=== PATIENT | female | born 1955 | race Caucasian/White ===

== ENCOUNTER 2019-09-01 18:35 | Emergency (ER) | payer OTHER, SELFPAY ==
[2019-09-01 18:37] VITALS: BP 123/85; PULSE 81; PULSE 83; RESP 17; TEMP 36.4; O2SAT 95; BMI 42.1
--- NOTE | 2019-09-01 18:50 | RAD_ITS ---
STUDY: X-RAY CHEST REASON FOR EXAM: Female, 63 years old. nausea vomiting weakness. been in contact with covid TECHNIQUE: Portable chest COMPARISON: 10/14/2015 FINDINGS: There are mild bibasilar pulmonary opacities. There is no demonstrated pleural abnormality. There is stable cardiomegaly. Normal mediastinum and ronaldo. Normal visualized pulmonary arteries. Normal visualized aortic arch and descending thoracic aorta. There is mild osteopenia. There is a right humeral angela. There is no demonstrated abnormality of the visualized soft tissue structures of the upper abdomen. RAD/Chest 1 View (Portable) IMPRESSION: Stable cardiomegaly Mild bibasilar pulmonary opacities, pulmonary infiltrates and/or subsegmental atelectasis. Atypical viral pneumonia cannot be excluded Electronically Signed: Jayesh Landry, at 20:00 EDT Tel , Service support ,
--- NOTE | 2019-09-01 18:51 | EKG12_ITS ---
Test Reason : CP Blood Pressure : / mmHG Vent. Rate : 079 BPM Atrial Rate : 065 BPM P-R Int : 000 ms QRS Dur : 098 ms QT Int : 446 ms P-R-T Axes : 000 100 070 degrees QTc Int : 511 ms Atrial fibrillation Rightward axis Incomplete right bundle branch block Prolonged QT Abnormal ECG Confirmed by CEASAR DOWNS ([id number]), purchasing expeditor ZULY CATALAN ([id number]) on 09/09/2019 10:32:52 AM Referred By: LAMBERTO Confirmed By:CEASAR DOWNS
--- NOTE | 2019-09-01 19:00 | ED.DCSUM_ITS ---
History of Present Illness Chief Complaint: Nausea/Vomiting Detail of Chief Complaint: Shortness of breath, congestion, dyspnea on exertion, slight cough Informant: Patient Onset: Days - 2 to 3 days ago Context: Sudden Onset Timing: Continuous Quality: Respiratory and GI Location: Upper respiratory Current Severity: Mild Maximum Severity: Moderate Worsened by: Activity Relieved by: Nothing Associated Symptoms: Lightheadedness Narrative: Patient is a morbidly obese 63-year-old woman with history of hypertension, dyslipidemia, congestive heart failure who presents with respiratory symptoms started 2 to 3 days ago. 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 She presents because of concern COVID infection. She complains of intermittent slight headache. She denies photophobia, eye pain, auditory symptoms, neck pain or neck stiffness. She denies loss of smell or taste. She denies sore throat. She denies new chest pain. She is int ermittent chest pain for 6 months. Patient reports nausea with vomiting. She has not noted blood or coffee grounds in her emesis. She denies black or maroon-colored stool. She does complain of aches. She denies joint pain or joint swelling. She denies urinary symptoms. Prior similar symptoms: No Recent Illness/Hospitalization: No - Past Medical History (1) Gastroesophageal reflux disease Status: Chronic (2) Acute congestive heart failure Status: Acute (3) Dyslipidemia Status: Chronic (4) Morbid obesity Status: Chronic (5) Heavy cigarette smoker (20-39 per day) Status: Chronic (6) Atrial flutter with rapid ventricular response Status: Acute (7) Hypertension Status: Chronic (8) Diverticulosis Status: Chronic Past Medical History - Allergies and Home Meds Allergies/Adverse Reactions: Allergies No Known Allergies Allergy (Verified 09/01/19 18:36) Primary Care Physician: Isabela Marquez DO [Primary Care Provider] - Prior records reviewed: Yes Surgical History: noncontributory, - - Tubal ligation, excision of colon polyps, carpal tunnel surgery on the right upper extremity, surgery to repair a fracture of the right arm. Lives: Spouse/ Significant Other Smoking Status: Current every day smoker Alcohol: Rare Drugs: None - Family History Maternal Family History: Reports: Heart Disease Paternal Family History: Reports: Heart Disease Sibling Family History: Reports: Heart Disease - She has 2 younger sisters who both had coronary artery bypass grafting in their 40s. Review of Systems General: Reports: Fever, Malaise, Subjective, Sweats. Denies: Chills, Weight loss Eyes: Denies: Visual changes - bilaterally, Blurred Vision - bilaterally ENT: Reports: Rhinorrhea. Denies: Bilateral ear pain, Sore throat Cardiovascular: Reports: Chest pain. Denies: Palpitations Respiratory: Reports: Dyspnea, Cough, Dyspnea on exertion. Denies: Sputum, Orthopnea, Paroxysmal nocturnal dyspnea Gastrointestinal: Reports: Nausea, Vomiting. Denies: Abdominal pain, Diarrhea, Constipation, Melena, Hematochezia, -, - Genitourinary: Denies: Dysuria, Hematuria, Frequency Musculoskeletal: Reports: Myalgias. Denies: Arthralgias, Neck pain, Back pain, Swelling, Extremity Pain, -, - Skin: Denies: Rash, Wounds Neurological: Reports: Headache, Weakness. Denies: Parasthesia, Numbness Psych: Denies: Depression, Anxiety Hematologic: Denies: Easy bruising, Easy bleeding Physical Exam Vital Signs/Narrative: Vital Signs Temp Pulse Resp BP Pulse Ox 09/01/19 18:37 97.6 F L 83 17 123/85 H 95 Inital Vital Signs reviewed: Yes General: Well nourished, Well developed, Obese, No Acute Distress, - - Does appear ill and pale. Head: Normocephalic, Atraumatic Eyes: Perrl, EOMI. Negative for: Pale conjunctiva, Scleral icterus ENT: Moist mucous membranes, TM's clear, Nasal congestion. Negative for: No rhinorrhea Neck: Supple, Nontender, No lymphadenopathy, No JVD Cardiovascular: Regular rate, Regular rhythm, No murmurs Respiratory: No distress, Rales. Negative for: Chest nontender Abdomen: Soft, Nontender, Nondistended, Normal bowel sounds Rectal: Deferred Back: Nontender, Normal Inspection. Negative for: CVA tenderness, Spinal tenderness Extremities: Nontender, No edema Skin: No rash, Diaphoresis, No Trauma, Pallor. Negative for: Cyanosis, Jaundice Neurological: Alert, Oriented x3, Cranial nerves II-XII grossly intact, Normal Strength, Normal Sensation Psychological: Normal affect, Normal Mood Diagnostic/Tx/Re-eval Chest X-Ray - ED: 1 View, Read by ED Physician, Normal, Heart, Bony Structures, - - Question of chronic changes versus limited inspiratory volume. Radiologist report was noted and raises concern for bilateral opacifications which would increase likelihood for COVID-19 infection. Impressions Chest X-Ray 09/01/19 18:50 IMPRESSION: Stable cardiomegaly Mild bibasilar pulmonary opacities, pulmonary infiltrates and/or subsegmental atelectasis. Atypical viral pneumonia cannot be excluded Electronically Signed: Jayesh Landry, at 20:00 EDT Tel , Service support , 09/01/19 18:50 Chest 1 View (Portable) [RAD] Stat Laboratory Results 09/01/19 09/01/19 19:25 19:25 WBC 13.3 H RBC 6.01 H Hgb 17.2 H Hct 53.8 H MCV 89.5 MCH 28.6 MCHC 32.0 RDW Std Deviation 60.0 H RDW Coeff of Nhung 19.6 H Plt Count 234 MPV 11.8 Immature Gran % (Auto) 0.500 Neut % (Auto) 74.3 H Lymph % (Auto) 17.4 L Col[place]itt % (Auto) 5.2 Eos % (Auto) 1.5 Baso % (Auto) 1.1 H Absolute Neuts (auto) 9.9 H Absolute Lymphs (auto) 2.31 Nucleated RBC % 0 Sodium 138 Potassium 4.1 Chloride 105 Carbon Dioxide 26.0 Anion Gap 7 BUN 27 H Creatinine 1.22 H Estim Creat Clear Calc 38.30 Est GFR (MDRD) Af Amer 58 L Est GFR (MDRD) Non-Af 48 L BUN/Creatinine Ratio 22.1 H Glucose 180 H Calcium 9.2 - Rhythm Strip Rhythm Strip: A-fib Rate: 82 Ectopy: None - EKG Initial EKG Interpretation: Atrial Fibrillation - Ventricular rate 79. QRS duration 98 ms. QT duration 446 ms. [place] to the right. There is a nonspecific intraventricular conduction delay noted. There is prolongation of the QT interval. - Medical Decision Making In light of exposure to cope with patient's and respiratory symptoms the [facility] infectious line was contacted. She was approved for COVID testing. EKG was obtained per nurse protocol and reveals atrial fibrillation with a ventricular rate of 79. Will obtain chest x-ray because of abnormal respiratory findings as well as baseline blood work. Differential includes viral upper restaurant infection, pneumonia, congestive heart failure, COVID infection Patient does have elevated white count. She is not hypoxic. She is not tachycardic. Will treat with doxycycline for community-acquired pneumonia. She was discharged appropriate home-going instructions for COVID infection. ED Disposition - Plan for ED Patient: Disposition: Home or Assisted Living Diagnosis: Suspected 2019 novel coronavirus infection, Bilateral pulmonary infiltrates on chest x-ray, Atypical chest pain Instructions: ED PNEUMONITIS Adult, ED Chest Pain Atypical Unkn Cause Prescriptions: Doxycycline 100 mg PO BID #14 cap Transmission Status: Pending to [id number] Referrals: Isabela Marquez DO [Primary Care Provider] - 1 Week if not improving
--- NOTE | 2019-09-01 19:00 | ED.RN ---
dr [facility] to [employer] test pt
[2019-09-01 19:45] LABS: Absolute Lymphocyte Count 2.31 X10^3/uL (0.83-4.51); Absolute Neutrophil Count 9.9 X10^3/uL (2.0-7.7); Basophil# 0.15 X10^3/uL; Basophil% 1.1 % (0-1); Eosinophils% 1.5 % (0-5); Hematocrit 53.8 % (37-47); Hemoglobin 17.2 g/dL (12.0-15.0); Lymphocyte # 2.31 X10^3/ul (4.0); Lymphocyte % 17.4 % (19-41); Mean Corpuscular Hgb 28.6 pg (27.0-32.0); Mean Corpuscular Volume 89.5 fL (81-99); Mean Platelet Vol. 11.8 fl (6.2-12.0); Monocyte# 0.69 X10^3/uL; Monocyte% 5.2 % (0-10); NRBC Flagged by Analyzer 0 % (0-5); Neutrophil # 9.85 X10^3/uL (2.7-7.7); Neutrophil % 74.3 % (47-70); Platelet Count 234 K/mm3 (150-450); RBC Distribution Width CV 19.6 % (11.6-14.6); Red Blood Count 6.01 M/mm3 (4.2-5.4); White Blood Count 13.3 K/mm3 (4.4-11.0)
[2019-09-01 19:49] LABS: Anion Gap 7 (5-15); BUN 27 mg/dL (7-18); BUN/Creat Ratio 22.1 RATIO (10-20); Calcium,Total 9.2 mg/dL (8.5-10.1); Chloride 105 mmol/L (98-107); Creatinine, Serum 1.22 mg/dL (0.55-1.02); EST Glomerular Filtration Rate 48 mL/min (>60); Est Glom Filt Rate - Afr Amer 58 mL/min (>60); Glucose 180 mg/dL (74-106); Potassium 4.1 mmol/L (3.5-5.1); Sodium Level 138 mmol/L (136-145)
[2019-09-01 21:43] VITALS: BP 104/54; PULSE 89; RESP 19; O2SAT 97
[2019-09-01] MEDS: Doxycycline 100 MG CAPSULE PO (21:43)
--- NOTE | 2019-09-03 19:02 | ED.RN ---
pt made aware of negative covid test.
== END 2019-09-01 21:53 | disposition home or self-care (01) ==
LOC: ED 20:58
PROVIDERS: Emergency Provider Emergency Medicine; PCP Family Medicine
DX: R07.89 Other chest pain (principal); R91.8 Other nonspecific abnormal finding of lung field; I48.91 Unspecified atrial fibrillation; K21.9 Gastro-esophageal reflux disease without esophagitis; E78.5 Hyperlipidemia, unspecified; E66.01 Morbid (severe) obesity due to excess calories; I11.0 Hypertensive heart disease with heart failure; I50.9 Heart failure, unspecified; I48.92 Unspecified atrial flutter; K57.90 Diverticulosis of intestine, part unspecified, without perforation or abscess without bleeding; Z82.49 Family history of ischemic heart disease and other diseases of the circulatory system; F17.210 Nicotine dependence, cigarettes, uncomplicated
CPT/HCPCS: 71045; 80048; 85025; 87635; 93005; 99285; U0004

== ENCOUNTER → 2021-04-01 06:08 | Outpatient (CLI) | payer OTHER, SELFPAY ==
--- NOTE | 2021-04-01 06:15 | ECHOCS_ITS ---
Reason For Study: AFIB/FLUTTER Procedure This was a 2D Doppler, Color Flow transthoracic echocardiogram. The study was technically difficult. Due to body habitus, poor parasternal accoustic window. Contrast injection was performed. Left Ventricle Normal LV size. Left ventricular systolic function is normal. The estimated ejection fraction is 60 %. Stage 2 diastolic dysfunction. No regional wall motion abnormalities noted. Right Ventricle Normal RV size. Normal systolic function. Atria Normal left atrium. Normal right atrium. Mitral Valve Normal mitral valve. Tricuspid Valve Normal tricuspid valve. Mild (1+) tricuspid valve insufficiency. Pulmonary artery systolic pressure is 40 mmHg. Aortic Valve Trisinus/trileaflet aortic valve. Pulmonic Valve The pulmonic valve is not well visualized. Great Vessels Normal aortic root. The pulmonary is not well visualized. Normal inferior vena cava. Pericardium/Pleural No pericardial effusion. Medication Diluted definity 3.0ml given slow IV push to enhance endocardial definition. MMode/2D Measurements & Calculations LVIDd: 5.3 cm IVSd: 1.00 cm Ao root diam: 2.3 cm LVIDs: 3.6 cm LVPWd: 1.0 cm RVDd: 3.1 cm FS: 32.1 % LAV(MOD-bp): 84.4 ml LVAd ap4: 25.4 cm2 LVAd ap2: 15.3 cm2 LAV(MOD-bp) Indexed: 40.5 ml/m2 LVLd ap4: 7.2 cm LVLd ap2: 6.0 cm LAV(MOD-sp2): 79.5 ml EDV(MOD-sp4): 75.4 ml EDV(MOD-sp2): 31.8 ml LAV(MOD-sp4): 90.5 ml EDV(sp4-el): 76.0 ml EDV(sp2-el): 33.4 ml LVAs ap4: 15.3 cm2 LVAs ap2: 9.4 cm2 LVLs ap4: 6.4 cm LVLs ap2: 5.3 cm ESV(MOD-sp4): 31.4 ml ESV(MOD-sp2): 13.6 ml ESV(sp4-el): 31.1 ml ESV(sp2-el): 14.2 ml EF(MOD-sp4): 58.3 % EF(MOD-sp2): 57.3 % EF(sp4-el): 59.1 % SV(MOD-sp4): 44.0 ml SV(MOD-sp2): 18.2 ml SV(sp4-el): 44.9 ml LA A4 area: 26.7 cm2 LA dimension(2D): 4.6 cm RA A4 area: 22.6 cm2 Time Measurements MV dec time: 0.21 sec Doppler Measurements & Calculations MV E max kathi: 192.3 cm/sec Ao V2 max: 172.6 cm/sec LV V1 max: 93.9 cm/sec MV A max kathi: 121.6 cm/sec Ao max P.9 mmHg LV V1 max P.5 mmHg MV E/A: 1.6 PA V2 max: 58.7 cm/sec TR max kathi: 298.8 cm/sec TR max P.7 mmHg ECHO/Echo Complete W/ Contrast Interpretation Summary Normal LV size. Left ventricular systolic function is normal. The estimated ejection fraction is 60 %. Stage 2 diastolic dysfunction. Contrast injection was performed. Ordering Physician: Desirae^Marcelo^^^ Referring Physician: Selina Bowser Performed By: Maricruz Edmond, DAINA, RVT
--- NOTE | 2021-04-01 17:26 | STRESSREP_ITS ---
Stress Test Report Myocardial perfusion stress test. 65-year-old lady with a history of atrial flutter. Stress protocol: Resting EKG demonstrates atrial flutter with a rate of 115 bpm resting blood pressure is 130/76 mmHg. Incomplete right bundle branch block is noted. 0.4 mg of regadenoson was infused per usual protocol followed by rapid venous saline flush injection continuous EKG monitoring was performed. The maximum heart rate attained was 131 bpm which was 83% of maximum predicted heart rate the maximum workload was 1 metabolic equivalent. At rest there were no ST or T wave changes noted to suggest abnormal flow reserve. Patient remained in atrial flutter throughout the recording. At peak infusion nonspecific ST changes were noted. No clinical angina was noted. The resting blood pressure was 130/76 mmHg. Myocardial perfusion protocol. 14.8 mCi of technetium 99m sestamibi was injected at rest. 0.4 mg of regadenoson was infused per usual protocol. At peak infusion 44.6 mCi of technetium 99m sestamibi was injected stress images were obtained stress and rest images were reconstructed and compared in the short axis vertical long hor izontal long axis. Gated images were also obtained per Perfusion SPECT analysis: Review of the stress images demonstrate normal uptake of tracer noted in all areas of the myocardium. The resting images demonstrate normal uptake of tracer noted in all areas of the myocardium. No areas of reversibility are noted to suggest ischemia. Gated SPECT analysis: The gated ejection fraction is 64%. Conclusion: Normal pharmacologic myocardial perfusion stress test. Atrial flutter noted. Preserved ejection fraction.
== END ==
LOC: CVS 06:11
PROVIDERS: PCP Internal Medicine; Referring Provider Internal Medicine Cardiovascular Disease; Visit Provider Internal Medicine Cardiovascular Disease
DX: I48.92 Unspecified atrial flutter (principal)
CPT/HCPCS: 78452; 93017; 93306; A9500; Q9957; A4216; C8929; J2785; J3490

== ENCOUNTER 2021-04-15 10:34 | Day surgery (SDC) | payer OTHER, SELFPAY ==
[2021-04-12 07:56] VITALS: BMI 44.6
--- NOTE | 2021-04-12 08:45 | RAD_ITS ---
STUDY: X-RAY CHEST REASON FOR EXAM: Female, 65 years old. dyspnea TECHNIQUE: PA and lateral views of the chest. COMPARISON: 09/01/2019 FINDINGS: Coarsened interstitial lung markings more pronounced since the prior study with mild thickening of the right minor fissure. Slight amount of subpleural reticulation along the lateral lung base may represent Tyree''s B lines. No dense airspace consolidation. There is no demonstrated pleural abnormality. There is mild cardiac enlargement. Normal mediastinum and ronaldo. Normal visualized pulmonary arteries. There is atherosclerotic calcification of the aortic arch with tortuosity. No acute bony process. There is no demonstrated abnormality of the visualized soft tissue structures of the upper abdomen. RAD/Chest PA and Lateral IMPRESSION: 1. Unfavorable change. Mild interstitial edema and trace pleural thickening. Electronically Signed: Derek Enriquez MD (Brooks) at 22:30 EST , Service support ,
[2021-04-12 08:52] LABS: Absolute Lymphocyte Count 3.19 X10^3/uL (0.83-4.51); Absolute Neutrophil Count 7.9 X10^3/uL (2.0-7.7); Basophil# 0.11 X10^3/uL; Basophil% 0.9 % (0-1); Eosinophil# 0.26 X10^3/uL; Eosinophils% 2.1 % (0-5); Hematocrit 49.9 % (37-47); Hemoglobin 15.9 g/dL (12.0-15.0); Lymphocyte # 3.19 X10^3/ul (0.83-4.51); Lymphocyte % 25.4 % (19-41); Mean Corp Hgb Conc 31.9 g/dL (32-36); Mean Corpuscular Hgb 28.4 pg (27.0-32.0); Mean Corpuscular Volume 89.1 fL (81-99); Mean Platelet Vol. 12.2 fl (6.2-12.0); Monocyte# 1.06 X10^3/uL; Monocyte% 8.4 % (0-10); NRBC Flagged by Analyzer 0 % (0-5); Neutrophil # 7.89 X10^3/uL (2.7-7.7); Neutrophil % 62.6 % (47-70); Platelet Count 210 K/mm3 (150-450); RBC Distribution Width CV 16.8 % (11.6-14.6); RBC Distribution Width SD 53.5 fl (35.1-43.9); White Blood Count 12.6 K/mm3 (4.4-11.0)
[2021-04-12 09:14] LABS: Hemoglobin A1c 7.4 % (3.8-5.6)
[2021-04-12 09:38] LABS: Anion Gap 8 (5-15); BUN 24 mg/dL (7-18); BUN/Creat Ratio 25.6 RATIO (10-20); Calcium,Total 9.4 mg/dL (8.5-10.1); Chloride 103 mmol/L (98-107); Creatinine, Serum 0.94 mg/dL (0.55-1.02); EST Glomerular Filtration Rate 64 mL/min (>60); Est Glom Filt Rate - Afr Amer 77 mL/min (>60); Estimated Creatinine Clearance 48.45 ml/min; Glucose 147 mg/dL (74-106); Sodium Level 138 mmol/L (136-145)
[2021-04-12 09:49] LABS: Vitamin D,25 Hydroxy 32.1 ng/mL
[2021-04-12 10:32] LABS: Cholesterol 161 mg/dL (200); High Density Lipoprotein 37 mg/dL; Thyroid Stim Hormone (TSH) 1.97 uIU/mL (0.358-3.74); Triglycerides 243 mg/dL; Very Low Density Lipoprotein 49 mg/dL (5-40)
--- NOTE | 2021-04-15 12:20 | PCM.OP.BLANK ---
Problems Associated Problem List Diagnoses (1) Atrial flutter, chronic: Operative Report Date of Procedure: 04/15/21 DC cardioversion. 65-year-old lady with a history of recurrent atrial flutter. Patient presents for DC cardioversion. Patient has been on anticoagulation for at least 3 weeks. She was seen by Dr. Aaron of the critical care division and informed consent was obtained. Anterior-posterior pads were applied. The patient was administered 50 mg of intravenous propofol and 200 J of synchronized DC cardioversion energy were applied with prompt reversal to sinus rhythm. Patient tolerated the procedure well. Conclusion: Successful DC cardioversion from atrial flutter to sinus rhythm. Would follow office protocol. If patient reverts to atrial flutter would consider atrial flutter ablation.
--- NOTE | 2021-04-15 13:17 | PRO.PCM_ITS ---
Assessment & Plan Assessment/Plan (1) Persistent atrial fibrillation: (2) Chronic diastolic CHF (congestive heart failure): (3) Morbid obesity: (4) Tobacco dependence: Procedure Report Date of Procedure: 04/15/21 CONSCIOUS SEDATION REPORT BRIEF HISTORY OF PRESENT ILLNESS: The patient is a 65-year-old female who presented to [facility] for an elective outpatient cardioversion due to underlying atrial fibrillation. The patient reports no PO intake since midnight, but is currently therapeutic on anticoagulation. The patient does have a history of suspected obstructive sleep apnea, but is not on therapy. The patient reports a history of smoking and is suspected of having COPD. The patient denies any recent constitutional symptoms such as fevers, chills, nausea or vomiting. The patient denies previous applicable anesthetic complications. Patient's last ejection fraction was 60%. Patient did take anticoagulation on the day of the procedure. PHYSICAL EXAMINATION: VITAL SIGNS: Reviewed and were acceptable. GENERAL: The patient is a female, in no apparent distress, speaking in full sentences. HEENT: Normocephalic, atraumatic. Mucous membranes are moist and pink. Good mouth opening noted. Trachea is midline. Good neck mobility. MP IV CHEST: S1, S2 irregularly irregular. No murmurs, rubs or gallops were noted. LUNGS: Clear to auscultation bilaterally without appreciable wheezes, rales or rhonchi. ABDOMEN: Soft, nontender, nondistended. Positive bowel sounds. EXTREMITIES: There is no clubbing, cyanosis or edema. ASA Class: II DESCRIPTION OF PROCEDURE: After confirmation of informed consent, the patient's anesthesia plan was reviewed in detail. Propofol was chosen. Risks and benefits were reviewed and the patient agreed to proceed. At 12:16 PM, the patient was given 40 mg of propofol. The patient achieved an appropriate level of sedation and received 1 attempt synchronized cardioversion, at [address] Merrill at the bedside. This was successful in achieving normal sinus rhythm. The patient was monitored until 12:30 PM, at which time the patient reached their baseline mental status and function. The patient tolerated the procedure well. COMPLICATIONS: None ESTIMATED BLOOD LOSS: None RECOMMENDATIONS: Okay to recover in usual fashion. Procedures Pulmonary 9xxxx: [id number] Con Sedation
== END 2021-04-15 13:28 | disposition home or self-care (01) ==
LOC: CLSP 10:35
PROVIDERS: PCP Internal Medicine; Referring Provider Internal Medicine Cardiovascular Disease; Visit Provider Internal Medicine Cardiovascular Disease
DX: I48.19 Other persistent atrial fibrillation (principal); I11.0 Hypertensive heart disease with heart failure; I50.32 Chronic diastolic (congestive) heart failure; E66.01 Morbid (severe) obesity due to excess calories; I48.92 Unspecified atrial flutter; R53.83 Other fatigue; I48.0 Paroxysmal atrial fibrillation; E55.9 Vitamin D deficiency, unspecified; Z79.899 Other long term (current) drug therapy; Z87.891 Personal history of nicotine dependence
CPT/HCPCS: 36415; 71046; 80048; 80061; 82306; 83036; 84443; 85025; 92960; 93005; 99152; J7040

== ENCOUNTER → 2021-04-30 15:42 | Outpatient (CLI) | payer OTHER, SELFPAY ==
[2021-04-30 15:52] LABS: Bacteria 0 SEEN /hpf (None Seen); Mucous, Urine 0 SEEN /hpf (<or=2+); White Blood Cells 0 SEEN /hpf (0-5)
[2021-04-30 16:21] LABS: Color, Urine Yellow (Yellow); Glucose, Dipstick Normal (Normal); Ketone-Dipstick Negative (Negative); Leukocyte Esterase-Dipstick 25 /ul (Negative); Nitrite-Dipstick Negative (Negative); Occult Blood-Urine 250 /ul (Negative); Protein-Dipstick 15 mg/dl (Negative); Specific Gravity, Urine 1.015 (1.002-1.030); Urine Bilirubin Dipstick Negative (Negative); Urine Clarity Clear (Clear); Urine Urobilinogen Normal (Normal)
[2021-04-30 16:34] LABS: Calcium Oxalate Crystals Ur RARE /hpf (<or=2+); Red Blood Cells-Urine 0-5 SEEN /hpf (0-5); Squamous Epithelial Cells - UA 0-5 SEEN /hpf (5-10)
== END ==
PROVIDERS: PCP Internal Medicine; Referring Provider Physician Assistant Medical; Visit Provider Physician Assistant Medical
DX: R31.9 Hematuria, unspecified (principal)
CPT/HCPCS: 81001; 87086; 87088

== ENCOUNTER → 2021-05-02 13:32 | Outpatient (CLI) | payer OTHER, SELFPAY | PROVIDERS: PCP Internal Medicine; Referring Provider Internal Medicine; Visit Provider Internal Medicine | DX: R31.9 Hematuria, unspecified (principal); N39.0 Urinary tract infection, site not specified | CPT/HCPCS: 87086; 87088 ==

== ENCOUNTER 2021-05-13 13:00 | Outpatient (CLI) | payer MEDICAID, SELFPAY ==
--- NOTE | 2021-05-13 13:02 | ART_ITS ---
Reason For Study: PAD Procedure A bilateral lower extremity continuous wave Doppler with analog waveform analysis and ankle brachial indexes. Left Segmental Pressures Left brachial= 130mmHg. Left posterior tibial artery = 128mmHg. Left dorsalis pedis artery = 112mmHg. The left dorsalis pedis waveforms are triphasic. The left posterior tibial artery waveforms are triphasic. Right Segmental Pressures Right brachial= 138mmHg. Right posterior tibial artery = 126mmHg. Right dorsalis pedis artery = 113mmHg. The right dorsalis pedis waveforms are triphasic. The right posterior tibial artery waveforms are triphasic. Indices The right ankle brachial index by the dorsalis pedis is 0.82. The right ankle brachial index by the posterior tibial artery is 0.91. The left ankle brachial index by the dorsalis pedis is 0.81. The left ankle brachial index by the posterior tibial artery is 0.93. VL/Ankle Brachial Index Interpretation Summary Mildly abnormal bilateral extremity ankle-brachial indices as noted consistent with moderate to moderately severe arterial occlusive disease bilateral lower extremities. Triphasic bilateral posterior tibial and dorsalis pedis Doppler waveforms sugge stive more mild degree of occlusive disease bilaterally. Digital volume pulse recordings are maintained bilaterally Ordering Physician: Selina Bowser Referring Physician: Selina Bowser Performed By: Coco Urbina RVT
--- NOTE | 2021-05-13 13:02 | VDLE_ITS ---
Reason For Study: Swelling RIGHT LEFT CFV is compressible, spontaneous, phasic, GSV is normal. competent and demonstrates normal CFV is compressible, spontaneous, phasic, augmentation. competent, and demonstrates normal Procedure augmentation. This is a venous duplex using B-mode, color FV is compressible, spontaneous, phasic, flow and spectral Doppler. competent and demonstrates normal Exam performed in department. augmentation. A preliminary report was called and/or faxed POP V is compressible, spontaneous, phasic, to [place]. competent and demonstrates normal augmentation. T/P Trunk is compressible. PTV is compressible. LT PerV is compressible. VL/Venous Duplex US, Unilateral Interpretation Summary There is no evidence of left lower extremity deep vein thrombosis. Left great s aphenous vein appears patent and compressible segmentally. Normal flow patterns right common femoral vein. Ordering Physician: Selina Bowser Referring Physician: Selina Bowser Performed By: Coco Urbina RVT
== END 2021-05-13 23:59 | disposition home or self-care (01) ==
PROVIDERS: PCP Internal Medicine; Referring Provider Internal Medicine; Visit Provider Internal Medicine
DX: M79.89 Other specified soft tissue disorders (principal); R09.89 Other specified symptoms and signs involving the circulatory and respiratory systems
CPT/HCPCS: 93922; 93971

== ENCOUNTER 2021-05-14 11:53 | Outpatient (CLI) | payer MEDICAID, SELFPAY ==
--- NOTE | 2021-05-14 11:59 | US_ITS ---
STUDY: RENAL ULTRASOUND - COMPLETE REASON FOR EXAM: Female, 65 years old. Hematuria -- BILAT FLANK PAIN -- HX OF NEPHROLITHIASIS TECHNIQUE: Ultrasound evaluation of the kidneys was performed with real-time and static suh-scale imaging. COMPARISON: None. FINDINGS: RIGHT KIDNEY: Normal location of the right kidney, which is normal in size. The right kidney measures 10.9 cm x 4.4 cm x 3.7 cm. There is diffuse thinning of the renal cortex. The renal cortex measures 0.9 cm. There is a 1.8 cm x 1.3 cm x 1.2 cm renal cyst. There are 2, 4 mm nonobstructive intrarenal calculi. There is no right hydronephrosis. DISTAL RIGHT URETER: There is non-visualization of the distal right ureter. There is no demonstrated right ureterovesical junction calculus. There is a visualized right ureteral jet. LEFT KIDNEY: Normal location of the left kidney, which is normal in size. The left kidney measures 12 cm x 6.5 cm x 6.1 cm. There is a normal cortex of the left kidney. The renal cortex measures 1.0 cm. There is a 1.7 cm x 1.3 cm x 1.2 cm left renal cyst. There is a 1 cm renal calculus. There is no left hydronephrosis. DISTAL LEFT URETER: There is non-visualization of the distal left ureter. There is no demonstrated left ureterovesical junction calculus. There is a visualized left ureteral jet. BLADDER: The distended urinary bladder has a volume of 387 ml. There is a normal wall thickness of the distended urinary bladder. There is no demonstrated mass within the urinary bladder. There are no demonstrated bladder calculi. US/Kidney and Bladder IMPRESSION: Small bilateral renal cysts. Small nonobstructing bilateral intrarenal calculi. Electronically Signed: Eliseo Taveras MD at 13:33 EST , Service support ,
== END 2021-05-14 23:59 | disposition short-term general hospital (02) ==
LOC: US 11:56
PROVIDERS: PCP Internal Medicine; Referring Provider Internal Medicine; Visit Provider Internal Medicine
DX: R31.9 Hematuria, unspecified (principal); N39.0 Urinary tract infection, site not specified; Z87.442 Personal history of urinary calculi
CPT/HCPCS: 76770

== ENCOUNTER → 2022-01-08 | Outpatient (CLI) | payer MEDICAID, SELFPAY ==
[2022-01-08 17:27] LABS: Insulin 13.4 mU/L (2.6-37.6)
== END | disposition home or self-care (01) ==
LOC: LAB 16:12
PROVIDERS: PCP Internal Medicine; Referring Provider Internal Medicine; Visit Provider Internal Medicine
DX: R73.9 Hyperglycemia, unspecified (principal)
CPT/HCPCS: 36415; 83525

== ENCOUNTER → 2022-04-16 | Outpatient (CLI) | payer MEDICAID, SELFPAY ==
[2022-04-16 15:25] LABS: Absolute Lymphocyte Count 3.83 X10^3/uL (0.83-4.51); Absolute Neutrophil Count 8.6 X10^3/uL (2.0-7.7); Basophil% 0.7 % (0-1); Eosinophil# 0.25 X10^3/uL; Eosinophils% 1.8 % (0-5); Hematocrit 50.8 % (37-47); Hemoglobin 16.4 g/dL (12.0-15.0); Lymphocyte # 3.83 X10^3/ul (0.83-4.51); Lymphocyte % 27.4 % (19-41); Mean Corp Hgb Conc 32.3 g/dL (32-36); Mean Corpuscular Hgb 28.7 pg (27.0-32.0); Mean Platelet Vol. 13.1 fl (6.2-12.0); Monocyte# 1.12 X10^3/uL; NRBC Flagged by Analyzer 0 % (0-5); Neutrophil # 8.61 X10^3/uL (2.7-7.7); Neutrophil % 61.6 % (47-70); Platelet Count 205 K/mm3 (150-450); RBC Distribution Width CV 15.5 % (11.6-14.6); RBC Distribution Width SD 50.5 fl (35.1-43.9); Red Blood Count 5.71 M/mm3 (4.2-5.4)
[2022-04-16 15:46] LABS: Hemoglobin A1c 6.6 % (3.8-5.6)
[2022-04-16 16:12] LABS: Insulin 16.5 mU/L (2.6-37.6); Vitamin D,25 Hydroxy 22.5 ng/mL
[2022-04-16 16:22] LABS: ALB/GLOB Ratio 0.9 RATIO (0.9-2.4); AST(SGOT) 18 U/L (15-37); Alanine Aminotransfer ALT/SGPT 44 U/L (13-56); Alkaline Phosphatase 74 U/L (45-117); Anion Gap 7 (5-15); BUN 21 mg/dL (7-18); BUN/Creat Ratio 22.3 RATIO (10-20); Calcium,Total 9.5 mg/dL (8.5-10.1); Chloride 105 mmol/L (98-107); Cholesterol 316 mg/dL (200); Creatinine, Serum 0.94 mg/dL (0.55-1.02); EST Glomerular Filtration Rate 64 mL/min (>60); Est Glom Filt Rate - Afr Amer 77 mL/min (>60); Globulin 4.3 g/dL (2.2-4.2); Glucose 125 mg/dL (74-106); High Density Lipoprotein 43 mg/dL; Potassium 3.6 mmol/L (3.5-5.1); Protein, Total 8.3 g/dL (6.4-8.2); Sodium Level 139 mmol/L (136-145); Thyroid Stim Hormone (TSH) 1.03 uIU/mL (0.358-3.74); Triglycerides 499 mg/dL
[2022-04-19 08:08] LABS: Erythropoietin 11.4 mIU/mL (2.6-18.5)
== END | disposition home or self-care (01) ==
LOC: LAB 14:59
PROVIDERS: PCP Internal Medicine; Visit Provider Internal Medicine
DX: I10 Essential (primary) hypertension (principal); E66.01 Morbid (severe) obesity due to excess calories; D58.2 Other hemoglobinopathies; E55.9 Vitamin D deficiency, unspecified; E78.5 Hyperlipidemia, unspecified; R73.9 Hyperglycemia, unspecified; F17.200 Nicotine dependence, unspecified, uncomplicated
CPT/HCPCS: 36415; 80053; 80061; 82306; 82668; 83036; 83525; 84443; 85025

== ENCOUNTER → 2022-05-15 | Outpatient (CLI) | payer MEDICAID, SELFPAY ==
[2022-05-15 10:26] LABS: Carboxyhemoglobin Frac (CO) 12.6 % (0.0-1.5)
== END | disposition home or self-care (01) ==
LOC: LAB 09:11
PROVIDERS: PCP Internal Medicine; Referring Provider Internal Medicine; Visit Provider Internal Medicine
DX: D58.2 Other hemoglobinopathies (principal)
CPT/HCPCS: 36415; 81270; 82375

== ENCOUNTER → 2022-06-02 | Outpatient (CLI) | payer MEDICAID, SELFPAY ==
--- NOTE | 2022-06-02 13:50 | CT_ITS ---
STUDY: LOW DOSE CT LUNG CANCER SCREENING REASON FOR EXAM: Female, 66 years old. and gt;60 pack/year smoker, over 50, active smoker RADIATION DOSAGE (If Supplied By Facility): CTDIvol = ( 4.02 ) mGy, DLP = ( 123.86 ) mGycm TECHNIQUE: No contrast was administered. Low dose technique was utilized (average mAS-38 and kVp 120). 1.25 mm axial source images with a slice interval of 1.25-mm were reconstructed in lung windows. 2.5 mm axial source images with a slice interval of 2.5-mm were reconstructed in lung windows. 5.0 mm axial source images with a slice interval of 5.0-mm were reconstructed in soft tissue windows. COMPARISON: None. NODULES: 2 mm calcified granuloma in the peripheral aspect of the right upper lobe. There is a 5.3 mm noncalcified nodule in the posterior medial aspect of the right upper lobe as seen on axial image #36. Tiny calcified granuloma in the peripheral lateral aspect of the left upper lobe as seen on axial image #56. Scattered calcified granulomas in the right middle lobe and right lower lobe. 4.7 mm well-defined nodule in the peripheral lateral aspect of the right lower lobe as seen on axial image #127. Emphysema: Mild emphysematous changes. Endobronchial lesion: None Aorta: Atherosclerotic calcific plaques. CORONARY ARTERIES: Coronary artery calcification is seen. Heart: Unremarkable Pulmonary artery: Unremarkable Mediastinal nodes: Other chest and abdominal findings: CT/Low Dose CT Lung Screening IMPRESSION: Lung-RADS category 2 - Continue annual screening with LDCT in 12 months. IMPORTANT NOTES FOR USE: ACR Lung-RADS Version 1.1 Assessment Categories Release Date: 2018 Category: Coded 0-4 bases on nodule(s) with highest degree of suspicion. Negative screen is defined as categories 1 and 2; a positive screen is defined as categories 3 and 4. Category 3 and 4A nodules that are unchanged on interval CT should be coded as category 2, and individuals returned to screening in 12 months. Category 4X: Category 3 or 4 nodules with additional imaging findings that increase the suspicion of lung cancer, such as spiculation, GGN that doubles in size in 1 year, enlarged lymph notes, etc. Category Modifiers: S (significant finding unrelated to lung cancer) Electronically Signed: Eliseo Taveras MD at 14:51 EST ,
== END | disposition home or self-care (01) ==
LOC: CT 13:49
PROVIDERS: PCP Internal Medicine; Referring Provider Internal Medicine; Visit Provider Internal Medicine
DX: Z12.2 Encounter for screening for malignant neoplasm of respiratory organs (principal); I70.0 Atherosclerosis of aorta; I25.10 Atherosclerotic heart disease of native coronary artery without angina pectoris; R91.8 Other nonspecific abnormal finding of lung field; F17.200 Nicotine dependence, unspecified, uncomplicated
CPT/HCPCS: 71271

== ENCOUNTER → 2022-10-22 | Outpatient (CLI) | payer MEDICAID, SELFPAY ==
--- NOTE | 2022-10-22 12:40 | RAD_ITS ---
STUDY: X-RAY - LUMBAR SPINE REASON FOR EXAM: Female, 66 years old. Lower back pain. Spinal stenosis. TECHNIQUE: 3 view(s) of the lumbar spine were obtained. COMPARISON: None FINDINGS: Normal lumbar lordosis. There is a mild dextroscoliosis. There is mild anterolisthesis of L4 on L5 and L5 on S1. There is diffuse demineralization with multi-level endplate spondylosis. There is multi-level degenerative disc disease with multi-level disc space narrowing. There is no evidence of acute fracture or loss of vertebral axial height. There is atherosclerotic calcification of the abdominal aorta without a demonstrated aneurysm. There are calcifications in bilateral flanks which may represent renal calculi. RAD/Lumbar Spine 2 or 3 Views IMPRESSION: Degenerative change lumbar spine with mild anterolisthesis at L4-5 and L5-S1. Electronically Signed: Maksim Kearns DO at 23:04 EDT ,
[2022-10-22 13:41] LABS: Absolute Lymphocyte Count 3.67 X10^3/uL (0.83-4.51); Absolute Neutrophil Count 7.2 X10^3/uL (2.0-7.7); Basophil# 0.16 X10^3/uL; Basophil% 1.3 % (0-1); Eosinophil# 0.23 X10^3/uL; Eosinophils% 1.9 % (0-5); Hematocrit 52.2 % (37-47); Hemoglobin 16.8 g/dL (12.0-15.0); Lymphocyte # 3.67 X10^3/ul (0.83-4.51); Lymphocyte % 30.1 % (19-41); Mean Corp Hgb Conc 32.2 g/dL (32-36); Mean Corpuscular Hgb 28.3 pg (27.0-32.0); Mean Platelet Vol. 12.7 fl (6.2-12.0); Monocyte# 0.94 X10^3/uL; Monocyte% 7.7 % (0-10); NRBC Flagged by Analyzer 0 % (0-5); Neutrophil # 7.15 X10^3/uL (2.7-7.7); Neutrophil % 58.6 % (47-70); Platelet Count 246 K/mm3 (150-450); RBC Distribution Width CV 16.6 % (11.6-14.6); RBC Distribution Width SD 51.6 fl (35.1-43.9); Red Blood Count 5.93 M/mm3 (4.2-5.4); White Blood Count 12.2 K/mm3 (4.4-11.0)
[2022-10-22 14:05] LABS: Insulin 21.3 mU/L (2.6-37.6); Vitamin D,25 Hydroxy 31.2 ng/mL
[2022-10-22 14:09] LABS: Hemoglobin A1c 6.1 % (3.8-5.6)
[2022-10-22 14:15] LABS: ALB/GLOB Ratio 0.9 RATIO (0.9-2.4); AST(SGOT) 11 U/L (15-37); Alanine Aminotransfer ALT/SGPT 25 U/L (13-56); Albumin, Serum 3.8 g/dL (3.2-5.0); Alkaline Phosphatase 71 U/L (45-117); Anion Gap 7 (5-15); BUN 26 mg/dL (7-18); BUN/Creat Ratio 26.5 RATIO (10-20); Calcium,Total 9.3 mg/dL (8.5-10.1); Chloride 105 mmol/L (98-107); Cholesterol 296 mg/dL (200); Creatinine, Serum 0.98 mg/dL (0.55-1.02); EST Glomerular Filtration Rate 61 mL/min (>60); Est Glom Filt Rate - Afr Amer 73 mL/min (>60); Globulin 4.3 g/dL (2.2-4.2); Glucose 124 mg/dL (74-106); High Density Lipoprotein 44 mg/dL; Magnesium 2.4 mg/dL (1.6-2.6); Potassium 3.8 mmol/L (3.5-5.1); Protein, Total 8.1 g/dL (6.4-8.2); Sodium Level 138 mmol/L (136-145); Thyroid Stim Hormone (TSH) 1.08 uIU/mL (0.358-3.74); Triglycerides 320 mg/dL; Very Low Density Lipoprotein 64 mg/dL (5-40)
== END | disposition home or self-care (01) ==
LOC: LAB 12:31
PROVIDERS: PCP Internal Medicine; Referring Provider Internal Medicine; Visit Provider Internal Medicine
DX: M48.00 Spinal stenosis, site unspecified (principal); I48.19 Other persistent atrial fibrillation; E66.01 Morbid (severe) obesity due to excess calories; E55.9 Vitamin D deficiency, unspecified; E78.5 Hyperlipidemia, unspecified; I10 Essential (primary) hypertension; E88.81 Metabolic syndrome and other insulin resistance; M54.50 Low back pain, unspecified
CPT/HCPCS: 36415; 72100; 80053; 80061; 82306; 83036; 83525; 83735; 84443; 85025

== ENCOUNTER → 2022-10-24 | Outpatient (CLI) | payer MEDICAID, SELFPAY ==
[2022-10-24 13:38] LABS: Mucous, Urine 0 SEEN /hpf (<or=2+)
--- NOTE | 2022-10-24 13:47 | ART_ITS ---
Reason For Study: Bilateral leg pain Procedure A bilateral lower extremity continuous wave Doppler with analog waveform analysis and ankle brachial indexes. Left Segmental Pressures Left brachial= 121mmHg. Left posterior tibial artery = 121mmHg. Left dorsalis pedis artery = 104mmHg. Left digit = 83 mmHg. The left posterior tibial artery waveforms are biphasic. The left dorsalis pedis waveforms are biphasic. Right Segmental Pressures Right brachial= 122mmHg. Right posterior tibial artery = 128mmHg. Right dorsalis pedis artery = 116mmHg. Right digit = 81 mmHg. The right posterior tibial artery waveforms are triphasic. The right dorsalis pedis waveforms are triphasic. Indices The right ankle brachial index by the posterior tibial artery is 1.05. The right ankle brachial index by the dorsalis pedis is 0.95. The right digital-brachial index is 0.66. The left ankle brachial index by the posterior tibial artery is 0.99. The left ankle brachial index by the dorsalis pedis is 0.85. The left digital-brachial index is 0.68. VL/Ankle Brachial Index Interpretation Summary Normal right posterior tibial and dorsalis pedis ankle-brachial indices of 1.05 and 0.95 respectively with normal triphasic Doppler waveforms Abnormal left lower extremity posterior tibial and dorsalis pedis ankle-brachia l indices of 0.99 and 0.85 with biphasic Doppler waveforms suggesting mild to moderate occlusive dise ase. At normal right digital brachial index of 0.66 and abnormal left digital brachi al index of 0.68 suggestive of distal small vessel disease Ordering Physician: Selina Villela Referring Physician: SELINA VILLELA MD Performed By: Wallace Bundy RVT
[2022-10-24 14:24] LABS: Color, Urine Yellow (Yellow); Glucose, Dipstick Normal (Normal); Ketone-Dipstick Negative (Negative); Leukocyte Esterase-Dipstick 500 /ul (Negative); Nitrite-Dipstick Negative (Negative); Occult Blood-Urine 25 /ul (Negative); Protein-Dipstick Negative (Negative); Urine Bilirubin Dipstick Negative (Negative); Urine Clarity Sl. Cloudy (Clear); Urine Urobilinogen Normal (Normal)
[2022-10-24 14:43] LABS: Bacteria 1+ /hpf (None Seen); Red Blood Cells-Urine 0-5 SEEN /hpf (0-5); Squamous Epithelial Cells - UA 0-5 SEEN /hpf (5-10); White Blood Cells 25-50 SEEN /hpf (0-5)
== END | disposition home or self-care (01) ==
LOC: CVS 13:33
PROVIDERS: PCP Internal Medicine; Referring Provider Internal Medicine; Visit Provider Internal Medicine
DX: M48.00 Spinal stenosis, site unspecified (principal); I77.1 Stricture of artery; M79.604 Pain in right leg; M79.605 Pain in left leg; F17.200 Nicotine dependence, unspecified, uncomplicated; R10.9 Unspecified abdominal pain
CPT/HCPCS: 81001; 93922

== ENCOUNTER → 2022-11-06 | Outpatient (CLI) | payer MEDICAID, SELFPAY ==
--- NOTE | 2022-11-06 15:46 | CT_ITS ---
INDICATION: flank pain, kidney stone EXAMINATION: CT Abdomen And Pelvis W/O Contrast Injection TECHNIQUE: Helically acquired images were obtained of the abdomen and pelvis without the use of IV contrast. A radiation dose optimization technique was used for this scan. Oral contrast: None. COMPARISON: None FINDINGS: Evaluation of the solid organs and vascular structures is limited without intravenous contrast. Visualized lung bases: Unremarkable Liver: Unremarkable Gallbladder: Unremarkable Spleen: Unremarkable Pancreas: Unremarkable Adrenal Glands: Unremarkable Kidneys: Right kidney is atrophic. Bilateral nonobstructing renal calculi, largest measuring 1.3 cm and the left and 0.8 cm on the right. Vasculature: Moderate aortoiliac atherosclerotic disease. GI Tract: Scattered colonic diverticula. There is short segment wall thickening of the proximal sigmoid colon with surrounding mesenteric fat stranding. No focal fluid collection or free air. Lymphadenopathy: None Peritoneum: No ascites. Bladder: Unremarkable Reproductive organs: Unremarkable Bones/Soft tissues: There are diffuse degenerative changes of the spine. Small fat-containing infraumbilical hernia. CT/Abdomen/Pelvis without Cont IMPRESSION: Acute sigmoid diverticulitis. No focal fluid collection or free air. Bilateral nonobstructing renal calculi, largest measuring 1.3 cm and the left and 0.8 cm on the right. Electronically Signed: Virgilio Jensen MD at 17:36 EDT ,
== END | disposition home or self-care (01) ==
LOC: CT 15:43
PROVIDERS: PCP Internal Medicine; Referring Provider Internal Medicine; Visit Provider Internal Medicine
DX: R10.9 Unspecified abdominal pain (principal)
CPT/HCPCS: 74176

== ENCOUNTER → 2023-02-18 | Outpatient (CLI) | payer MEDICARE, SELFPAY ==
--- NOTE | 2023-02-18 13:04 | ECHOD_ITS ---
Reason For Study: Murmur Procedure This was a 2D Doppler, Color Flow transthoracic echocardiogram. Exam performed in department. Left Ventricle Normal LV size. Left ventricular systolic function is normal. The estimated ejection fraction is 60 %. No regional wall motion abnormalities noted. Right Ventricle Normal RV size. Normal systolic function. Atria Normal left atrium. Normal right atrium. Mitral Valve Bileaflet diffuse mitral valve thickening. Mild (1+) eccentric mitral valve insufficiency. Tricuspid Valve Normal tricuspid valve. Mild (1+) tricuspid valve insufficiency. Pulmonary artery systolic pressure is 33 mmHg. Aortic Valve Trisinus/trileaflet aortic valve. Mild focal aortic valve thickening. Mild (1+) aortic valve insufficiency. Pulmonic Valve Normal pulmonic valve. Great Vessels Normal aortic root. The pulmonary artery is normal size. Normal inferior vena cava. Pericardium/Pleural No pericardial effusion. MMode/2D Measurements & Calculations LVIDd: 3.9 cm IVSd: 1.2 cm LVOT diam: 2.0 cm LVIDs: 2.2 cm LVPWd: 1.1 cm LVOT area: 3.0 cm2 RVDd: 2.7 cm FS: 43.9 % Ao root diam: 2.1 cm LAV(MOD-bp): 70.2 ml LVAd ap4: 23.6 cm2 LAV(MOD-bp) Indexed: 37.0 ml/m2 LVLd ap4: 6.6 cm LAV(MOD-sp2): 50.5 ml EDV(MOD-sp4): 68.6 ml LAV(MOD-sp4): 91.4 ml EDV(sp4-el): 71.9 ml LVAs ap4: 12.7 cm2 LVLs ap4: 5.7 cm ESV(MOD-sp4): 23.2 ml ESV(sp4-el): 23.8 ml EF(MOD-sp4): 66.1 % EF(sp4-el): 66.9 % SV(MOD-sp4): 45.4 ml SV(sp4-el): 48.0 ml LA A4 area: 26.3 cm2 LA dimension(2D): 4.8 cm RA A4 area: 11.4 cm2 TAPSE: 2.7 cm Time Measurements MV dec time: 0.47 sec Doppler Measurements & Calculations MV E max lyndon: 154.0 cm/sec Lat Peak E' Lyndon: 3.0 cm/sec Med Peak E' Lyndon: 3.7 cm/sec MV A max lyndon: 148.2 cm/sec E/E' lat: 51.3 E/E' med: 41.7 MV E/A: 1.0 MV V2 max: 169.0 cm/sec Ao V2 max: 270.6 cm/sec MV max P.4 mmHg MV dec slope: 328.7 cm/sec2 Ao max P.3 mmHg MV V2 mean: 116.6 cm/sec Ao V2 mean: 187.8 cm/sec MV mean P.9 mmHg Ao mean P.1 mmHg MV V2 VTI: 65.8 cm Ao V2 VTI: 60.9 cm AV (velocity ratio): 0.49 MVA(VTI): 1.4 cm2 ANU(I,D): 1.5 cm2 ANU(V,D): 1.5 cm2 AI max lyndon: 384.4 cm/sec LV V1 max: 131.2 cm/sec SV(LVOT): 90.2 ml AI max P.2 mmHg LV V1 max P.9 mmHg LV V1 mean P.5 mmHg AI dec slope: 201.9 cm/sec2 LV V1 mean: 103.8 cm/sec AI P1/2t: 557.7 msec LV V1 VTI: 30.0 cm PA V2 max: 82.8 cm/sec TR max lyndon: 266.4 cm/sec TR max P.4 mmHg ECHO/Echo Complete Interpretation Summary Normal LV size. Left ventricular systolic function is normal. The estimated ejection fraction is 60 %. No regional wall motion abnormalities noted. Mild (1+) aortic valve insufficiency. Ordering Physician: Brooke Christianson Referring Physician: Selina Bowser Performed By: Corinna Mak RDCS, RVT
== END | disposition home or self-care (01) ==
PROVIDERS: PCP Internal Medicine; Visit Provider Nurse Practitioner Gerontology
DX: R01.1 Cardiac murmur, unspecified (principal)
CPT/HCPCS: 93306

== ENCOUNTER 2023-05-21 18:18 | Emergency (ER) | payer MEDICARE, SELFPAY ==
[2023-05-21 18:19] VITALS: BP 151/64; PULSE 69; RESP 15; TEMP 36.3; O2SAT 100; BMI 34.9
[2023-05-21 21:29] LABS: Absolute Lymphocyte Count 1.81 X10^3/uL (0.83-4.51); Absolute Neutrophil Count 14.1 X10^3/uL (2.0-7.7); Basophil# 0.13 X10^3/uL; Basophil% 0.8 % (0-1); Eosinophil# 0.05 X10^3/uL; Eosinophils% 0.3 % (0-5); Hemoglobin 15.2 g/dL (12.0-15.0); Lymphocyte # 1.81 X10^3/ul (0.83-4.51); Lymphocyte % 10.6 % (19-41); Mean Corp Hgb Conc 31.7 g/dL (32-36); Mean Corpuscular Hgb 27.8 pg (27.0-32.0); Mean Corpuscular Volume 87.9 fL (81-99); Mean Platelet Vol. 11.5 fl (6.2-12.0); Monocyte% 4.7 % (0-10); NRBC Flagged by Analyzer 0 % (0-5); Neutrophil # 14.14 X10^3/uL (2.7-7.7); Neutrophil % 83.1 % (47-70); Platelet Count 303 K/mm3 (150-450); RBC Distribution Width CV 15.1 % (11.6-14.6); RBC Distribution Width SD 48.5 fl (35.1-43.9); Red Blood Count 5.46 M/mm3 (4.2-5.4)
[2023-05-21 21:33] LABS: Mucous, Urine 0 SEEN /hpf (<or=2+); Red Blood Cells-Urine 0 SEEN /hpf (0-5)
[2023-05-21 21:39] LABS: Color, Urine Yellow (Yellow); Glucose, Dipstick Normal (Normal); Ketone-Dipstick 5 mg/dl (Negative); Leukocyte Esterase-Dipstick 100 /ul (Negative); Nitrite-Dipstick Negative (Negative); Occult Blood-Urine 25 /ul (Negative); Protein-Dipstick 30 mg/dl (Negative); Specific Gravity, Urine 1.025 (1.002-1.030); Urine Clarity Clear (Clear); Urine Urobilinogen 4 mg/dl (Normal)
[2023-05-21 21:42] LABS: Urine Bilirubin Dipstick 1 mg/dL (Negative)
--- OUTSIDE RECORDS SUMMARY | 2023-05-21 21:43 | XMS RPT_ITS | CCD ---
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 Name Role Phone SHAWNA, KANG E Unavailable Unavailable RITIKA, ADÁN J Unavailable Unavailable SHAWNA, KANG E Unavailable Unavailable SHAWNA, AKNG E Unavailable Unavailable SHAWNA, KANG E Unavailable Unavailable SHAWNA, KANG E Unavailable Unavailable SHAWNA, KANG E Unavailable Unavailable SHAWNA, KANG Unavailable Unavailable Leando, Adán Unavailable Unavailable SHAWNA, KANG Unavailable Unavailable Leando, Adán Unavailable Unavailable Leando, Adán Unavailable Unavailable Ritika, Adán Unavailable Unavailable SHAWNA, KANG Unavailable Unavailable SHAWNA, KANG Unavailable Unavailable Leando, Adán Unavailable Unavailable SHAWNA, KANG Unavailable Unavailable Ritika, Adán Unavailable Unavailable SHAWNA, KANG Unavailable Unavailable Leando, Adán Unavailable Unavailable SHAWNA, KANG Unavailable Unavailable SHAWNA, KANG Unavailable Unavailable Leando, Adán Unavailable Unavailable SHAWNA, KANG Unavailable Unavailable SHAWNA, KANG Unavailable Unavailable Problems Active Problems Problem Classification Problem Date Documented Da te Episodic/Chronic Cardiac dysrhythmias (1 source) Atypical atrial flutter; Translations: [Atypical atrial flutter] Onset: 06-24-2017 Chronic Essential hypertension (1 source) Essential (primary) hypertension; Translations: [Essential (primary) hypertension] Onset: 03-19-2013 Chronic Other and ill-defined heart disease (1 source) Cardiomegaly; Translations: [Cardiomegaly] Onset: 07-03-2017 Chronic Unclassified (1 source) Obstructive sleep apnea (adult) (pediatric); Translations: [Obstructive sleep apnea (adult) (pediatric)] Onset: 06-02-2017 Chronic Unclassified (1 source) Unknown / UNK(Unknown) Onset: 06-24-2017 Past or Other Problems Problem Classification Problem Date Documented Da te Episodic/Chronic Unclassified (1 source) Atypical atrial flutter Onset: 07-03-2017 Results Test Name Value Interpretation Reference Range Facil ity Encounters Encounter Date Encounter Type Care Provider Facility Start: 09-30-2017 Ambulatory [facility] Facility:[facility] Start: 07-03-2017 End: 07-03-2017 Ambulatory [facility] Start: 06-24-2017 [facility] Facility:[facility] Start: 06-23-2017 End: 06-23-2017 Ambulatory [facility] Start: 06-02-2017 End: 06-02-2017 Ambulatory KANG MAT[facility] Start: 06-02-2017 End: 06-02-2017 Ambulatory K[facility] MAT[facility] Start: 03-18-2017 Ambulatory KANG MATOS Facility :[facility] Payers Date Payer Category Payer Policy ID Unknown [id number] Summary Purpose Family History No Family History Records FoundNo Family History Records FoundNo Family History Records FoundNo Family History Records Found Advance Directives No Advanced Directives Records FoundNo Advanced Directives Records FoundNo Advanced Directives Records FoundNo Advanced Directives Records Found Additional Source Comments INFORMATION SOURCE (unrecogn ized section and content) DATE CREATED AUTHOR AUTHOR'S ORGANIZ ATION 10/30/2017 [facility] DATE CREATED AUTHOR AUTHOR'S ORGANIZ ATION 12/03/2019 [facility] DATE CREATED AUTHOR AUTHOR'S ORGANIZ ATION 09/21/2020 [facility] ([place]) FOR RECORDS PERTAINING TO PATIENTS WHO ARE OR HAVE BEEN ENROLLED IN A CHEMICAL DEPENDENCY/SUBSTANCEABUSE PROGRAM, SOME INFORMATION MAY BE OMITTED. This clinical summary was aggregated from multiple sources. Caution should be exercised in using it in the provision of clinical care. This summary normalizes information from multiple sources, and as a consequence, information in this document may materially change the coding, format and clinical context of patient data. In addition, data may be omitted in some cases. CLINICAL DECISIONS SHOULD BE BASED ON THE PRIMARY CLINICAL RECORDS. [facility]. provides no warranty or guarantee of the accuracy or completeness of information in this document.
[2023-05-21 21:45] LABS: ALB/GLOB Ratio 0.7 RATIO (0.9-2.4); AST(SGOT) 469 U/L (15-37); Alanine Aminotransfer ALT/SGPT 325 U/L (13-56); Albumin, Serum 3.2 g/dL (3.2-5.0); Alkaline Phosphatase 203 U/L (45-117); Anion Gap 8 (5-15); BUN 29 mg/dL (7-18); BUN/Creat Ratio 27.9 RATIO (10-20); Calcium,Total 9.7 mg/dL (8.5-10.1); Chloride 105 mmol/L (98-107); Creatinine, Serum 1.04 mg/dL (0.55-1.02); EST Glomerular Filtration Rate 57 mL/min (>60); Est Glom Filt Rate - Afr Amer 68 mL/min (>60); Globulin 4.5 g/dL (2.2-4.2); Glucose 201 mg/dL (74-106); Potassium 4.1 mmol/L (3.5-5.1); Protein, Total 7.7 g/dL (6.4-8.2); Sodium Level 138 mmol/L (136-145)
[2023-05-21 21:52] LABS: Bacteria RARE /hpf (None Seen); Squamous Epithelial Cells - UA 0-5 SEEN /hpf (5-10); White Blood Cells 0-5 SEEN /hpf (0-5)
--- NOTE | 2023-05-21 22:03 | EDS_ITS ---
HPI History of Present Illness Chief Complaint: Abd Pain [facility] Medical History (Reviewed 02/03/23 @ 13:04 by Brooke Christianson LEARNING CONSULTANT, LEARNING CONSULTANT-C) Atrial flutter with rapid ventricular response (10/2015) Atrial flutter, chronic Blood in urine Chronic diastolic CHF (congestive heart failure) Colon polyps Decreased dorsalis pedis pulse Diverticulosis Dyspnea Elevated blood sugar Elevated hemoglobin Essential hypertension Family history of cardiovascular disease Fatigue Gastroesophageal reflux disease History of renal stone History of shoulder fracture Hyperlipidemia Insulin resistance Left leg swelling Morbid obesity Paroxysmal atrial fibrillation Paroxysmal atrial flutter Persistent atrial fibrillation Recurrent hematuria Tobacco dependence UTI (urinary tract infection) Vitamin D deficiency Home Medications multivit with minerals-iron 18 mg-folic ac 400 mcg-vit K 25 mcg tablet (Multi- Day Plus Minerals) 1 ea PO DAILY 10/13/15 [History Last Taken Unknown] apixaban 5 mg tablet (Eliquis) 5 mg PO BID #60 tabs 01/13/23 [Rx Last Taken Unknown] cholecalciferol (vitamin D3) 50 mcg (2,000 unit) tablet (Vitamin D3) 50 mcg PO DAILY 02/03/23 [History Last Taken Unknown] magnesium citrate 100 mg capsule 200 mg PO DAILY 02/03/23 [History Last Taken Unknown] furosemide 40 mg tablet 40 mg PO DAILY #90 tabs 03/17/23 [Rx Last Taken Unknown] losartan 100 mg tablet 100 mg PO DAILY #90 tabs 03/17/23 [Rx Last Taken Unknown] losartan 100 mg tablet 100 mg PO DAILY #90 tabs 03/17/23 [Rx Last Taken Unknown] metoprolol succinate 200 mg tablet,extended release 24 hr 200 mg PO DAILY #90 tabs 03/17/23 [Rx Last Taken Unknown] ondansetron 4 mg disintegrating tablet 4 mg PO Q8H PRN PRN Nausea #10 tabs 05/22/23 [Rx Last Taken Unknown] Allergy/AdvReac Type Severity Reaction Status Date / Time No Known Allergies Allergy Verified 05/21/23 21:26 Family History Mother Diabetes Hypertension Myocardial infarction Father Hypertension Heart disease Sister Diabetes Heart disease Grandmother CVA (cerebral vascular accident) Surgical History (Reviewed 02/03/23 @ 13:04 by Brooke Christianson LEARNING CONSULTANT, LEARNING CONSULTANT-C) History of cardioversion (06/21/19) History of open reduction and internal fixation (ORIF) procedure History of tubal ligation Social History Smoking Status: Current every day smoker tobacco type: cigarettes Tobacco: How many years used: 40 second hand exposure: Yes alcohol intake: never substance use type: does not use caffeine: Yes Type: coffee Number of servings: 3 what type of physical activity do you participate in: aerobics frequency: 3-4 times per week EXAM Physical Exam Const Vital Signs: 05/21/23 18:19 05/21/23 23:21 Temperature 97.4 F L 97.8 F Temperature Source Temporal Oral Pulse Rate 69 66 Respiratory Rate 15 14 Blood Pressure 151/64 H 142/53 H Blood Pressure Mean 93 82 Pulse Ox 100 95 Oxygen Delivery Method Room Air Room Air MDM MDM MDM Narrative Medical decision making narrative: HISTORY OF PRESENT ILLNESS: 67-year-old female presents with concern for abdominal pain. Notes this started afternoon. She further states pain is in her right upper quadrant. It radiates to the back. It is not worse after food. Notes history of diverticulitis but denies any other abdominal surgical history. Denies any vomiting but notes nausea. Denies any chest pain or shortness of breath. Denies any urinary co mplaints or changes to bowel habits. Denies any vaginal bleeding. REVIEW OF SYSTEMS: Pertinent positives: Abdominal pain, right upper quadrant pain Pertinent negatives: Chest pain, shortness of breath, syncope PHYSICAL EXAM: Nursing triage notes reviewed, Vital signs reviewed Constitutional: please see mdm HENT: MMM Eyes: Pupils equal round and reactive to light, Extraocular muscles intact Neck: No stridor, no JVD, full neck ROM Lungs: Clear to auscultation, No wheezing or rales. No increased work of breathing, no conversational dyspnea, no accessory muscle use, no nasal flaring. No respiratory distress noted Heart: Regular rate and rhythm, No murmurs, No rubs and No gallops, 2+ distal pulses (radial, femoral, posterior tibial) in all extremities Abdomen: Soft, right upper quadrant TTP, negative Grissom's, no rigidity, rebound or guarding, no obvious peritoneal signs, no palpable pulsatile abdominal masses, no auscultated abdominal bruit : No CVAT Extremities: No edema Neuro: No focal neurological deficits, cranial nerves II through XII intact, 5/5 strength in all extremities. Intact sensation to light touch in all extremities, 2+ reflexes bilateral patella tendons. Normal gait. No ataxia. Skin: No rash or lesions noted MEDICAL DECISION MAKING: Chief Complaint: Abdominal pain External records reviewed: CT scan of the abdomen pelvis from October of 2022 showed acute sigmoid diverticulitis. Factors affecting care: Atrial fibrillation, CHF, hypertension hyperlipidemia Social determinants of health: Tobacco abuse History obtained from others: none Consults: none MDM Narrative: Patient was hemodynamically stable, afebrile, nontoxic-appearing. Exam with right upper quadrant TTP. Concern for acute cholecystitis given elevated liver enzymes right require TTP so initially obtained a rapid heart ultrasound. Required ultrasound did not show evidence of acute gallbladder pathology including acute cholecystitis so then I obtained a CT scan to determine the patient any surgical pathology in the belly. I considered the following differential diagnosis: AAA, small bowel obstruction, abdominal perforation, appendicitis, pancreatitis, hepatobiliary pathology (acute cholecystitis), mesenteric ischemia, pathology (ie nephrolithiasis, pyelonephritis). ALL IMAGES (IF OBTAINED) HAVE BEEN PERSONALLY REVIEWED AND INTERPRETED BY MYSELF. CBC with leukocytosis suggestive of system inflammation, no anemia or thrombocytopenia BMP without evidence of significant electrolyte abnormalities, no anion gap, no acute kidney injury. LFTs with elevated liver enzymes concerning for hepatobiliary disease, bilirubin within normal limits Urinalysis shows no evidence of urinary inflammation suggestive of UTI Right upper quadrant ultrasound shows gallstones with no evidence of acute cholecystitis CT scan abdomen pelvis shows no evidence of acute intra-abdominal pathology The synthesis of the patient history, physical exam, labs images suggest no acute life-limiting etiology. Patient is appropriate discharge home with instructions to take Tylenol, ibuprofen and given Zofran for dramatically. She is given GI and PCP follow-up. The patient and/or family, caregivers express understanding. The patient and/or family, caregivers agrees with the plan. Shared decision making: I will have a discussion with the patient and or visitors regarding risk/be nefits of further testing or admission. They will be made aware of of the risk/benefits inherent in this decision they will be given the opportunity to voice understanding. Total critical care time today provided was at least 0 minutes. This excludes separately billable procedures. Critical care time (if documented) is secondary to the patient having high probability of clinically significant/life threatening deterioration in the patient's condition which required my urgent intervention. Impression: 1. Abdominal pain 2. Leukocytosis 3. Gallstones 4. Elevated liver enzymes Dispo: Discharge Lab Data Labs: Laboratory Results - last 24 hr 05/21/23 05/21/23 21:20 21:25 WBC 17.0 H RBC 5.46 H Hgb 15.2 H Hct 48.0 H MCV 87.9 MCH 27.8 MCHC 31.7 L RDW Std Deviation 48.5 H RDW Coeff of Nhung 15.1 H Plt Count 303 MPV 11.5 Immature Gran % (Auto) 0.500 Neut % (Auto) 83.1 H Lymph % (Auto) 10.6 L Andrews % (Auto) 4.7 Eos % (Auto) 0.3 Baso % (Auto) 0.8 Absolute Neuts (auto) 14.1 H Absolute Lymphs (auto) 1.81 Nucleated RBC % 0 Sodium 138 Potassium 4.1 Chloride 105 Carbon Dioxide 25.0 Anion Gap 8 BUN 29 H Creatinine 1.04 H Estim Creat Clear Calc 55.10 Est GFR (MDRD) Af Amer 68 Est GFR (MDRD) Non-Af 57 L BUN/Creatinine Ratio 27.9 H Glucose 201 H Calcium 9.7 Total Bilirubin 0.90 AST 469 H ALT 325 H Alkaline Phosphatase 203 H Total Protein 7.7 Albumin 3.2 Globulin 4.5 H Albumin/Globulin Ratio 0.7 L Lipase 36 Urine Color Yellow Urine Clarity Clear Urine pH 5.0 Ur Specific [place] 1.025 Urine Protein 30 H Urine Glucose (UA) Normal Urine Ketones 5 H Urine Occult Blood 25 H Urine Nitrite Negative Urine Bilirubin 1 H Urine Urobilinogen 4 H Ur Leukocyte Esterase 100 H Urine RBC 0 SEEN Urine WBC 0-5 SEEN Ur Squamous Epith Cells 0-5 SEEN Urine Bacteria RARE Urine Mucus 0 SEEN Radiography Diagnostic Testing: Clinical Impression(s) from Imaging Studies Gallbladder Ultrasound 05/21/23 22:18 IMPRESSION: Mild right-sided hydronephrosis. Artifact versus nonobstructive stones within the right kidney. Simple right-sided renal cysts, largest measuring 1.6 cm with no further follow-up imaging recommended. Diffuse fatty liver with multiple gallstones. Remainder of the right upper quadrant ultrasound unremarkable. Electronically Signed: Oneyda De La Rosa MD at 23:25 EST , Abdomen/Pelvis CT 05/21/23 23:33 IMPRESSION: 1. Coronary artery disease. 2. Numerous diverticula without diverticulitis. 3. Moderate size fat-containing periumbilical hernia. No bowel involvement. 4. Mild right renal atrophy. 5. Numerous small nonobstructing renal calculi bilaterally. 6. No acute abdominal pelvic abnormality. Electronically Signed: Julien Shah MD at 0:13 EST , Discharge Plan Triage Chief Complaint: Abd Pain ED Provider: Sloan Melendez Dx/Rx/DC Orders Instructions: ED Abdominal Pain Unkn Cause Fem Prescriptions: New ondansetron 4 mg tablet,disintegrating 4 mg PO Q8H PRN PRN (Reason: Nausea) Qty: 10 0RF No Action cholecalciferol (vitamin D3) [Vitamin D3] 50 mcg (2,000 unit) tablet 50 mcg PO DAILY magnesium citrate 100 mg capsule 200 mg PO DAILY Multi-Day Plus Minerals 1 EACH tablet 1 ea PO DAILY Patient Comments: supplement Eliquis 5 mg tablet 5 mg PO BID Qty: 60 12RF metoprolol succinate 200 mg tablet extended release 24 hr 200 mg PO DAILY Qty: 90 3RF losartan 100 mg tablet 100 mg PO DAILY Qty: 90 3RF furosemide 40 mg tablet 40 mg PO DAILY Qty: 90 3RF losartan 100 mg tablet 100 mg PO DAILY Qty: 90 3RF Primary Care Provider: Selina Bowser Referrals: Selina Bowser MD [Primary Care Provider] - Lester Grimaldo DO [Med Staff - Active Staff] - Activity Restrictions/Additional Instructions: Thank you for trusting us with your care today! The source of your pain is unclear. Your labs do not suggest your pain is associated with something that is life- threatening. Please take Tylenol (2 pills, 650 mg), ibuprofen (2 pills, 400 mg) every 6 hours as needed for pain and fever control. Please return to the emergency department if your symptoms change or worsen. Please follow with your primary care physician and/or gastroenterology n for further outpatient evaluation and management. Disposition Disposition: Home, Self Care
--- NOTE | 2023-05-21 22:18 | US_ITS ---
STUDY: ABDOMINAL ULTRASOUND - RIGHT UPPER QUADRANT REASON FOR VISIT: Female, 67 years old RUQ TTP TECHNIQUE: Ultrasound evaluation of the right upper quadrant was performed with real-time and static moreno-scale imaging. TECHNICAL QUALITY: Limited. Examination limited by bowel gas. COMPARISON: None. FINDINGS: Liver: The liver measures 21.4 cm. There is increased echogenicity consistent with fatty infiltration. The bile ducts are within normal limits. There is hepatic color flow. The direction of portal flow is hepatopetal. There is no demonstrated mass lesion. Gallbladder: Normal distended gallbladder. The gallbladder wall measures 2.2 mm. There is a negative sonographic Grissom''s sign. There is no pericholecystic fluid. There are multiple echogenic structures within the gallbladder, consistent with multiple gallstones. Common Bile Duct (C.B.D.): The common bile duct measures 4.9 mm. Pancreas: There is nonvisualization of the pancreas. Right Kidney: Normal size of the right kidney. The right kidney measures 10.6 x 4.6 x 4.5 cm. There is thinning of the renal cortex. The right cortex measures 0.7 cm. Within the right kidney there are 2 round anechoic structures consistent with simple renal cysts measuring 1.2 by 1.6 x 1.2 cm and 1.0 x 0.8 x 0.9 cm. There is mild fullness of the right and the collecting system suggestive of mild hydronephrosis. There are several areas of scattered echogenicity predominantly through the renal sinus which could represent volume averaging from renal sinus fat, cannot exclude no shadowing stones, largest measuring 4 x 5 x 2 mm. US/Gallbladder IMPRESSION: Mild right-sided hydronephrosis. Artifact versus nonobstructive stones within the right kidney. Simple right-sided renal cysts, largest measuring 1.6 cm with no further follow-up imaging recommended. Diffuse fatty liver with multiple gallstones. Remainder of the right upper quadrant ultrasound unremarkable. Electronically Signed: Oneyda De La Rosa MD at 23:25 EST ,
[2023-05-21] MEDS: 0.9% Normal Saline (1000mL) 1,000 ML 999 ML IV (22:27)
[2023-05-21] MEDS: Ondansetron 4 MG/2 ML Vial IV (22:27)
[2023-05-21] MEDS: Morphine 4 MG/ML Syringe IV (22:27)
[2023-05-21 22:28] LABS: Lipase 36 U/L (13-75)
[2023-05-21 23:21] VITALS: BP 142/53; PULSE 66; RESP 14; TEMP 36.6; O2SAT 95
--- NOTE | 2023-05-21 23:33 | CT_ITS ---
EXAM: CT ABDOMEN AND PELVIS WITH INTRAVENOUS CONTRAST CLINICAL INDICATION: right upper quadrant abdominal pain TECHNIQUE: Helically acquired images were obtained of the abdomen and pelvis with intravenous contrast. This CT exam was performed using one or more of the following dose reduction techniques: automated exposure control, adjustment of the mA and/or kV according to patient size, and/or use of iterative reconstruction technique. CONTRAST: 100 cc of Isovue-370 IV. RADIATION DOSE: CTDIvol = 18.25 mGy, DLP = 1142.80 mGy-cm COMPARISON: 11/06/2022. FINDINGS: LOWER THORAX: Coronary artery calcifications. Lung bases are clear. No cardiomegaly. No significant pericardial effusion. ABDOMEN: LIVER: Unremarkable. Homogeneous. No focal mass. GALLBLADDER AND BILE DUCTS: Unremarkable. No calcified gallstones. No gallbladder distention or wall edema. No intra- or extrahepatic biliary ductal dilation. PANCREAS: Unremarkable. No focal cystic or solid mass. SPLEEN: Unremarkable. Normal size without focal cystic or solid mass. ADRENALS: Unremarkable. No nodules. KIDNEYS AND URETERS: Mild right renal atrophy. Numerous small nonobstructing renal calculi bilaterally. Simple left renal cysts. No follow-up of these simple cysts is necessary. STOMACH AND BOWEL: Numerous diverticula without diverticulitis. No stomach or bowel distention. PELVIS: APPENDIX: Normal appendix. BLADDER: Unremarkable. REPRODUCTIVE: Unremarkable as visualized. No mass. ABDOMEN and PELVIS: INTRAPERITONEAL SPACE: Unremarkable. No ascites or other fluid collection. No free air. BONES/JOINTS: Unremarkable. No suspicious lytic or blastic abnormality. SOFT TISSUES: Moderate size fat-containing periumbilical hernia. VASCULATURE: See above. LYMPH NODES: Unremarkable. No enlarged lymph nodes. CT/Abdomen/Pelvis W IV Cont ONLY IMPRESSION: 1. Coronary artery disease. 2. Numerous diverticula without diverticulitis. 3. Moderate size fat-containing periumbilical hernia. No bowel involvement. 4. Mild right renal atrophy. 5. Numerous small nonobstructing renal calculi bilaterally. 6. No acute abdominal pelvic abnormality. Electronically Signed: Julien Shah MD at 0:13 EST ,
== END 2023-05-22 00:40 | disposition home or self-care (01) ==
PROVIDERS: Emergency Provider Emergency Medicine; PCP Internal Medicine; Visit Provider Emergency Medicine
DX: R10.11 Right upper quadrant pain (principal); I11.0 Hypertensive heart disease with heart failure; I50.32 Chronic diastolic (congestive) heart failure; I48.0 Paroxysmal atrial fibrillation; F17.210 Nicotine dependence, cigarettes, uncomplicated; R74.8 Abnormal levels of other serum enzymes; D72.829 Elevated white blood cell count, unspecified; E78.5 Hyperlipidemia, unspecified; Z79.01 Long term (current) use of anticoagulants; Z79.899 Other long term (current) drug therapy; K80.20 Calculus of gallbladder without cholecystitis without obstruction
CPT/HCPCS: 74177; 76705; 80053; 81001; 83690; 85025; 96361; 96374; 96375; 99283; J7030; Q9967; A4216; J2405

== ENCOUNTER → 2023-05-27 | Outpatient (CLI) | payer MEDICARE, SELFPAY ==
--- OUTSIDE RECORDS SUMMARY | 2023-05-27 12:30 | XMS RPT_ITS | CCD ---
Author Name Unknown Address [address] [facility] [address] [place] [address] Organization [facility] Care Team Providers [employer] Team Leader Name Role Phone SHAWNA, KANG E Unavailable Unavailable RITIKA, ADÁN J Unavailable Unavailable SHAWNA, KANG E Unavailable Unavailable SHAWNA, KANG E Unavailable Unavailable SHAWNA, KANG E Unavailable Unavailable SHAWNA, KANG E Unavailable Unavailable SHAWNA, KANG E Unavailable Unavailable SHAWNA, KANG Unavailable Unavailable [place], Adán Unavailable Unavailable SHAWNA, KANG Unavailable Unavailable [place], Adán Unavailable Unavailable [place], Adán Unavailable Unavailable Ritika, Adán Unavailable Unavailable SHAWNA, KANG Unavailable Unavailable SHAWNA, KANG Unavailable Unavailable [place], Adán Unavailable Unavailable SHAWNA, KANG Unavailable Unavailable Ritika, Adán Unavailable Unavailable SHAWNA, KANG Unavailable Unavailable [place], Adán Unavailable Unavailable SHAWNA, KANG Unavailable Unavailable SHAWNA, KANG Unavailable Unavailable [place], Adán Unavailable Unavailable SHAWNA, KANG Unavailable Unavailable [...] Type Care Provider Facility Start: 09-30-2017 Ambulatory [facility] Facility:[facility] Start: 07-03-2017 End: 07-03-2017 Ambulatory [facility] Start: 06-24-2017 [facility] Facility:[facility] Start: 06-23-2017 End: 06-23-2017 Ambulatory [facility]OS [facility] Start: 06-02-2017 End: 06-02-2017 Ambulatory [facility]ANG MATOS [facility] Start: 06-02-2017 End: 06-02-2017 Ambulatory KANG MATOS [facility] Start: 03-18-2017 Ambulatory KANG MATOS Facility :[facility] Payers Date Payer Category Payer Policy ID Unknown [id number] Summary Purpose Family History No Family History Records FoundNo Family History Records FoundNo Family History Records FoundNo Family History Records Found Advance Directives No Advanced Directives Records FoundNo Advanced Directives Records FoundNo Advanced Directives Records FoundNo Advanced Directives Records Found Additional Source Comments INFORMATION SOURCE (unrecogn ized section and content) DATE CREATED AUTHOR AUTHOR'S ORGANIZ ATION 10/30/2017 [facility] DATE CREATED AUTHOR AUTHOR'S ORGANIZ ATION 12/03/2019 [facility] DATE CREATED AUTHOR AUTHOR'S ORGANIZ ATION 09/21/2020 [facility] ([place]) FOR RECORDS PERTAINING TO PATIENTS [...] BE BASED ON THE PRIMARY CLINICAL RECORDS. [facility] [facility]. provides no warranty or guarantee of the accuracy or completeness of information in this document.
[2023-05-27 13:02] LABS: Absolute Lymphocyte Count 3.37 X10^3/uL (0.83-4.51); Absolute Neutrophil Count 11.2 X10^3/uL (2.0-7.7); Basophil# 0.13 X10^3/uL; Basophil% 0.8 % (0-1); Eosinophil# 0.36 X10^3/uL; Eosinophils% 2.2 % (0-5); Hematocrit 49.5 % (37-47); Hemoglobin 15.8 g/dL (12.0-15.0); Lymphocyte # 3.37 X10^3/ul (0.83-4.51); Lymphocyte % 20.8 % (19-41); Mean Corp Hgb Conc 31.9 g/dL (32-36); Mean Corpuscular Hgb 27.8 pg (27.0-32.0); Mean Corpuscular Volume 87.1 fL (81-99); Mean Platelet Vol. 11.4 fl (6.2-12.0); Monocyte% 6.8 % (0-10); NRBC Flagged by Analyzer 0 % (0-5); Neutrophil # 11.15 X10^3/uL (2.7-7.7); Platelet Count 316 K/mm3 (150-450); RBC Distribution Width CV 15.4 % (11.6-14.6); RBC Distribution Width SD 48.8 fl (35.1-43.9); Red Blood Count 5.68 M/mm3 (4.2-5.4); White Blood Count 16.2 K/mm3 (4.4-11.0)
[2023-05-27 13:26] LABS: ALB/GLOB Ratio 0.8 RATIO (0.9-2.4); AST(SGOT) 14 U/L (15-37); Alanine Aminotransfer ALT/SGPT 56 U/L (13-56); Albumin, Serum 3.5 g/dL (3.2-5.0); Alkaline Phosphatase 90 U/L (45-117); Anion Gap 6 (5-15); BUN 31 mg/dL (7-18); BUN/Creat Ratio 29.2 RATIO (10-20); Calcium,Total 9.3 mg/dL (8.5-10.1); Chloride 109 mmol/L (98-107); Creatinine, Serum 1.06 mg/dL (0.55-1.02); EST Glomerular Filtration Rate 55 mL/min (>60); Est Glom Filt Rate - Afr Amer 67 mL/min (>60); Globulin 4.3 g/dL (2.2-4.2); Glucose 102 mg/dL (74-106); Magnesium 2.4 mg/dL (1.6-2.6); Potassium 4.1 mmol/L (3.5-5.1); Protein, Total 7.8 g/dL (6.4-8.2); Sodium Level 139 mmol/L (136-145)
== END | disposition home or self-care (01) ==
PROVIDERS: PCP Internal Medicine; Referring Provider Internal Medicine; Visit Provider Internal Medicine
DX: R10.11 Right upper quadrant pain (principal); I50.32 Chronic diastolic (congestive) heart failure; K58.9 Irritable bowel syndrome, unspecified
CPT/HCPCS: 36415; 80053; 83735; 85025; 87506

== ENCOUNTER → 2023-06-24 | Outpatient (CLI) | payer MEDICARE, SELFPAY ==
--- NOTE | 2023-06-24 09:30 | NM_ITS ---
CLINICAL: 67-year-old female with history of cholelithiasis and abdominal pain. RADIONUCLIDE HEPATOBILIARY SCINTIGRAPHY COMPARISON: Abdominal ultrasound report 05/21/2023, CT of the abdomen-pelvis report 05/21/2023 FINDINGS: Following the intravenous administration of 5.4 mCi of 99m Tc Mebrofenin, hepatobiliary images reveal: 1. Relatively prompt and homogeneous radiopharmaceutical concentration is noted by a normal sized liver. No parenchymal defects are identified. 2. Gallbladder activity is identified at approximately 47 minutes post radiopharmaceutical administration. 3. Small intestinal tract is observed at 31-32 minutes post radiopharmaceutical administration. 4. Washout of the radiopharmaceutical by the hepatic parenchyma appears qualitatively normal. NM/Hepatobilliary Imaging IMPRESSION: 1. NORMAL 99m Tc Mebrofenin hepatobiliary imaging examination. A. Visualization of the gallbladder within 60 minutes post radiopharmaceutical administration excludes acute cholecystitis with 97% certitude. (Agata et al, Nucl Med [place] [employer] pg. 35, 1981). B. There appears to be spontaneous contraction and refilling of the gallbladder contents during the second hour of acquisition. Spontaneous ejection of the radiopharmaceutical from the gallbladder fossa may be secondary to normal contractile activity of the gallbladder in the interdigestive state. (Naif et al, Gastroenterology 97: 1479, 1989). Electronically Signed: Kurtis Faith DO at 9:29 EST ,
--- OUTSIDE RECORDS SUMMARY | 2023-06-24 09:50 | XMS RPT_ITS | CCD ---
Author Name Unknown Address [address] [place] [address] Organization [facility] Care Team Providers Care Enroller Name Role Phone SHAWNA, KANG E Unavailable Unavailable RITIKA, ADÁN J Unavailable Unavailable SHAWNA, KANG E Unavailable Unavailable SHAWNA, KANG E Unavailable Unavailable SHAWNA, KANG E Unavailable Unavailable SHAWNA, KANG E Unavailable Unavailable SHAWNA, KANG E Unavailable Unavailable SHAWNA, KANG Unavailable Unavailable Wink, Adán Unavailable Unavailable SHAWNA, KANG Unavailable Unavailable Wink, Adán Unavailable Unavailable Wink, Adán Unavailable Unavailable Wink, Adán Unavailable Unavailable SHAWNA, KANG Unavailable Unavailable SHAWNA, KANG Unavailable Unavailable Ritika, Adán Unavailable Unavailable SHAWNA, KANG Unavailable Unavailable Wink, Adán Unavailable Unavailable SHAWNA, KANG Unavailable Unavailable Ritika, Adán Unavailable Unavailable SHAWNA, KANG Unavailable Unavailable SHAWNA, KANG Unavailable Unavailable Ritika, [...] Type Care Provider Facility Start: 09-30-2017 Ambulatory [facility] Facility:[facility] Start: 07-03-2017 End: 07-03-2017 Ambulatory [facility] Start: 06-24-2017 [facility] Facility:[facility] Start: 06-23-2017 End: 06-23-2017 Ambulatory [facility] Start: 06-02-2017 End: 06-02-2017 Ambulatory KANG MAT[facility] Start: 06-02-2017 End: 06-02-2017 Ambulatory KANG MATOS [facility] Start: 03-18-2017 Ambulatory KANG MATOS Facility :[facility] Payers Date Payer Category Payer Policy ID Unknown [id number] Summary Purpose Family History No Family History Records FoundNo Family History Records FoundNo Family History Records FoundNo Family History Records Found Advance Directives No Advanced Directives Records FoundNo Advanced Directives Records FoundNo Advanced Directives Records FoundNo Advanced Directives Records Found Additional Source Comments INFORMATION SOURCE (unrecogn ized section and content) DATE CREATED AUTHOR AUTHOR'S ORGANIZ ATION 10/30/2017 [facility] DATE CREATED AUTHOR AUTHOR'S ORGANIZ ATION 12/03/2019 [facility] DATE CREATED AUTHOR AUTHOR'S ORGANIZ ATION 09/21/2020 [facility] FOR RECORDS PERTAINING TO PATIENTS WHO ARE [...] BE BASED ON THE PRIMARY CLINICAL RECORDS. [facility]. provides no warranty or guarantee of the accuracy or completeness of information in this document.
== END | disposition home or self-care (01) ==
LOC: NM 09:30
PROVIDERS: PCP Internal Medicine; Referring Provider Surgery; Visit Provider Surgery
DX: K80.50 Calculus of bile duct without cholangitis or cholecystitis without obstruction (principal); R79.89 Other specified abnormal findings of blood chemistry
CPT/HCPCS: 78226; A9537

== ENCOUNTER 2023-09-14 00:57 | Observation (INO) | payer MEDICARE, SELFPAY ==
[2023-09-14] VITALS (8 sets, daily range): BP systolic 124–169; BP diastolic 50–78; PULSE 58–71; RESP 16–20; TEMP 36.6–36.8; O2SAT 94–98; BMI 36.4; BMI 35.1
--- NOTE | 2023-09-14 01:05 | CT_ITS ---
EXAM: CT ABDOMEN AND PELVIS WITH INTRAVENOUS CONTRAST CLINICAL INDICATION: Pain Pain TECHNIQUE: Helically acquired images were obtained of the abdomen and pelvis with intravenous contrast. This CT exam was performed using one or more of the following dose reduction techniques: automated exposure control, adjustment of the mA and/or kV according to patient size, and/or use of iterative reconstruction technique. CONTRAST: IV 100mL Isovue-370 RADIATION DOSE: CTDIvol = 18.81 mGy, DLP = 1005.60 mGy-cm COMPARISON: CT scan 05/21/2023 and 11/06/2022 FINDINGS: LOWER THORAX: There are multiple small calcified granulomas in the visualized lung bases. There are also multiple noncalcified solid nodules, ranging up to 4.5 mm. These can also be seen retrospectively on the previous exams and there is stable in appearance. Fleischner Society Guidelines suggest no follow-up is necessary. There are coronary artery calcifications. No cardiomegaly. No significant pericardial effusion. ABDOMEN: LIVER: There is a 3 mm low-attenuation nodule in the left liver, which probably represents a cyst, but is too small to reliably characterize. No further evaluation is necessary. GALLBLADDER AND BILE DUCTS: There are multiple noncalcified gallstones. No gallbladder distention or wall edema. No intra- or extrahepatic biliary ductal dilation. PANCREAS: There are pancreatic calcifications, which likely represent chronic pancreatitis. No focal cystic or solid mass. SPLEEN: Unremarkable. Normal size without focal cystic or solid mass. ADRENALS: Unremarkable. No nodules. KIDNEYS AND URETERS: The right kidney is mildly atrophic, with multiple foci of cortical scarring. There are 2 nonobstructive right renal calculi which range up to 8 mm. There are 4 nonobstructive left renal calculi, which range up to 1.1 cm. There are no demonstrated ureteral calculi or hydronephrosis of either kidney. There are simple appearing renal cysts as well as cysts are too small to reliably characterize. No follow-up imaging is necessary for simple renal cysts or cysts that are too small to characterize. STOMACH AND BOWEL: Somewhat prominent gas in some small bowel loops, with no decompression distal small bowel to suggest obstruction. Findings may represent an ileus. There is mild mural thickening of the duodenal sweep and some loops of jejunum which may represent an infectious or inflammatory enteritis. There is apparent mural thickening in the gastric antrum which may be an artifact of poor distention or may represent gastric pathology. There are colonic diverticula. There is no evidence for acute diverticulitis. PELVIS: APPENDIX: A normal-appearing appendix is seen on axial images 63-70. BLADDER: Unremarkable. REPRODUCTIVE: Unremarkable as visualized. No mass. ABDOMEN and PELVIS: INTRAPERITONEAL SPACE: Unremarkable. No ascites or other fluid collection. No free air. BONES/JOINTS: There are multilevel degenerative changes in the visualized spine. No suspicious lytic or blastic abnormality. SOFT TISSUES: There is an umbilical hernia, which contains fat. VASCULATURE: There is atherosclerotic calcification of the abdominal aorta. LYMPH NODES: Unremarkable. No enlarged lymph nodes. CT/Abdomen/Pelvis W IV Cont ONLY IMPRESSION: 1. Mild mural thickening of duodenal sweep and some loops of jejunum suggests an enteritis. Question of abnormal mural thickening of the distal stomach versus artifact of nondistention. 2. Small prominent small bowel gas may represent ileus. No evidence for mechanical bowel obstruction. 3. Chronic pancreatitis. No evidence for acute pancreatitis. 4. Gallstones. 5. Nonobstructive renal calculi bilaterally. Mildly atrophic right kidney with cortical scarring. No demonstrated ureteral calculi or hydronephrosis. 6. Colonic diverticulosis without evidence for acute diverticulitis. 7. Atherosclerosis. 8. Umbilical hernia contains fat, but no bowel. Electronically Signed: Julio César Weber MD at 2:54 EDT Reading Location ID and State: [facility] / [place] , Service support ,
--- NOTE | 2023-09-14 01:05 | EKG12_ITS ---
Test Reason : DYSRHYTHMIA Blood Pressure : / mmHG Vent. Rate : 064 BPM Atrial Rate : 064 BPM P-R Int : 198 ms QRS Dur : 082 ms QT Int : 420 ms P-R-T Axes : 049 034 040 degrees QTc Int : 433 ms Normal sinus rhythm Normal ECG Confirmed by Julien Davalos ([id number]), editorial writer TEQUILA NAVARRO ([id number]) on 09/14/2023 10:03:29 AM Referred By: LUIZA Confirmed By:Julien Davalos
--- NOTE | 2023-09-14 01:06 | ED.VIS.GI ---
HPI HPI - GI History of Present Illness Chief Complaint: Abd Pain Narrative Narrative: 67-year-old female presents with left upper quadrant abdominal pain that she has had for the last week. Initially, she states that it was intermittent perhaps lasting hours but has been relatively constant as of late. Over the last 24 hours she is nauseated and she vomited about 4 times without any blood in her emesis. She has had intermittent diarrhea as well. She describes it more as a boring sensation from the front to the back. No exacerbating or alleviating factors. Past abdominal surgery includes bilateral tubal ligation. She denies any fevers or chills, but states she has been taking pain medication. Given that has become more constant, she presents, and occasionally it radiates towards her left chest. [facility] Medical History (Updated 09/14/23 @ 03:[address] Meli Altman MD) Atrial flutter, chronic Cholelithiasis Chronic diastolic CHF (congestive heart failure) Colon polyps Diverticulosis Essential hypertension Family history of cardiovascular disease Gastroesophageal reflux disease History of renal stone History of shoulder fracture Hyperlipidemia Insulin resistance Obesity Paroxysmal atrial fibrillation Recurrent hematuria Tobacco dependence UTI (urinary tract infection) Vitamin D deficiency Home Medications multivit with minerals-iron 18 mg-folic ac 400 mcg-vit K 25 mcg tablet (Multi-Day Plus Minerals) 1 ea PO DAILY 10/13/15 [History Last Taken Unknown] apixaban 5 mg tablet (Eliquis) 5 mg PO BID #60 tabs 01/13/23 [Rx Last Taken Unknown] cholecalciferol (vitamin D3) 50 mcg (2,000 unit) tablet (Vitamin D3) 50 mcg PO DAILY 02/03/23 [History Last Taken Unknown] magnesium citrate 100 mg capsule 200 mg PO DAILY 02/03/23 [History Last Taken Unknown] furosemide 40 mg tablet 40 mg PO DAILY #90 tabs 03/17/23 [Rx Last Taken Unknown] losartan 100 mg tablet 100 mg PO DAILY #90 tabs 03/17/23 [Rx Last Taken Unknown] metoprolol succinate 200 mg tablet,extended release 24 hr 200 mg PO DAILY #90 tabs 03/17/23 [Rx Last Taken Unknown] Allergy/AdvReac Type Severity Reaction Status Date / Time No Known Allergies Allergy Verified 08/04/23 15:10 Family History Mother Diabetes Hypertension Myocardial infarction Father Hypertension Heart disease Sister Diabetes Heart disease Grandmother CVA (cerebral vascular accident) Surgical History History of cardioversion (06/21/19) History of open reduction and internal fixation (ORIF) procedure History of tubal ligation Social History Smoking Status: Current every day smoker tobacco type: cigarettes Tobacco: How many years used: 40 second hand exposure: Yes alcohol intake: never substance use type: does not use caffeine: Yes Type: coffee Number of servings: 3 what type of physical activity do you participate in: aerobics frequency: 3-4 times per week ROS ROS ED ROS Narrative Constitutional: No fever, no chills. HEENT: No sore throat. No neck pain. No loss of vision. No rhinorrhea. Cardiovascular: Left upper quadrant abdominal pain radiating to left chest/chest pain. No palpitations. No pedal edema. Respiratory: No cough, no shortness of breath. Abdominal: Left upper quadrant abdominal pain. Positive nausea and vomiting, 4 times last 24 hours. Diarrhea. Genitourinary: No dysuria. No hematuria. Musculoskeletal: No myalgias. No arthralgias. Neurologic: No headaches. No dizziness. No lightheadedness. Skin: No rash. No change in color. Psychiatric: No depression. No anxiety. EXAM Physical Exam Narrative Exam Narrative: Afebrile. Vital signs noted. Regular rate and rhythm. Lungs clear to auscultation bilaterally. Abdomen is soft with mild tenderness to palpation left upper quadrant and epigastrium. No guarding or rebound. Neurological examination awake, alert, nonfocal and nonlateralizing. Const Vital Signs: 09/14/23 00:57 09/14/23 02:57 Temperature 97.9 F Temperature Source Temporal Pulse Rate 71 64 Respiratory Rate 20 H 19 H Blood Pressure 169/73 H 143/50 H Blood Pressure Mean 105 81 Pulse Ox 98 96 Oxygen Delivery Method Room Air MDM MDM MDM Narrative Medical decision making narrative: The differential diagnosis would be splenic rupture in the left upper quadrant versus pancreatitis versus diverticulitis of the transverse and descending colon versus bowel obstruction. Her pain has been ongoing for 1 week. Comprehensive workup was pursued. Given that she had radiating chest pain, EKG was obtained and interpreted by myself independently as normal sinus rhythm at 64 bpm without ectopy or acute ST changes. No STEMI. Troponin will be drawn along with baseline laboratories and CT of the abdomen and pelvis with IV contrast. I reviewed her laboratory work and she has slightly elevated white count of 13.9 which I think is nonspecific because she has had chronic leukocytosis in the past. Hemoglobin slightly hemoconcentrated at 15.8 with hematocrit 48.7, platelet count normal at 214. Electrolyte panel is grossly unremarkable for a sodium of 138 and potassium normal at 3.9, chloride 106. BUN is slightly elevated at 20, creatinine normal at 0.8. LFTs show AST low at 11 and ALT normal at 24. Lipase is also normal so I doubt pancreatitis. Urinalysis shows white cells 5-10 with RBCs 10-25. I do not feel antibiotics are indicated. High-sensitivity troponin is 5. Patient continued to have pain and feels like her abdominal pain is getting worse even after 2 doses of morphine and a dose of ondansetron. I reviewed the radiology report of the CT of the abdomen and pelvis which is concerning for enteritis and ileus. They do comment on her chronic pancreatitis, but no acute pancreatitis. Given that she is still having pain and has concern for ileus, I will discuss patient with Dr. Altman for at least observation with possible consult to gastroenterology. She may also have gastroparesis as in review of her problem list she has history of insulin resistance. Patient is in stable condition. History & Record Review Discussion w/independent historian: Patient Additional record(s) reviewed:: Prior labs Lab Data Attestation: I reviewed the patient's lab results. Labs: Laboratory Results - last 24 hr 09/14/23 09/14/23 01:03 01:40 WBC 13.9 H RBC 5.65 H Hgb 15.8 H Hct 48.7 H MCV 86.2 MCH 28.0 MCHC 32.4 RDW Std Deviation 47.8 H RDW Coeff of Nhung 15.2 H Plt Count 214 MPV 12.3 H Immature Gran % (Auto) 0.300 Neut % (Auto) 58.7 Lymph % (Auto) 30.1 [place] % (Auto) 7.8 Eos % (Auto) 2.2 Baso % (Auto) 0.9 Absolute Neuts (auto) 8.2 H Absolute Lymphs (auto) 4.19 Nucleated RBC % 0 Sodium 138 Potassium 3.9 Chloride 106 Carbon Dioxide 25.0 Anion Gap 7 BUN 20 H Creatinine 0.82 Estim Creat Clear Calc 68.76 Est GFR (MDRD) Af Amer 90 Est GFR (MDRD) Non-Af 74 BUN/Creatinine Ratio 24.4 H Glucose 122 H Calcium 9.3 Total Bilirubin 0.30 AST 11 L ALT 24 Alkaline Phosphatase 65 Troponin I High Sens 5 Total Protein 6.9 Albumin 3.5 Globulin 3.4 Albumin/Globulin Ratio 1.0 Lipase 28 Urine Color Yellow Urine Clarity Clear Urine pH 5.0 Ur Specific [place] 1.020 Urine Protein 15 H Urine Glucose (UA) Normal Urine Ketones Negative Urine Occult Blood 250 H Urine Nitrite Negative Urine Bilirubin Negative Urine Urobilinogen Normal Ur Leukocyte Esterase 500 H Urine RBC 10-25 SEEN Urine WBC 5-10 SEEN Ur Squamous Epith Cells 5-10 SEEN Calcium Oxalate Crystal 1+ Urine Bacteria 1+ Hyaline Casts 0-5 SEEN Urine Mucus 1+ Radiography Diagnostic Testing: Clinical Impression(s) from Imaging Studies Abdomen/Pelvis CT 09/14/23 01:05 IMPRESSION: 1. Mild mural thickening of duodenal sweep and some loops of jejunum suggests an enteritis. Question of abnormal mural thickening of the distal stomach versus artifact of nondistention. 2. Small prominent small bowel gas may represent ileus. No evidence for mechanical bowel obstruction. 3. Chronic pancreatitis. No evidence for acute pancreatitis. 4. Gallstones. 5. Nonobstructive renal calculi bilaterally. Mildly atrophic right kidney with cortical scarring. No demonstrated ureteral calculi or hydronephrosis. 6. Colonic diverticulosis without evidence for acute diverticulitis. 7. Atherosclerosis. 8. Umbilical hernia contains fat, but no bowel. Electronically Signed: Julio César Weber MD at 2:54 EDT , Discharge Plan Triage Chief Complaint: Abd Pain ED Provider: Rashaad Rooney Dx/Rx/DC Orders Clinical Impression: Ileus, Abdominal pain Prescriptions: No Action cholecalciferol (vitamin D3) [Vitamin D3] 50 mcg (2,000 unit) tablet 50 mcg PO DAILY magnesium citrate 100 mg capsule 200 mg PO DAILY Multi-Day Plus Minerals 1 EACH tablet 1 ea PO DAILY Patient Comments: supplement Eliquis 5 mg tablet 5 mg PO BID Qty: 60 12RF metoprolol succinate 200 mg tablet extended release 24 hr 200 mg PO DAILY Qty: 90 3RF losartan 100 mg tablet 100 mg PO DAILY Qty: 90 3RF furosemide 40 mg tablet 40 mg PO DAILY Qty: 90 3RF Primary Care Provider: Selina Bowser Referrals: Selina Bowser MD [Primary Care Provider] -
[2023-09-14] MEDS: Morphine 4 MG/ML Syringe IV ×2 (01:11→02:18)
[2023-09-14] MEDS: Ondansetron 4 MG/2 ML Vial IV (01:11)
[2023-09-14] MEDS: 0.9% Normal Saline (1000mL) 1,000 ML 1000 ML IV (01:12)
[2023-09-14 01:16] LABS: Absolute Lymphocyte Count 4.19 X10^3/uL (0.83-4.51); Absolute Neutrophil Count 8.2 X10^3/uL (2.0-7.7); Basophil# 0.13 X10^3/uL; Basophil% 0.9 % (0-1); Eosinophil# 0.31 X10^3/uL; Eosinophils% 2.2 % (0-5); Hematocrit 48.7 % (37-47); Hemoglobin 15.8 g/dL (12.0-15.0); Lymphocyte # 4.19 X10^3/ul (0.83-4.51); Lymphocyte % 30.1 % (19-41); Mean Corp Hgb Conc 32.4 g/dL (32-36); Mean Corpuscular Volume 86.2 fL (81-99); Mean Platelet Vol. 12.3 fl (6.2-12.0); Monocyte# 1.08 X10^3/uL; Monocyte% 7.8 % (0-10); NRBC Flagged by Analyzer 0 % (0-5); Neutrophil # 8.18 X10^3/uL (2.7-7.7); Neutrophil % 58.7 % (47-70); Platelet Count 214 K/mm3 (150-450); RBC Distribution Width CV 15.2 % (11.6-14.6); RBC Distribution Width SD 47.8 fl (35.1-43.9); Red Blood Count 5.65 M/mm3 (4.2-5.4); White Blood Count 13.9 K/mm3 (4.4-11.0)
[2023-09-14 01:36] LABS: AST(SGOT) 11 U/L (15-37); Alanine Aminotransfer ALT/SGPT 24 U/L (13-56); Albumin, Serum 3.5 g/dL (3.2-5.0); Alkaline Phosphatase 65 U/L (45-117); Anion Gap 7 (5-15); BUN 20 mg/dL (7-18); BUN/Creat Ratio 24.4 RATIO (10-20); Calcium,Total 9.3 mg/dL (8.5-10.1); Chloride 106 mmol/L (98-107); Creatinine, Serum 0.82 mg/dL (0.55-1.02); EST Glomerular Filtration Rate 74 mL/min (>60); Est Glom Filt Rate - Afr Amer 90 mL/min (>60); Estimated Creatinine Clearance 68.76 ml/min; Globulin 3.4 g/dL (2.2-4.2); Glucose 122 mg/dL (74-106); Lipase 28 U/L (13-75); Potassium 3.9 mmol/L (3.5-5.1); Protein, Total 6.9 g/dL (6.4-8.2); Sodium Level 138 mmol/L (136-145); Troponin-I HS 5 pg/mL (3.0-54.0)
[2023-09-14 01:56] LABS: Color, Urine Yellow (Yellow); Glucose, Dipstick Normal (Normal); Ketone-Dipstick Negative (Negative); Leukocyte Esterase-Dipstick 500 /ul (Negative); Nitrite-Dipstick Negative (Negative); Occult Blood-Urine 250 /ul (Negative); Protein-Dipstick 15 mg/dl (Negative); Urine Bilirubin Dipstick Negative (Negative); Urine Clarity Clear (Clear); Urine Urobilinogen Normal (Normal)
[2023-09-14 02:02] LABS: Bacteria 1+ /hpf (None Seen); Calcium Oxalate Crystals Ur 1+ /hpf (<or=2+); Hyaline Cast 0-5 SEEN /lpf (0-5); Mucous, Urine 1+ /hpf (<or=2+); Red Blood Cells-Urine 10-25 SEEN /hpf (0-5); Squamous Epithelial Cells - UA 5-10 SEEN /hpf (5-10); White Blood Cells 5-10 SEEN /hpf (0-5)
--- NOTE | 2023-09-14 03:22 | HP.PCM.HOS_ITS ---
HPI - General General Date of Admission: 09/14/23 Date of Service: 09/14/23 Chief Complaint: Abdominal pain, N/V/D HPI Narrative The patient is a 67 y/o F w/ PMHx: Chart reported Hx Insulin resistance, Obesity, PAF/Flutter, HFpEF, HTN, HLD, GERD, Tobacco use, Valvular Heart disease who presents to the [facility] ED on 09/14/23 with history of abdominal pain ongoing for the last week primarily epigastric and left upper quadrant noted to be intermi ttent occasionally lasting hours but constant of late with over the last 24 hours persistent worsening abdominal discomfort with a boring sensation going toward her back with nausea and emesis as well as intermittent loose stools with no fevers or chills prompting ED evaluation. She does report some mild dysuria and intermittent hematuria. She is currently reporting her pain is 10 out of 10 in severity although upon evaluation she appears more comfortable following ED pain regimen and examination with general tenderness but no rebound or guarding. Workup in the ED included T97.6, heart rate 71, BP 169/73, respiratory rate 20, 98% on room air, CBC with WBC 13.9, hemoglobin 15.8, MCV 86.2, platelet 214 with left shift, CMP with BUN/creatinine 20/0.82, glucose 122, hepatic profile unremarkable, lipase 28, troponin 5, urinalysis with specific gravity mildly elevated 1.020, protein 15, occult blood 250, negative nitrite, leukocyte Estr[place] 500 with urine RBCs 10-25 with urine WBCs 5-10 with 1+ urine bacteria, urine culture pending per ED, CT abdomen and pelvis with IV contrast with mild mural thickening of the duodenal sweep and some loops of jejunum suggestive of enteritis with questional abnormal mural thickening in the distal stomach versus artifact of nondistention, small prominent small bowel gas possibly representing ileus with no evidence of any obstruction, evidence of chronic pancreatitis with no evidence of any acute pancreatitis, cholelithiasis evident with gallstones noted, nonobstructive renal calculi bilaterally, mildly atrophic right kidney with cortical scarring, colonic diverticulosis without any evidence for acute diverticulitis, atherosclerosis. In the ED patient ministered 1 L normal saline, Zofran 4 mg IV x 1, morphine 4 mg IV x 2. [facility] Medical History Atrial flutter, chronic Cholelithiasis Chronic diastolic CHF (congestive heart failure) Colon polyps Diverticulosis Essential hypertension Family history of cardiovascular disease Gastroesophageal reflux disease History of renal stone History of shoulder fracture Hyperlipidemia Insulin resistance Obesity Paroxysmal atrial fibrillation Recurrent hematuria Tobacco dependence UTI (urinary tract infection) Vitamin D deficiency Home Medications multivit with minerals-iron 18 mg-folic ac 400 mcg-vit K 25 mcg tablet (Multi- Day Plus Minerals) 1 ea PO DAILY 10/13/15 [History Last Taken Unknown] apixaban 5 mg tablet (Eliquis) 5 mg PO BID #60 tabs 01/13/23 [Rx Last Taken Unknown] cholecalciferol (vitamin D3) 50 mcg (2,000 unit) tablet (Vitamin D3) 50 mcg PO DAILY 02/03/23 [History Last Taken Unknown] furosemide 40 mg tablet 40 mg PO DAILY #90 tabs 03/17/23 [Rx Last Taken Unknown] losartan 100 mg tablet 100 mg PO DAILY #90 tabs 03/17/23 [Rx Last Taken Unknown] metoprolol succinate 200 mg tablet,extended release 24 hr 200 mg PO DAILY #90 tabs 03/17/23 [Rx Last Taken Unknown] magnesium 200 mg tablet 120 mg PO DAILY 09/14/23 [History Last Taken Unknown] Allergy/AdvReac Type Severity Reaction Status Date / Time No Known Allergies Allergy Verified 08/04/23 15:10 Family History Mother Diabetes Hypertension Myocardial infarction Father Hypertension Heart disease Sister Diabetes Heart disease Grandmother CVA (cerebral vascular accident) Surgical History History of cardioversion (06/21/19) History of open reduction and internal fixation (ORIF) procedure History of tubal ligation Social History (Updated 09/14/23 @ 04:[address] Meli Altman MD) household members: spouse Smoking Status: Current every day smoker tobacco type: cigarettes Smoking packs per day: 1 Smoking cigarettes per day: 20.0 Tobacco: How many years used: 40 second hand exposure: Yes alcohol intake: never substance use type: does not use caffeine: Yes Type: coffee Number of servings: 3 what type of physical activity do you participate in: aerobics frequency: 3-4 times per week ROS ROS Narrative Admission Review of Systems: CONSTITUTIONAL: No weight loss, fever, chills, + weakness or fatigue. HEENT: Eyes: No visual loss, blurred vision, double vision or yellow sclerae. Ears, Nose, Throat: No hearing loss, sneezing, congestion, runny nose or sore throat. SKIN: No rash or itching, lesions, wounds. CARDIOVASCULAR: No chest pain, chest pressure or chest discomfort, palpitations, edema, orthopnea, syncopal events. RESPIRATORY: No shortness of breath, cough or sputum, wheezing, hemoptysis. GASTROINTESTINAL: + anorexia, nausea, vomiting, vomiting, abdominal discomfort. No melena, BRBPR. GENITOURINARY: + Dysuria, intermittent hematuria. No frequency, urgency or retention. NEUROLOGICAL: No headache, dizziness, syncope, paralysis, ataxia, numbness or tingling in the extremities, focal weakness, change in bowel or bladder control, seizure. MUSCULOSKELETAL: + muscle, back pain, joint pain or stiffness. HEMATOLOGIC: No anemia, bleeding or bruising. LYMPHATICS: No enlarged nodes. No history of splenectomy. PSYCHIATRIC: No history of depression or anxiety. ENDOCRINOLOGIC: No reports of sweating, cold or heat intolerance. No polyuria or polydipsia. ALLERGIES: No history of asthma, hives, eczema or rhinitis. Vital Signs Vital Signs Vital Signs: 09/14/23 00:57 09/14/23 02:57 Temperature 97.9 F Temperature Source Temporal Pulse Rate 71 64 Respiratory Rate 20 H 19 H Blood Pressure 169/73 H 143/50 H Blood Pressure Mean 105 81 Pulse Ox 98 96 Oxygen Delivery Method Room Air Weight Weight: 192 lb 14.472 oz Body Mass Index (BMI) 36.4 Physical Exam Narrative Physical Examination: General: Awake, alert, oriented x 3 and cooperative, seated upright in the ED bed, appears comfortable but reporting pain 10 out of 10 in severity to the abdomen. Skin: Normal color, normal turgor, no icterus, no cyanosis. HEENT: AT/NC, EOMI, PERRLA, mildly dry MM, no carotid bruits or JVD noted. Lungs: Mildly diminished, distant, appropriate effort, no evidence any distress, no rales, ronchi or wheezing. Heart: Regular rate and rhythm; no gallop, rub audible. Abdomen: Soft, obese, despite reporting tentative 10 pain patient abdomen soft, very minimal discomfort to left upper quadrant and epigastric region palpation, mildly distended without marked tympany, mildly hyperactive BS, no appreciated HSM. Extremities: No cyanosis, no clubbing, no marked peripheral edema. Neurological: Patient awake, alert, oriented as noted, cognitive function intact; pupils equally reactive to light and accommodation, cranial nerves grossly normal, moving all 4 extremities, no focal deficits, strength mildly to moderately globally decreased. Psychiatric: Affect appears mildly fatigued otherwise normal, no acute evidence of depressive or anxiety feelings. Results Lab / Micro Data 09/14/23 01:03 09/14/23 01:03 Labs: Laboratory Results - last 24 hr 09/14/23 01:03: WBC 13.9 H, RBC 5.65 H, Hgb 15.8 H, Hct 48.7 H, MCV 86.2, MCH 28.0, MCHC 32.4, RDW Std Deviation 47.8 H, RDW Coeff of [place] 15.2 H, Plt Count 214, MPV 12.3 H, Immature Gran % (Auto) 0.300, Neut % (Auto) 58.7, Lymph % ( Auto) 30.1, [place] % (Auto) 7.8, Eos % (Auto) 2.2, Baso % (Auto) 0.9, Absolute Neuts (auto) 8.2 H, Absolute Lymphs (auto) 4.19, Nucleated RBC % 0, Sodium 138, Potassium 3.9, Chloride 106, Carbon Dioxide 25.0, Anion Gap 7, BUN 20 H, Creatinine 0.82, Estim Creat Clear Calc 68.76, Est GFR (MDRD) Af Amer 90, Est GFR (MDRD) Non-Af 74, BUN/Creatinine Ratio 24.4 H, Glucose 122 H, Calcium 9.3, Total Bilirubin 0.30, AST 11 L, ALT 24, Alkaline Phosphatase 65, Troponin I High Sens 5, Total Protein 6.9, Albumin 3.5, Globulin 3.4, Albumin/Globulin Ratio 1.0, Lipase 28 09/14/23 01:40: Urine Color Yellow, Urine Clarity Clear, Urine pH 5.0, Ur Specific [place] 1.020, Urine Protein 15 H, Urine Glucose (UA) Normal, Urine Ketones Negative, Urine Occult Blood 250 H, Urine Nitrite Negative, Urine Bilirubin Negative, Urine Urobilinogen Normal, Ur Leukocyte Esterase 500 H, Urine RBC 10-25 SEEN, Urine WBC 5-10 SEEN, Ur Squamous Epith Cells 5-10 SEEN, Calcium Oxalate Crystal 1+, Urine Bacteria 1+, Hyaline Casts 0-5 SEEN, Urine Mucus 1+ Imaging Radiology Impression Abdomen/Pelvis CT 09/14/23 01:05 IMPRESSION: 1. Mild mural thickening of duodenal sweep and some loops of jejunum suggests an enteritis. Question of abnormal mural thickening of the distal stomach versus artifact of nondistention. 2. Small prominent small bowel gas may represent ileus. No evidence for mechanical bowel obstruction. 3. Chronic pancreatitis. No evidence for acute pancreatitis. 4. Gallstones. 5. Nonobstructive renal calculi bilaterally. Mildly atrophic right kidney with cortical scarring. No demonstrated ureteral calculi or hydronephrosis. 6. Colonic diverticulosis without evidence for acute diverticulitis. 7. Atherosclerosis. 8. Umbilical hernia contains fat, but no bowel. Electronically Signed: Julio César Weber MD at 2:54 EDT Reading Location ID and State: [facility] / [place] , Service support , Assessment & Plan Assessment/Plan (1) Abdominal pain: PLAN: Plan The patient is a 67 y/o F w/ PMHx: Chart reported Hx Insulin resistance, Obesity, PAF/Flutter, HFpEF, HTN, HLD, GERD, Tobacco use, Valvular Heart disease who presents to the [facility] ED on 09/14/23 with history of abdominal pain ongoing for the last week primarily epigastric and left upper quadrant noted to be intermittent occasionally lasting hours but constant of late with over the last 24 hours persistent worsening abdominal discomfort with a boring sensation going toward her back with nausea and emesis as well as intermittent loose stools with no fevers or chills prompting ED evaluation. #1. Intractable nausea, emesis, diarrhea with abdominal discomfort, possible component of ileus, possible enteritis complicated by underlying chronic pancr eatitis with no evidence of acute pancreatitis of note with underlying cholelithiasis: Given ongoing discomfort will admit to medical surgical floor, will maintain on judicious hydration given underlying heart failure history, will obtain c diff, stool cx. Procalcitonin requested. Given symptoms c urrently will maintain n.p.o. status on IV PPI until clinically improving with transition at that time to clears if appropriate. Anti-emetics, pain regimen PRN. Patient has had ongoing issues with occasional nausea and emesis and abdominal pain which they thought was from cholelithiasis but she reportedly was seen by general surgeon Dr. Roberto who felt that another etiology was possible. Her current presentation is different and more acute in nature. If patient does not improve may need to consider gastric emptying versus endoscopies for further evaluation. #2. Questionable Acute Complicated Urinary Tract Infection: UA upon ED evaluation mildly remarkable with 500 leukocyte esterase, urine RBCs 10-25 with occult blood 250, urine WBCs to 5-10 with 1+ urine bacteria, pending UCx, contin ue judicious VFs, monitor I/Os, initiate on IV Rocephin to be cautious with de- escalation off therapy if unremarkable otherwise w/ transition as able pending sensitivities and speciation. #3. HFpEF: Most recent noted echocardiogram 02/18/2023 with normal LV size, LV systolic function normal, EF 60%, no regional wall motion abnormalities, mild AV insufficiency. Will continue home eliquis, metoprolol, losartan, cautiously continue lasix but low threshold to hold given #1 but will monitor I&Os and if profound hold but no marked output noted in the ED, not on statin therapy of note, cautiously hydrating given history. #4. PAF/flutter: Will continue patient home metoprolol and Eliquis regimen. #5. Hypertension: Continue home regimen including metoprolol, losartan, Lasix judiciously given recent reported GI losses however no marked electrolyte disturbances noted, PRN hydralazine. #6. Hyperlipidemia: Per current list not on statin therapy, no allergy listed, defer to outpatient. #7. Valvular heart disease: ECHO 02/18/2023 with normal LV size, LV systolic function normal, EF 60%, no regional wall motion abnormalities, mild AV insufficiency. #8. Tobacco Abuse: Encouraged cessation, inpatient consultation per RT, NR if desired. #9. Obesity: Weight loss and lifestyle changes encouraged. #10. GERD: Will maintain on IV PPI given presentation concurrently as noted above. #11. DVT prophylaxis: Continue patient home Eliquis regimen. #12. CODE status: Patient HCPOA and living will are not in place but she notes her and her daughter would be her decision makers if necessary. Discussed CODE status at length including difference between FULL code, DNR-CCA and DNR-CC status. Following discussions about the differences in these status, requested Full Code status. Advanced Care Planning Face to Face Time: 16 minutes. Charges/Coding Visit Charges Inpatient E&M: 39632 Init Hosp L2 Procedures Hospitalists Procedures: 53848 Advncd Care Plan 30 Min
[2023-09-14] MEDS: Ceftriaxone 1 GM/50 ML BAG IV ×2 (05:24→21:48)
[2023-09-14] MEDS: 0.9% Normal Saline (1000mL) 1,000 ML 100 ML IV (05:24)
[2023-09-14] MEDS: Acetaminophen 325 MG Tablet 650 MG PO ×2 (05:42→13:01)
[2023-09-14] MEDS: oxyCODONE 5 MG Tablet PO ×2 (05:42→13:01)
[2023-09-14] MEDS: Pantoprazole Sodium 40 MG in 0.9% Normal Saline (100mL MB+) 100 ML 330 MG IV ×3 (05:42→21:16)
[2023-09-14 06:06] LABS: Absolute Lymphocyte Count 3.73 X10^3/uL (0.83-4.51); Absolute Neutrophil Count 6.7 X10^3/uL (2.0-7.7); Basophil# 0.09 X10^3/uL; Basophil% 0.8 % (0-1); Eosinophil# 0.24 X10^3/uL; Hematocrit 47.8 % (37-47); Hemoglobin 15.2 g/dL (12.0-15.0); Lymphocyte # 3.73 X10^3/ul (0.83-4.51); Lymphocyte % 31.3 % (19-41); Mean Corp Hgb Conc 31.8 g/dL (32-36); Mean Corpuscular Hgb 27.8 pg (27.0-32.0); Mean Corpuscular Volume 87.5 fL (81-99); Mean Platelet Vol. 11.6 fl (6.2-12.0); Monocyte# 1.08 X10^3/uL; Monocyte% 9.1 % (0-10); NRBC Flagged by Analyzer 0 % (0-5); Neutrophil # 6.74 X10^3/uL (2.7-7.7); Neutrophil % 56.5 % (47-70); Platelet Count 206 K/mm3 (150-450); RBC Distribution Width CV 15.2 % (11.6-14.6); RBC Distribution Width SD 48.4 fl (35.1-43.9); Red Blood Count 5.46 M/mm3 (4.2-5.4); White Blood Count 11.9 K/mm3 (4.4-11.0)
[2023-09-14 06:25] LABS: ALB/GLOB Ratio 0.9 RATIO (0.9-2.4); AST(SGOT) 27 U/L (15-37); Alanine Aminotransfer ALT/SGPT 36 U/L (13-56); Albumin, Serum 3.1 g/dL (3.2-5.0); Alkaline Phosphatase 62 U/L (45-117); Anion Gap 7 (5-15); BUN 17 mg/dL (7-18); BUN/Creat Ratio 25.6 RATIO (10-20); Calcium,Total 8.8 mg/dL (8.5-10.1); Chloride 108 mmol/L (98-107); Creatinine, Serum 0.66 mg/dL (0.55-1.02); EST Glomerular Filtration Rate 95 mL/min (>60); Est Glom Filt Rate - Afr Amer 115 mL/min (>60); Estimated Creatinine Clearance 69.11 ml/min; Globulin 3.3 g/dL (2.2-4.2); Glucose 127 mg/dL (74-106); Potassium 3.9 mmol/L (3.5-5.1); Protein, Total 6.4 g/dL (6.4-8.2); Sodium Level 139 mmol/L (136-145)
--- NOTE | 2023-09-14 08:07 | PCM.HOSP.N ---
Hospitalist Note Ms. Khalil is a 67-year-old white female who presented to emergency department [facility] on 09/14/2023 with abdominal pain, nausea, vomiting, and diarrhea. She reported it had been ongoing for about a week prior to presentation and was noted predominantly in the epigastric and left upper quadrant area. It had been intermittent but as of late had been more constant with a boring sensation to her back. She denied fever and chills. Vital signs on presentation were unremarkable other than elevated blood pressure 169/73. CBC showed a mild leukocytosis with a white count of 13.9 but she did appear to be hemoconcentrated as her hemoglobin was 15.8. She left shift was present. BUN was 20 with a serum creatinine of 0.82. Hepatic profile was unremarkable. Lipase was 28. Troponin was 5. UA was consistent with dehydration showing a specific gravity of 1.02 and some occult blood but was negative for nitrite. Leuk esterase was 500 white blood cells were elevated with 1+ bacteria. Urine culture was sent in the emergency department and she was not started antibiotics at that time. CT of the abdomen pelvis was done and showed mild mural thickening of the duodenum and some loops of jejunum suggestive of enteritis with possible mural thickening at the distal stomach. She was given 1 L of IV fluids, Zofran, and morphine x 2 in the emergency department. Procalcitonin was obtained and completely normal. Enteric panel was unremarkable. And urine culture is pending at this time. She was admitted to the medical floor and maintain on IV fluids, given antiemetics, pain medication and started on ceftriaxone for suspected UTI. Will start clear liquid diet and advance as able to cardiac. Once patient is able to take in a p.o. diet without any difficulty we will plan to discharge home.
[2023-09-14 08:09] LABS: Procalcitonin < 0.04 ng/mL (0.00-0.09)
[2023-09-14] MEDS: Magnesium Chloride 64 MG Delay Rel.Tablet PO (08:52)
[2023-09-14] MEDS: Losartan Potassium 100 MG Tablet PO (08:53)
[2023-09-14] MEDS: Furosemide 40 MG Tablet PO (08:53)
[2023-09-14] MEDS: APIXABAN 5 MG TABLET PO ×2 (08:53→21:17)
--- NOTE | 2023-09-14 09:56 | NURSING ---
Patient refused metoprolol this AM due to low BP/bradycardia. Patient requested only lasix and losartan to be given this AM at media clerk.
[2023-09-15 02:20] VITALS: BP 129/65; PULSE 65; RESP 16; TEMP 36.6; O2SAT 94
[2023-09-15 05:34] VITALS: BMI 34.7
[2023-09-15 07:27] LABS: Absolute Lymphocyte Count 3.07 X10^3/uL (0.83-4.51); Absolute Neutrophil Count 4.6 X10^3/uL (2.0-7.7); Basophil# 0.08 X10^3/uL; Basophil% 0.9 % (0-1); Eosinophil# 0.21 X10^3/uL; Eosinophils% 2.4 % (0-5); Hematocrit 44.5 % (37-47); Hemoglobin 14.3 g/dL (12.0-15.0); Lymphocyte # 3.07 X10^3/ul (0.83-4.51); Lymphocyte % 35.5 % (19-41); Mean Corp Hgb Conc 32.1 g/dL (32-36); Mean Corpuscular Hgb 28.1 pg (27.0-32.0); Mean Corpuscular Volume 87.4 fL (81-99); Mean Platelet Vol. 12.5 fl (6.2-12.0); Monocyte# 0.71 X10^3/uL; Monocyte% 8.2 % (0-10); NRBC Flagged by Analyzer 0 % (0-5); Neutrophil # 4.57 X10^3/uL (2.7-7.7); Neutrophil % 52.8 % (47-70); Platelet Count 210 K/mm3 (150-450); RBC Distribution Width CV 15.1 % (11.6-14.6); RBC Distribution Width SD 48.4 fl (35.1-43.9); Red Blood Count 5.09 M/mm3 (4.2-5.4); White Blood Count 8.7 K/mm3 (4.4-11.0)
[2023-09-15 07:48] VITALS: O2SAT 94
[2023-09-15 07:48] LABS: AST(SGOT) 14 U/L (15-37); Alanine Aminotransfer ALT/SGPT 27 U/L (13-56); Albumin, Serum 3.1 g/dL (3.2-5.0); Alkaline Phosphatase 60 U/L (45-117); Anion Gap 5 (5-15); BUN 12 mg/dL (7-18); BUN/Creat Ratio 17.9 RATIO (10-20); Calcium,Total 8.9 mg/dL (8.5-10.1); Chloride 105 mmol/L (98-107); Creatinine, Serum 0.67 mg/dL (0.55-1.02); EST Glomerular Filtration Rate 93 mL/min (>60); Est Glom Filt Rate - Afr Amer 113 mL/min (>60); Estimated Creatinine Clearance 68.75 ml/min; Globulin 3.2 g/dL (2.2-4.2); Glucose 84 mg/dL (74-106); Magnesium 2.1 mg/dL (1.6-2.6); Phosphorus 3.8 mg/dL (2.5-4.9); Potassium 4.2 mmol/L (3.5-5.1); Protein, Total 6.3 g/dL (6.4-8.2); Sodium Level 136 mmol/L (136-145)
[2023-09-15] MEDS: Losartan Potassium 100 MG Tablet PO (08:54)
[2023-09-15] MEDS: Furosemide 40 MG Tablet PO (08:54)
[2023-09-15] MEDS: APIXABAN 5 MG TABLET PO (08:54)
[2023-09-15] MEDS: Magnesium Chloride 64 MG Delay Rel.Tablet PO (08:54)
[2023-09-15] MEDS: Pantoprazole Sodium 40 MG in 0.9% Normal Saline (100mL MB+) 100 ML 330 MG IV (08:54)
[2023-09-15] MEDS: 0.9% Saline Lock 10 ML Syringe IV (08:55)
[2023-09-15 09:06] VITALS: BP 134/59; PULSE 58; RESP 16; TEMP 36.8; O2SAT 95
--- NOTE | 2023-09-15 09:45 | CASEMGMT ---
Met with?patient to complete DÍAZ form. DÍAZ form explained to patient who voiced understanding and signed form. Original form placed in pt?s chart and copy provided to patient. Susana Leblanc, Discharge Planning Asst
[2023-09-15 11:22] VITALS: BP 128/64; PULSE 63; RESP 16; TEMP 36.9; O2SAT 96
--- NOTE | 2023-09-15 12:28 | PCM.DC.SUM ---
Providers Date of Admission: 09/14/23 Date of Discharge: 09/15/23 Primary Care Physician: Dr. Selina Bowser MD Reason For Visit: N/V/D Diagnosis Discharge Diagnosis (1) Abdominal pain: Status: Acute Code(s): R10.9 - Unspecified abdominal pain Medications at Discharge Home Medications multivit with minerals-iron 18 mg-folic ac 400 mcg-vit K 25 mcg tablet (Multi-Day Plus Minerals) 1 ea PO DAILY 10/13/15 apixaban 5 mg tablet (Eliquis) 5 mg PO BID #60 tabs 01/13/23 cholecalciferol (vitamin D3) 50 mcg (2,000 unit) tablet (Vitamin D3) 50 mcg PO DAILY 02/03/23 furosemide 40 mg tablet 40 mg PO DAILY #90 tabs 03/17/23 losartan 100 mg tablet 100 mg PO DAILY #90 tabs 03/17/23 metoprolol succinate 200 mg tablet,extended release 24 hr 200 mg PO DAILY #90 tabs 03/17/23 magnesium 200 mg tablet 120 mg PO DAILY 09/14/23 amoxicillin 875 mg-potassium clavulanate 125 mg tablet 1 tab PO BID #10 tabs 09/15/23 pantoprazole 40 mg tablet,delayed release (Protonix) 40 mg PO DAILY #30 tabs 09/15/23 Hospital Course Operations None Procedures - (CT abdomen and pelvis) Summary of Care Provided Minutes Spent on Discharge: 30 Hospital Course: Ms. Khalil is a 67-year-old white female who presented to emergency department [facility] [place] on 09/14/2023 with abdominal pain, nausea, vomiting, and diarrhea. She reported it had been ongoing for about a week prior to presentation and was noted predominantly in the epigastric and left upper quadrant area. It had been intermittent but as of late had been more constant with a boring sensation to her back. She denied fever and chills. Vital signs on presentation were unremarkable other than elevated blood pressure 169/73. CBC showed a mild leukocytosis with a white count of 13.9 but she did appear to be hemoconcentrated as her hemoglobin was 15.8. She left shift was present. BUN was 20 with a serum creatinine of 0.82. Hepatic profile was unremarkable. Lipase was 28. Troponin was 5. UA was consistent with dehydration showing a specific gravity of 1.02 and some occult blood but was negative for nitrite. Leuk esterase was 500 white blood cells were elevated with 1+ bacteria. Urine culture was sent in the emergency department and she was not started antibiotics at that time. CT of the abdomen pelvis was done and showed mild mural thickening of the duodenum and some loops of jejunum suggestive of enteritis with possible mural thickening at the distal stomach. She was given 1 L of IV fluids, Zofran, and morphine x 2 in the emergency department. Procalcitonin was obtained and completely normal. Enteric panel was unremarkable. Urine culture was unremarkable. She was placed on ceftriaxone as her UA was suggestive of infection and for her enteritis on CAT scan. Within 24 hours admission her abdominal pain had resolved and she was able to eat and drink without any difficulty. Given the enteritis findings on initial CT we will discharge her home with another 5 days of Augmentin and we started oral Protonix. Have encouraged her to follow-up with her primary care physician within the next 1 to 2 weeks and with GI on an outpatient basis if any symptoms recur. She is able to be discharged home tolerating a regular diet on 09/15/2023. Discharge diagnoses: Abdominal pain-resolved Nausea and vomiting-resolved Small bowel enteritis-resolving Abnormal urinalysis-culture unremarkable for infection GERD HFpEF-chronic PAF/flutter Hypertension Hyperlipidemia Valvular heart disease Obesity Tobacco abuse Physical Exam Narrative Patient states she is feeling much better and back to her norm. Denies any symptoms at this time. Has been able to eat without any issue. Anxious to go home if possible. Const alert, oriented x3, no apparent distress, no limitations and well nourished Constitutional Narrative: Obese, upper middle-aged, white female, sitting up on the edge of the bed, appears well and nontoxic General Appearance: cooperative, comfortable, well kempt and well developed Orientation / Consciousness: awake, oriented to person, oriented to place and oriented to time Exam Limitations: no limitations Nutritional Appearance: obese HEENT normocephalic, head/scalp atraumatic, hearing grossly normal bilaterally and moist oral mucous membranes HEENT Narrative: Mallampati 3, no thrush Resp normal respiratory effort, no retractions, no use of accessory muscles and clear to auscultation bilaterally Auscultation: Negative for rales, rhonchi or wheezes Cardio regular rate, regular rhythm, S1 normal heart sound, S2 normal heart sound, no murmurs, no rub, no gallops and no clicks GI normal to inspection, nondistended, normoactive bowel sounds, soft to palpation and non-tender Extremity no clubbing, cyanosis or edema Extremity Narrative: Pedal pulses are 2+ Neuro oriented x3, CN's II-XII intact bilaterally, moves all extremities and no focal motor deficits Speech: speech normal Psych affect normal Psych Narrative: Very pleasant, interacts appropriately Weight / BMI Weight Weight: 83.6 kg Body Mass Index (BMI) 34.7 ABG / Lab / Microbiology Data 09/15/23 06:12 09/15/23 06:12 Laboratory: Laboratory Results - last 24 hr 09/15/23 06:12: WBC 8.7, RBC 5.09, Hgb 14.3, Hct 44.5, MCV 87.4, MCH 28.1, MCHC 32.1, RDW Std Deviation 48.4 H, RDW Coeff of Nhung 15.1 H, Plt Count 210, MPV 12.5 H, Immature Gran % (Auto) 0.200, Neut % (Auto) 52.8, Lymph % (Auto) 35.5, Mcclain % (Auto) 8.2, Eos % (Auto) 2.4, Baso % (Auto) 0.9, Absolute Neuts (auto) 4.6, Absolute Lymphs (auto) 3.07, Nucleated RBC % 0, Sodium 136, Potassium 4.2, Chloride 105, Carbon Dioxide 26.0, Anion Gap 5, BUN 12, Creatinine 0.67, Estim Creat Clear Calc 68.75, Est GFR (MDRD) Af Amer 113, Est GFR (MDRD) Non-Af 93, BUN/Creatinine Ratio 17.9, Glucose 84, Calcium 8.9, Phosphorus 3.8, Magnesium 2.1, Total Bilirubin 0.30, AST 14 L, ALT 27, Alkaline Phosphatase 60, Total Protein 6.3 L, Albumin 3.1 L, Globulin 3.2, Albumin/Globulin Ratio 1.0 Microbiology: Microbiology 09/14/23 01:40 Urine, Random Urine Culture - Final Mixed Gram Positive Organisms D/C Instructions Discharge Diet: Light diet - advance as tolerated and Low fat / Low cholesterol Discharge Activity: Return to Normal Activity Return to work on: 09/16/23 Meaningful Use Info Meaningful Use Meaningful Use Diagnoses (Choose all that apply): None applicable Ischemic Stroke Statin Dosing Therapy Reference: STATIN DOSE THERAPY REFERENCE: * Patients > 75 years receive moderate or high dose statin therapy. * Patients 75 years or YOUNGER should receive HIGH intensity statin dose unless contraindicated. You will be required to document reason for non-treatment if statin daily dose does not meet guidelines. HIGH DOSE STATIN THERAPY DAILY Atorvastatin > than or = to 40 mg Rosuvastatin > than or = to 20 mg Amlodipine + Atorvastatin > than or = to 2.5/40 mg Ezetimibe + Simvastatin 10/80 mg Simvastatin 80mg Discharge Plan Admission Admit Date/Time: 09/14/23 03:28 Primary Reason for Your Visit: Abdominal pain/nausea/vomiting/diarrhea Attending Provider: Marguerite Cheng Primary Care Provider: Selina Bowser Consulting Providers: Meli Altman Discharge Orders/Prescriptions Prescriptions: New pantoprazole [Protonix] 40 mg tablet,delayed release (DR/EC) 40 mg PO DAILY Qty: 30 2RF amoxicillin-pot clavulanate 875-125 mg tablet 1 tab PO BID Qty: 10 0RF Continued cholecalciferol (vitamin D3) [Vitamin D3] 50 mcg (2,000 unit) tablet 50 mcg PO DAILY Multi-Day Plus Minerals 1 EACH tablet 1 ea PO DAILY Patient Comments: supplement magnesium 200 mg tablet 120 mg PO DAILY Eliquis 5 mg tablet 5 mg PO BID Qty: 60 12RF metoprolol succinate 200 mg tablet extended release 24 hr 200 mg PO DAILY Qty: 90 3RF losartan 100 mg tablet 100 mg PO DAILY Qty: 90 3RF furosemide 40 mg tablet 40 mg PO DAILY Qty: 90 3RF Referrals / Follow Up: Selina Bowser MD [Primary Care Provider] - Within 2 Weeks Lester Grimaldo DO [Med Staff - Active Staff] - See Referral Note (as needed if you have recurrent GI distress) Disposition Disposition (needs filled in before D/C Order can be placed): Home, Self Care Charges/Coding Visit Charges Inpatient E&M: 01528 Disch Hosp
--- NOTE | 2023-09-15 12:36 | CASEMGMT ---
RN CM into patient room, pt up walking around in no distress. Denied any needs going home. 6 clicks is 24.
== END 2023-09-15 13:06 | disposition home or self-care (01) ==
LOC: ED 02:42 → MS3 03:55
PROVIDERS: Admitting Provider Family Medicine; Emergency Provider Emergency Medicine; PCP Internal Medicine; Visit Provider Internal Medicine
DX: K52.9 Noninfective gastroenteritis and colitis, unspecified (principal); I11.0 Hypertensive heart disease with heart failure; I50.32 Chronic diastolic (congestive) heart failure; K86.1 Other chronic pancreatitis; I48.0 Paroxysmal atrial fibrillation; R10.12 Left upper quadrant pain; F17.210 Nicotine dependence, cigarettes, uncomplicated; R31.9 Hematuria, unspecified; E66.9 Obesity, unspecified; K21.9 Gastro-esophageal reflux disease without esophagitis; E78.5 Hyperlipidemia, unspecified; R10.13 Epigastric pain; Z79.01 Long term (current) use of anticoagulants; Z79.899 Other long term (current) drug therapy; Z68.36 Body mass index [BMI] 36.0-36.9, adult
CPT/HCPCS: 36415; 74177; 80053; 81001; 83690; 83735; 84100; 84145; 84484; 85025; 87086; 87088; 93005; 94668; 96361; 96365; 96366; 96368; 96375; 96376; 99221; 99285; 99406; J7030; Q9967; A4216; G0378; J2405

== ENCOUNTER → 2023-09-23 | Outpatient (CLI) | payer MEDICARE, SELFPAY ==
[2023-09-23 13:01] LABS: Absolute Lymphocyte Count 3.87 X10^3/uL (0.83-4.51); Absolute Neutrophil Count 6.7 X10^3/uL (2.0-7.7); Basophil# 0.14 X10^3/uL; Basophil% 1.2 % (0-1); Eosinophil# 0.32 X10^3/uL; Eosinophils% 2.6 % (0-5); Hemoglobin 15.4 g/dL (12.0-15.0); Lymphocyte # 3.87 X10^3/ul (0.83-4.51); Mean Corp Hgb Conc 32.1 g/dL (32-36); Mean Corpuscular Hgb 28.1 pg (27.0-32.0); Mean Corpuscular Volume 87.6 fL (81-99); Mean Platelet Vol. 11.9 fl (6.2-12.0); Monocyte# 1.02 X10^3/uL; Monocyte% 8.4 % (0-10); NRBC Flagged by Analyzer 0 % (0-5); Neutrophil # 6.71 X10^3/uL (2.7-7.7); Neutrophil % 55.4 % (47-70); Platelet Count 271 K/mm3 (150-450); RBC Distribution Width CV 15.2 % (11.6-14.6); RBC Distribution Width SD 48.9 fl (35.1-43.9); Red Blood Count 5.48 M/mm3 (4.2-5.4); White Blood Count 12.1 K/mm3 (4.4-11.0)
[2023-09-23 13:29] LABS: Lactic Acid 1.3 mmol/L (0.4-1.9)
== END | disposition home or self-care (01) ==
LOC: LAB 12:46
PROVIDERS: PCP Internal Medicine; Referring Provider Internal Medicine; Visit Provider Internal Medicine
DX: K55.9 Vascular disorder of intestine, unspecified (principal)
CPT/HCPCS: 36415; 83605; 85025; 86140

== ENCOUNTER → 2023-10-06 | Outpatient (CLI) | payer MEDICARE, SELFPAY ==
--- NOTE | 2023-10-06 08:46 | RDU_ITS ---
Reason For Study: Chronic Vascular Disorder of Intestine / Pain Aorta Proximal abdominal aorta 2.31 x 2.39 cm . Proximal abdominal aorta peak systolic velocity is 66.1 cm/sec . Distal abdominal aorta 1.38 x 1.43 cm . Distal abdominal aorta peak systolic velocity is 60.6 cm/sec . . Celiac A Bryn = 200.2/39.2 cm/s Celiac A BRYN w/ Insp = 240.7/47.9 cm/s Celiac A BRYN w/ Exp = 189.1/58.0 cm/s Celiac A Prox = 383.3/85.4 cm/s Hep A Prox = 197.1/43.9 cm/s Turbulent flow noted in Hep A Splenic A Prox = 71.5/22.3 cm/s SMA BRYN = 308.4/28.1 cm/s SMA Prox = 214.3/25.1 cm/s SMA Prox w/ Insp = 229.9/28.1 cm/s SMA Prox w/ Exp = 281.0/25.1 cm/s SMA Mid = 104.4/16.3 cm/s SMA Dist = 139.7/13.3 cm/s DEBBIE Prox = 280.0/19.5 cm/s. Procedures Mesenteric Artery Duplex with B-Mode, Color and Pulsed Wave Doppler. Patient Safety Technically difficult study due to bowel gas. VL/Renal Artery Duplex Ultrasound Interpretation Summary Celiac artery with >70% stenosis Superior mesenteric artery with >70% stenosis Inferior mesenteric artery patent with normal velocities. Ordering Physician: Selina Bowser Referring Physician: Selina Bowser Performed By: Wallace Bundy RVT
== END | disposition home or self-care (01) ==
LOC: CVS 08:45
PROVIDERS: PCP Internal Medicine; Referring Provider Internal Medicine; Visit Provider Internal Medicine
DX: K55.1 Chronic vascular disorders of intestine (principal)
CPT/HCPCS: 93975

== ENCOUNTER → 2023-12-08 | Outpatient (CLI) | payer MEDICARE, SELFPAY ==
--- NOTE | 2023-12-08 13:48 | VDLE_ITS ---
Reason For Study: pain RIGHT LEFT CFV is compressible, spontaneous, phasic, CFV is compressible, spontaneous, phasic, competent and demonstrates normal competent, and demonstrates normal augmentation. augmentation. FV is compressible, spontaneous, phasic, FV is compressible, spontaneous, phasic, competent and demonstrates normal competent and demonstrates normal augmentation. augmentation. POP V is compressible, spontaneous, phasic, POP V is compressible, spontaneous, phasic, competent and demonstrates normal competent and demonstrates normal augmentation. augmentation. T/P Trunk is compressible. T/P Trunk is compressible. PTV is compressible. PTV is compressible. RT PerV is compressible. LT PerV is compressible. SFJ is competent and measures .52 cm. SFJ is competent and measures .61 cm. GSV proximal thigh measures .51 x .55 cm. GSV proximal thigh measures .63 x .65 cm. GSV at knee measures .37 x .35 cm. GSV at knee measures .4 x .36 cm. GSV above knee is competent. GSV above knee is competent. GSV below knee is INCOMPETENT for greater GSV below knee is INCOMPETENT for greater than 0.5 seconds. than 0.5 seconds. SSV proximal calf is competent and SSV proximal calf is competent and measures .23 x .27 cm. measures .2 x .23 cm. ASV at knee is INCOMPETENT for greater than 0.5 seconds and measures .17 x .19 cm. Procedure This is a venous duplex using B-mode, color flow and spectral Doppler. Exam performed in department. The exam was diagnostic. VL/Venous Duplex US - Baljeet Extrem Interpretation Summary Deep veins of the bilateral lower extremities are patent and compressible segme ntally. There is no evidence of bilateral lower extremity deep vein thrombosis. The bilateral great saphenous veins appear patent and compressible segmentally. Positive for reflux in the right great saphenous vein below the knee, accessory saphenous vein below the knee. Positive for reflux in the left great saphenous vein below the knee. Ordering Physician: Leslie Marquez Performed By: Clyde Howell RVClaus
--- NOTE | 2023-12-08 13:48 | CDU_ITS ---
Reason For Study: carotid artery disease Rt. Velocities/BP Lt. Velocities/BP Prox CCA 96.0/17.9 cm/sec. Prox CCA 93.7/15.1 cm/sec. Mid CCA 81.7/19.0 cm/sec. Mid CCA 92.5/17.6 cm/sec. Dist CCA 75.1/19.0 cm/sec. Dist CCA 85.1/17.6 cm/sec. Prox ICA 91.2/23.7 cm/sec. Prox ICA 75.3/26.2 cm/sec. Mid ICA 85.1/26.2 cm/sec. Mid ICA 82.6/26.2 cm/sec. Dist ICA 86.3/29.8 cm/sec. Dist ICA 72.8/22.5 cm/sec. Rt. ICA/CCA = 1.1. Lt. ICA/CCA = .9. Prox ECA 112.0/6.0 cm/sec. Prox ECA 141.2/16.0 cm/sec. Rt. Vert. 48.3/10.2 cm/sec. Lt. Vert. 42.1/12.6 cm/sec. Right Extracranial There is heterogeneous, smooth atherosclerotic plaque noted in the right common carotid artery. There is heterogeneous, irregular atherosclerotic plaque noted in the right internal carotid artery. There is homogeneous, smooth atherosclerotic plaque noted in the right external carotid artery. Antegrade flow is noted in the right vertebral artery. Left Extracranial There is heterogeneous, irregular atherosclerotic plaque noted in the left common carotid artery. There is heterogeneous, irregular atherosclerotic plaque noted in the left internal carotid artery. There is heterogeneous, irregular atherosclerotic plaque noted in the left external carotid artery. Antegrade flow is noted in the left vertebral artery. Procedure Carotid Duplex [id number]. This is a Carotid Duplex examination using B-mode, color flow and specral Doppler. The exam was diagnostic. Exam performed in department. VL/Carotid Duplex Ultrasound Interpretation Summary Mild (<50%) stenosis right extracranial internal carotid. Mild (<50%) stenosis left extracranial internal carotid. Patent and antegrade vertebrals bilaterally. Ordering Physician: Leslie Marquez Performed By: Clyde Howell RVT
--- NOTE | 2023-12-08 13:51 | CT_ITS ---
INDICATION: mesenteric artery stenosis EXAMINATION: CTA abdomen and pelvis - TECHNIQUE: Routine abdomen and pelvis CT angiogram protocol was performed with IV contrast. MIP images provided. The protocol utilizes one or more of the following dose reduction techniques: automated exposure control, adjustment of mA and/or kV according to patient size,and/or use of iterative reconstruction technique. IV Contrast dosage and agent: 100 mL Isovue-370 RADIATION DOSAGE (If Supplied By Facility): CTDIvol = ( 28.81 ) mGy, DLP = ( 1061.96 ) mGycm COMPARISON: Prior study dated: 11/06/2022 FINDINGS: Lung bases: Normal. Liver: Normal. No bile ductal dilatation. Gallbladder: Normal. Spleen: Normal. Adrenal gland: Normal. Kidneys: Mild right renal atrophy. No hydronephrosis. There is a left mid to upper pole calculus measuring 0.7 cm, 8 cm from the posterior axillary line. This measures 740 Hounsfield units. There are at least 4 additional left upper pole calculi. The largest measures 1.1 cm. There are 2 right lower pole calculi measuring up to 0.8 cm. Simple renal cysts are seen. No specific follow-up recommended. Pancreas:Normal. Bowel gas pattern: The stomach is unremarkable. Normal caliber small bowel. Colonic diverticulosis without diverticulitis. No bowel wall thickening. Appendix: Normal. Free air: None. Free fluid: None. Pelvis: Pelvic organs: No mass lesion noted. Bone survey: Mild degenerative changes of the spine. No acute abnormality. Adenopathy: No significant pathologic adenopathy detected. Other: Complex fat-containing umbilical ventral abdominal wall hernia. Vascular: Normal caliber aorta with moderate atherosclerotic calcific and noncalcific disease. Mild stenosis at the origin of the celiac axis with the vessel otherwise patent. There is minimal calcific disease at the origin of the superior mesenteric artery without significant stenosis. The vessel is patent. Replaced right hepatic artery noted. Single bilateral renal arteries are seen with mild narrowing of the right. The inferior mesenteric artery is patent. There is no aneurysm or dissection. CT/CTA Abd/Pelvis W/WO Contrast IMPRESSION: Moderate atherosclerotic disease. Mild stenosis at the origin of the celiac axis. Minimal calcific disease at the origin of the superior mesenteric artery without significant stenosis. Patent vessels. Nonobstructing renal calculi noted. Electronically Signed: Karri Khan MD at 22:15 EDT ,
[2023-12-08 15:22] LABS: CREATININE FINGERSTICK 1.1 mg/dL (0.55-1.02)
== END | disposition home or self-care (01) ==
PROVIDERS: PCP Internal Medicine; Referring Provider Physician Assistant; Visit Provider Physician Assistant
DX: I65.23 Occlusion and stenosis of bilateral carotid arteries (principal); M79.604 Pain in right leg; M79.605 Pain in left leg
CPT/HCPCS: 74174; 93880; 93970; Q9967

== ENCOUNTER → 2024-01-28 | Outpatient (CLI) | payer MEDICARE, SELFPAY ==
[2024-01-28 18:06] LABS: AST(SGOT) 12 U/L (15-37); Alanine Aminotransfer ALT/SGPT 23 U/L (13-56); Albumin, Serum 3.8 g/dL (3.2-5.0); Alkaline Phosphatase 71 U/L (45-117); Anion Gap 7 (5-15); BUN 28 mg/dL (7-18); BUN/Creat Ratio 27.7 RATIO (10-20); CRP 5.41 mg/L (0.0-3.0); Calcium,Total 9.6 mg/dL (8.5-10.1); Chloride 106 mmol/L (98-107); Creatinine, Serum 1.01 mg/dL (0.55-1.02); EST Glomerular Filtration Rate 58 mL/min (>60); Est Glom Filt Rate - Afr Amer 71 mL/min (>60); Globulin 3.8 g/dL (2.2-4.2); Glucose 111 mg/dL (74-106); Lipase 30 U/L (13-75); Potassium 3.8 mmol/L (3.5-5.1); Protein, Total 7.6 g/dL (6.4-8.2); Sodium Level 139 mmol/L (136-145)
[2024-02-02 08:15] LABS: Anti-Parietal Cell AB, QN 1.4 Units (0.0-20.0); Endomysial Antibody IgA Negative (Negative); Gastrin, Serum 22 pg/mL (0-115); Immunoglobulin A 134 mg/dL (87-352); t-Transglutaminase IgA <2 U/mL (0-3)
== END | disposition home or self-care (01) ==
LOC: LAB 16:13
PROVIDERS: PCP Internal Medicine; Referring Provider Student in an Organized Health Care Education/Training Program; Visit Provider Student in an Organized Health Care Education/Training Program
DX: R10.9 Unspecified abdominal pain (principal)
CPT/HCPCS: 36415; 80053; 82784; 82941; 83516; 83690; 86140; 86255; 86340

== ENCOUNTER 2024-02-17 12:02 | Day surgery (SDC) | payer MEDICARE, SELFPAY ==
[2024-02-17] VITALS (7 sets, daily range): BP systolic 86–119; BP diastolic 37–60; PULSE 64–73; RESP 14–18; TEMP 36.2–36.7; O2SAT 92–98; BMI 34.9
--- NOTE | 2024-02-17 12:18 | HP.PCM_ITS ---
History and Physical Date of Admission: 02/17/24 YASMINE MTZ, is a 68 F who presents to the office today for establishment. Patient has a PMHx of venous insufficiency, chronic back pain, aortic valve insufficiency, gallstones, afib, HTN and HLD. She was hospitalized in May and September of 2023 with abdominal pain. She followed up with general surgery who thought the etiology to be related to the passing of gallstones. She had a HIDA scan which was normal. At this time her only complaints are come gas and LUQ tingling. CT abdomen pelvis showed some mural wall thickening in the stomach and small bowel. She has had both colonoscopy and EGD before but were many years ago. She tells me she had to have surgery to remove polyps. She denies abdominal pain, heartburn, diarrhea, constipation or n/v. CT Abdomnen/pelvis 09.14.23; 1. Mild mural thickening of duodenal sweep and some loops of jejunum suggests an enteritis. Question of abnormal mural thickening of the distal stomach versus artifact of nondistention. 2. Small prominent small bowel gas may represent ileus. No evidence for mechanical bowel obstruction. 3. Chronic pancreatitis. No evidence for acute pancreatitis. 4. Gallstones. 5. Nonobstructive renal calculi bilaterally. Mildly atrophic right kidney with cortical scarring. No demonstrated ureteral calculi or hydronephrosis. 6. Colonic diverticulosis without evidence for acute diverticulitis. 7. Atherosclerosis. 8. Umbilical hernia contains fat, but no bowel. HIDA scan 06.24.23; NORMAL 99m Tc Mebrofenin hepatobiliary imaging examination. A. Visualization of the gallbladder within 60 minutes post radiopharmaceutical administration excludes acute cholecystitis with 97% certitude. (Agata et al, Nucl Med [place] [employer] Press pg. 35, 1980). B. There appears to be spontaneous contraction and refilling of the gallbladder contents during the second hour of acquisition ROS Const Constitutional: No fatigue, fever(s) or weight change ENT ENT: No difficulty swallowing Gastro GI: Positive for abdominal pain, bloating, constipation, heartburn and excessive flatus; No belching, change in bowel habits, change in stool character, coffee ground emesis, cramping, diarrhea, difficulty swallowing, feeling full early, incontinent of stools, Vomiting blood/hematemesis, Blood in stool, loose stools, Black,tarry stools, nausea/dyspepsia, pain with swallowing, vomiting or other Musc Musculoskeletal: Positive for back pain, numbness, stiffness, tingling and leg pain at night; No joint pain Skin Skin: No yellowing of the eye or itchy eyes Neuro Neurology: Positive for numbness and tingling Psych Psychiatric: No anxiety and No depression Endo Endocrine: No fatigue or weight change Aller/Imm Allergy/Immunologic: No itchy eyes Clayton/Lymp Hematologic/Lymphatic: No easy bleeding or easy bruising Exam Const General: cooperative and comfortable Nutritional Appearance: average body habitus and well nourished [facility] Head: normal to inspection Ears: hearing grossly normal bilaterally Nose: external nose normal Face and sinus: normal facial exam Eyes General: appearance normal, both eyes and all related structures Neck Neck: normal visual inspection Chest Chest palpation & inspection: normal inspection of the chest Resp Effort & Inspection: normal respiratory effort GI Inspection: normal to inspection Skin General: no rashes or lesions noted Neuro General: patient alert Extrem General: normal to inspection Psych Affect: normal affect Assessment and Plan Assessment and Plan (1) Abdominal pain: Status: Resolved Plan: Pt is a 68 yo female here today for establishment with [facility]. She was hospitalized in May and September 2023 for abdominal pain with elevated liver enzymes. She had follow up with surgery who recommended HIDA scan and possible cholecystectomy. HIDA was normal and she did not wish to pursue surgery. Her last CT abdomen pelvis showed some mural wall thickening in the stomach and small bowel and also showed signs of chronic pancreatitis. She has had both EGD and colonoscopy many years ago. I think at this time she would benefit from both lower and upper scopes to assess the thickening and for colon cancer screening. She is agreeable to this. I will also order blood work to check on her liver enzymes and auto immune condition that could affect the liver. She denies any GI symptoms at this point in time. She will f/u in 3 months. -EGD and colonoscopy -blood work -f/u in 3 months Orders: Orders Comprehensive Metabolic Profil Today R10.9 - Unspecified abdominal pain Gastrin, Serum Today R10.9 - Unspecified abdominal pain Anti-Parietal Cell AB, QN Today R10.9 - Unspecified abdominal pain Intrinsic Factor Ab Today R10.9 - Unspecified abdominal pain Celiac Disease Profile Today R10.9 - Unspecified abdominal pain CRP Today R10.9 - Unspecified abdominal pain Erythrocyte Sed Rate Today R10.9 - Unspecified abdominal pain Lipase Today R10.9 - Unspecified abdominal pain I have examined the patient and the H&P has been reviewed. There are no clinical changes since date of exam.
--- NOTE | 2024-02-17 13:09 | PRE.ANES_ITS ---
ASA Classification* ASA Classification ASA Classification: 3 Assessment & Plan Anesthesia* Anesthesia Assessment Anesthesia Assessment: Discussed sedation and/or anesthesia options, risks, benefits, and alternatives with patient/parents/legal guardian/POA. Questions invited. The patient/parents/legal guardian/POA seems to understand and agrees to proceed with anesthesia plan. Reviewed the physical assessment, medical history, allergy history and patient home medications list prior to surgery/procedure/anesthetic and documented any changes. Performed airway and anesthesia risk assessments. Anesthesia Type Anesthesia Type: MAC History Source History Obtained from:: Patient and Chart Anesthesia Focused Assessment* Temperature: 98.1 F Pulse Rate: 73 Blood Pressure: 119/60 Respiratory Rate: 16 Pulse Ox: 98 Oxygen Delivery Method: Room Air Airway Assessment Mouth opens: >3 cm Mallampati Score: III Teeth Condition: Missing (Patient is missing back molars.) Neck Range of motion (ROM): Full ROM Focused Labs Anesthesia Preop lab: CBC WBC 12.1 K/mm3 (4.4-11.0) H 09/23/23 12:48 RBC 5.48 M/mm3 (4.2-5.4) H 09/23/23 12:48 Hgb 15.4 g/dL (12.0-15.0) H 09/23/23 12:48 Hct 48.0 % (37-47) H 09/23/23 12:48 Plt Count 271 K/mm3 (150-450) 09/23/23 12:48 CHEMISTRY Potassium 3.8 mmol/L (3.5-5.1) 01/28/24 16:15 Sodium 139 mmol/L (136-145) 01/28/24 16:15 Magnesium 2.1 mg/dL (1.6-2.6) 09/15/23 06:12 Phosphorus 3.8 mg/dL (2.5-4.9) 09/15/23 06:12 BUN 28 mg/dL (7-18) H 01/28/24 16:15 Creatinine 1.01 mg/dL (0.55-1.02) 01/28/24 16:15 Glucose 111 mg/dL (74-106) H 01/28/24 16:15 TSH 1.08 uIU/mL (0.358-3.74) 10/22/22 12:34 COAG PT 13.4 SECONDS (11.7-14.9) 10/13/15 15:30 Pre-Assessment Diagnosis/Proposed Procedure Planned Operative Procedure(s): EGD, CSCOPE Anesthesia History 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 When Was Last Pacemaker Check QUESTION #4 FULL TEXT: You/Your Family Experience fever (hyperthermia) with Anesthesia Last Oral Intake Last Oral intake: Last Oral Intake NPO since 09:00 02/17/24 12:33 Meds taken in AM with sips of Yes 02/17/24 12:33 water? Meds patient instructed to see medlist 02/17/24 12:33 take am of surgery Any additional information?: Yes NPO since: 09:00 (Patient finished prep at 9 AM.) PONV PONV - bacteriology teacher: PONV - bacteriology teacher Female Yes 02/12/24 10:36 HX of Motion Sickness No 02/12/24 10:36 HX of N/V After Surgery No 02/12/24 10:36 Non-Smoker No 02/12/24 10:36 Duration of Surgery greater No 02/12/24 10:36 than 60 minutes Number of Risk Factors 1 02/12/24 10:36 PONV Score Low Risk 02/12/24 10:36 Height & Weight Height & Weight: Anesthesia: Height & Weight Height 5 ft 1 in 02/17/24 12:33 Weight: 84 kg 02/17/24 12:33 Body Mass Index (BMI) 34.9 02/17/24 12:33 Respiratory Assessment Respiratory Assessment - bacteriology teacher: Respiratory Tract Infection Hx - bacteriology teacher Hx Respiratory Tract Infection No 02/12/24 10:36 STOP Sleep Apnea STOP Sleep Apnea - bacteriology teacher: STOP Sleep Apnea - bacteriology teacher Hx Hypertension Yes: CONTROLLED 02/12/24 10:36 Hx Sleep Apnea Yes: PT STATES DR THINK SHE 02/12/24 10:36 HAS SLEEP APNEA BUT PT DOESNT THINK SHE DOES CPAP No 02/12/24 10:36 BIPAP No 02/12/24 10:36 Do you snore loudly (louder than talking or can be heard Do you often feel tired/ fatigued/ sleepy during daytime? Has anyone observed you stop breathing during sleep? STOP Results Positive 02/12/24 10:36 QUESTION #5 FULL TEXT : Do you snore loudly (louder than talking or can be heard through closed doors)? Tobacco Use History Tobacco Use History - bacteriology teacher: Tobacco Use History - bacteriology teacher Tobacco Use Smoking Status Current every day smoker 02/12/24 10:36 Hx Tobacco Use Yes 02/12/24 10:36 Years Smoking Packs Smoked per Day 1.5 02/12/24 10:36 Smoking Cessation Date was within the last 15 years Hx Smoking Cessation Date Hx Smoking Cessation Counseling Any additional information?: Yes Smoking Status: Current every day smoker (Patient smoked today.) Hematologic Medial History Hematologic Hx - bacteriology teacher: Hematologic Medical Hx - portable machine sander Hx of Blood Transfusion No 02/12/24 10:36 Hx of Transfusion in last 3 No 02/12/24 10:36 Months Date of Last Transfusion (if within last 3 months) Ever experience any problems No 02/12/24 10:36 with transfusion(s)? Specify any problems Hx of Preganancy in last 3 N/A 02/12/24 10:36 Months Nurse Filling Out Transfusion NBUCHER 02/12/24 10:36 & Questions: Date: 02/12/24 02/12/24 10:36 Time: 10:38 02/12/24 10:36 Patient unable to answer at this time (ie. confused, unrespo /Reproduction History /Reproductive History - bacteriology teacher: /Reproductive Hx- bacteriology teacher Hx Now Gestational Age (in weeks): EDC: Hx Hx Para Hx Section SAB PFSH Medical History Wears glasses High cholesterol History of GI bleed Sleep apnea Smoker Diverticulosis Cardiology follow-up encounter Back pain Leg cramps History of echocardiogram History of stress test History of atrial fibrillation History of kidney stones Obesity Cholelithiasis Insulin resistance Recurrent hematuria UTI (urinary tract infection) Vitamin D deficiency History of shoulder fracture History of renal stone Atrial flutter, chronic Tobacco dependence Paroxysmal atrial fibrillation Hyperlipidemia Essential hypertension Chronic diastolic CHF (congestive heart failure) Gastroesophageal reflux disease Colon polyps Family history of cardiovascular disease Diverticulosis Home Medications ?Medication ?Instructions ?Recorded ?Last Taken ?Type multivit with minerals-iron 18 1 ea PO DAILY 10/13/15 02/17/24 History mg-folic ac 400 mcg-vit K 25 mcg tablet (Multi-Day Plus Minerals) apixaban 5 mg tablet (Eliquis) 5 mg PO BID #60 tabs 01/13/23 02/14/24 Rx cholecalciferol (vitamin D3) 50 50 mcg PO DAILY 02/03/23 02/17/24 History mcg (2,000 unit) tablet (Vitamin D3) furosemide 40 mg tablet 40 mg PO DAILY #90 tabs 03/17/23 02/17/24 Rx losartan 100 mg tablet 100 mg PO DAILY #90 tabs 03/17/23 02/17/24 Rx metoprolol succinate 200 mg 200 mg PO DAILY #90 tabs 03/17/23 02/17/24 Rx tablet,extended release 24 hr magnesium 200 mg tablet 400 mg PO DAILY 09/14/23 02/17/24 History Allergy/AdvReac Type Severity Reaction Status Date / Time No Known Allergies Allergy Verified 02/17/24 12:31 Family History Mother Diabetes Hypertension Myocardial infarction Father Hypertension Heart disease Sister Diabetes Heart disease Grandmother CVA (cerebral vascular accident) Surgical History History of colonoscopy History of colonoscopy with polypectomy History of lithotripsy (~2015) History of open reduction and internal fixation (ORIF) procedure (~2003) History of tubal ligation History of cardioversion (06/21/19) Social History household members: spouse Smoking Status: Current every day smoker tobacco type: cigarettes Tobacco: How many years used: 40 second hand exposure: Yes alcohol intake: never substance use type: does not use caffeine: Yes Type: coffee Number of servings: 3 what type of physical activity do you participate in: aerobics frequency: 3-4 times per week Review of Systems (Anesthesia) ROS Narrative System reviewed and no additional complaints, except as documented.
--- NOTE | 2024-02-17 13:15 | IMM_PTH ---
PATIENT: YASMINE MTZ LOC: EN U#:[id number] AGE/SX: 68/F ROOM: RE02/17/[address]: Dr. Lester Grimaldo DO : 1955 BED: DIS: 02/17/2024 SPEC #: [id number] RECD: 02/18/24 09:49 STATUS: MIROSLAVA REQ #: [id number] LIAT: 02/17/24 13:[address]: Lester Grimaldo DEPT: IMMUNOHISTOCHEMISTRY RECD BY: Francois Alberto ENTERED: 02/18/24 09:50 SP TYPE: IMMUNO OTHR DR: Dr. Selina Bowser MD Tissues: A - Gastric mucous membrane Procedures: H Pylori (initial) PHYSICIAN & INSTITUTION [place] [address] SPECIMEN INFORMATION: Tissue Source: A- Gastric ulcer biopsy Clinical Info: Abdominal pain Specimen Number: [id number] CPT code: 36551 METHODOLOGY: Deparaffinized sections of prefer/formalin-fixed tissue or PAP/DQ stained slides are incubated with monoclonal/polyclonal antibodies/oligonucleotide probes. Localization is made via biotin free immunoperoxidase method. Appropriate controls are performed and reacted as expected. Results on target cell population are indicated in the following table: RESULTS: ANTIBODY / CLONE RESULT Block A H Pylori (polyclonal) negative These tests were developed and their performance characteristics determined by [facility]. They may not have been cleared or approved by the U.S. Food and Drug Administration. The FDA has determined that such clearance or approval is not necessary. The above immunohistochemical/dualISH markers are ordered and reviewed by the Pathologist. INTERPRETATION: A. Gastric ulcer, biopsy: Negative for Helicobacter pylori organisms. 02/19/2024
--- NOTE | 2024-02-17 13:15 | COLBX_PTH ---
PATIENT: YASMINE MTZ LOC: EN U#:[id number] AGE/SX: 68/F ROOM: RE02/17/[address]: Dr. Lester Grimaldo DO : 1955 BED: DIS: 02/17/2024 SPEC #: [id number] RECD: 02/18/24 07:46 STATUS: MIROSLAVA VALDEZ #: [id number] LIAT: 02/17/24 13:[address]: Lester Grimaldo DEPT: SURGICAL PATHOLOGY RECD BY: Kvng Rolle ENTERED: 02/18/24 09:28 SP TYPE: COLON BX OTHR DR: Dr. Selina Bowser MD Tissues: A - Gastric mucous membrane B - Duodenum, NOS C - Cecum, NOS D - Gastric mucous membrane E - Rectum, NOS Procedures: Surgery Specimen Level IV HEADER OPERATION: Colonoscopy with biopsies, EGD with biopsies PRE-OP DIAGNOSIS: Abdominal pain TISSUE SUBMITTED: A- Gastric ulcer biopsy, B- Duodenum biopsy, C- Cecum biopsy, D- Hepatic flexure polyp biopsy, E- Rectum polyp MICROSCOPIC DIAGNOSIS A. Gastric ulcer, biopsy: Ulceration with associated acute inflammation and fibrinoid reaction. See comment. B. Duodenum, biopsy: No pathologic change. C. Cecum, biopsy: No significant pathologic change. D. Colonic polyp at hepatic flexure, biopsy: Tubular adenoma. E. Rectal polyp, biopsy: Fragments of hyperplastic polyp. AM. 02/19/2024 COMMENT A. The results of immunohistochemistry for Helicobacter pylori will be reported separately ([id number]). MICROSCOPIC DESCRIPTION Slides are reviewed. GROSS DESCRIPTION A. Received in fixative is one container labeled with the patient's name and designated Gastric ulcer biopsy. The specimen consists of one irregular fragment of light rios soft tissue that measures 0.3 x 0.3 x 0.1 cm. The specimen is totally submitted in one cassette. B. Received in fixative is one container labeled with the patient's name and designated Duodenum biopsy. The specimen consists of two irregular fragments of light rios soft tissue that measures 0.4 x 0.2 x 0.1 cm. The specimen is totally submitted in one cassette. C. Received in fixative is one container labeled with the patient's name and designated Cecum biopsy. The specimen consists of multiple irregular fragments of light rios soft tissue that in aggregate measure 1.0 x 0.3 x 0.1 cm. The specimen is totally submitted in one cassette. D. Received in fixative is one container labeled with the patient's name and designated Hepatic flexure polyp biopsy. The specimen consists of multiple irregular fragments of light rios soft tissue mixed with fecal material that in aggregate measure 0.4 x 0.3 x 0.1 cm. The specimen is totally submitted in one cassette. E. Received in fixative is one container labeled with the patient's name and designated Rectum polyp. The specimen consists of multiple irregular fragments of light rios soft tissue that in aggregate measure 2.0 x 1.0 x 0.3 cm. The specimen is totally submitted in one cassette. SJ.mr 02/18/2024 TC:3 CPT:40488r3,49495
--- NOTE | 2024-02-17 14:30 | PCM.POST.ANE ---
Anesthesia: Postop Eval I Current Vital Signs Temperature: 97.1 F Pulse Rate: 65 Blood Pressure: 86/38 Respiratory Rate: 18 Pulse Ox: 93 Assessment Airway patent: Yes Spontaneous unlabored respirations: Yes nausea: No Vomiting: No Anesthesia Complication: No Fluid Hydration Crystalloid volume administer (ml): 10 Total IV fluid infused: 10 Progress Note Anesthesia document: Postop Eval 1 completed: Yes
--- NOTE | 2024-02-17 14:44 | OP.EGD_ITS ---
Patient Name: Mariajose Khalil Procedure Date: 02/17/2024 1:56 PM Date of : 1955 Age: 68 Procedure: Upper GI endoscopy Indications: Epigastric abdominal pain Providers: DO Annie Roca MD: Selina Bowser Medicines: Monitored Anesthesia Care Patient Profile: This is a 68 year old female. Complications: No immediate complications. Procedure: Pre-Anesthesia Assessment: - Prior to the procedure, a History and Physical was performed, and patient medications and allergies were reviewed. The patient is competent. The risks and benefits of the procedure and the sedation options and risks were discussed with the patient. All questions were answered and informed consent was obtained. Patient identification and proposed procedure were verified by the physician in the pre-procedure area. Mental Status Examination: alert and oriented. Airway Examination: normal oropharyngeal airway and neck mobility. Respiratory Examination: clear to auscultation. CV Examination: normal. Prophylactic Antibiotics: The patient does not require prophylactic antibiotics. Prior Anticoagulants: The patient has taken no anticoagulant or antiplatelet agents except for NSAID medication. ASA Grade Assessment: II - A patient with mild systemic disease. After reviewing the risks and benefits, the patient was deemed in satisfactory condition to undergo the procedure. The anesthesia plan was to use monitored anesthesia care (MAC). Immediately prior to administration of medications, the patient was re-assessed for adequacy to receive sedatives. The heart rate, respiratory rate, oxygen saturations, blood pressure, adequacy of pulmonary ventilation, and response to care were monitored throughout the procedure. The physical status of the patient was re-assessed after the procedure. After obtaining informed consent, the endoscope was passed under direct vision. Throughout the procedure, the patient's blood pressure, pulse, and oxygen saturations were monitored continuously. The gastroscope was introduced through the mouth, and advanced to the second part of duodenum. The upper GI endoscopy was accomplished without difficulty. The patient tolerated the procedure well. Scope In: 1:56:53 PM Scope Out: 2:00:39 PM Total Procedure Duration Time 0 hours 3 minutes 46 seconds Findings: Grade I varices were found in the lower third of the esophagus. They were 10 mm in largest diameter. Moderate portal hypertensive gastropathy was found in the entire examined stomach. Patchy mildly erythematous mucosa without active bleeding and with no stigmata of bleeding was found in the duodenal bulb. The nasopharynx and oropharynx are abnormal. There was a 3 mm lesion seen on the epiglottis. Two non-bleeding cratered gastric ulcers with no stigmata of bleeding were found in the gastric antrum. The largest lesion was 3 mm in largest dimension. Biopsies were taken with a cold forceps for histology. Verification of patient identification for the specimen was done. Estimated blood loss was minimal. Impression: - Grade I esophageal varices. - Portal hypertensive gastropathy. - Erythematous duodenopathy. - Biopsy of ulcer Recommendation: - Discharge patient to home. - Resume previous diet. - Continue present medications. - Await pathology results. - Liver Biopsy -Workup for chronic liver disease -Referral to ENT for lesion seen on the epiglottis -Protonix 40 mg p.o. twice daily Procedure Code(s): --- Professional --- 74172, Esophagogastroduodenoscopy, flexible, transoral; diagnostic, including collection of specimen(s) by brushing or washing, when performed (separate procedure) CPT copyright 2021 [employer]. All rights reserved. The codes documented in this report are preliminary and upon log tumbler review may be revised to meet current compliance requirements. Lester Grimaldo DO 02/17/2024 2:43:59 PM This report has been signed electronically. Number of Addenda: 0 Note Initiated On: 02/17/2024 1:56 PM
--- NOTE | 2024-02-17 14:45 | OP.CCLET_ITS ---
02/17/2024 Selina Bowser [facility] [address] [place] [address] Re : Upper GI endoscopy procedure for Mariajose Khalil Dear Dr. Bowser This procedure was performed on Saturday, February 17, 2024. My impressions and recommendations are as follows: Impressions : - Grade I esophageal varices. - Portal hypertensive gastropathy. - Erythematous duodenopathy. - Biopsy of ulcer Recommendations : - Discharge patient to home. - Resume previous diet. - Continue present medications. - Await pathology results. - Liver Biopsy -Workup for chronic liver disease -Referral to ENT for lesion seen on the epiglottis -Protonix 40 mg p.o. twice daily My findings are described in the full procedure note, which is enclosed. If I can be of further assistance, please feel free to contact me at . Sincerely, Lester Friend, 02/17/2024 2:43:59 PM This report has been signed electronically.
--- NOTE | 2024-02-17 14:48 | OP.COLON_ITS ---
Patient Name: Mariajose Khalil Procedure Date: 02/17/2024 2:00 PM Date of : 1955 Age: 68 Procedure: Colonoscopy Indications: Screening for colorectal malignant neoplasm Providers: Lester Grimaldo DO Referring MD: Selina Bowser Medicines: Monitored Anesthesia Care Patient Profile: This is a 68 year old female. Refer to note in patient chart for documentation of history and physical. Last Colonoscopy: date unknown. Unable to locate last colonoscopy report. Complications: No immediate complications. Procedure: Pre-Anesthesia Assessment: - Prior to the procedure, a History and Physical was performed, and patient medications and allergies were reviewed. The patient is competent. The risks and benefits of the procedure and the sedation options and risks were discussed with the patient. All questions were answered and informed consent was obtained. Patient identification and proposed procedure were verified by the physician in the pre-procedure area. Mental Status Examination: alert and oriented. Airway Examination: normal oropharyngeal airway and neck mobility. Respiratory Examination: clear to auscultation. CV Examination: normal. Prophylactic Antibiotics: The patient does not require prophylactic antibiotics. Prior Anticoagulants: The patient has taken no anticoagulant or antiplatelet agents except for NSAID medication. ASA Grade Assessment: II - A patient with mild systemic disease. After reviewing the risks and benefits, the patient was deemed in satisfactory condition to undergo the procedure. The anesthesia plan was to use monitored anesthesia care (MAC). Immediately prior to administration of medications, the patient was re-assessed for adequacy to receive sedatives. The heart rate, respiratory rate, oxygen saturations, blood pressure, adequacy of pulmonary ventilation, and response to care were monitored throughout the procedure. The physical status of the patient was re-assessed after the procedure. After I obtained informed consent, the scope was passed under direct vision. Throughout the procedure, the patient's blood pressure, pulse, and oxygen saturations were monitored continuously. The adult colonoscope was introduced through the anus and advanced to the cecum, identified by the appendiceal orifice, IC valve and transillumination. The colonoscopy was performed without difficulty. The patient tolerated the procedure well. The quality of the bowel preparation was good. The ileocecal valve, appendiceal orifice, and rectum were photographed. Scope In: 2:02:42 PM Scope Withdrawal Time 0 hours 12 minutes 48 seconds Scope Out: 2:20:17 PM Total Procedure Duration Time 0 hours 17 minutes 35 seconds Findings: Multiple small and large-mouthed diverticula were found in the recto-sigmoid colon, sigmoid colon and descending colon. Four sessile polyps were found in the rectum. The polyps were 1 to 2 mm in size. These polyps were removed with a hot snare. Resection and retrieval were complete. Verification of patient identification for the specimen was done. Estimated blood loss was minimal. An 8 mm polyp was found in the sigmoid colon. The polyp was sessile. The polyp was removed with a cold snare. Resection and retrieval were complete. Verification of patient identification for the specimen was done. Estimated blood loss was minimal. A 4 mm polyp was found in the splenic flexure. The polyp was sessile. The polyp was removed with a jumbo cold forceps. Resection and retrieval were complete. Verification of patient identification for the specimen was done. Estimated blood loss was minimal. Stool was found in the rectum, in the sigmoid colon, in the descending colon, in the transverse colon and in the cecum. Impression: - Diverticulosis in the recto-sigmoid colon, in the sigmoid colon and in the descending colon. - Four 1 to 2 mm polyps in the rectum, removed with a hot snare. Resected and retrieved. - One 8 mm polyp in the sigmoid colon, removed with a cold snare. Resected and retrieved. - One 4 mm polyp at the splenic flexure, removed with a jumbo cold forceps. Resected and retrieved. - Stool in the rectum, in the sigmoid colon, in the descending colon, in the transverse colon and in the cecum. Recommendation: - Discharge patient to home. - Resume previous diet. - Continue present medications. - Await pathology results. - Repeat colonoscopy in 3 years for surveillance. Procedure Code(s): --- Professional --- 76835, Colonoscopy, flexible; with removal of tumor(s), polyp(s), or other lesion(s) by snare technique 67389, 59, Colonoscopy, flexible; with biopsy, single or multiple CPT copyright 2021 [employer]. All rights reserved. The codes documented in this report are preliminary and upon brim shaper review may be revised to meet current compliance requirements. Lester Grimaldo DO 02/17/2024 2:47:38 PM This report has been signed electronically. Number of Addenda: 0 Note Initiated On: 02/17/2024 2:00 PM
--- NOTE | 2024-02-17 14:48 | OP.CCLET_ITS ---
02/17/2024 Selina Bowser [facility] [address] [place] [address] Re : Colonoscopy procedure for Mariajose Khalil Dear Dr. Bowser This procedure was performed on Saturday, February 17, 2024. My impressions and recommendations are as follows: Impressions : - Diverticulosis in the recto-sigmoid colon, in the sigmoid colon and in the descending colon. - Four 1 to 2 mm polyps in the rectum, removed with a hot snare. Resected and retrieved. - One 8 mm polyp in the sigmoid colon, removed with a cold snare. Resected and retrieved. - One 4 mm polyp at the splenic flexure, removed with a jumbo cold forceps. Resected and retrieved. - Stool in the rectum, in the sigmoid colon, in the descending colon, in the transverse colon and in the cecum. Recommendations : - Discharge patient to home. - Resume previous diet. - Continue present medications. - Await pathology results. - Repeat colonoscopy in 3 years for surveillance. My findings are described in the full procedure note, which is enclosed. If I can be of further assistance, please feel free to contact me at . Sincerely, Lester Grimaldo, 02/17/2024 2:47:38 PM This report has been signed electronically.
--- NOTE | 2024-02-17 15:18 | POSTOPAN2_ITS ---
Anesthesia Postop Eval I Sum Postop Eval Completion status Anesthesia document: Postop Eval 1 completed: Yes Anesthesia Postop Eval I Summary Anesthesia Postop Eval I Summary: Anesthesia Postop Eval I: Assessment Summary Airway patent Yes 02/17/24 14:30 OBJECT ORIENTED [email or web address] Spontaneous unlabored Yes 02/17/24 14:30 OBJECT ORIENTED [email or web address] respirations Mental status nausea No 02/17/24 14:30 OBJECT ORIENTED [email or web address] Vomiting No 02/17/24 14:30 OBJECT ORIENTED [email or web address].CSIR Anesthesia Postop Eval I: Fluid Summary Crystalloid volume administer 10 02/17/24 14:30 OBJECT ORIENTED [email or web address].CSIR (ml) Colloids volume administered ( ml) Blood Product volume administered (ml) Total IV fluid infused 10 02/17/24 14:30 OBJECT ORIENTED [email or web address].CSIR Anesthesia Postop Eval I: Summary Notes Anesthesia Complication No 02/17/24 14:30 OBJECT ORIENTED [email or web address] Anesthesia Complication Comment: Post-operative progress note Anesthesia: Postop Eval II Evaluation Mental status: Awake and Calm Pain Level: 0 nausea: No Vomiting: No Complications Anesthesia Complication: No
--- NOTE | 2024-02-17 15:18 | PCM.POSTANE2 ---
Anesthesia Postop Eval I Sum Postop Eval Completion status Anesthesia document: Postop Eval 1 completed: Yes Anesthesia Postop Eval I Summary Anesthesia Postop Eval I Summary: Anesthesia Postop Eval I: Assessment Summary Airway patent Yes 02/17/24 14:30 [email or web address] Spontaneous unlabored Yes 02/17/24 14:30 [email or web address] HELPER.CSIR respirations Mental status nausea No 02/17/24 14:30 [email or web address] [email or web address].CSIR Vomiting No 02/17/24 14:30 [email or web address] [email or web address].CSIR Anesthesia Postop Eval I: Fluid Summary Crystalloid volume administer 10 02/17/24 14:30 [email or web address] [email or web address].CSIR (ml) Colloids volume administered ( ml) Blood Product volume administered (ml) Total IV fluid infused 10 02/17/24 14:30 [email or web address] HELPER.CSIR Anesthesia Postop Eval I: Summary Notes Anesthesia Complication No 02/17/24 14:30 SHIPYARD HELPER.CSIR Anesthesia Complication Comment: Post-operative progress note Anesthesia: Postop Eval II Evaluation Mental status: Awake and Calm Pain Level: 0 nausea: No Vomiting: No Complications Anesthesia Complication: No
== END 2024-02-17 15:23 | disposition home or self-care (01) ==
LOC: EN 12:03 → AC 12:06
PROVIDERS: PCP Internal Medicine; Referring Provider Internal Medicine; Visit Provider Internal Medicine Gastroenterology
PROC: 0DJD8ZZ Inspection of Lower Intestinal Tract, Via Natural or Artificial Opening Endoscopic (ICD-10-PCS; CPT 45378; principal; 2024-02-17 13:10)
DX: R10.9 Unspecified abdominal pain (principal); K76.6 Portal hypertension; I85.00 Esophageal varices without bleeding; I48.91 Unspecified atrial fibrillation; K57.30 Diverticulosis of large intestine without perforation or abscess without bleeding; K25.9 Gastric ulcer, unspecified as acute or chronic, without hemorrhage or perforation; K63.5 Polyp of colon; K62.1 Rectal polyp; I10 Essential (primary) hypertension; E78.5 Hyperlipidemia, unspecified; K31.89 Other diseases of stomach and duodenum; J39.2 Other diseases of pharynx; J38.7 Other diseases of larynx
CPT/HCPCS: 45385; 45380; 43239; 88305; 88342; A4216; J2405

== ENCOUNTER → 2024-05-19 | Outpatient (CLI) | payer MEDICARE, SELFPAY ==
[2024-05-19 16:05] LABS: Absolute Lymphocyte Count 3.12 X10^3/uL (0.83-4.51); Absolute Neutrophil Count 6.5 X10^3/uL (2.0-7.7); Basophil# 0.13 X10^3/uL; Basophil% 1.2 % (0-1); Eosinophil# 0.32 X10^3/uL; Eosinophils% 2.9 % (0-5); Hematocrit 46.2 % (37-47); Hemoglobin 15.1 g/dL (12.0-15.0); Lymphocyte # 3.12 X10^3/ul (0.83-4.51); Mean Corp Hgb Conc 32.7 g/dL (32-36); Mean Corpuscular Volume 85.7 fL (81-99); Mean Platelet Vol. 12.1 fl (6.2-12.0); Monocyte# 1.01 X10^3/uL; Monocyte% 9.1 % (0-10); NRBC Flagged by Analyzer 0 % (0-5); Neutrophil # 6.52 X10^3/uL (2.7-7.7); Neutrophil % 58.4 % (47-70); Platelet Count 181 K/mm3 (150-450); RBC Distribution Width CV 16.6 % (11.6-14.6); RBC Distribution Width SD 50.6 fl (35.1-43.9); Red Blood Count 5.39 M/mm3 (4.2-5.4); White Blood Count 11.2 K/mm3 (4.4-11.0)
[2024-05-19 16:22] LABS: Prothrombin Time (Protime)PT. 13.1 SECONDS (11.7-14.9)
[2024-05-19 16:27] LABS: Erythrocyte Sedimentation Rate 23 mm/hr (0-30)
[2024-05-19 16:47] LABS: ALB/GLOB Ratio 0.9 RATIO (0.9-2.4); AST(SGOT) 13 U/L (15-37); Alanine Aminotransfer ALT/SGPT 98 U/L (13-56); Albumin, Serum 3.6 g/dL (3.2-5.0); Alkaline Phosphatase 87 U/L (45-117); Anion Gap 7 (5-15); BUN 34 mg/dL (7-18); BUN/Creat Ratio 30.6 RATIO (10-20); CRP 8.57 mg/L (0.0-3.0); Calcium,Total 10.1 mg/dL (8.5-10.1); Chloride 107 mmol/L (98-107); Cholesterol 309 mg/dL (200); Creatinine, Serum 1.11 mg/dL (0.55-1.02); EST Glomerular Filtration Rate 52 mL/min (>60); Est Glom Filt Rate - Afr Amer 63 mL/min (>60); Ferritin 91 ng/mL (8-252); Globulin 3.8 g/dL (2.2-4.2); Glucose 118 mg/dL (74-106); High Density Lipoprotein 48 mg/dL; Iron Binding Capacity,Total 334 ug/dL (250-450); Protein, Total 7.4 g/dL (6.4-8.2); Sodium Level 138 mmol/L (136-145); Triglycerides 402 mg/dL
[2024-05-23 13:07] LABS: Anti-Centromere B Ab <0.2 AI (0.0-0.9); Anti-Chromatin <0.2 AI (0.0-0.9); Anti-Jo <0.2 AI (0.0-0.9); Anti-Mitochondrial AB <20.0 Units (0.0-20.0); Anti-Scleroderma-70 AB <0.2 AI (0.0-0.9); Anti-dsDNA Ab <1 IU/mL (0-9); RNP Ab <0.2 AI (0.0-0.9); SJOGREN'S Anti-SS-A test < 0.2 AI (0.0-0.9); SJOGREN'S Anti-SS-B test < 0.2 AI (0.0-0.9); Smith Ab <0.2 AI (0.0-0.9)
[2024-05-24 08:09] LABS: Angiotensin Convert Enzyme 43 U/L (14-82); Anti-Smooth Muscle ABS 7 Units (0-19); Ceruloplasmin 28.5 mg/dL (19.0-39.0); Copper, Serum or Plasma 115 ug/dL (80-158); Cytoplasmic Ab (C-ANCA) <1:20 titer (Neg:<1:20); HEPATITIS B SURFACE AG Negative (Negative); Hep C Antibodies Non Reactive (Non Reactive); Hepatitis A IgM Antibody Negative (Negative); Hepatitis B Core AB IgM Negative (Negative); Perinuclear Ab (P-ANCA) <1:20 titer (Neg:<1:20)
== END | disposition home or self-care (01) ==
LOC: LAB 15:28
PROVIDERS: PCP Internal Medicine; Referring Provider Student in an Organized Health Care Education/Training Program; Visit Provider Student in an Organized Health Care Education/Training Program
DX: K76.0 Fatty (change of) liver, not elsewhere classified (principal); I85.00 Esophageal varices without bleeding; R10.11 Right upper quadrant pain
CPT/HCPCS: 36415; 80053; 80061; 80074; 82140; 82164; 82390; 82525; 82728; 83516; 83550; 85025; 85610; 85652; 86037; 86140; 86225; 86235

== ENCOUNTER → 2024-06-02 | Outpatient (CLI) | payer MEDICARE, SELFPAY ==
--- NOTE | 2024-06-02 08:41 | US_ITS ---
STUDY: ABDOMINAL ULTRASOUND - RIGHT UPPER QUADRANT; ELASTOGRAPHY REASON FOR VISIT: Female, 68 years old. Fatty infiltration of the liver. TECHNIQUE: Ultrasound evaluation of the right upper quadrant was performed with real-time and static moreno-scale imaging. Point quantification shear wave elastography was performed ([employer]). TECHNICAL QUALITY: Adequate. COMPARISON: Comparison is made with prior study dated May 21, 2023. FINDINGS: Liver: The liver is enlarged measures 20.3 cm. There is increased echogenicity consistent with fatty infiltration. The bile ducts are within normal limits. There is hepatic color flow. The direction of portal flow is hepatopetal. There is no demonstrated mass lesion. Median liver stiffness measured 7.9 kPa. Gallbladder: Normal distended gallbladder. The gallbladder wall measures 1.8 mm. There is a negative sonographic Grissom''s sign. There is no pericholecystic fluid. There are multiple echogenic structures within the gallbladder, consistent with multiple gallstones. Common Bile Duct (C.B.D.): The common bile duct measures 5.2 mm. Pancreas: Pancreas is not visualized due to overlying bowel gas. Right Kidney: Normal size of the right kidney. The right kidney measures 11.1 cm x 4.1 cm x 3.6 cm. There is thinning of the renal cortex. The right cortex measures 0.6 cm. 2 cysts are seen in the upper pole. The larger measures 1.6 cm x 1.5 cm x 1.4 cm. There is no right hydronephrosis. Tiny nonobstructive right intrarenal calculi. US/ABD Limited w/ Elastography IMPRESSION: 1. Liver stiffness measures 7.9 kPa compatible with F2-F3 (Mild to moderate liver fibrosis) Metavir score. Electronically Signed: Eliseo Taveras MD at 10:36 EST ,
== END | disposition home or self-care (01) ==
LOC: US 08:39
PROVIDERS: PCP Internal Medicine; Referring Provider Student in an Organized Health Care Education/Training Program; Visit Provider Student in an Organized Health Care Education/Training Program
DX: K76.0 Fatty (change of) liver, not elsewhere classified (principal); I85.00 Esophageal varices without bleeding
CPT/HCPCS: 76705; 76981

== ENCOUNTER → 2024-06-22 | Outpatient (CLI) | payer MEDICARE, SELFPAY ==
[2024-06-22 10:49] LABS: Hemoglobin A1c 6.2 % (3.8-5.6)
[2024-06-22 10:51] LABS: Glucose 121 mg/dL (74-106)
== END | disposition home or self-care (01) ==
LOC: LAB 09:10
PROVIDERS: PCP Internal Medicine; Referring Provider Student in an Organized Health Care Education/Training Program; Visit Provider Student in an Organized Health Care Education/Training Program
DX: K76.0 Fatty (change of) liver, not elsewhere classified (principal)
CPT/HCPCS: 36415; 82947; 83036; 84443

== ENCOUNTER 2024-08-11 05:30 | Day surgery (SDC) | payer MEDICARE, SELFPAY ==
--- NOTE | 2024-07-25 16:03 | PAT.ANESEVAL ---
Pre-Assessment Diagnosis/Proposed Procedure Planned Operative Procedure(s): EGD Anesthesia History Anesthesia History - summer sessions director: Anesthesia History - summer sessions director Hx Hospitalization No 07/25/24 14:46 Any Problems With Anesthesia No 07/25/24 14:46 Cholinesterase deficiency No 07/25/24 14:46 You/Your Family Experience No 07/25/24 14:46 fever (hyperthermia) with Relationship Recent Exposure to Contagious No 02/17/24 12:33 Disease Does patient have nerve No 07/25/24 14:46 stimulator Patient instructed to have device shut off --Does patient have Pacemaker or ICD? When Was Last Pacemaker Check QUESTION #4 FULL TEXT: You/Your Family Experience fever (hyperthermia) with Anesthesia Last Oral Intake Last Oral intake: Last Oral Intake NPO since Meds taken in AM with sips of water? Meds patient instructed to take am of surgery PONV PONV - summer sessions director: PONV - summer sessions director Female Yes 07/25/24 14:46 HX of Motion Sickness No 07/25/24 14:46 HX of N/V After Surgery No 07/25/24 14:46 Non-Smoker No 07/25/24 14:46 Duration of Surgery greater No 07/25/24 14:46 than 60 minutes Number of Risk Factors 1 07/25/24 14:46 PONV Score Low Risk 07/25/24 14:46 Height & Weight Height & Weight: Anesthesia: Height & Weight Height 5 ft 1 in 03/24/24 15:12 Respiratory Assessment Respiratory Assessment - summer sessions director: Respiratory Tract Infection Hx - summer sessions director Hx Respiratory Tract Infection No 07/25/24 14:46 STOP Sleep Apnea STOP Sleep Apnea - summer sessions director: STOP Sleep Apnea - summer sessions director Hx Hypertension Yes: PER PT, CONTROLLED ON 07/25/24 14:46 MEDS Hx Sleep Apnea Yes: PT STATES DR THINK SHE 07/25/24 14:46 HAS SLEEP APNEA BUT PT DOESNT THINK SHE DOES CPAP No 07/25/24 14:46 BIPAP No 07/25/24 14:46 Do you snore loudly (louder than talking or can be heard Do you often feel tired/ fatigued/ sleepy during daytime? Has anyone observed you stop breathing during sleep? STOP Results Positive 07/25/24 14:46 QUESTION #5 FULL TEXT : Do you snore loudly (louder than talking or can be heard through closed doors)? Tobacco Use History Tobacco Use History - summer sessions director: Tobacco Use History - summer sessions director Tobacco Use Smoking Status Current every day smoker 07/25/24 14:46 Hx Tobacco Use Yes 07/25/24 14:46 Years Smoking Packs Smoked per Day Smoking Cessation Date was within the last 15 years Hx Smoking Cessation Date Hx Smoking Cessation Counseling Hematologic Medial History Hematologic Hx - summer sessions director: Hematologic Medical Hx - implementation consultant Hx of Blood Transfusion No 07/25/24 14:46 Hx of Transfusion in last 3 No 07/25/24 14:46 Months Date of Last Transfusion (if within last 3 months) Ever experience any problems No 07/25/24 14:46 with transfusion(s)? Specify any problems Hx of Preganancy in last 3 No 07/25/24 14:46 Months Nurse Filling Out Transfusion [facility] 07/25/24 14:46 & Questions: Date: 07/25/24 07/25/24 14:46 Time: 14:48 07/25/24 14:46 Patient unable to answer at this time (ie. confused, unrespo /Reproduction History /Reproductive History - summer sessions director: /Reproductive Hx- summer sessions director Hx Now No 07/25/24 14:46 Gestational Age (in weeks): EDC: Hx Hx Para Hx Section SAB No 07/25/24 14:46 PFSH Medical History (Updated 07/25/24 @ 14:54 by Ronna Aburto) History of ulceration History of diverticulosis Gastric reflux Shortness of breath on exertion Esophageal varix Wears glasses High cholesterol History of GI bleed Sleep apnea Smoker Diverticulosis Cardiology follow-up encounter Back pain Leg cramps History of echocardiogram History of stress test History of atrial fibrillation History of kidney stones Obesity Cholelithiasis Insulin resistance Recurrent hematuria UTI (urinary tract infection) Vitamin D deficiency History of shoulder fracture History of renal stone Atrial flutter, chronic Tobacco dependence Paroxysmal atrial fibrillation Hyperlipidemia Essential hypertension Chronic diastolic CHF (congestive heart failure) Gastroesophageal reflux disease Colon polyps Family history of cardiovascular disease Diverticulosis Home Medications ?Medication ?Instructions ?Recorded ?Last Taken ?Type multivit with minerals-iron 18 1 ea PO DAILY 10/13/15 02/17/24 History mg-folic ac 400 mcg-vit K 25 mcg tablet (Multi-Day Plus Minerals) cholecalciferol (vitamin D3) 50 50 mcg PO DAILY 02/03/23 02/17/24 History mcg (2,000 unit) tablet (Vitamin D3) metoprolol succinate 200 mg 200 mg PO DAILY #90 tabs 03/17/23 02/17/24 Rx tablet,extended release 24 hr magnesium 200 mg tablet 400 mg PO DAILY 09/14/23 02/17/24 History losartan 100 mg tablet 100 mg PO DAILY #90 tabs 02/29/24 Unknown Rx apixaban 5 mg tablet (Eliquis) 5 mg PO BID #60 TABLETS 03/29/24 07/25/24 08:00 Rx furosemide 40 mg tablet 40 mg PO DAILY #90 tabs 06/02/24 Unknown Rx pantoprazole 40 mg tablet,delayed 40 mg PO DAILY 07/25/24 Unknown History release Allergy/AdvReac Type Severity Reaction Status Date / Time No Known Allergies Allergy Verified 07/25/24 14:42 Family History Mother Diabetes Hypertension Myocardial infarction Father Hypertension Heart disease Sister Diabetes Heart disease Grandmother CVA (cerebral vascular accident) Surgical History History of colonoscopy History of colonoscopy with polypectomy History of lithotripsy (~2015) History of open reduction and internal fixation (ORIF) procedure (~2003) History of tubal ligation History of cardioversion (06/21/19) Social History household members: spouse Smoking Status: Current every day smoker tobacco type: cigarettes Tobacco: How many years used: 40 second hand exposure: Yes alcohol intake: never substance use type: does not use caffeine: Yes Type: coffee Number of servings: 3 what type of physical activity do you participate in: aerobics frequency: 3-4 times per week Audit: Pertinent Findings Pertinent Findings EKG Perinent findings: March 24, 2024. Sinus rhythm?RSR in V1. Stress test pertinent findings: April 01, 2021. Ejection fraction 64%. No areas of reversibility noted to suggest ischemia. Atrial flutter noted during exam. Echo (EF%) pertinent findings: February 18, 2023. Ejection fraction 60%. PA systolic pressure is 33 mmHg. No aortic stenosis noted. Consult pertinent findings: March 24, 2024. Dr. Merrill. 1. Paroxysmal atrial fibrillation-history of A-fib. Currently in normal sinus rhythm. Heart rate is well-controlled at this time. Continue Eliquis and metoprolol. 2. Hypertension controlled at this time. 3. Aortic valve insufficiency-history of mild aortic valve insufficiency. Monitor as appropriate. Recommendation Anesthesia Recommendation Anesthesia recommendation: OPTIMIZED for anesthesia
[2024-08-11] VITALS (8 sets, daily range): BP systolic 105–131; BP diastolic 50–66; PULSE 67–71; RESP 16–18; TEMP 36.3–36.5; O2SAT 93–99; BMI 36.3
--- NOTE | 2024-08-11 06:20 | PRE.ANES_ITS ---
ASA Classification* ASA Classification ASA Classification: 3 Assessment & Plan Anesthesia* Anesthesia Assessment Anesthesia Assessment: Discussed sedation and/or anesthesia options, risks, benefits, and alternatives with patient/parents/legal guardian/POA. Questions invited. The patient/parents/legal guardian/POA seems to understand and agrees to proceed with anesthesia plan. Reviewed the physical assessment, medical history, allergy history and patient home medications list prior to surgery/procedure/anesthetic and documented any changes. Performed airway and anesthesia risk assessments. Anesthesia Type Anesthesia Type: MAC History Source History Obtained from:: Patient and Chart Anesthesia Focused Assessment* Temperature: 97.3 F Pulse Rate: 71 Blood Pressure: 131/66 Respiratory Rate: 16 Pulse Ox: 99 Oxygen Delivery Method: Room Air Airway Assessment Mouth opens: >3 cm Mallampati Score: IV Teeth Condition: Intact Neck Range of motion (ROM): Full ROM Focused Labs Anesthesia Preop lab: CBC WBC 11.2 K/mm3 (4.4-11.0) H 05/19/24 15: 5 RBC 5.39 M/mm3 (4.2-5.4) 05/19/24 15:32 05/19/24 Hgb 15.1 g/dL (12.0-15.0) H 05/19/24 15:32 5 Hct 46.2 % (37-47) 05/19/24 15:32 05/19/24 Plt Count 181 K/mm3 (150-450) 05/19/24 15:32 05/19/24 CHEMISTRY Potassium 4.0 mmol/L (3.5-5.1) 05/19/24 15:32 05/19/24 Sodium 138 mmol/L (136-145) 05/19/24 15:32 05/19/24 Magnesium 2.1 mg/dL (1.6-2.6) 09/15/23 06:12 09/15/23 Phosphorus 3.8 mg/dL (2.5-4.9) 09/15/23 06:12 09/15/23 BUN 34 mg/dL (7-18) H 05/19/24 15:32 05/19/24 Creatinine 1.11 mg/dL (0.55-1.02) H 05/19/24 15:32 Glucose 121 mg/dL (74-106) H 06/22/24 09:12 06/22/24 TSH 1.240 uIU/mL (0.358-3.740) 06/22/24 09:12 06/11 07/05 COAG PT 13.1 SECONDS (11.7-14.9) 05/19/24 15:32 Pre-Assessment Diagnosis/Proposed Procedure Planned Operative Procedure(s): EGD Anesthesia History Anesthesia History - advertising vice president: Anesthesia History - advertising vice president Hx Hospitalization No 07/25/24 14:46 Any Problems With Anesthesia No 07/25/24 14:46 Cholinesterase deficiency No 07/25/24 14:46 You/Your Family Experience No 07/25/24 14:46 fever (hyperthermia) with Relationship Recent Exposure to Contagious No 08/11/24 05:47 Disease Does patient have nerve No 07/25/24 14:46 stimulator Patient instructed to have device shut off --Does patient have Pacemaker No 08/11/24 05:49 or ICD? When Was Last Pacemaker Check QUESTION #4 FULL TEXT: You/Your Family Experience fever (hyperthermia) with Anesthesia Last Oral Intake Last Oral intake: Last Oral Intake NPO since 04:00 08/11/24 05:49 Meds taken in AM with sips of Yes 08/11/24 05:49 water? Meds patient instructed to take am of surgery Any additional information?: Yes NPO since: 04:00 (Patient had black coffee at 4 AM.) Meds taken in AM with sips of water?: Yes PONV PONV - advertising vice president: PONV - advertising vice president Female Yes 07/25/24 14:46 HX of Motion Sickness No 07/25/24 14:46 HX of N/V After Surgery No 07/25/24 14:46 Non-Smoker No 07/25/24 14:46 Duration of Surgery greater No 07/25/24 14:46 than 60 minutes Number of Risk Factors 1 07/25/24 14:46 PONV Score Low Risk 07/25/24 14:46 Height & Weight Height & Weight: Anesthesia: Height & Weight Height 5 ft 2 in 08/11/24 05:49 Weight: 90.265 kg 08/11/24 05:49 Body Mass Index (BMI) 36.3 08/11/24 05:49 Respiratory Assessment Respiratory Assessment - advertising vice president: Respiratory Tract Infection Hx - advertising vice president Hx Respiratory Tract Infection No 07/25/24 14:46 STOP Sleep Apnea STOP Sleep Apnea - advertising vice president: STOP Sleep Apnea - advertising vice president Hx Hypertension Yes: PER PT, CONTROLLED ON 07/25/24 14:46 MEDS Hx Sleep Apnea Yes: PT STATES DR THINK SHE 07/25/24 14:46 HAS SLEEP APNEA BUT PT DOESNT THINK SHE DOES CPAP No 07/25/24 14:46 BIPAP No 07/25/24 14:46 Do you snore loudly (louder than talking or can be heard Do you often feel tired/ fatigued/ sleepy during daytime? Has anyone observed you stop breathing during sleep? STOP Results Positive 07/25/24 14:46 QUESTION #5 FULL TEXT : Do you snore loudly (louder than talking or can be heard through closed doors)? Tobacco Use History Tobacco Use History - advertising vice president: Tobacco Use History - advertising vice president Tobacco Use Smoking Status Current every day smoker 07/25/24 14:46 Hx Tobacco Use Yes 07/25/24 14:46 Years Smoking Packs Smoked per Day Smoking Cessation Date was within the last 15 years Hx Smoking Cessation Date Hx Smoking Cessation Counseling Any additional information?: Yes Smoking Status: Current every day smoker (Patient smoked today.) Hematologic Medial History Hematologic Hx - advertising vice president: Hematologic Medical Hx - blender helper Hx of Blood Transfusion No 07/25/24 14:46 Hx of Transfusion in last 3 No 07/25/24 14:46 Months Date of Last Transfusion (if within last 3 months) Ever experience any problems No 07/25/24 14:46 with transfusion(s)? Specify any problems Hx of Preganancy in last 3 No 07/25/24 14:46 Months Nurse Filling Out Transfusion MGRIFFITH 07/25/24 14:46 & Questions: Date: 07/25/24 07/25/24 14:46 Time: 14:48 07/25/24 14:46 Patient unable to answer at this time (ie. confused, unrespo /Reproduction History /Reproductive History - advertising vice president: /Reproductive Hx- advertising vice president Hx Now No 07/25/24 14:46 Gestational Age (in weeks): EDC: Hx Hx Para Hx Section SAB No 07/25/24 14:46 PFSH Medical History History of ulceration History of diverticulosis Gastric reflux Shortness of breath on exertion Esophageal varix Wears glasses High cholesterol History of GI bleed Sleep apnea Smoker Diverticulosis Cardiology follow-up encounter Back pain Leg cramps History of echocardiogram History of stress test History of atrial fibrillation History of kidney stones Obesity Cholelithiasis Insulin resistance Recurrent hematuria UTI (urinary tract infection) Vitamin D deficiency History of shoulder fracture History of renal stone Atrial flutter, chronic Tobacco dependence Paroxysmal atrial fibrillation Hyperlipidemia Essential hypertension Chronic diastolic CHF (congestive heart failure) Gastroesophageal reflux disease Colon polyps Family history of cardiovascular disease Diverticulosis Home Medications ?Medication ?Instructions ?Recorded ?Last Taken ?Type multivit with minerals-iron 18 1 ea PO DAILY 10/13/15 08/10/24 History mg-folic ac 400 mcg-vit K 25 mcg tablet (Multi-Day Plus Minerals) cholecalciferol (vitamin D3) 50 50 mcg PO DAILY 08/10/24 History mcg (2,000 unit) tablet (Vitamin D3) metoprolol succinate 200 mg 200 mg PO DAILY #90 tabs 1 05/17/22 08/11/24 05:00 Rx tablet,extended release 24 hr magnesium 200 mg tablet 400 mg PO DAILY 09/14/2307/05 History losartan 100 mg tablet 100 mg PO DAILY #90 tabs 08/11/24 05:00 Rx apixaban 5 mg tablet (Eliquis) 5 mg PO BID #60 TABLETS 03/29/24 08/10/24 08:00 Rx furosemide 40 mg tablet 40 mg PO DAILY #90 tabs 05/1208/10/24 Rx pantoprazole 40 mg tablet,delayed 40 mg PO DAILY PRN a mari reflux 07/25/24 Unknown History release Allergy/AdvReac Type Severity Reaction Status Date / Time No Known Allergies Allergy Verified 08/11/24 05:44 Family History Mother Diabetes Hypertension Myocardial infarction Father Hypertension Heart disease Sister Diabetes Heart disease Grandmother CVA (cerebral vascular accident) Surgical History History of colonoscopy History of colonoscopy with polypectomy History of lithotripsy (~2015) History of open reduction and internal fixation (ORIF) procedure (~2003) History of tubal ligation History of cardioversion (06/21/19) Social History household members: spouse Smoking Status: Current every day smoker tobacco type: cigarettes Tobacco: How many years used: 40 second hand exposure: Yes alcohol intake: never substance use type: does not use caffeine: Yes Type: coffee Number of servings: 3 what type of physical activity do you participate in: aerobics frequency: 3-4 times per week Review of Systems (Anesthesia) ROS Narrative System reviewed and no additional complaints, except as documented.
--- NOTE | 2024-08-11 06:30 | EGD_PTH ---
PATIENT: YASMINE MTZ LOC: EN U#:[id number] AGE/SX: 68/F ROOM: RE08/11/[address]: Dr. Lester Grimaldo DO : 1955 BED: DIS: 08/11/2024 SPEC #: [id number] RECD: 08/11/24 11:27 STATUS: MIROSLAVA VALDEZ #: [id number] LIAT: 08/11/24 06:[address]: Lester Grimaldo DEPT: SURGICAL PATHOLOGY RECD BY: Francois Alberto ENTERED: 08/11/24 11:27 SP TYPE: EGD BIOPSY WALDO DR: Dr. Selina Bowser MD Tissues: A - Esophagus, NOS Procedures: Surgery Specimen Level IV HEADER OPERATION: EGD PRE-OP DIAGNOSIS: Esophageal varix, fatty liver, gastric ulcer TISSUE SUBMITTED: A- Distal esophagus biopsy MICROSCOPIC DIAGNOSIS A. 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 - Squamous mucosa with mild reactive change, negative for eosinophils. Note: The diagnosis depends on the location of the biopsy and the extent of the mucosal irregularity. If the biopsy originates from the tubular esophagus and the mucosal irregularity extends at least 1 cm above the top of the gastric folds, this represents Hooks mucosa. If the biopsy originates from the gastric cardia and/or the mucosal irregularity is less than 1 cm in extent, this represents intestinal metaplasia. MICROSCOPIC DESCRIPTION Slides are reviewed. GROSS DESCRIPTION A. Received in formalin in a container labeled with the patient's name, date of , and biopsy: Distal esophagus are 3 rios-pink fragments of mucosal tissue ranging from 0.2 x 0.2 x 0.2 cm to 0.5 x 0.2 x 0.2 cm. Submitted in toto in A1. [facility] 08-11-2024 CPT: 00695
--- NOTE | 2024-08-11 06:51 | HP.PCM_ITS ---
HPI - General General Date of Admission: 08/11/24 Date of Service: 08/11/24 Chief Complaint: Esophageal varices HPI Narrative YASMINE MTZ, is a 68 F who presentsBGI established 01.28.24 after multiple hospitalizations for abd pain. General surgery believed etiology to be passing of gallstones. Hx of normal HIDA scan. EGD and colonoscopy many years ago. CT Abdomen/pelvis 09.14.23; 1. Mild mural thickening of duodenal sweep and some loops of jejunum suggests an enteritis. Question of abnormal mural thickening of the distal stomach versus artifact of nondistention. 2. Small prominent small bowel gas may represent ileus. No evidence for mechanical bowel obstruction. 3. Chronic pancreatitis. No evidence for acute pancreatitis. 4. Gallstones. 5. Nonobstructive renal calculi bilaterally. Mildly atrophic right kidney with cortical scarring. No demonstrated ureteral calculi or hydronephrosis. 6. Colonic diverticulosis without evidence for acute diverticulitis. 7. Atherosclerosis. 8. Umbilical hernia contains fat, but no bowel. HIDA scan 06.24.23; NORMAL 99m Tc Mebrofenin hepatobiliary imaging examination. A. Visualization of the gallbladder within 60 minutes post radiopharmaceutical administration excludes acute cholecystitis with 97% certitude. (Agata et al, Nucl Med [place] [employer] pg. 35, 1980). B. There appears to be spontaneous contraction and refilling of the gallbladder contents during the second hour of acquisition EGD 02.17.24: - Grade I esophageal varices. - Portal hypertensive gastropathy. - Erythematous duodenopathy. - Biopsy of ulcer Colonoscopy 02.17.24; Diverticulosis in the recto-sigmoid colon, in the sigmoid colon and in the descending colon. - Four 1 to 2 mm polyps in the rectum, removed with a hot snare. Resected and retrieved. - One 8 mm polyp in the sigmoid colon, removed with a cold snare. Resected and retrieved. - One 4 mm polyp at the splenic flexure, removed with a jumbo cold forceps. Resected and retrieved. - Stool in the rectum, in the sigmoid colon, in the descending colon, in the transverse colon and in the cecum. *PPI and Carafate started OV 05.19.24 Pt has been doing well since her scope. She is no longer having any abd pain or heartburn. She continues taking the pantoprazole but is no longer on carafate. COUNT INCLUDES THE [facility] Medical History History of ulceration History of diverticulosis Gastric reflux Shortness of breath on exertion Esophageal varix Wears glasses High cholesterol History of GI bleed Sleep apnea Smoker Diverticulosis Cardiology follow-up encounter Back pain Leg cramps History of echocardiogram History of stress test History of atrial fibrillation History of kidney stones Obesity Cholelithiasis Insulin resistance Recurrent hematuria UTI (urinary tract infection) Vitamin D deficiency History of shoulder fracture History of renal stone Atrial flutter, chronic Tobacco dependence Paroxysmal atrial fibrillation Hyperlipidemia Essential hypertension Chronic diastolic CHF (congestive heart failure) Gastroesophageal reflux disease Colon polyps Family history of cardiovascular disease Diverticulosis Home Medications ?Medication ?Instructions ?Recorded ?Last Taken ?Type multivit with minerals-iron 18 1 ea PO DAILY 10/13/15 08/10/24 History mg-folic ac 400 mcg-vit K 25 mcg tablet (Multi-Day Plus Minerals) cholecalciferol (vitamin D3) 50 50 mcg PO DAILY 08/10/24 History mcg (2,000 unit) tablet (Vitamin D3) metoprolol succinate 200 mg 200 mg PO DAILY #90 tabs 1 05/17/22 08/11/24 05:00 Rx tablet,extended release 24 hr magnesium 200 mg tablet 400 mg PO DAILY 09/14/2307/05 History losartan 100 mg tablet 100 mg PO DAILY #90 tabs 08/11/24 05:00 Rx apixaban 5 mg tablet (Eliquis) 5 mg PO BID #60 TABLETS 03/29/24 08/10/24 08:00 Rx furosemide 40 mg tablet 40 mg PO DAILY #90 tabs 05/1208/10/24 Rx pantoprazole 40 mg tablet,delayed 40 mg PO DAILY PRN a mari reflux 07/25/24 Unknown History release Allergy/AdvReac Type Severity Reaction Status Date / Time No Known Allergies Allergy Verified 08/11/24 05:44 Family History Mother Diabetes Hypertension Myocardial infarction Father Hypertension Heart disease Sister Diabetes Heart disease Grandmother CVA (cerebral vascular accident) Surgical History History of colonoscopy History of colonoscopy with polypectomy History of lithotripsy (~2015) History of open reduction and internal fixation (ORIF) procedure (~2003) History of tubal ligation History of cardioversion (06/21/19) Social History household members: spouse Smoking Status: Current every day smoker (Patient smoked today.) tobacco type: cigarettes Tobacco: How many years used: 40 second hand exposure: Yes alcohol intake: never substance use type: does not use caffeine: Yes Type: coffee Number of servings: 3 what type of physical activity do you participate in: aerobics frequency: 3-4 times per week ROS Constitutional Constitutional: Denies fatigue, fever(s), poor appetite, weight gain or weight loss Gastrointestinal Gastrointestinal: Denies belching, bloating, change in bowel habits, change in stool character, chewing difficulty, coffee ground emesis, constipation, cramping, diarrhea, dyspepsia, dysphagia, early satiety, excessive flatus, fecal incontinence, heartburn, hematemesis, hematochezia, hemorrhoids, loose stools, melena, nausea, odynophagia, rectal bleeding, tenesmus, vomiting or weight changes Vital Signs Vital Signs Vital Signs: 08/11/24 05:47 08/11/24 05:49 08/11/24 06:26 Temperature 97.3 F L 97.3 F L Temperature Source Temporal Pulse Rate 71 71 Respiratory Rate 16 16 Respiratory Pattern Normal Blood Pressure 131/66 H 131/66 H Blood Pressure Mean 87 Blood Pressure Source Monitor Blood Pressure Position Semi-Fowlers Blood Pressure Location Right Arm Pulse Ox 99 99 Oxygen Delivery Method Room Air Room Air Weight Weight: 199 lb Body Mass Index (BMI) 36.3 Physical Exam Const alert, oriented x3, no apparent distress and healthy appearing General Appearance: cooperative GI normal to inspection, nondistended, normoactive bowel sounds, soft to palpation, non-tender and non-distended Percussion: normal to percussion Rectal Exam: deferred Assessment & Plan Assessment/Plan (1) Esophageal varix: PLAN: Assessment and Plan Assessment and Plan (1) Esophageal varix: Status: Acute (2) Fatty liver: Status: Acute (3) Gastric ulcer: Status: Acute Plan: This is a 68 yo female pt here today for f/u after EGD. EGD showed a gastric ulcer, hypertensive gastropathy, esophageal varix and erythematous duodenopathy. She has been taking Pantoprazole and finished her Carafate which did help with her symptoms. She is no longer having abd pain or heartburn. She will undergo a repeat EGD to assess for healing of the gastric ulcer. Pt has no hx of cirrhosis or alcohol use yet she has esophageal varix and gastropathy. She will have chronic liver blood work and liver elastography -Chronic liver disease work up -Liver elastography -Repeat EGD Orders: Orders Ammonia Today I85.00 - Esophageal varices without bleeding, K76.0 - Fatty (ohara ge of) liver, not elsewhere classified EVELYN Comprehensive Panel Today I85.00 - Esophageal varices without bleeding, K76.0 - Fatty (change of) liver, not elsewhere classified ANCA Today I85.00 - Esophageal varices without bleeding, K76.0 - Fatty (change of) liver, not elsewhere classified Angiotensin Convert Enzyme Today I85.00 - Esophageal varices without bleeding, K76.0 - Fatty (change of) liver, not elsewhere classified Anti-Smooth Muscle ABS Today I85.00 - Esophageal varices without bleeding, K76.0 - Fatty (change of) liver, not elsewhere classified Anti-Mitochondrial AB Today I85.00 - Esophageal varices without bleeding, K76.0 - Fatty (change of) liver, not elsewhere classified CBC W/Diff, Automated Today I85.00 - Esophageal varices without bleeding, K76.0 - Fatty (change of) liver, not elsewhere classified Ceruloplasmin Today I85.00 - Esophageal varices without bleeding, K76.0 - Fatty (change of) liver, not elsewhere classified Comprehensive Metabolic Profil Today I85.00 - Esophageal varices without bleeding, K76.0 - Fatty (change of) liver, not elsewhere classified Copper, Serum or Plasma Today I85.00 - Esophageal varices without bleeding, K76.0 - Fatty (change of) liver, not elsewhere classified CRP Today I85.00 - Esophageal varices without bleeding, K76.0 - Fatty (change of) liver, not elsewhere classified Erythrocyte Sed Rate Today I85.00 - Esophageal varices without bleeding, K76.0 - Fatty (change of) liver, not elsewhere classified Ferritin Today I85.00 - Esophageal varices without bleeding, K76.0 - Fatty (change of) liver, not elsewhere classified Hepatitis Panel Acute Today I85.00 - Esophageal varices without bleeding, K76.0 - Fatty (change of) liver, not elsewhere classified, R10.11 - Right upper quadrant pain Prothrombin Time w/INR Today I85.00 - Esophageal varices without bleeding, K76.0 - Fatty (change of) liver, not elsewhere classified Triglycerides Today I85.00 - Esophageal varices without bleeding, K76.0 - Fatty (change of) liver, not elsewhere classified Iron Binding Capacity,Total Today I85.00 - Esophageal varices without bleeding, K76.0 - Fatty (change of) liver, not elsewhere classified Lipid Profile Today I85.00 - Esophageal varices without bleeding, K76.0 - Fatty (change of) liver, not elsewhere classified ABD Limited w/ Elastography Today I85.00 - Esophageal varices without bleeding, K76.0 - Fatty (change of) liver, not elsewhere classified
--- NOTE | 2024-08-11 07:09 | OP.EGD_ITS ---
Patient Name: Mariajose Khalil Procedure Date: 08/11/2024 6:12 AM Date of : 1955 Age: 68 Procedure: Upper GI endoscopy Indications: Heartburn, Portal hypertension with suspected esophageal varices Providers: Lester Grimaldo DO Referring MD: Selina Bowser Medicines: Monitored Anesthesia Care Patient Profile: This is a 68 year old female. Refer to note in patient chart for documentation of history and physical. Patient has symptoms of chronic heartburn. Complications: No immediate complications. Procedure: Pre-Anesthesia Assessment: - Prior to the procedure, a History and Physical was performed, and patient medications and allergies were reviewed. The patient is competent. The risks and benefits of the procedure and the sedation options and risks were discussed with the patient. All questions were answered and informed consent was obtained. Patient identification and proposed procedure were verified by the physician in the pre-procedure area. Mental Status Examination: alert and oriented. Airway Examination: normal oropharyngeal airway and neck mobility. Respiratory Examination: clear to auscultation. CV Examination: normal. Prophylactic Antibiotics: The patient does not require prophylactic antibiotics. Prior Anticoagulants: The patient has taken no anticoagulant or antiplatelet agents except for NSAID medication. ASA Grade Assessment: II - A patient with mild systemic disease. After reviewing the risks and benefits, the patient was deemed in satisfactory condition to undergo the procedure. The anesthesia plan was to use monitored anesthesia care (MAC). Immediately prior to administration of medications, the patient was re-assessed for adequacy to receive sedatives. The heart rate, respiratory rate, oxygen saturations, blood pressure, adequacy of pulmonary ventilation, and response to care were monitored throughout the procedure. The physical status of the patient was re-assessed after the procedure. After obtaining informed consent, the endoscope was passed under direct vision. Throughout the procedure, the patient's blood pressure, pulse, and oxygen saturations were monitored continuously. The Endoscope was introduced through the mouth, and advanced to the second part of duodenum. The upper GI endoscopy was accomplished without difficulty. The patient tolerated the procedure well. Scope In: 7:00:16 AM Scope Out: 7:03:28 AM Total Procedure Duration Time 0 hours 3 minutes 12 seconds Findings: Small (< 5 mm) varices were found in the lower third of the esophagus. They were 5 mm in largest diameter. There were esophageal mucosal changes secondary to established long-segment Hooks's disease present in the lower third of the esophagus. The maximum longitudinal extent of these mucosal changes was 4 cm in length. Mucosa was biopsied with a cold forceps for histology in a targeted manner at intervals of 1 cm in the lower third of the esophagus. One specimen bottle was sent to pathology. Verification of patient identification for the specimen was done. Estimated blood loss was minimal. A hiatal hernia was present. Mild portal hypertensive gastropathy was found in the cardia and in the gastric fundus. Patchy mildly erythematous mucosa without active bleeding and with no stigmata of bleeding was found in the duodenal bulb and in the first portion of the duodenum. Impression: - Small (< 5 mm) esophageal varices. - Esophageal mucosal changes secondary to established long-segment Hooks's disease. Biopsied. - Hiatal hernia. - Portal hypertensive gastropathy. - Erythematous duodenopathy. Recommendation: - Discharge patient to home. - Resume previous diet. - Continue present medications. - Await pathology results. - Repeat upper endoscopy for surveillance based on pathology results. Procedure Code(s): --- Professional --- 46441, Esophagogastroduodenoscopy, flexible, transoral; with biopsy, single or multiple CPT copyright 2021 [employer]. All rights reserved. The codes documented in this report are preliminary and upon machine adjuster leader review may be revised to meet current compliance requirements. Lester Grimaldo DO 08/11/2024 7:08:11 AM This report has been signed electronically. Number of Addenda: 0 Note Initiated On: 08/11/2024 6:12 AM
--- NOTE | 2024-08-11 07:09 | OP.CCLET_ITS ---
08/11/2024 Selina Bowser [facility] [address] [place] [address] Re : Upper GI endoscopy procedure for Mariajose Khalil Dear Dr. Bowser This procedure was performed on August. My impressions and recommendations are as follows: Impressions : - Small (< 5 mm) esophageal varices. - Esophageal mucosal changes secondary to established long-segment Hooks's disease. Biopsied. - Hiatal hernia. - Portal hypertensive gastropathy. - Erythematous duodenopathy. Recommendations : - Discharge patient to home. - Resume previous diet. - Continue present medications. - Await pathology results. - Repeat upper endoscopy for surveillance based on pathology results. My findings are described in the full procedure note, which is enclosed. If I can be of further assistance, please feel free to contact me at . Sincerely, Lester Friend, 08/11/2024 7:08:11 AM This report has been signed electronically.
--- NOTE | 2024-08-11 07:13 | PCM.POST.ANE ---
Anesthesia: Postop Eval I Current Vital Signs Temperature: 97.7 F Pulse Rate: 67 Blood Pressure: 120/50 Respiratory Rate: 18 Pulse Ox: 97 Oxygen Delivery Method: Room Air Assessment Airway patent: Yes Spontaneous unlabored respirations: Yes Mental status: Awake and Calm nausea: No Vomiting: No Anesthesia Complication: No Fluid Hydration Crystalloid volume administer (ml): 30 Total IV fluid infused: 30 Progress Note Anesthesia document: Postop Eval 1 completed: Yes
--- NOTE | 2024-08-11 10:39 | PCM.POSTANE2 ---
Anesthesia Postop Eval I Sum Postop Eval Completion status Anesthesia document: Postop Eval 1 completed: Yes Anesthesia Postop Eval I Summary Anesthesia Postop Eval I Summary: Anesthesia Postop Eval I: Assessment Summary Airway patent Yes 08/11/24 07:14 [email or web address] Spontaneous unlabored Yes 08/11/24 07:14 [email or web address] respirations Mental status Awake,Calm 08/11/24 07:14 [email or web address] nausea No 08/11/24 07:14 [email or web address] Vomiting No 08/11/24 07:14 [email or web address] Anesthesia Postop Eval I: Fluid Summary Crystalloid volume administer 30 08/11/24 07:14 [email or web address] (ml) Colloids volume administered ( ml) Blood Product volume administered (ml) Total IV fluid infused 30 08/11/24 07:14 [email or web address] Anesthesia Postop Eval I: Summary Notes Anesthesia Complication No 08/11/24 07:14 [email or web address] Anesthesia Complication Comment: Post-operative progress note Anesthesia: Postop Eval II Evaluation Mental status: Awake and Calm Pain Level: 0 nausea: No Vomiting: No Complications Anesthesia Complication: No
== END 2024-08-11 08:16 | disposition home or self-care (01) ==
LOC: EN 05:30 → AC 05:32
PROVIDERS: PCP Internal Medicine; Referring Provider Internal Medicine; Visit Provider Internal Medicine Gastroenterology
PROC: 0DJ08ZZ Inspection of Upper Intestinal Tract, Via Natural or Artificial Opening Endoscopic (ICD-10-PCS; CPT 43235; principal; 2024-08-11 06:25)
DX: K76.6 Portal hypertension (principal); I85.00 Esophageal varices without bleeding; I11.0 Hypertensive heart disease with heart failure; I50.32 Chronic diastolic (congestive) heart failure; K86.1 Other chronic pancreatitis; K76.0 Fatty (change of) liver, not elsewhere classified; F17.210 Nicotine dependence, cigarettes, uncomplicated; Z82.49 Family history of ischemic heart disease and other diseases of the circulatory system; K25.9 Gastric ulcer, unspecified as acute or chronic, without hemorrhage or perforation; R12 Heartburn; K44.9 Diaphragmatic hernia without obstruction or gangrene; E78.00 Pure hypercholesterolemia, unspecified; K22.70 Barrett's esophagus without dysplasia; Z98.51 Tubal ligation status
CPT/HCPCS: 43239; 88305; A4216; J2405

== ENCOUNTER 2025-01-22 08:55 | Emergency (ER) | payer MEDICARE, SELFPAY ==
[2025-01-22 08:56] VITALS: BP 163/73; PULSE 72; RESP 16; TEMP 36.3; O2SAT 99; BMI 37.0
[2025-01-22 08:58] VITALS: BP 133/49; PULSE 62; RESP 16; TEMP 36.6; O2SAT 98
--- NOTE | 2025-01-22 09:01 | EX.ED.DYSGE1 ---
HPI History of Present Illness Chief Complaint: Complaint Informant: patient Onset/Context/Timing Onset: Yesterday Context: Gradual Onset Timing: Continuous Quality: Red Location: Urine Worsened by: Nothing Relieved by: Nothing Narrative Narrative: Patient presents with hematuria that began last night. Patient states that her urine was dark last night. Patient states that today it was more bright red blood. Patient admits to some pain over her right flank area. Patient states nothing makes it better nothing makes it worse. Patient denies any fevers or chills. Patient denies any dysuria or frequency. Patient denies any nausea or vomiting. Patient denies any diarrhea or constipation. Patient denies any chest pain or shortness of breath. [facility] Medical History History of ulceration History of diverticulosis Gastric reflux Shortness of breath on exertion Esophageal varix Wears glasses High cholesterol History of GI bleed Sleep apnea Smoker Diverticulosis Cardiology follow-up encounter Back pain Leg cramps History of echocardiogram History of stress test History of atrial fibrillation History of kidney stones Obesity Cholelithiasis Insulin resistance Recurrent hematuria UTI (urinary tract infection) Vitamin D deficiency History of shoulder fracture History of renal stone Atrial flutter, chronic Tobacco dependence Paroxysmal atrial fibrillation Hyperlipidemia Essential hypertension Chronic diastolic CHF (congestive heart failure) Gastroesophageal reflux disease Colon polyps Family history of cardiovascular disease Diverticulosis Home Medications ?Medication ?Instructions ?Recorded ?Last Taken ?Type multivit with minerals-iron 18 1 ea PO DAILY 10/13/15 01/21/25 History mg-folic ac 400 mcg-vit K 25 mcg tablet (Multi-Day Plus Minerals) magnesium 200 mg tablet 400 mg PO DAILY 09/14/23 01/22/25 History losartan 100 mg tablet 100 mg PO DAILY #90 tabs 02/29/24 01/22/25 Rx apixaban 5 mg tablet (Eliquis) 5 mg PO BID #60 TABLETS 03/29/24 01/22/25 Rx furosemide 40 mg tablet 40 mg PO DAILY #90 tabs 06/02/24 01/22/25 Rx metoprolol succinate 200 mg 200 mg PO DAILY #90 tabs 08/12/24 01/22/25 Rx tablet,extended release 24 hr cholecalciferol (vitamin D3) 125 125 mcg PO QDAY 11/01/24 01/22/25 History mcg (5,000 unit) tablet hydrocodone-acetaminophen 5-325mg 1 tab PO Q6H PRN PRN Pain 3 days 01/22/25 Unknown Rx 5mg-325mg #10 TABLETS zinc acetate 50 mg (zinc) capsule 50 mg PO DAILY 01/22/25 01/22/25 History (Galzin) Allergy/AdvReac Type Severity Reaction Status Date / Time No Known Allergies Allergy Verified 11/01/24 15:58 Family History Mother Diabetes Hypertension Myocardial infarction Father Hypertension Heart disease Sister Diabetes Heart disease Grandmother CVA (cerebral vascular accident) Surgical History History of colonoscopy History of colonoscopy with polypectomy History of lithotripsy (~2015) History of open reduction and internal fixation (ORIF) procedure (~2003) History of tubal ligation History of cardioversion (06/21/19) Social History household members: spouse Smoking Status: Current every day smoker tobacco type: cigarettes Tobacco: How many years used: 40 second hand exposure: Yes alcohol intake: never substance use type: does not use caffeine: Yes Type: coffee Number of servings: 3 what type of physical activity do you participate in: aerobics frequency: 3-4 times per week ROS ROS ED Constitutional Constitutional ED: Denies chills or fever(s) Eyes Eyes: Denies blurry vision or change in vision ENT ENT ED: Denies rhinorrhea or sore throat Cardiovascular Cardiovascular: Denies chest pain or palpitations Respiratory/Chest Respiratory/Chest: Denies cough or dyspnea Gastrointestinal Gastrointestinal: Denies nausea or vomiting Genitourinary Genitourinary ED: Reports hematuria; Denies dysuria or urinary frequency Musculoskeletal Musculoskeletal: Reports back pain; Denies neck pain Integumentary Denies abscess or rash Neurologic Neurologic: Denies headache(s) or weakness Allergic/Immunologic Allergic/Immunologic ED: Denies mouth swelling or urticaria EXAM Physical Exam Const Vital Signs: 01/22/25 08:56 01/22/25 08:58 01/22/25 09:58 Temperature 97.3 F L 97.9 F 98 F Temperature Source Oral Oral Oral Pulse Rate 72 62 60 Respiratory Rate 16 16 16 Blood Pressure 163/73 H 133/49 H 111/53 L Blood Pressure Mean 103 77 72 Pulse Ox 99 98 93 Oxygen Delivery Method Room Air Room Air Room Air 01/22/25 10:00 01/22/25 10:55 01/22/25 11:18 Temperature 98 F 98.8 F Temperature Source Oral Pulse Rate 60 65 65 Respiratory Rate 14 16 16 Blood Pressure 111/34 L 121/40 H 121/40 H Blood Pressure Mean 59 67 67 Pulse Ox 93 94 94 Oxygen Delivery Method Room Air Room Air Positive well nourished and well developed General Appearance ED: well developed and NAD HEENT Reports moist mucous membranes Neck supple and no JVD Resp normal respiratory effort and clear to auscultation bilaterally Cardio regular rate and regular rhythm GI non-distended Palpation: soft and tender RUQ; Negative for guarding or rebound tenderness present Back/Spine General Back: CVA tenderness right Neuro oriented x3, CN's II-XII intact bilaterally and no sensory deficits noted Sensorium / Orientation: alert Motor Exam: strength 5/5 throughout Psych mental status grossly normal MDM MDM MDM Narrative Medical decision making narrative: Differential diagnosis includes ureteral calculus, pyelonephritis, coagulopathy, electrolyte abnormality, and renal mass. CT scan of the abdomen and pelvis will be obtained to assess for ureteral calculus and renal mass. CBC will be obtained to assess for leukocytosis and anemia. Basic metabolic profile will be obtained to assess for renal function and electrolyte abnormality. Urinalysis will be obtained to assess for urinary tract infection and hematuria. PT with INR and PTT will be obtained to assess for coagulopathy. History & Record Review Additional record(s) reviewed:: Prior outpatient record, Prior ED visit and Prior labs Lab Data Attestation: I reviewed the patient's lab results. Lab results narrative: CBC was reviewed. There is a slight leukocytosis of 11.3. Hemoglobin was mildly elevated at 15.4 and hematocrit was 47.6. These are consistent with previous results. PT with INR and PTT were reviewed. Pro time was 14.1 and INR is 1.1. PTT was slightly elevated at 39.8. Urinalysis was reviewed. Occult blood was 250 with greater than 100 red blood cells. There were 5-10 white blood cells but no bacteria. Basic metabolic profile was reviewed and was within normal limits. Labs: Laboratory Results - last 24 hr 01/22/25 01/22/25 01/22/25 09:09 09:22 09:37 WBC 11.3 H RBC 5.52 H Hgb 15.4 H Hct 47.6 H MCV 86.2 MCH 27.9 MCHC 32.4 RDW Std Deviation 52.9 H RDW Coeff of Nhung 17.3 H Plt Count 148 L MPV 11.6 Immature Gran % (Auto) 0.500 Neut % (Auto) 52.0 Lymph % (Auto) 35.7 Mcleod % (Auto) 8.8 Eos % (Auto) 2.1 Baso % (Auto) 0.9 Absolute Neuts (auto) 5.9 Absolute Lymphs (auto) 4.05 Nucleated RBC % 0 PT 14.1 INR 1.1 APTT 39.8 H Sodium 140 Potassium 4.2 Chloride 102 Carbon Dioxide 24.6 Anion Gap 13 BUN 21 H Creatinine 0.82 Estim Creat Clear Calc 70.26 Est GFR (MDRD) Non-Af 79 BUN/Creatinine Ratio 25.5 H Glucose 119 H Calcium 9.6 Urine Color Red Urine Clarity Turbid Urine pH 6.5 Ur Specific [place] 1.010 Urine Protein 500 H Urine Glucose (UA) Normal Urine Ketones Negative Urine Occult Blood 250 H Urine Nitrite Negative Urine Bilirubin Negative Urine Urobilinogen Normal Ur Leukocyte Esterase 25 H Urine RBC > 100 SEEN Urine WBC 5-10 SEEN Ur Squamous Epith Cells 0-5 SEEN Urine Bacteria 0 SEEN Urine Mucus 0 SEEN Radiography Diagnostic Testing: Clinical Impression(s) from Imaging Studies Abdomen/Pelvis CT 01/22/25 09:14 IMPRESSION: 1. No acute findings in the abdomen or pelvis. 2. Nonobstructive bilateral renal calculi measuring up to 7 mm on the right and 8 mm on the left. 3. Mild hepatomegaly. 4. Sequelae of chronic pancreatitis. 5. Colonic stool burden suggesting constipation. 6. Fat containing umbilical and paraumbilical hernias. Reading Location: [facility] CT scan of the abdomen and pelvis was obtained. There are nonobstructive bilateral renal calculi measuring 7 mm on the right and 8 mm on the left. There is a questionable right distal ureteral calculus however, radiologist did not feel there was any hydronephrosis or hydroureter. This was interpreted by the radiologist was also independently reviewed by myself. Treatment and Re-Evaluation :: Patient was given IV fluids, morphine, and Zofran. Patient was feeling better on reevaluation. Patient was advised of her findings. Patient was given a prescription for short course of [place]. Patient was instructed to drink plenty of fluids. Patient was given a referral for urology. The patient was instructed to follow-up in 5 to 7 days. Patient was instructed to return if worse in any way. Patient understood and was agreeable with plan. All questions were answered. Discharge Plan Triage Chief Complaint: Complaint ED Provider: Jose Miguel Cabrera Dx/Rx/DC Orders Clinical Impression: Bilateral renal stones, Acute right flank pain, Hematuria Instructions: ED Kidney Stone with Pain Prescriptions: New hydrocodone-acetaminophen 5-325 mg tablet 1 tab PO Q6H PRN PRN (Reason: Pain) 3 Days Qty: 10 0RF No Action cholecalciferol (vitamin D3) 125 mcg (5,000 unit) tablet 125 mcg PO QDAY Multi-Day Plus Minerals 1 EACH tablet 1 ea PO DAILY Patient Comments: supplement magnesium 200 mg tablet 400 mg PO DAILY Galzin 50 mg (zinc) capsule 50 mg PO DAILY losartan 100 mg tablet 100 mg PO DAILY Qty: 90 3RF Eliquis 5 mg tablet 5 mg PO BID Qty: 60 11RF furosemide 40 mg tablet 40 mg PO DAILY Qty: 90 3RF metoprolol succinate 200 mg tablet extended release 24 hr 200 mg PO DAILY Qty: 90 3RF Primary Care Provider: Selina Bowser Referrals: Kathryn Dawson MD [Med Staff - Active Staff] - 3-5 Days Selina Bowser MD [Primary Care Provider] - 1-2 Weeks Print Language: Italian Disposition Disposition: Home, Self Care Discharge Date/Time: 01/22/25 11:22
--- NOTE | 2025-01-22 09:14 | CT_ITS ---
PROCEDURE: ABDOMEN/PELVIS WITHOUT CONT 01/22/2025 REASON FOR EXAM: FLANK PAIN TECHNIQUE: Procedure Code: [id number] Modality: CT Procedure: ABDOMEN/PELVIS WITHOUT CONT Noncontrast technique limits evaluation of the abdominal and pelvic viscera. Coronal and Sagittal reconstruction series were provided. One or more dose reduction techniques were used (e.g., Automated exposure control, adjustment of the mA and/or kV according to patient size, use of iterative reconstruction technique). COMPARISON: CT 12/08/2023, 09/14/2023 FINDINGS: Lung bases: Stable multiple punctate calcified granulomas in the lung bases. Diffuse emphysematous changes. Liver: Mildly enlarged measuring up to 19.6 cm craniocaudally. No obvious hepatic mass. Gallbladder: Unremarkable. No biliary ductal dilatation. Spleen: Normal size. Pancreas: Sequelae of chronic pancreatitis. No acute pancreatitis. Adrenals: Unremarkable. Kidneys: Mildly atrophic right kidney compared to the left. Redemonstrated nonobstructive bilateral renal calculi measuring up to 7 mm on the right and 8 mm on the left. No hydronephrosis bilaterally. Bladder: Unremarkable. Reproductive Organs: Normal uterine size and contour. Ovaries are unremarkable. Bowel: Moderate colonic stool burden suggesting constipation. No bowel obstruction. No inflammatory changes. Appendix: Normal. Lymph nodes: Unremarkable. Vasculature: Moderate atherosclerotic calcifications of the abdominal aorta and its branches. No aneurysm. Noncontrast technique limits evaluation. Peritoneum / Retroperitoneum: No free fluid or air. Bones: Degenerative changes of the spine. No acute fractures. Abdominal wall: Moderate fat containing umbilical and periumbilical hernias. CT/Abdomen/Pelvis without Cont IMPRESSION: 1. No acute findings in the abdomen or pelvis. 2. Nonobstructive bilateral renal calculi measuring up to 7 mm on the right and 8 mm on the left. 3. Mild hepatomegaly. 4. Sequelae of chronic pancreatitis. 5. Colonic stool burden suggesting constipation. 6. Fat containing umbilical and paraumbilical hernias. Reading Location: [facility]
[2025-01-22 09:28] LABS: Hematocrit 47.6 % (37-47); Hemoglobin 15.4 g/dL (12.0-15.0); Immature Granulocytes Count 0.060 X10^3/uL (0.0-0.0); Mean Corp Hgb Conc 32.4 g/dL (32-36); Mean Corpuscular Volume 86.2 fL (81-99); Mean Platelet Vol. 11.6 fl (6.2-12.0); NRBC Flagged by Analyzer 0 % (0-5); Platelet Count 148 K/mm3 (150-450); RBC Distribution Width CV 17.3 % (11.6-14.6); RBC Distribution Width SD 52.9 fl (35.1-43.9); Red Blood Count 5.52 M/mm3 (4.2-5.4); White Blood Count 11.3 K/mm3 (4.4-11.0)
[2025-01-22] MEDS: 0.9% Normal Saline (1000mL) 1,000 ML 1000 ML IV (09:32)
--- OUTSIDE RECORDS SUMMARY | 2025-01-22 09:32 | XMS RPT_ITS | CCD ---
Author Organization [facility] Team Providers Care Investment Counselor Name Role Phone SHAWNA, BENNETT E Unavailable Unavailable RITIKA, ADÁN J Unavailable Unavailable SHAWNA, BENNETT E Unavailable Unavailable SHAWNA, BENENTT E Unavailable Unavailable SHAWNA, BENNETT E Unavailable Unavailable SHAWNA, BENNETT E Unavailable Unavailable SHAWNA, BENNETT E Unavailable Unavailable SHAWNA, BENNETT Unavailable Unavailable Belfry, Adán Unavailable Unavailable SHAWNA, BENNETT Unavailable Unavailable Belfry, Adán Unavailable Unavailable Ritika, Adán Unavailable Unavailable Belfry, Adán Unavailable Unavailable SHAWNA, BENNETT Unavailable Unavailable SHAWNA, BENNETT Unavailable Unavailable Belfry, Adán Unavailable Unavailable SHAWNA, BENNETT Unavailable Unavailable Ritika, Adán Unavailable Unavailable SHAWNA, BENNETT Unavailable Unavailable Ritika, Adán Unavailable Unavailable SHAWNA, BENNETT Unavailable Unavailable SHAWNA, BENNETT Unavailable Unavailable Ritika, Adán Unavailable Unavailable SHAWNA, BENNETT Unavailable Unavailable SHAWNA, BENNETT Unavailable Unavailable Dr. Selina Bowser Primary Care Provider Dr. Selina Bowser Attending Provider Dr. Selina Bowser Primary Care Provider Dr. Selina Bowser Attending Provider Dr. Selina Bowser Primary Care Provider Dr. Selina Bowser Referring Provider [phone] Marcelo Merrill Attending Provider [phone] Dr. Selina Bowser Attending Provider [phone] Jayesh Segundo Attending Provider Dr. Selina Bowser Primary Care Provider Dr. Selina Bowser Attending Provider [phone] Selina Bowser Referring Provider Sammy TECHNICAL PROJECT MANAGER, TECHNICAL PROJECT MANAGER-C Brooke Attending Provider Dr. Marcelo Merrill Attending Provider [phone] Selina Bowser Primary Care Provider Dr. Selina Bowser Referring Provider Sammy TECHNICAL PROJECT MANAGER, TECHNICAL PROJECT MANAGER-C Brooke Attending Provider Dr. Marcelo Merrill Attending Provider Dr. Marcelo Merrill Referring Provider [phone] Selina Bowser Attending Provider Dr. Selina Bowser Primary Care Provider Dr. Selina Bowser Referring Provider Dr. Julien Roberto Attending Provider Dr. Selina Bowser Primary Care Provider Dr. Selina Bowser Attending Provider Dr. Selina Bowser Referring Provider Dr. Julien Roberto Attending Provider Sammy TECHNICAL PROJECT MANAGER, TECHNICAL PROJECT MANAGER-C Brooke Attending Provider MD Toribio [place] [facility] Provider Dr. Meli Altman Admit Provider Dr. Meli Altman Other Provider Dr. Marguerite Cheng Attending Provider Dr. Marguerite Cheng Other Provider Dr. Selina Bowser MD Primary Care Provider Dr. Selina Bowser MD Referring Provider Mariel Henry Attending Provider Mariel Henry Referring Provider Dr. Lester Grimaldo DO Attending Provider Dr. Lester Grimaldo DO Other Provider [phone] Dr. Selina Bowser MD Primary Care Provider Dr. Selina Bowser MD Referring Provider Victor M Street Attending Provider Wei Butler Attending Unavailable Mague, Selina Referring Unavailable Mague, Selina Primary Care Unavailable Mague, Selina Primary Care Unavailable DesiraeMarcelo stanford Attending Unavailable Friend, Lester Attending Unavailable Friend, Lester Consulting Unavailable Mague, Selina Primary Care Unavailable Mague, Selina Referring Unavailable Mague, Selina Referring Unavailable Mague, Selina Primary Care Unavailable AtanasovWillemMariel Attending Unavailable Mague, Selina Referring Unavailable Mague, Selina Primary Care Unavailable Desirae, Marcelo Attending Unavailable Mague, Selina Referring Unavailable Mague, Selina Primary Care Unavailable Atanasov Mariel Attending Unavailable Jose Miguel Barber Attending Unavailable Mague, Selina Primary Care Unavailable Marquez, Leslie Referring Unavailable Mague, Selina Referring Unavailable Friend, Lester Attending Unavailable Friend, Lester Consulting Unavailable Mague, Selina Primary Care Unavailable Mague, Selina Primary Care Unavailable AtanasovMariel Attending Unavailable Atanasov, Mariel Referring Unavailable Mague, Selina Primary Care Unavailable Marquez, Leslie Attending Unavailable Mague, Selina Primary Care Unavailable Marquez, Leslie Referring Unavailable Marquez, Leslie Attending Unavailable Mague, Selina Primary Care Unavailable AtanasovMariel Attending Unavailable Atanasov Mariel Referring Unavailable Mague, Selina Primary Care Unavailable Atanasov, Mariel Referring Unavailable Atanasov, Mariel Attending Unavailable Mague, Selina Referring Unavailable Friend, Lester Attending Unavailable Mague, Selina Primary Care Unavailable Friend, Lester Attending Unavailable Mague, Selina Primary Care Unavailable Mague, Selina Referring Unavailable Mague, Selina Primary Care Unavailable Atanasov, Mariel Referring Unavailable Atanasov, Mariel Attending Unavailable Victor M Mak NP Attending Unavailable Mague, Selina Primary Care Unavailable Mague, Selina Referring Unavailable Mague, Selina Primary Care Unavailable Marquez, Leslie Attending Unavailable Mague, Selina Referring Unavailable Marquez, Leslie Attending Unavailable Selina Bowser Referring Unavailable Medications Current Medications Medication Drug Class(es) Dates Sig (Normalized) Sig (Original) cholecalciferol 0.125 mg oral tablet (20 sources) Vitamin D Start: 11-01-2024 take 1 tablet by mouth once daily Cholecalciferol (Vitamin D3) 125 mcg (5,000 unit) tablet Active 125 ug PO daily November 01, 2024 12:00am Start: 02-03-2023 End: 11-01-2024 take 1 tablet by mouth once daily Cholecalciferol (Vitamin D3) (Vitamin D3) 50 mcg (2,000 unit) tablet Discontinued 50 ug PO DAILY February 03, 2023 12:00am November 01, 2024 3:58pm Start: 04-08-2021 End: 09-16-2021 take 1 tablet by mouth once daily Cholecalciferol (Vitamin D3) 25 mcg (1,000 unit) tablet Discontinued 25 ug PO DAILY April 08, 2021 1:00am September 16, 2021 1:55pm Magnesium (18 sources) Start: 09-14-2023 take 2 tablets by mo [facility] once daily Magnesium 200 mg tablet Active 400 mg PO DAILY September 14, 2023 12:00am Start: 09-14-2023 take 120 mg by mouth once arturo y Magnesium Active 120 MG PO DAILY September 14, 2023 12:00am Start: 03-06-2021 End: 09-16-2021 take 1 tablet by mouth once daily Magnesium 250 mg tablet Discontinued 250 mg PO DAILY March 06, 2021 12:00am September 16, 2021 1:55pm Start: 03-06-2021 End: 09-16-2021 take 250 mg by mouth once daily Magnesium Discontinued 250 MG PO DAILY March 05, 2021 11:00pm September 16, 2021 12:55pm Start: 03-06-2021 End: 09-16-2021 take 250 mg by mouth once daily Magnesium Discontinued 250 MG PO DAILY March 06, 2021 12:00am September 16, 2021 1:55pm 24 hr metoprolol succinate 200 mg extended release oral tablet (20 sources) beta-Adrenergic Bronson Start: 03-01-2021 End: 08-12-2024 take 1 tablet by mouth once daily Metoprolol Succinate 200 mg tablet extended release 24 hr Active 200 mg PO DAILY 90 August 12, 2024 8:06am Start: 09-01-2019 End: 03-01-2021 take 4 tablets by mouth once daily Metoprolol Tartrate 25 MG tablet Discontinued 100 mg PO DAILY September 01, 2019 7:25pm March 01, 2021 2:57pm Start: 09-01-2019 End: 03-01-2021 take 100 mg by mouth once daily Metoprolol Tartrate Di scontinued 100 MG PO DAILY September 01, 2019 7:25pm March 01, 2021 2:57pm Start: 10-15-2015 End: 09-01-2019 take 1 tablet by mouth twice daily Metoprolol Tartrate 25 MG tablet Discontinued 25 mg PO TWICE A DAY 60 October 15, 2015 12:00am September 01, 2019 7:25pm Odohijjakzve-Edf-Gqgp-Fa-Vit K (Multi-Day Plus Minerals) 1 EACH tablet (14 sources) Start: 10-13-2015 take 1 tablet by mouth once daily Dtqchficgxuu-Ijx-Eewi-Fa-Vit K (Multi-Day Plus Minerals) 1 EACH tablet Active 1 NMA PO DAILY October 13, 2015 12:00am Start: 10-13-2015 take 1 tablet by antoinette th once daily Jfibmjknzhbm-Zom-Impv-Fa-Vit K (Multi-Da y Plus Minerals) 1 EACH tablet Active 1 EACH PO DAILY October 12, 2015 11:00pm Start: 10-13-2015 take 1 tablet by antoinette th once daily Oxjlpedcuszr-Sno-Zocs-Fa-Vit K (Multi-Da y Plus Minerals) 1 EACH tablet Active 1 EACH PO DAILY October 13, 2015 12:00am pantoprazole 40 mg delayed release oral tablet (9 sources) Proton Pump Inhibitor Start: 07-25-2024 End: 11-01-2024 take 1 tablet by mouth once daily as needed Pantoprazole 40 mg tablet,delayed release (DR/EC) Active 40 mg PO DAILY as needed for acid reflux November 01, 2024 3:59pm Start: 02-17-2024 End: 07-25-2024 take 1 tablet by mouth twice daily Pantoprazole 40 mg tablet,delayed release (DR/EC) Discontinued 40 mg PO TWICE A DAY 60 February 17, 2024 12:00am July 25, 2024 2:45pm Start: 09-15-2023 End: 02-12-2024 take 1 tablet by mouth once daily Pantoprazole (Protonix) 40 mg tablet,delayed release (DR/EC) Discontinued 40 mg PO DAILY September 15, 2023 12:00am February 12, 2024 10:35am Completed/Discontinued Medications Medication Drug Class(es) Dates Sig (Normalized) Sig (Original) amiodarone hydrochloride 200 mg oral tablet (20 sources) Antiarrhythmic Start: 03-01-2021 End: 03-06-2021 take 1 tablet by mouth once daily Amiodarone 200 mg tablet Discontinued 200 mg PO DAILY March 01, 2021 12:00am March 06, 2021 10:16am Start: 09-01-2019 End: 03-01-2021 take 1 tablet by mouth once daily Amiodarone 100 MG tablet Discontinued 100 mg PO DAILY September 01, 2019 12:00am March 01, 2021 2:55pm amoxicillin 875 mg / clavulanate 125 mg oral tablet (3 sources) Penicillin-class Antibacterial Start: 09-15-2023 End: 09-23-2023 Amoxicillin-Pot Clavulanate 875-125 mg tablet Discontinued 1 {tbl} PO TWICE A DAY September 15, 2023 12:00am September 23, 2023 11:22am Start: 09-15-2023 take 1 tablet by antoinette th twice daily Amoxicillin-Pot Clavulanate Active 1 TABLET PO TWICE A DAY September 15, 2023 12:00am apixaban 5 mg oral tablet (20 sources) Factor Xa Inhibitor Start: 03-06-2021 End: 03-29-2024 take 1 tablet by mouth twice daily Apixaban (Eliquis) 5 mg tablet Discontinued 5 mg PO TWICE A DAY 60 February 29, 2024 8:11am March 29, 2024 10:19am ascorbic acid 500 mg oral capsule (14 sources) Vitamin C Start: 03-06-2021 End: 09-16-2021 Ascorbic Acid (Vitamin C) 500 mg capsule Discontinued mg PO March 06, 2021 12:00am September 16, 2021 1:55pm Start: 03-06-2021 End: 09-16-2021 Ascorbic Acid (Vitamin C) Di scontinued MG PO March 06, 2021 12:00am September 16, 2021 1:55pm aspirin 81 mg delayed release oral tablet (14 sources) Platelet Aggregation Inhibitor, Nonsteroidal Anti-inflammatory Drug Start: 03-06-2021 End: 03-06-2021 Aspirin (Adult Low Dose Aspirin) 81 mg tablet,delayed release (DR/EC) Discontinued 81 mg PO DAILY March 06, 2021 12:00am March 06, 2021 10:52am atorvastatin 40 mg oral tablet (20 sources) HMG-CoA Reductase Inhibitor Start: 04-30-2021 End: 04-16-2022 take 1 tablet by mouth at bedtime Atorvastatin 40 mg tablet Discontinued 40 mg PO AT BEDTIME April 30, 2021 4:07pm April 16, 2022 2:41pm Start: 04-08-2021 End: 04-30-2021 Atorvastatin 40 mg tablet Discontinued 20 mg PO AT BEDTIME April 08, 2021 12:19pm April 30, 2021 4:08pm Start: 04-08-2021 End: 04-30-2021 take 20 mg by mouth at bedtime Atorvastatin Discontinu ed 20 MG PO AT BEDTIME April 08, 2021 12:19pm April 30, 2021 4:08pm Start: 03-01-2021 End: 04-08-2021 take 1 tablet by mouth at bedtime Atorvastatin 40 mg tablet Discontinued 40 mg PO AT BEDTIME March 06, 2021 10:54am April 08, 2021 12:20pm ciprofloxacin 500 mg oral tablet (20 sources) Quinolone Antimicrobial Start: 11-07-2022 End: 01-05-2023 take 1 tablet by mouth twice daily Ciprofloxacin Hcl 500 mg tablet Discontinued 500 mg PO TWICE A DAY November 07, 2022 12:00am January 05, 2023 10:26am Start: 05-02-2021 End: 06-11-2021 take 1 tablet by mouth twice daily Ciprofloxacin Hcl 500 mg tablet Discontinued 500 mg PO TWICE A DAY May 02, 2021 1:00am June 11, 2021 3:25pm 24 hr dilTIAZem hydrochloride 240 mg extended release oral capsule (20 sources) Calcium Channel Bronson Start: 03-06-2021 End: 02-03-2023 take 1 capsule by mouth once daily Diltiazem Hcl 240 mg capsule,extended release 24 hr Discontinued 240 mg PO DAILY March 31, 2022 10:55am February 03, 2023 1:08pm Start: 09-01-2019 End: 03-06-2021 take 1 capsule by mouth once daily Diltiazem Hcl 180 MG capsule,extended release 24hr Discontinued 180 mg PO DAILY September 01, 2019 12:00am March 06, 2021 10:53am doxycycline monohydrate 100 mg oral capsule (14 sources) Tetracycline-class Drug Start: 09-01-2019 End: 03-01-2021 take 1 capsule by mouth twice daily Doxycycline Monohydrate 100 MG capsule Discontinued 100 mg PO TWICE A DAY September 01, 2019 12:00am March 01, 2021 3:00pm furosemide 40 mg oral tablet (20 sources) Loop Diuretic Start: 09-01-2019 End: 06-02-2024 take 1 tablet by mouth once daily Furosemide 40 mg tablet Discontinued 40 mg PO DAILY March 17, 2023 5:35pm June 02, 2024 9:03am Start: 10-15-2015 End: 09-01-2019 take 1 tablet by mouth twice daily Furosemide 40 MG tablet Discontinued 40 mg PO BID@1000,1800 60 October 15, 2015 12:00am September 01, 2019 7:25pm losartan potassium 100 mg oral tablet (20 sources) Angiotensin 2 Receptor Bronson Start: 09-01-2019 End: 02-29-2024 take 1 tablet by mouth once daily Losartan 100 mg tablet Discontinued 100 mg PO DAILY March 17, 2023 5:35pm August 04, 2023 3:18pm magnesium citrate 100 mg oral tablet (8 sources) Start: 02-03-2023 End: 09-14-2023 take 2 capsules by mouth once daily Magnesium Citrate 100 mg capsule Discontinued 200 mg PO DAILY February 03, 2023 12:00am September 14, 2023 3:20am Start: 02-03-2023 End: 09-14-2023 take 200 mg by mouth once daily Magnesium Citrate Discontinued 200 MG PO DAILY February 03, 2023 12:00am September 14, 2023 3:20am magnesium oxide 400 mg oral tablet (14 sources) Start: 03-01-2021 End: 03-06-2021 take 1 tablet by mouth once daily Magnesium Oxide 400 mg (241.3 mg magnesium) tablet Discontinued 400 mg PO DAILY March 01, 2021 12:00am March 06, 2021 10:17am metroNIDAZOLE 250 mg oral tablet (9 sources) Nitroimidazole Antimicrobial Start: 11-07-2022 End: 01-05-2023 take 1 tablet by mouth every eight hours Metronidazole 250 mg tablet Discontinued 250 mg PO Q8H November 07, 2022 12:00am January 05, 2023 10:27am May cause metallic taste in mouth. Independence-3 Fatty Acids (Fish Oil Concentrate) 1,000 mg capsule (14 sources) Start: 03-01-2021 End: 03-06-2021 take 1 capsule by mouth twice daily Independence-3 Fatty Acids (Fish Oil Concentrate) 1,000 mg capsule Discontinued 1000 mg PO TWICE A DAY March 01, 2021 12:00am March 06, 2021 10:19am Start: 03-01-2021 End: 03-06-2021 take 1 capsule by mouth twice daily Independence-3 Fatty Acids (Fish Oil Concentrate) 1,000 mg capsule Discontinued 1000 MG PO TWICE A DAY February 28, 2021 11:00pm March 06, 2021 9:19am Start: 03-01-2021 End: 03-06-2021 take 1 capsule by mouth twice daily Independence-3 Fatty Acids (Fish Oil Concentrate) 1,000 mg capsule Discontinued 1000 MG PO TWICE A DAY March 01, 2021 12:00am March 06, 2021 10:19am ondansetron 4 mg disintegrating oral tablet (7 sources) Serotonin-3 Receptor Antagonist Start: 05-22-2023 End: 08-04-2023 take 1 tablet by mouth every eight hours as needed for nausea Ondansetron 4 mg tablet,disintegrating Discontinued 4 mg PO EVERY 8 HOURS NEEDED as needed for Nausea May 22, 2023 1:00am August 04, 2023 3:18pm phenazopyridine hydrochloride 100 mg oral tablet (14 sources) Start: 05-02-2021 End: 09-16-2021 take 1 tablet by mouth three times daily as needed for pain Phenazopyridine (Pyridium) 100 mg tablet Discontinued 100 mg PO THREE TIMES A DAY as needed for pain May 02, 2021 1:00am September 16, 2021 1:55pm psyllium 6000 mg powder for oral suspension (14 sources) Start: 03-06-2021 End: 09-16-2021 Psyllium Husk (Natural Fiber Supplement) 6 gram/6 gram powder Discontinued 1 tbsp PO DAILY March 06, 2021 12:00am September 16, 2021 1:55pm mix into at least 8 oz of water or juice before administering Start: 03-06-2021 End: 09-16-2021 Psyllium Husk (Natural Fiber Supplement) 6 gram/6 gram powder Discontinued 1 tbsp PO DAILY March 06, 2021 12:00am September 16, 2021 1:55pm mix into at least 8 oz of water or juice before administering rivaroxaban 20 mg oral tablet (14 sources) Factor Xa Inhibitor Start: 09-01-2019 End: 03-01-2021 take 1 tablet by mouth once daily Rivaroxaban 20 MG tablet Discontinued 20 mg PO DAILY September 01, 2019 12:00am March 01, 2021 3:00pm spironolactone 25 mg oral tablet (14 sources) Aldosterone Antagonist Start: 09-01-2019 End: 03-06-2021 Spironolactone 25 MG tablet Discontinued 12.5 mg PO DAILY September 01, 2019 12:00am March 06, 2021 10:19am Start: 09-01-2019 End: 03-06-2021 take 12.5 mg by mouth once daily Spironolactone Discontinued 12.5 MG PO DAILY September 01, 2019 12:00am March 06, 2021 10:19am sucralfate 1000 mg oral tablet (2 sources) Aluminum Complex Start: 02-29-2024 End: 04-25-2024 take 1 tablet by mouth three times daily Sucralfate 1 gram tablet Discontinued 1 g PO THREE TIMES A DAY 168 56 February 29, 2024 12:00am April 24, 2024 1:00am April 25, 2024 1:08am warfarin sodium 4 mg oral tablet (14 sources) Vitamin K Antagonist Start: 03-01-2021 End: 03-06-2021 Warfarin 4 mg tablet Discontinued 4 mg PO .COMPLEX March 01, 2021 12:00am March 06, 2021 10:20am 4 mg PO 2 mg on Thursday and , 4 mg all other days.; Problems Active Problems Problem Classification Problem Date Documented Da te Episodic/Chronic Abdominal hernia (8 sources) Umbilical hernia; Translations: [Umbilical hernia without obstruction or gangrene] 06-06-2023 Episodic Comment on above: Patient with known u mbilical hernia that measured on recent CT imaging finds itself with a fascial defect of 2.5 cm round. There appears to be some chronically incarcerated fat within this hernia of significant volume. Patient is quite tender with palpation over this area. I discussed with her that the hernia, given its size, it is at some risk for leading to bowel entrapment if the fatty tissue is displaced and also for the fat itself to become strangulated/infarcted leading to significant pain. Thus, I recommended consideration of an elective hernia repair after the above right upper quadrant discomfort is fully attended to. Red flag warning signs were provided in the interim. Biliary tract disease (9 sources) Gallstone; Translations: [Calculus of gallbladder without cholecystitis without obstruction] 05-27-2023 Episodic Comment on above: Patient is a 67-year -old female with a number of comorbidities including atrial fibrillation on anticoagulation who presents for evaluation of possible gallbladder pathology responsible for newly reported right upper quadrant discomfort. In review of patient's recent history there is a strong suggestion that she could have passed a stone from her gallbladder into her biliary tract (especially as I review her cholestatic pattern to her CMP labs) en route to her bowel, however, she appears spontaneously recovered both in symptom and biochemically with recent recheck of her labs. She is also minimally tender on palpation and shares that it is her wish to avoid surgery if at all possible. Based on this assessment and her spoken word I have thus recommended we consider HIDA imaging and if she is found to have nonvisualization of the gallbladder or some persistent dysfunction then I would recommend proceeding with surgery. She is appreciative of my expectations and wishes to proceed as described. Blindness and vision defects (2 sources) Visual disturbance; Translations: [Unspecified visual disturbance] 11-20-2023 Episodic Calculus of urinary tract (14 sources) History of calculus of kidney; Translations: [Personal history of urinary calculi] 04-08-2021 Episodic Cardiac dysrhythmias (20 sources) Atypical atrial flutter; Translations: [Paroxysmal atrial flutter] Onset: Chronic Congestive heart failure; nonhypertensive (20 sources) Acute congestive heart failure; Translations: [Heart failure, unspecified] Onset: 4 03-04-2021 Chronic Deficiency and other anemia (13 sources) Increased hemoglobin; Translations: [Other hemoglobinopathies] 04-17-2022 Chronic Diabetes mellitus without complication (17 sources) Hyperglycemia; Translations: [Hyperglycemia, unspecified] Episodic Disorders of lipid metabolism (20 sources) Hyperlipidemia; Translations: [Hyperlipidemia, unspecified] Onset: 5 Chronic Diverticulosis and diverticulitis (14 sources) Diverticula of intestine; Translations: [Diverticulosis of intestine, part unspecified, without perforation or abscess without bleeding] 03-01-2021 Chronic Esophageal disorders (20 sources) Gastroesophageal reflux disease; Translations: [Gastro-esophageal reflux disease without esophagitis] Onset: 5 03-04-2021 Chronic Essential hypertension (20 sources) Essential (primary) hypertension; Translations: [Essential hypertension] Onset: 3 Chronic Gastroduodenal ulcer (except hemorrhage) (3 sources) Gastric ulcer; Translations: [Gastric ulcer, unspecified as acute or chronic, without hemorrhage or perforation] 05-19-2024 Chronic Genitourinary symptoms and ill-defined conditions (14 sources) Blood in urine; Translations: [Hematuria, unspecified] 04-30-2021 Episodic Heart valve disorders (8 sources) Aortic valve regurgitation; Translations: [Nonrheumatic aortic (valve) insufficiency] Onset: 5 08-04-2023 Chronic Immunizations and screening for infectious disease (14 sources) Suspected disease caused by 2019-nCoV; Translations: [Suspected 2019 novel coronavirus infection] 09-02-2019 Episodic Intestinal obstruction without hernia (6 sources) Intestinal obstruction co-occurrent and due to decreased peristalsis; Translations: [Ileus, unspecified] 09-14-2023 Episodic Malaise and fatigue (14 sources) Fatigue; Translations: [Other fatigue] 03-06-2021 Episodic Nephritis; nephrosis; renal sclerosis (14 sources) Recurrent hematuria; Translations: [Recurrent and persistent hematuria with unspecified morphologic changes] 05-16-2021 Chronic Nonspecific chest pain (14 sources) Atypical chest pain; Translations: [Other chest pain] 09-02-2019 Episodic Nutritional deficiencies (17 sources) Vitamin D deficiency; Translations: [Vitamin D deficiency, unspecified] Chronic Occlusion or stenosis of precerebral arteries (1 source) Occlusion and stenosis of bilateral carotid arteries; Translations: [Occlusion and stenosis of bilateral carotid arteries] Onset: Chronic Other acquired deformities (2 sources) Lumbar spondylolisthesis; Translations: [Spondylolisthesis, lumbar region] 02-27-2024 Episodic Other and ill-defined heart disease (1 source) Cardiomegaly; Translations: [Cardiomegaly] Onset: Chronic Other and unspecified benign neoplasm (14 sources) Polyp of colon; Translations: [Polyp of colon] 03-01-2021 Episodic Other bone disease and musculoskeletal deformities (2 sources) Osteopenia; Translations: [Other specified disorders of bone density and structure, unspecified site] 02-27-2024 Episodic Other circulatory disease (14 sources) Abnormal foot pulse; Translations: [Other specified symptoms and signs involving the circulatory and respiratory systems] 04-08-2021 Episodic Other connective tissue disease (14 sources) Swelling of left lower limb; Translations: [Other specified soft tissue disorders] 04-08-2021 Episodic Other connective tissue disease (1 source) Other specified soft tissue disorders; Translations: [Swelling of limb] Episodic Other connective tissue disease (13 sources) Pain in lower limb; Translations: [Pain in right leg] 10-22-2022 Episodic Other connective tissue disease (4 sources) Pain in right leg; Translations: [Pain in limb] 10-22-2022 Episodic Other connective tissue disease (2 sources) Neurogenic claudication; Translations: [Other symptoms and signs involving the nervous system] 02-27-2024 Episodic Other diseases of veins and lymphatics (2 sources) Vascular insufficiency; Translations: [Venous insufficiency (chronic) (peripheral)] 12-25-2023 Episodic Other gastrointestinal disorders (14 sources) History of esophageal ulcer; Translations: [Personal history of other diseases of the digestive system] 09-01-2019 Episodic Other gastrointestinal disorders (6 sources) Abdominal bloating; Translations: [Abdominal distension (gaseous)] 05-27-2023 Episodic Other gastrointestinal disorders (4 sources) Abdominal distension (gaseous); Translations: [Flatulence, eructation, and gas pain] 05-27-2023 Episodic Other gastrointestinal disorders (2 sources) Swollen abdomen; Translations: [Abdominal distension (gaseous)] 11-27-2023 Episodic Other injuries and conditions due to external causes (14 sources) H/O: fracture; Translations: [Personal history of (healed) traumatic fracture] 04-08-2021 Episodic Other liver diseases (3 sources) Steatosis of liver; Translations: [Fatty (change of) liver, not elsewhere classified] 05-19-2024 Chronic Other liver diseases (1 source) Portal hypertension; Translations: [Portal hypertension] Onset: 5 Chronic Other liver diseases (1 source) Fatty (change of) liver, not elsewhere classified; Translations: [Fatty (change of) liver, not elsewhere classified] Onset: 5 Chronic Other lower respiratory disease (14 sources) Radiologic infiltrate of lung ; Translations: [Other nonspecific abnormal finding of lung field] 09-02-2019 Episodic Other lower respiratory disease (14 sources) Dyspnea; Translations: [Dyspnea, unspecified] 03-06-2021 Episodic Other nervous system disorders (1 source) Other chronic pain; Translations: [Other chronic pain] Onset: 4 Chronic Other nervous system disorders (2 sources) Paresthesia of left upper limb; Translations: [Paresthesia of skin] 11-20-2023 Episodic Other nutritional; endocrine; and metabolic disorders (14 sources) Morbid obesity; Translations: [Morbid (severe) obesity due to excess calories] 03-04-2021 Chronic Other nutritional; endocrine; and metabolic disorders (6 sources) Morbid (severe) obesity due to excess calories; Translations: [Morbid obesity] Chronic Other nutritional; endocrine; and metabolic disorders (20 sources) Insulin resistance; Translations: [Metabolic syndrome] 01-27-2022 Chronic Other nutritional; endocrine; and metabolic disorders (5 sources) Metabolic syndrome; Translations: [Dysmetabolic syndrome X] 04-16-2022 Chronic Other skin disorders (2 sources) Hemosiderin pigmentation of skin; Translations: [Other specified disorders of pigmentation] 11-20-2023 Episodic Peripheral and visceral atherosclerosis (8 sources) Vascular disorder of intestine; Translations: [Chronic vascular disorders of intestine] Onset: 4 11-27-2023 Chronic Residual codes; unclassified (14 sources) FH: Cardiovascular disease; Translations: [Family history of ischemic heart disease and other diseases of the circulatory system] 03-01-2021 Episodic Spondylosis; intervertebral disc disorders; other back problems (2 sources) Inflammation of sacroiliac joint; Translations: [Sacroiliitis, not elsewhere classified] 02-27-2024 Chronic Substance-related disorders (20 sources) Tobacco dependence syndrome; Translations: [Nicotine dependence, unspecified, uncomplicated] Onset: 5 Chronic Unclassified (1 source) Obstructive sleep apnea (adult) (pediatric); Translations: [Obstructive sleep apnea (adult) (pediatric)] Onset: 8 Chronic Unclassified (1 source) Unknown / UNK(Unknown) Onset: 8 Urinary tract infections (14 sources) Urinary tract infectious disease; Translations: [Urinary tract infection, site not specified] 05-02-2021 Episodic Past or Other Problems Problem Classification Problem Date Documented Da te Episodic/Chronic Abdominal pain (20 sources) Left flank pain; Translations: [Unspecified abdominal pain] Onset: 03-09-2024 10-23-2022 Episodic Comment on above: Likely connection to probable passage of a gallstone (see gallstones above) Heart valve disorders (12 sources) Heart murmur; Translations: [Cardiac murmur, unspecified] Onset: 03-24-2024 02-03-2023 Episodic Other nervous system disorders (1 source) Paresthesia of skin; Translations: [Paresthesia of skin] Onset: 12-24-2023 Episodic Spondylosis; intervertebral disc disorders; other back problems (20 sources) Spinal stenosis; Translations: [Spinal stenosis, site unspecified] Onset: 12-24-2023 10-22-2022 Episodic Unclassified (1 source) Atypical atrial flutter Onset: 07-03-2017 Results Test Name Value Interpretation Reference Range Facility Cardiology Visit Reporton Cardiology Visit Report [facility] [address] [place] [address] OFFICE VISIT Date of Service: 11/01/24 MR#: [id number] Acct: [id number] Name: YASMINE MTZ Rep #: [id number] : 1955 Provider: HUBERT dutton Age/Sex: 68/F Location: [facility] Status: Signed HPI HPI History of Present Illness Details: This is a 68-year-old female who presents here today for a cardiovascular follow-up. She has a long history of atrial tachyarrhythmias. In October 2015 she had a cardioversion for atrial flutter. She also underwent a cardioversion in 2018, JUAN guided cardioversion in 2019 and most recently in April 2021. She does have a history of hypertension, hyperlipidemia, diastolic heart failure, obesity. In the past she had been on warfarin as well as amiodarone however she had discontinued both of those on her own because it was not making a change in her overall condition. She denies chest, arm, jaw, or neck discomfort. She states palpitations. She describes as a fast sensation and consistent with previous atrial fibrillation episodes. She states individual episodes lasted 1-3 days. She felt weakness and fatigue. She noted worsening shortness of breath during the episode. She denies bilateral lower extremity edema. She denies claudication. She states shortness of breath with activity. She denies shortness of breath at rest, orthopnea, or PND. She denies chronic cough. She denies significant, sudden weight gain. She denies lightheadedness, dizziness, near-syncope, or syncope. She denies blood in urine, blood in stool, or epistaxis. He denies fever with chills. She denies myalgia. She denies fatigue. Her exercise level has remained stable. 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 Required: No Is patient in pain?: No Allergies No Known Allergies Allergy (Verified 11/01/24 15:58) Medications ???Medication ???Instructions ???Recorded ???Confirmed ???Type multivit with minerals-iron 18 1 ea PO DAILY 10/13/15 11/01/24 Hi story mg-folic ac 400 mcg-vit K 25 mcg tablet (Multi-Day Plus Minerals) magnesium 200 mg tablet 400 mg PO DAILY 09/14/23 11/01/24 History losartan 100 mg tablet 100 mg PO DAILY #90 tabs 02/29/24 11/01/24 Rx apixaban 5 mg tablet (Eliquis) 5 mg PO BID #60 TABLETS 03/29/24 0 11/01/24 Rx furosemide 40 mg tablet 40 mg PO DAILY #90 tabs 06/02/24 0 11/01/24 Rx metoprolol succinate 200 mg 200 mg PO DAILY #90 tabs 08/12/24 11/01/24 Rx tablet,extended release 24 hr cholecalciferol (vitamin D3) 125 125 mcg PO QDAY 11/01/24 11/01/24 History mcg (5,000 unit) tablet pantoprazole 40 mg tablet,delayed 40 mg PO DAILY PRN acid reflux History release Ejection fraction %: 60 Have you fallen in the past year?: No PFSH Medical History History of ulceration History of diverticulosis Gastric reflux Shortness of breath on exertion Esophageal varix Wears glasses High cholesterol History of GI bleed Sleep apnea Smoker Diverticulosis Cardiology follow-up encounter Back pain Leg cramps History of echocardiogram History of stress test History of atrial fibrillation History of kidney stones Obesity Cholelithiasis Insulin resistance Recurrent hematuria UTI (urinary tract infection) Vitamin D deficiency History of shoulder fracture History of renal stone Atrial flutter, chronic Tobacco dependence Paroxysmal atrial fibrillation Hyperlipidemia Essential hypertension Chronic diastolic CHF (congestive heart failure) Gastroesophageal reflux disease Colon polyps Family history of cardiovascular disease Diverticulosis Surgical History History of colonoscopy History of colonoscopy with polypectomy History of lithotripsy ( 2015) History of open reduction and internal fixation (ORIF) procedure ( 2003) History of tubal ligation History of cardioversion (06/21/19) Family History Mother Diabetes Hypertension Myocardial infarction Father Hypertension Heart disease Sister Diabetes Heart disease Grandmother CVA (cerebral vascular accident) Social History household members: spouse Smoking Status: Current every day smoker (Patient smoked today.) tobacco type: cigarettes Tobacco: How many years used: 40 second hand exposure: Yes alcohol intake: never substance use type: does not use caffeine: Yes Type: coffee Number of servings: 3 what type of ph (more content not included)... Normal [facility] EGD Reporton 08-11-2024 EGD Report [facility] Medical Records Department [address] [place] [address] EGD Report MR#: [id number] Acct: [id number] Name: YASMINE MTZ Rep #: [id number] : 1955 68 From: Lester Grimaldo DO PCP: Dr. Selina Bowser MD Status:REG [facility] Patient Name: Yasmine Mtz Procedure Date: 08/11/2024 6:12 AM Date of : 1955 Age: 68 Procedure: Upper GI endoscopy Indications: Heartburn, Portal hypertension with suspected esophageal varices Providers: Lester Grimaldo DO Referring MD: Selina Bowser Medicines: Monitored Anesthesia Care Patient Profile: This is a 68 year old female. Refer to note in patient chart for documentation of history and physical. Patient has symptoms of chronic heartburn. Complications: No immediate complications. Procedure: Pre-Anesthesia Assessment: - Prior to the procedure, a History and Physical was performed, and patient medications and allergies were reviewed. The patient is competent. The risks and benefits of the procedure and the sedation options and risks were discussed with the patient. All questions were answered and informed consent was obtained. Patient identification and proposed procedure were verified by the physician in the pre-procedure area. Mental Status Examination: alert and oriented. Airway Examination: normal oropharyngeal airway and neck mobility. Respiratory Examination: clear to auscultation. CV Examination: normal. Prophylactic Antibiotics: The patient does not require prophylactic antibiotics. Prior Anticoagulants: The patient has taken no anticoagulant or antiplatelet agents except for NSAID medication. ASA Grade Assessment: II - A patient with mild systemic disease. After reviewing the risks and benefits, the patient was deemed in satisfactory condition to undergo the procedure. The anesthesia plan was to use monitored anesthesia care (MAC). Immediately prior to administration of medications, the patient was re-assessed for adequacy to receive sedatives. The heart rate, respiratory rate, oxygen saturations, blood pressure, adequacy of pulmonary ventilation, and response to care were monitored throughout the procedure. The physical status of the patient was re-assessed after the procedure. After obtaining informed consent, the endoscope was passed under direct vision. Throughout the procedure, the patient's blood pressure, pulse, and oxygen saturations were monitored continuously. The Endoscope was introduced through the mouth, and advanced to the second part of duodenum. The upper GI endoscopy was accomplished without difficulty. The patient tolerated the procedure well. Scope In: 7:00:16 AM Scope Out: 7:03:28 AM Total Procedure Duration Time 0 hours 3 minutes 12 seconds Findings: Small (< 5 mm) varices were found in the lower third of the esophagus. They were 5 mm in largest diameter. There were esophageal mucosal changes secondary to established long-segment Hooks's disease present in the lower third of the esophagus. The maximum longitudinal extent of these mucosal changes was 4 cm in length. Mucosa was biopsied with a cold forceps for histology in a targeted manner at intervals of 1 cm in the lower third of the esophagus. One specimen bottle was sent to pathology. Verification of patient identification for the specimen was done. Estimated blood loss was minimal. A hiatal hernia was present. Mild portal hypertensive gastropathy was found in the cardia and in the gastric fundus. Patchy mildly erythematous mucosa without active bleeding and with no stigmata of bleeding was found in the duodenal bulb and in the first portion of the duodenum. Impression: - Small (< 5 mm) esophageal varices. - Esophageal mucosal changes secondary to established long-segment Hooks's disease. Biopsied. - Hiatal hernia. - Portal hypertensive gastropathy. - Erythematous duodenopathy. Recommendation: - Discharge patient to home. - Resume previous diet. - Continue present medications. - Await pathology results. - Repeat upper endoscopy for surveillance based on pathology results. Procedure Code(s): --- Professional --- 27810, Esophagogastroduodenoscop y, flexible, transoral; with biopsy, single or multiple CPT copyright 2021 [employer]. All rights reserved. The codes documented in this report are preliminary and upon datapower consultant review may be revised to meet current compliance requirements. Lester Grimaldo DO 08/11/2024 7:08:11 AM This report has been signed electronically. Number of Addenda: 0 Note Initiated On: 08/11/2024 6:12 AM 08/11/24 0709 Date Lester Grimaldo DO Cosigner Signature: Date (if indicated) CC: Dr. Selina Bowser MD; Lester Barnett (more content not included)... [facility] MR/POSTOP.ANEon 08-11-2024 MR/POSTOP.[facility] Medical Records Department [address] [place] [address] Anesthesia Postop Eval I 08/11/24 0713 MR#: [id number] Acct: [id number] Name: YASMINE MTZ Rep #: [id number] : 1955 68 From: Jono Collier PCP: Dr. Selina Bowser MD Status:REG [facility] Y Race: C Location: [place] [address] Anesthesia: Postop Eval I Current Vital Signs Temperature: 97.7 F Pulse Rate: 67 Blood Pressure: 120/50 Respiratory Rate: 18 Pulse Ox: 97 Oxygen Delivery Method: Room Air Assessment Airway patent: Yes Spontaneous unlabored respirations: Yes Mental status: Awake and Calm nausea: No Vomiting: No Anesthesia Complication: No Fluid Hydration Crystalloid volume administer (ml): 30 Total IV fluid infused: 30 Progress Note Anesthesia document: Postop Eval 1 completed: Yes 08/11/24713 Date Jono Francisco Signature: Date CC: Signed [facility] MR/[id number] 08-11-2024 MR/POSTOPAN2 [facility] Medical Records Department [address] [place] [address] Anesthesia Postop Eval II 08/11/24 1039 MR#: [id number] Acct: [id number] Name: YASMINE MTZ Rep #: [id number] : 1955 68 From: Marcy Lazar PCP: Dr. Selina Bowser MD Status:DEP [facility] Y Race: C Location: EN Anesthesia Postop Eval I Sum Postop Eval Completion status Anesthesia document: Postop Eval 1 completed: Yes Anesthesia Postop Eval I Summary Anesthesia Postop Eval I Summary: Anesthesia Postop Eval I: Assessment Summary Airway patent Yes 08/11/24 07:14 [email or web address] Spontaneous unlabored Yes 08/11/24 07:14 [email or web address] respirations Mental status Awake,Calm 08/11/24 07:14 [email or web address] nausea No 08/11/24 07:14 [email or web address] Vomiting No 08/11/24 07:14 [email or web address] Anesthesia Postop Eval I: Fluid Summary Crystalloid volume administer 30 08/11/24 07:14 [email or web address] (ml) Colloids volume administered ( ml) Blood Product volume administered (ml) Total IV fluid infused 30 08/11/24 07:14 [email or web address] Anesthesia Postop Eval I: Summary Notes Anesthesia Complication No 08/11/24 07:14 [email or web address] Anesthesia Complication Comment: Post-operative progress note Anesthesia: Postop Eval II Evaluation Mental status: Awake and Calm Pain Level: 0 nausea: No Vomiting: No Complications Anesthesia Complication: No 08/11/24 1039 Date Marcy Francisco Signature: Date CC: Signed Normal [facility] Surgery Specimen Level Carrie 08-11-2024 Surgery Specimen Level IV Patient Age/Sex Location Account Attending Physician YASMINE MTZ 68/F EN [id number] Lester Grimaldo DO Specimen: [id number] Received: 08/11/24 Status: MIROSLAVA Kim Num: [id number] Spec Type: EGD BIOPSY Subm Dr: Lester Grimaldo DO HEADER OPERATION: EGD PRE-OP DIAGNOSIS: Esophageal varix, fatty liver, gastric ulcer TISSUE SUBMITTED: A- Distal esophagus biopsy MICROSCOPIC DIAGNOSIS A. 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 - Squamous mucosa with mild reactive change, negative for eosinophils. Note: The diagnosis depends on the location of the biopsy and the extent of the mucosal irregularity. If the biopsy originates from the tubular esophagus and the mucosal irregularity extends at least 1 cm above the top of the gastric folds, this represents Hooks mucosa. If the biopsy originates from the gastric cardia and/or the mucosal irregularity is less than 1 cm in extent, this represents intestinal metaplasia. MICROSCOPIC DESCRIPTION Slides are reviewed. GROSS DESCRIPTION A. Received in formalin in a container labeled with the patient's name, date of , and biopsy: Distal esophagus are 3 rios-pink fragments of mucosal tissue ranging from 0.2 x 0.2 x 0.2 cm to 0.5 x 0.2 x 0.2 cm. Submitted in toto in A1. [facility] 08-11-2024 [facility]: [address] Patient Age/Sex Location Account Attending Physician YASMINE MTZ 68/F EN [id number] Lester Grimaldo DO Signed (signature on file) Dr. Priya Ellis MD 08/17/24 1017 Normal [facility] Comment on above: Performed By: #### P SUIV ####[facility] [id number] [place], [place], [id number] MR/PAT.CHRISon 07-25-2024 MR/PAT.CHRIS [facility] Medical Records Department [address] [place] [address] PAT - Anesthesia 07/25/24 1603 MR#: [id number] Acct: [id number] Name: YASMINE MTZ Rep #: [id number] : 1955 68 From: Barney Steve MD PCP: Dr. Selina Bowser MD Status:PRE SD Y Race: C Location: EN Pre-Assessment Diagnosis/Proposed Procedure Planned Operative Procedure(s): EGD Anesthesia History Anesthesia History - licensing registration examiner: Anesthesia History - licensing registration examiner Hx Hospitalization No 07/25/24 14:46 Any Problems With Anesthesia No 07/25/24 14:46 Cholinesterase deficiency No 07/25/24 14:46 You/Your Family Experience No 07/25/24 14:46 fever (hyperthermia) with Relationship Recent Exposure to Contagious No 02/17/24 12:33 Disease Does patient have nerve No 07/25/24 14:46 stimulator Patient instructed to have device shut off --Does patient have Pacemaker or ICD? When Was Last Pacemaker Check QUESTION #4 FULL TEXT: You/Your Family Experience fever (hyperthermia) with Anesthesia Last Oral Intake Last Oral intake: Last Oral Intake NPO since Meds taken in AM with sips of water? Meds patient instructed to take am of surgery PONV PONV - licensing registration examiner: PONV - licensing registration examiner Female Yes 07/25/24 14:46 HX of Motion Sickness No 07/25/24 14:46 HX of N/V After Surgery No 07/25/24 14:46 Non-Smoker No 07/25/24 14:46 Duration of Surgery greater No 07/25/24 14:46 than 60 minutes Number of Risk Factors 1 07/25/24 14:46 PONV Score Low Risk 07/25/24 14:46 Height Weight Height Weight: Anesthesia: Height Weight Height 5 ft 1 in 03/24/24 15:12 Respiratory Assessment Respiratory Assessment - licensing registration examiner: Respiratory Tract Infection Hx - licensing registration examiner Hx Respiratory Tract Infection No 07/25/24 14:46 STOP Sleep Apnea STOP Sleep Apnea - licensing registration examiner: STOP Sleep Apnea - licensing registration examiner Hx Hypertension Yes: PER PT, CONTROLLED ON 07/25/24 14:46 MEDS Hx Sleep Apnea Yes: PT STATES DR THINK SHE 07/25/24 14:46 HAS SLEEP APNEA BUT PT DOESNT THINK SHE DOES CPAP No 07/25/24 14:46 BIPAP No 07/25/24 14:46 Do you snore loudly (louder than talking or can be heard Do you often feel tired/ fatigued/ sleepy during daytime? Has anyone observed you stop breathing during sleep? STOP Results Positive 07/25/24 14:46 QUESTION #5 FULL TEXT : Do you snore loudly (louder than talking or can be heard through closed doors)? 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 Specify any problems Hx of Preganancy in last 3 No 07/25/24 14:46 Months Nurse Filling Out Transfusion MGRIFFITH 07/25/24 14:46 Questions: Date: 07/25/24 07/25/24 14:46 Time: 14:48 07/25/24 14:46 Patient unable to answer at this time (ie. confused, unrespo /Reproduction History /Reproductive History - licensing registration examiner: /Reproductive Hx- licensing registration examiner Hx Now No 07/25/24 14:46 Gestational Age (in weeks): EDC: Hx Hx Para Hx Section SAB No 07/25/24 14:46 [facility] Medical History (Updated 07/25/24 @ 14:54 by Ronna Aburto) History of ulceration History of diverticulosis Gastric reflux Shortness of breath on exertion Esophageal varix Wears glasses High cholesterol History of GI bleed Sleep apnea Smoker Diverticulosis Cardiology follow-up encounter Back pain Leg cramps History of echocardiogram History of stress test History of atrial fibrillation History of kidney stones Obesity Cholelithiasis Insulin resistance Recurrent hematuria UTI (urinary tract infection) Vitamin D deficiency History of shoulder fracture History of renal stone Atrial flutter, chronic Tobacco dependence Paroxysmal atrial fibrillation Hyperlipidemia Essential hypertension Chronic diastolic CHF (congestive heart failure) Gastroesophageal reflux disease Colon polyps Family history of cardiovascular disease Diverticulosis H (more content not included)... Normal [facility] Glucoseon 06-22-2024 Glucose [Mass/Vol] 121 mg/dL High 74-106 [facility] Comment on above: Result Comment: Fast ing Glucose result from 100 to 125 mg/dL suggests IMPAIRED HOMEOSTASIS per A.D.A. criteria. Performed By: #### L 501.9985, L501.0100, L501.9520 ####[facility] [id number] [facility] [place] [place], [place], [id number] Glucose measurementOrdered B y: Mariel Reed on 06-22-2024 Glucose [Mass/Vol] 121 mg/dL High 74-106 [facility] Comment on above: Fasting Glucose resu lt from 100 to 125 mg/dL suggests IMPAIRED HOMEOSTASIS per A.D.A. criteria. Hemoglobin A1con 06-22-2024 HbA1c (Bld) [Mass fraction] 6.2 % High 3.8-5.6 [facility] Comment on above: Result Comment: Norm al < 5.7 % Prediabetic 5.7 - 6.4 % Diabetic >or= 6.5 % Please note range changes. Performed By: #### L 501.9985, L501.0100, L501.9520 ####[facility] [id number] [place], [place], [address] Hemoglobin A1c percentageOrd ered By: Mariel Reed on 06-22-2024 HbA1c (Bld) [Mass fraction] 6.2 % High 3.8-5.6 [facility] Comment on above: Normal < 5.7 % Predi abetic 5.7 - 6.4 % Diabetic >or= 6.5 % Please note range changes. TSH QnOrdered By: Mariel Poon [facility] on 06-22-2024 Thyroid Stimulating Hormone (TSH) 1.240 uIU/mL 0.358-3.74 0 [facility] Thyroid Stim Hormone (TSH)on 06-22-2024 TSH 1.240 uIU/mL Normal 0.358-3.74 0 [facility] Comment on above: Performed By: #### L 501.9985, L501.0100, L501.9520 ####[facility] [id number] [place], [address] ABD Limited w/ Elastographyo n 06-02-2024 ABD Limited w/ Elastography [facility] Imaging Services [address] [address] ABD Limited w/ Elastography MR#: [id number] Acct: [id number] Name: YASMINE MTZ Rep #: [id number] : [id number] F [id number] From: Eliseo cisneros MD PCP: Dr. Selina Bowser MD Status: [facility] Study: ABD Limited w/ Elastography Date of Exam: 05/12 08/02 Exam# [id number] Ordering Dr: Mariel Reed PA [id number] STUDY: ABDOMINAL ULTRASOUND - RIGHT UPPER QUADRANT; ELASTOGRAPHY REASON FOR VISIT: Female, 68 years old. Fatty infiltration of the liver. TECHNIQUE: Ultrasound evaluation of the right upper quadrant was performed with real-time and static moreno-scale imaging. Point quantification shear wave elastography was performed ([employer]). TECHNICAL QUALITY: Adequate. COMPARISON: Comparison is made with prior study dated May 21, 2023. FINDINGS: Liver: The liver is enlarged measures 20.3 cm. There is increased echogenicity consistent with fatty infiltration. The bile ducts are within normal limits. There is hepatic color flow. The direction of portal flow is hepatopetal. There is no demonstrated mass lesion. Median liver stiffness measured 7.9 kPa. Gallbladder: Normal distended gallbladder. The gallbladder wall measures 1.8 mm. There is a negative sonographic Grissom''s sign. There is no pericholecystic fluid. There are multiple echogenic structures within the gallbladder, consistent with multiple gallstones. Common Bile Duct (C.B.D.): The common bile duct measures 5.2 mm. Pancreas: Pancreas is not visualized due to overlying bowel gas. Right Kidney: Normal size of the right kidney. The right kidney measures 11.1 cm x 4.1 cm x 3.6 cm. There is thinning of the renal cortex. The right cortex measures 0.6 cm. 2 cysts are seen in the upper pole. The larger measures 1.6 cm x 1.5 cm x 1.4 cm. There is no right hydronephrosis. Tiny nonobstructive right intrarenal calculi. US/ABD Limited w/ Elastography IMPRESSION: 1. Liver stiffness measures 7.9 kPa compatible with F2-F3 (Mild to moderate liver fibrosis) Metavir score. Electronically Signed: Eliseo Taveras MD at 10:36 EST , CC: Dr. Selina Bowser MD; SUE [place] Overnight Babysitter: Signed Normal [facility] ANCAon 05-24-2024 Atypical pANCA 1:640 Abnormal Neg:<1:20 [facility] Comment on above: Order Comment: Test( s) [id number]-Zelonu, Serum or Plasmawas developed and its performance characteristicsdetermined by [employer]. It has not been cleared or approvedby the Food and Drug Administration. Result Comment: The atypical pANCA pattern has been observed in a significant percentage of patients with ulcerative colitis, primary sclerosing cholangitis and autoimmune hepatitis. Performed By: #### L 101.9900, L100.0100, L503.6550, L501.6710, L3100.6900, L3300.1200, L500.4100, L503.5510, L300.3900, L500.4050, L3400.0700, L3000.0375, L800.1280, L803.2200, L3100.5440, L3300.0100, L503.6075 ####[facility] [address] [place], [place], [id number] Cytoplasmic Ab <1:20 Normal Neg:<1:20 [facility] Comment on above: Order Comment: Test( s) 421986-Nzhjde, Serum or Plasmawas developed and its performance characteristicsdetermined by [employer]. It has not been cleared or approvedby the Food and Drug Administration. Performed By: #### L 101.9900, L100.0100, L503.6550, L501.6710, L3100.6900, L3300.1200, L500.4100, L503.5510, L300.3900, L500.4050, L3400.0700, L3000.0375, L800.1280, L803.2200, L3100.5440, L3300.0100, L503.6075 ####[facility] [address] [place], [address] Perinuclear Ab. <1:20 Normal Neg:<1:20 [facility] Comment on above: Order Comment: Test( s) 428154-Grfvzz, Serum or Plasmawas developed and its performance characteristicsdetermined by [employer]. It has not been cleared or approvedby the Food and Drug Administration. Result Comment: The presence of positive fluorescence exhibiting P-ANCA or C-ANCA patterns alone is not specific for the diagnosis of Chasidy's Granulomatosis (WG) or microscopic polyangiitis. Decisions about treatment should not be based solely on ANCA IFA results. The [employer]CA [employer] Consensus recommends follow up testing of positive sera with both HI- 3 and MPO-ANCA enzyme immunoassays. As many as 5% serum samples are positive only by EIA. Ref. AM J Clin Pathol 1999;111:507-513. Performed By: #### L 101.9900, L100.0100, L503.6550, L501.6710, L3100.6900, L3300.1200, L500.4100, L503.5510, L300.3900, L500.4050, L3400.0700, L3000.0375, L800.1280, L803.2200, L3100.5440, L3300.0100, L503.6075 ####[facility] [address] [facility] [address] [place], [place], [phone] Angiotensin Convert Enzymeon 05-24-2024 ANGIOT-CONV.ENZ 43 U/L Normal 14-82 [facility] Comment on above: Order Comment: Test( s) [id number]-Tmpmun, Serum or Plasmawas developed and its performance characteristicsdetermined by [employer]. It has not been cleared or approvedby the Food and Drug Administration. Performed By: #### L 101.9900, L100.0100, L503.6550, L501.6710, L3100.6900, L3300.1200, L500.4100, L503.5510, L300.3900, L500.4050, L3400.0700, L3000.0375, L800.1280, L803.2200, L3100.5440, L3300.0100, L503.6075 ####[facility] [address] [place], [place], [address] Anti-Smooth Muscle ABSon ANTISMOOTH MUSC 7 Units Normal 0-19 [facility] Comment on above: Order Comment: Test( s) [id number]-Pyurst, Serum or Plasmawas developed and its performance characteristicsdetermined by [employer]. It has not been cleared or approvedby the Food and Drug Administration. Result Comment: Nega tive 0 - 19 Weak positive 20 - 30 Moderate to strong positive >30 Actin Antibodies are found in 52-85% of patients with autoimmune hepatitis or chronic active hepatitis and in 22% of patients with primary biliary cirrhosis. Performed By: #### L 101.9900, L100.0100, L503.6550, L501.6710, L3100.6900, L3300.1200, L500.4100, L503.5510, L300.3900, L500.4050, L3400.0700, L3000.0375, L800.1280, L803.2200, L3100.5440, L3300.0100, L503.6075 ####[facility] [address] [facility] [place], [address] Ceruloplasminon 05-24-2024 CERULOPLASMIN 28.5 mg/dL Normal 19.0-39.0 [facility] Comment on above: Order Comment: Test( s) [id number]-[place], Serum or Plasmawas developed and its performance characteristicsdetermined by [employer]. It has not been cleared or approvedby the Food and Drug Administration. Performed By: #### L 101.9900, L100.0100, L503.6550, L501.6710, L3100.6900, L3300.1200, L500.4100, L503.5510, L300.3900, L500.4050, L3400.0700, L3000.0375, L800.1280, L803.2200, L3100.5440, L3300.0100, L503.6075 ####[facility] [address] [facility] [place], [address] Copper, Serum or Plasmaon COPPER, SERUM 115 ug/dL Normal 80-158 [facility] Comment on above: Order Comment: Test( s) 323200-Czavpu, Serum or Plasmawas developed and its performance characteristicsdetermined by [employer]. It has not been cleared or approvedby the Food and Drug Administration. Result Comment: Dete ction Limit = 5 Performed at: [address] [id number] Normalizer: Riaz Rayo PhD, Phone: [phone] Performed at: [facility] [id number] Normalizer: Faby Crane MD, Phone: [phone] Performed By: #### L 101.9900, L100.0100, L503.6550, L501.6710, L3100.6900, L3300.1200, L500.4100, L503.5510, L300.3900, L500.4050, L3400.0700, L3000.0375, L800.1280, L803.2200, L3100.5440, L3300.0100, L503.6075 ####[facility] [address] [place], [address] Hepatitis Panel Acuteon 05-11 COMMENT Comment Normal . [facility] Comment on above: Order Comment: Test( s) [id number]-Ltbbfs, Serum or Plasmawas developed and its performance characteristicsdetermined by [employer]. It has not been cleared or approvedby the Food and Drug Administration. Result Comment: Not infected with HCV unless early or acute infection is suspected (which may be delayed in an immunocompromised individual), or other evidence exists to indicate HCV infection. Performed By: #### L 101.9900, L100.0100, L503.6550, L501.6710, L3100.6900, L3300.1200, L500.4100, L503.5510, L300.3900, L500.4050, L3400.0700, L3000.0375, L800.1280, L803.2200, L3100.5440, L3300.0100, L503.6075 ####[facility] [address] [place], [address] HEP B CORE,IgM Negative Normal Negative [facility] Comment on above: Order Comment: Test( s) [id number]-Pnwdgn, Serum or Plasmawas developed and its performance characteristicsdetermined by [employer]. It has not been cleared or approvedby the Food and Drug Administration. Performed By: #### L 101.9900, L100.0100, L503.6550, L501.6710, L3100.6900, L3300.1200, L500.4100, L503.5510, L300.3900, L500.4050, L3400.0700, L3000.0375, L800.1280, L803.2200, L3100.5440, L3300.0100, L503.6075 ####[facility] [address] [place], [address] HEP B SURF AG Negative Normal Negative [facility] Comment on above: Order Comment: Test( s) 482963-Smtnwg, Serum or Plasmawas developed and its performance characteristicsdetermined by [employer]. It has not been cleared or approvedby the Food and Drug Administration. Performed By: #### L 101.9900, L100.0100, L503.6550, L501.6710, L3100.6900, L3300.1200, L500.4100, L503.5510, L300.3900, L500.4050, L3400.0700, L3000.0375, L800.1280, L803.2200, L3100.5440, L3300.0100, L503.6075 ####[facility] [address] [place], [address] HEP C VIRUS AB Non-Reactive Normal Non Reactive [facility] Comment on above: Order Comment: Test( s) 487144-Caohhj, Serum or Plasmawas developed and its performance characteristicsdetermined by [employer]. It has not been cleared or approvedby the Food and Drug Administration. Performed By: #### L 101.9900, L100.0100, L503.6550, L501.6710, L3100.6900, L3300.1200, L500.4100, L503.5510, L300.3900, L500.4050, L3400.0700, L3000.0375, L800.1280, L803.2200, L3100.5440, L3300.0100, L503.6075 ####[facility] [address] [place], [place], [address] HEPATITIS A-IgM Negative Normal Negative [facility] Comment on above: Order Comment: Test( s) 754890-Vqwsty, Serum or Plasmawas developed and its performance characteristicsdetermined by [employer]. It has not been cleared or approvedby the Food and Drug Administration. Result Comment: A ne gative anti-HAV IgM result suggests no recent or current HAV infection. Performed By: #### L 101.9900, L100.0100, L503.6550, L501.6710, L3100.6900, L3300.1200, L500.4100, L503.5510, L300.3900, L500.4050, L3400.0700, L3000.0375, L800.1280, L803.2200, L3100.5440, L3300.0100, L503.6075 ####[facility] [address] [facility] [address] [place], [place], [phone] EVELYN Comprehensive Panelon EVELYN TABLE Comment Normal . [facility] Comment on above: Result Comment: Auto antibody Disease Association Condition Frequency --------- Antinuclear Antibody, SLE, mixed connective Direct (EVELYN-D) tissue diseases --------- dsDNA SLE 40 - 60% --------- Chromatin Drug induced SLE 90% SLE 48 - 97% --------- SSA (Ro) SLE 25 - 35% Sjogren's Syndrome 40 - 70% Lupus 100% --------- SSB (La) SLE 10% Sjogren's Syndrome 30% --------- Sm (anti-Hernandez) SLE 15 - 30% --------- YEAST STACKER Mixed Connective Tissue Disease 95% (U1 nRNP, SLE 30 - 50% anti-ribonucleoprotein) Polymyositis and/or Dermatomyositis 20% --------- Scl-70 (antiDNA Scleroderma (diffuse) 20 - 35% topoisomerase) Crest 13% --------- Nathaly-1 Polymyositis and/or Dermatomyositis 20 - 40% --------- Centromere B Scleroderma - Crest variant 80% Performed By: #### L 101.9900, L100.0100, L503.6550, L501.6710, L3100.6900, L3300.1200, L500.4100, L503.5510, L300.3900, L500.4050, L3400.0700, L3000.0375, L800.1280, L803.2200, L3100.5440, L3300.0100, L503.6075 ####[facility] [address] [place], [address] Anti-Mitochondrial ABon - ANTIMITOCHON AB <20.0 Normal 0.0-20.0 [facility] Comment on above: Result Comment: Nega tive 0.0 - 20.0 Equivocal 20.1 - 24.9 Positive >24.9 Mitochondrial (M2) Antibodies are found in 90-96% of patients with primary biliary cirrhosis. Performed at: - [facility] [id number] Normalizer: Riaz Rayo PhD, Phone: [phone] Performed By: #### L 101.9900, L100.0100, L503.6550, L501.6710, L3100.6900, L3300.1200, L500.4100, L503.5510, L300.3900, L500.4050, L3400.0700, L3000.0375, L800.1280, L803.2200, L3100.5440, L3300.0100, L503.6075 ####[facility] [address] [place], [address] Absolute neutrophil countOrd ered By: Mariel Reed on 05-19-2024 Neutrophils (Bld) [#/Vol] 6.5 10*3/uL 2.0-7.7 [facility] Actin IgG QnOrdered By: Willem Reed on 05-19-2024 Anti-Smooth Muscle Antibody 7 Units 0-19 [facility] Comment on above: Negative 0 - 19 Weak positive 20 - 30 Moderate to strong positive >30 Actin Antibodies are found in 52-85% of patients with autoimmune hepatitis or chronic active hepatitis and in 22% of patients with primary biliary cirrhosis. Albumin to globulin ratioOrd ered By: Mariel Reed on 05-19-2024 Albumin/Globulin [Mass ratio] 0.9 {ratio} 0.9-2.4 [facility] Ammoniaon 05-19-2024 Ammonia (P) [Moles/Vol] 29.0 umol/L Normal 11-32 [facility] Comment on above: Performed By: #### L 101.9900, L100.0100, L503.6550, L501.6710, L3100.6900, L3300.1200, L500.4100, L503.5510, L300.3900, L500.4050, L3400.0700, L3000.0375, L800.1280, L803.2200, L3100.5440, L3300.0100, L503.6075 ####[facility] [address] [place], [place], [phone] Atypical perinuclear antineu trophil cytoplasmic antibodies measurementOrdered By: Mariel Reed on 05-19-2024 Atypical p-ANCA 1:640 titer High Neg:<1:20 [facility] Comment on above: The atypical pANCA p attern has been observed in asignificant percentage of patients with ulcerative colitis,primary sclerosing cholangitis and autoimmune hepatitis. Basophil percentageOrdered B y: Mariel Reed on 05-19-2024 Basophils/100 WBC (Bld) 1.2 % High 0-1 [facility] Bilirubin, totalOrdered By: Mariel Reed on 05-19-2024 Bilirubin [Mass/Vol] 0.40 mg/dL 0.20-1.00 [facility] Comment on above: For patients on eltr ombopag therapy, use of Dimension [place] TBIL is not recommended. Blood urea nitrogen (BUN)/cr eatinine ratioOrdered By: Mariel Reed on 05-19-2024 Urea nitrogen/Creatinine [Mass ratio] 30.6 mg/mg High 10-20 [facility] C-reactive protein measureme nt by high sensitivity methodOrdered By: Mariel Reed on 05-19-2024 C-Reactive Protein Extended Range 8.57 mg/L High 0.0-3.0 [facility] Comment on above: C-Reactive Protein ( CRP) provides useful information for thediagnosis, therapy and monitoring of inflammatory processesand associated diseases. For the evaluation of Relative Riskfor Cardiovascular Disease, a High Sensitivity CRP (HSCRP)should be ordered. CBC W/Diff, Automatedon Absolute Lymph 3.12 X10 3/uL Normal 0.83-4.51 [facility] Comment on above: Performed By: #### L 101.9900, L100.0100, L503.6550, L501.6710, L3100.6900, L3300.1200, L500.4100, L503.5510, L300.3900, L500.4050, L3400.0700, L3000.0375, L800.1280, L803.2200, L3100.5440, L3300.0100, L503.6075 ####[facility] [address] [place], [address] Absolute Neut 6.5 X10 3/uL Normal 2.0-7.7 [facility] Comment on above: Performed By: #### L 101.9900, L100.0100, L503.6550, L501.6710, L3100.6900, L3300.1200, L500.4100, L503.5510, L300.3900, L500.4050, L3400.0700, L3000.0375, L800.1280, L803.2200, L3100.5440, L3300.0100, L503.6075 ####[facility] [address] [place], [address] Basophils/100 WBC (Bld) 1.2 % High 0-1 [facility] Comment on above: Performed By: #### L 101.9900, L100.0100, L503.6550, L501.6710, L3100.6900, L3300.1200, L500.4100, L503.5510, L300.3900, L500.4050, L3400.0700, L3000.0375, L800.1280, L803.2200, L3100.5440, L3300.0100, L503.6075 ####[facility] [address] [place], [place], [phone]) Eosinophils/100 WBC (Bld) 2.9 % Normal 0-5 [facility] Comment on above: Performed By: #### L 101.9900, L100.0100, L503.6550, L501.6710, L3100.6900, L3300.1200, L500.4100, L503.5510, L300.3900, L500.4050, L3400.0700, L3000.0375, L800.1280, L803.2200, L3100.5440, L3300.0100, L503.6075 ####[facility] [address] [place], [address] Erythrocyte distribution width (RBC) [Ratio] 16.6 % High 11.6-14.6 [facility] Comment on above: Performed By: #### L 101.9900, L100.0100, L503.6550, L501.6710, L3100.6900, L3300.1200, L500.4100, L503.5510, L300.3900, L500.4050, L3400.0700, L3000.0375, L800.1280, L803.2200, L3100.5440, L3300.0100, L503.6075 ####[facility] [address] [place], [place], [phone]) Hematocrit (Bld) [Volume fraction] 46.2 % Normal 37-47 [facility] Comment on above: Performed By: #### L 101.9900, L100.0100, L503.6550, L501.6710, L3100.6900, L3300.1200, L500.4100, L503.5510, L300.3900, L500.4050, L3400.0700, L3000.0375, L800.1280, L803.2200, L3100.5440, L3300.0100, L503.6075 ####[facility] [address] [facility] [place], [address] Hemoglobin (Bld) [Mass/Vol] 15.1 g/dL High 12.0-15.0 [facility] Comment on above: Performed By: #### L 101.9900, L100.0100, L503.6550, L501.6710, L3100.6900, L3300.1200, L500.4100, L503.5510, L300.3900, L500.4050, L3400.0700, L3000.0375, L800.1280, L803.2200, L3100.5440, L3300.0100, L503.6075 ####[facility] [address] [facility] [place], [address] IG% 0.400 Normal 0.0-0.9 [facility] Comment on above: Result Comment: IG% - Immature Granulocytes (promyelocytes, myelocytes and metamyelocytes) > 1% indicates that a LEFT SHIFT is Present. Performed By: #### L 101.9900, L100.0100, L503.6550, L501.6710, L3100.6900, L3300.1200, L500.4100, L503.5510, L300.3900, L500.4050, L3400.0700, L3000.0375, L800.1280, L803.2200, L3100.5440, L3300.0100, L503.6075 ####[facility] [address] [facility] [place], [address] Lymphocytes/100 WBC (Bld) 28.0 % Normal 19-41 [facility] Comment on above: Performed By: #### L 101.9900, L100.0100, L503.6550, L501.6710, L3100.6900, L3300.1200, L500.4100, L503.5510, L300.3900, L500.4050, L3400.0700, L3000.0375, L800.1280, L803.2200, L3100.5440, L3300.0100, L503.6075 ####[facility] [address] [place], [address] MCH (RBC) [Entitic mass] 28.0 pg Normal 27.0-32.0 [facility] Comment on above: Performed By: #### L 101.9900, L100.0100, L503.6550, L501.6710, L3100.6900, L3300.1200, L500.4100, L503.5510, L300.3900, L500.4050, L3400.0700, L3000.0375, L800.1280, L803.2200, L3100.5440, L3300.0100, L503.6075 ####[facility] [address] [facility] [place], [address] MCHC (RBC) [Mass/Vol] 32.7 g/dL Normal 32-36 [facility] Comment on above: Performed By: #### L 101.9900, L100.0100, L503.6550, L501.6710, L3100.6900, L3300.1200, L500.4100, L503.5510, L300.3900, L500.4050, L3400.0700, L3000.0375, L800.1280, L803.2200, L3100.5440, L3300.0100, L503.6075 ####[facility] [address] [place], [address] MCV (RBC) [Entitic vol] 85.7 fL Normal 81-99 [facility] Comment on above: Performed By: #### L 101.9900, L100.0100, L503.6550, L501.6710, L3100.6900, L3300.1200, L500.4100, L503.5510, L300.3900, L500.4050, L3400.0700, L3000.0375, L800.1280, L803.2200, L3100.5440, L3300.0100, L503.6075 ####[facility] [address] [facility] [place], [address] Monocytes/100 WBC (Bld) 9.1 % Normal 0-10 [facility] Comment on above: Performed By: #### L 101.9900, L100.0100, L503.6550, L501.6710, L3100.6900, L3300.1200, L500.4100, L503.5510, L300.3900, L500.4050, L3400.0700, L3000.0375, L800.1280, L803.2200, L3100.5440, L3300.0100, L503.6075 ####[facility] [address] [facility] [place], [address] Neutrophils/100 WBC (Bld) 58.4 % Normal 47-70 [facility] Comment on above: Performed By: #### L 101.9900, L100.0100, L503.6550, L501.6710, L3100.6900, L3300.1200, L500.4100, L503.5510, L300.3900, L500.4050, L3400.0700, L3000.0375, L800.1280, L803.2200, L3100.5440, L3300.0100, L503.6075 ####[facility] [address] [facility] [place], [address] Nucleated RBC (Bld) [#/Vol] 0 10*3/uL Normal 0-5 [facility] Comment on above: Performed By: #### L 101.9900, L100.0100, L503.6550, L501.6710, L3100.6900, L3300.1200, L500.4100, L503.5510, L300.3900, L500.4050, L3400.0700, L3000.0375, L800.1280, L803.2200, L3100.5440, L3300.0100, L503.6075 ####[facility] [address] [place], [place], [phone]) Platelet mean volume (Bld) [Entitic vol] 12.1 fL High 6.2-12.0 [facility] Comment on above: Performed By: #### L 101.9900, L100.0100, L503.6550, L501.6710, L3100.6900, L3300.1200, L500.4100, L503.5510, L300.3900, L500.4050, L3400.0700, L3000.0375, L800.1280, L803.2200, L3100.5440, L3300.0100, L503.6075 ####[facility] [address] [place], [place], [phone](941) Platelets (Bld) [#/Vol] 181 10*3/uL Normal 150-450 [facility] Comment on above: Performed By: #### L 101.9900, L100.0100, L503.6550, L501.6710, L3100.6900, L3300.1200, L500.4100, L503.5510, L300.3900, L500.4050, L3400.0700, L3000.0375, L800.1280, L803.2200, L3100.5440, L3300.0100, L503.6075 ####[facility] [address] [place], [place], [phone]) RBC (Bld) [#/Vol] 5.39 10*6/uL Normal 4.2-5.4 [facility] Comment on above: Performed By: #### L 101.9900, L100.0100, L503.6550, L501.6710, L3100.6900, L3300.1200, L500.4100, L503.5510, L300.3900, L500.4050, L3400.0700, L3000.0375, L800.1280, L803.2200, L3100.5440, L3300.0100, L503.6075 ####[facility] [address] [facility] [address] [place], [place], [id number] RDW SD 50.6 fl High 35.1-43.9 [facility] Comment on above: Performed By: #### L 101.9900, L100.0100, L503.6550, L501.6710, L3100.6900, L3300.1200, L500.4100, L503.5510, L300.3900, L500.4050, L3400.0700, L3000.0375, L800.1280, L803.2200, L3100.5440, L3300.0100, L503.6075 ####[facility] [address] [facility] [place] [place], [phone] WBC (Bld) [#/Vol] 11.2 10*3/uL High 4.4-11.0 [facility] Comment on above: Performed By: #### L 101.9900, L100.0100, L503.6550, L501.6710, L3100.6900, L3300.1200, L500.4100, L503.5510, L300.3900, L500.4050, L3400.0700, L3000.0375, L800.1280, L803.2200, L3100.5440, L3300.0100, L503.6075 ####[facility] [address] [place], [place], [id number] CRPon 05-19-2024 C-REACTIVE PROT 8.57 mg/L High 0.0-3.0 [facility] Comment on above: Result Comment: C-Re active Protein (CRP) provides useful information for the diagnosis, therapy and monitoring of inflammatory processes and associated diseases. For the evaluation of Relative Risk for Cardiovascular Disease, a High Sensitivity CRP (HSCRP) should be ordered. Performed By: #### L 101.9900, L100.0100, L503.6550, L501.6710, L3100.6900, L3300.1200, L500.4100, L503.5510, L300.3900, L500.4050, L3400.0700, L3000.0375, L800.1280, L803.2200, L3100.5440, L3300.0100, L503.6075 ####[facility] [id number]. [place], [address] Carbon dioxide measurementOr dered By: Mariel Reed on 05-19-2024 CO2 [Moles/Vol] 24.0 mmol/L 21.0-32.0 [facility] Centromere B antibody assayO rdered By: Mariel Reed on 05-19-2024 Centromere B Antibody <0.2 AI 0.0-0.9 [facility] Comment on above: Previous reported re sult: TNP AIEdited by: AGGIE on 05/23/24:1307 AMENDED REPORT 05/23/24 1307 ANTI-CENT B previously reported as: Test not performed CeruloplasminOrdered By: Camille Reed on 05-19-2024 Ceruloplasmin 28.5 mg/dL 19.0-39.0 [facility] Chloride measurementOrdered By: Mariel Reed on 05-19-2024 Chloride [Moles/Vol] 107 mmol/L 98-107 [facility] Chromatin antibody assayOrde red By: Mariel Reed on 05-19-2024 Antichromatin Antibodies <0.2 AI 0.0-0.9 [facility] Comment on above: Previous reported re sult: TNP AIEdited by: AGGIE on 05/23/24:1307 AMENDED REPORT 05/23/24 1307 ANTICHROMATIN previously reported as: Test not performed Comprehensive Metabolic Prof ilon 05-19-2024 Albumin [Mass/Vol] 3.6 g/dL Normal 3.2-5.0 [facility] Comment on above: Performed By: #### L 101.9900, L100.0100, L503.6550, L501.6710, L3100.6900, L3300.1200, L500.4100, L503.5510, L300.3900, L500.4050, L3400.0700, L3000.0375, L800.1280, L803.2200, L3100.5440, L3300.0100, L503.6075 ####[facility] [address] [place], [place], [id number] Albumin/Globulin [Mass ratio] 0.9 {ratio} Normal 0.9-2.4 [facility] Comment on above: Performed By: #### L 101.9900, L100.0100, L503.6550, L501.6710, L3100.6900, L3300.1200, L500.4100, L503.5510, L300.3900, L500.4050, L3400.0700, L3000.0375, L800.1280, L803.2200, L3100.5440, L3300.0100, L503.6075 ####[facility] [address] [place], [place], [id number] ALK P 87 U/L Normal 45-117 [facility] Comment on above: Performed By: #### L 101.9900, L100.0100, L503.6550, L501.6710, L3100.6900, L3300.1200, L500.4100, L503.5510, L300.3900, L500.4050, L3400.0700, L3000.0375, L800.1280, L803.2200, L3100.5440, L3300.0100, L503.6075 ####[facility] [address] [place], [place], [phone] ALT [Catalytic activity/Vol] 98 U/L High 13-56 [facility] Comment on above: Performed By: #### L 101.9900, L100.0100, L503.6550, L501.6710, L3100.6900, L3300.1200, L500.4100, L503.5510, L300.3900, L500.4050, L3400.0700, L3000.0375, L800.1280, L803.2200, L3100.5440, L3300.0100, L503.6075 ####[facility] [address] [place], [place], [id number] AST [Catalytic activity/Vol] 13 U/L Low 15-37 [facility] Comment on above: Performed By: #### L 101.9900, L100.0100, L503.6550, L501.6710, L3100.6900, L3300.1200, L500.4100, L503.5510, L300.3900, L500.4050, L3400.0700, L3000.0375, L800.1280, L803.2200, L3100.5440, L3300.0100, L503.6075 ####[facility] [address] [place], [place], [phone] Bilirubin [Mass/Vol] 0.40 mg/dL Normal 0.20-1.00 [facility] Comment on above: Result Comment: For patients on eltrombopag therapy, use of Dimension [place] TBIL is not recommended. Performed By: #### L 101.9900, L100.0100, L503.6550, L501.6710, L3100.6900, L3300.1200, L500.4100, L503.5510, L300.3900, L500.4050, L3400.0700, L3000.0375, L800.1280, L803.2200, L3100.5440, L3300.0100, L503.6075 ####[facility] [address] [place], [address] BUN/CRE 30.6 RATIO High 10-20 [facility] Comment on above: Performed By: #### L 101.9900, L100.0100, L503.6550, L501.6710, L3100.6900, L3300.1200, L500.4100, L503.5510, L300.3900, L500.4050, L3400.0700, L3000.0375, L800.1280, L803.2200, L3100.5440, L3300.0100, L503.6075 ####[facility] [address] [place], [address] CA,Total 10.1 mg/dL Normal 8.5-10.1 [facility] Comment on above: Performed By: #### L 101.9900, L100.0100, L503.6550, L501.6710, L3100.6900, L3300.1200, L500.4100, L503.5510, L300.3900, L500.4050, L3400.0700, L3000.0375, L800.1280, L803.2200, L3100.5440, L3300.0100, L503.6075 ####[facility] [address] [place], [place], [phone] Chloride [Moles/Vol] 107 mmol/L Normal 98-107 [facility] Comment on above: Performed By: #### L 101.9900, L100.0100, L503.6550, L501.6710, L3100.6900, L3300.1200, L500.4100, L503.5510, L300.3900, L500.4050, L3400.0700, L3000.0375, L800.1280, L803.2200, L3100.5440, L3300.0100, L503.6075 ####[facility] [address] [place], [place], [phone]) CO2 [Moles/Vol] 24.0 mmol/L Normal 21.0-32.0 [facility] Comment on above: Performed By: #### L 101.9900, L100.0100, L503.6550, L501.6710, L3100.6900, L3300.1200, L500.4100, L503.5510, L300.3900, L500.4050, L3400.0700, L3000.0375, L800.1280, L803.2200, L3100.5440, L3300.0100, L503.6075 ####[facility] [address] [place], [place], [phone] Creatinine [Mass/Vol] 1.11 mg/dL High 0.55-1.02 [facility] Comment on above: Result Comment: The validity of the calculated GFR GFRAA in patients over 70 years has not been determined. Clinical correlation is essential. Performed By: #### L 101.9900, L100.0100, L503.6550, L501.6710, L3100.6900, L3300.1200, L500.4100, L503.5510, L300.3900, L500.4050, L3400.0700, L3000.0375, L800.1280, L803.2200, L3100.5440, L3300.0100, L503.6075 ####[facility] [address] [place], [place], [id number] EST GFR - AA 63 mL/min Normal >60 [facility] Comment on above: Result Comment: Afri can Fijian GFR Calc Performed By: #### L 101.9900, L100.0100, L503.6550, L501.6710, L3100.6900, L3300.1200, L500.4100, L503.5510, L300.3900, L500.4050, L3400.0700, L3000.0375, L800.1280, L803.2200, L3100.5440, L3300.0100, L503.6075 ####[facility] [address] [place], [place], [phone] GAP 7 Normal 5-15 [facility] Comment on above: Performed By: #### L 101.9900, L100.0100, L503.6550, L501.6710, L3100.6900, L3300.1200, L500.4100, L503.5510, L300.3900, L500.4050, L3400.0700, L3000.0375, L800.1280, L803.2200, L3100.5440, L3300.0100, L503.6075 ####[facility] [address] [place], [address] GFR/1.73 sq M.predicted among non-blacks MDRD (S/P/Bld) [Vol rate/Area] 52 mL/min/{1.73_m2} Low >60 [facility] Comment on above: Result Comment: Non- GFR Calc Performed By: #### L 101.9900, L100.0100, L503.6550, L501.6710, L3100.6900, L3300.1200, L500.4100, L503.5510, L300.3900, L500.4050, L3400.0700, L3000.0375, L800.1280, L803.2200, L3100.5440, L3300.0100, L503.6075 ####[facility] [address] [place], [address] Globulin (S) [Mass/Vol] 3.8 g/dL Normal 2.2-4.2 [facility] Comment on above: Performed By: #### L 101.9900, L100.0100, L503.6550, L501.6710, L3100.6900, L3300.1200, L500.4100, L503.5510, L300.3900, L500.4050, L3400.0700, L3000.0375, L800.1280, L803.2200, L3100.5440, L3300.0100, L503.6075 ####[facility] [address] [place], [place], [phone]) Glucose [Mass/Vol] 118 mg/dL High 74-106 [facility] Comment on above: Result Comment: Fast ing Glucose result from 100 to 125 mg/dL suggests IMPAIRED HOMEOSTASIS per A.D.A. criteria. Performed By: #### L 101.9900, L100.0100, L503.6550, L501.6710, L3100.6900, L3300.1200, L500.4100, L503.5510, L300.3900, L500.4050, L3400.0700, L3000.0375, L800.1280, L803.2200, L3100.5440, L3300.0100, L503.6075 ####[facility] [address] [place], [place], [phone]) Potassium [Moles/Vol] 4.0 mmol/L Normal 3.5-5.1 [facility] Comment on above: Performed By: #### L 101.9900, L100.0100, L503.6550, L501.6710, L3100.6900, L3300.1200, L500.4100, L503.5510, L300.3900, L500.4050, L3400.0700, L3000.0375, L800.1280, L803.2200, L3100.5440, L3300.0100, L503.6075 ####[facility] [address] [place], [address] Sodium [Moles/Vol] 138 mmol/L Normal 136-145 [facility] Comment on above: Performed By: #### L 101.9900, L100.0100, L503.6550, L501.6710, L3100.6900, L3300.1200, L500.4100, L503.5510, L300.3900, L500.4050, L3400.0700, L3000.0375, L800.1280, L803.2200, L3100.5440, L3300.0100, L503.6075 ####[facility] [address] [place], [address] T PROT 7.4 g/dL Normal 6.4-8.2 [facility] Comment on above: Performed By: #### L 101.9900, L100.0100, L503.6550, L501.6710, L3100.6900, L3300.1200, L500.4100, L503.5510, L300.3900, L500.4050, L3400.0700, L3000.0375, L800.1280, L803.2200, L3100.5440, L3300.0100, L503.6075 ####[facility] [address] [place], [address] Urea nitrogen [Mass/Vol] 34 mg/dL High 7-18 [facility] Comment on above: Performed By: #### L 101.9900, L100.0100, L503.6550, L501.6710, L3100.6900, L3300.1200, L500.4100, L503.5510, L300.3900, L500.4050, L3400.0700, L3000.0375, L800.1280, L803.2200, L3100.5440, L3300.0100, L503.6075 ####[facility] [address] [place], [address] Copper, serumOrdered By: Camille Reed on 05-19-2024 Serum Copper 115 ug/dL 80-158 [facility] Comment on above: Detection Limit = 5P erformed at: [facility] [address] [id number] Director: Riaz Rayo PhD, Phone: [phone] at: [address] [id number] Director: Faby Crane MD, Phone: [phone] DNA double strand Ab Qn (S)O rdered By: Mariel Reed on 05-19-2024 Anti-Double Strand DNA Antibody <1 IU/mL 0-9 [facility] Comment on above: Negative <5 Equivoca l 5 - 9 Positive >9Previous reported result: TNP IU/mLEdited by: AGGIE on 05/23/24:1307 AMENDED REPORT 05/23/24 1307 dsDNA AB previously reported as: Test not performed Eosinophil percentageOrdered By: Mariel Reed on 05-19-2024 Eosinophils/100 WBC (Bld) 2.9 % 0-5 [facility] Erythrocyte Sed Rateon 05-19 SED RATE 23 mm/hr Normal 0-30 [facility] Comment on above: Performed By: #### L 101.9900, L100.0100, L503.6550, L501.6710, L3100.6900, L3300.1200, L500.4100, L503.5510, L300.3900, L500.4050, L3400.0700, L3000.0375, L800.1280, L803.2200, L3100.5440, L3300.0100, L503.6075 ####[facility] [address] [place], [place], [address] Erythrocyte distribution wid th (RBC) [Ratio]Ordered By: Mariel Reed on 05-19-2024 Erythrocyte distribution width (RBC) [Entitic vol] 50.6 fL High 35.1-43.9 [facility] Erythrocyte distribution wid th ratioOrdered By: Mariel Reed on 05-19-2024 Erythrocyte distribution width (RBC) [Ratio] 16.6 % High 11.6-14.6 [facility] Erythrocyte sedimentation ra teOrdered By: Mariel Reed on 05-19-2024 ESR (Bld) [Velocity] 23 mm/h 0-30 [facility] Estimated glomerular filtrat ion rate (GFR) AmericanOrdered By: Mariel Reed on 05-19-2024 Estimated GFR (MDRD) Amer 63 mL/min >60 [facility] Comment on above: GFR Calc Ferritinon 05-19-2024 Ferritin [Mass/Vol] 91 ng/mL Normal 8-252 [facility] Comment on above: Performed By: #### L 101.9900, L100.0100, L503.6550, L501.6710, L3100.6900, L3300.1200, L500.4100, L503.5510, L300.3900, L500.4050, L3400.0700, L3000.0375, L800.1280, L803.2200, L3100.5440, L3300.0100, L503.6075 ####[facility] [address] [place], [address] Ferritin measurementOrdered By: Mariel Reed on 05-19-2024 Ferritin [Mass/Vol] 91 ng/mL 8-252 [facility] Gastroenterology Visit Repor ton 05-19-2024 Gastroenterology Visit Report [facility] Gastroenterology [address] [place] [address] OFFICE VISIT Date of Service: 05/19/24 MR#: [id number] Acct: [id number] Name: YASMINE MTZ Devika Rep #: [id number] : 1955 Provider: SUE Barfield Age/Sex: 68/F Location: [facility] Status: Signed Intake Vital Signs 09/23/23 11:24 03/24/24 15:12 Height 5 ft 1.5 in 5 ft 1 in Weight: 189 lb BMI 35.6 BP 116/65 Blood Pressure Location Lt brachial Position Sitting Respiration 16 Pulse 63 Pulse Source Monitor Intake Visit Reasons: 3 M FU Chief Complaint: f/u Allergies No Known Allergies Allergy (Verified 03/24/24 15:13) Patient : No Have you fallen in the past year?: No Nurse's Note: OV 05.19.24 OV pt here for hospital f/u and reports mild heartburn but is feeling good otherwise. Pt denies trouble swallowing, abdominal pain, N/V. Prior hx of EGD 02.17.24. Continues pantoprazole daily and finds it to be helpful. [facility] Medical History (Updated 05/19/24 @ 15:29 by SUE Barfield) Esophageal varix Wears glasses High cholesterol History of GI bleed Sleep apnea Smoker Diverticulosis Cardiology follow-up encounter Back pain Leg cramps History of echocardiogram History of stress test History of atrial fibrillation History of kidney stones Obesity Cholelithiasis Insulin resistance Recurrent hematuria UTI (urinary tract infection) Vitamin D deficiency History of shoulder fracture History of renal stone Atrial flutter, chronic Tobacco dependence Paroxysmal atrial fibrillation Hyperlipidemia Essential hypertension Chronic diastolic CHF (congestive heart failure) Gastroesophageal reflux disease Colon polyps Family history of cardiovascular disease Diverticulosis Surgical History History of colonoscopy History of colonoscopy with polypectomy History of lithotripsy ( 2015) History of open reduction and internal fixation (ORIF) procedure ( 2003) History of tubal ligation History of cardioversion (06/21/19) Family History Mother Diabetes Hypertension Myocardial infarction Father Hypertension Heart disease Sister Diabetes Heart disease Grandmother CVA (cerebral vascular accident) Social History household members: spouse Smoking Status: Current every day smoker (Patient smoked today.) tobacco type: cigarettes Tobacco: How many years used: 40 second hand exposure: Yes alcohol intake: never substance use type: does not use caffeine: Yes Type: coffee Number of servings: 3 what type of physical activity do you participate in: aerobics frequency: 3-4 times per week HPI HPI Chief Complaint: f/u Details: YASMINE MTZ, is a 68 F who presents to the office today for f/u. BGI established 01.28.24 after multiple hospitalizations for abd pain. General surgery believed etiology to be passing of gallstones. Hx of normal HIDA scan. EGD and colonoscopy many years ago. CT Abdomen/pelvis 5.11.01; 1. Mild mural thickening of duodenal sweep and some loops of jejunum suggests an enteritis. Question of abnormal mural thickening of the distal stomach versus artifact of nondistention. 2. Small prominent small bowel gas may represent ileus. No evidence for mechanical bowel obstruction. 3. Chronic pancreatitis. No evidence for acute pancreatitis. 4. Gallstones. 5. Nonobstructive renal calculi bilaterally. Mildly atrophic right kidney with cortical scarring. No demonstrated ureteral calculi or hydronephrosis. 6. Colonic diverticulosis without evidence for acute diverticulitis. 7. Atherosclerosis. 8. Umbilical hernia contains fat, but no bowel. HIDA scan 06.24.23; NORMAL 99m Tc Mebrofenin hepatobiliary imaging examination. A. Visualization of the gallbladder within 60 minutes post radiopharmaceutical administration excludes acute cholecystitis with 97% certitude. (Agata et al, Nucl Med [place] Darcie Press pg. 35, 1980). B. There appears to be spontaneous contraction and refilling of the gallbladder contents during the second hour of acquisition EGD 02.17.24: - Grade I esophageal varices. - Portal hypertensive gastropathy. - Erythematous duodenopathy. - Biopsy of ulcer Colonoscopy 02.17.24; Diverticulosis in the recto-sigmoid colon, in the sigmoid colon and in the descending colon. - Four 1 to 2 mm polyps in the rectum, removed with a hot snare. Resected and retrieved. - One 8 mm polyp in the sigmoid colon, removed with a cold snare. Resected and retrieved. - One 4 mm polyp at the splenic flexure, removed with a jumbo cold forceps. Resected and retrieved. - Stool in the rectum, in the sigmoid colon, in the descend (more content not included)... Normal [facility] Glomerular filtration rate ( GFR) estimationOrdered By: Mariel Reed on 05-19-2024 Estimated GFR (MDRD) Non-Af Amer 52 mL/min Low >60 [facility] Comment on above: Non- GFR Calc Glucose measurementOrdered B y: Mariel Reed on 05-19-2024 Glucose [Mass/Vol] 118 mg/dL High 74-106 [facility] Comment on above: Fasting Glucose resu lt from 100 to 125 mg/dL suggests IMPAIRED HOMEOSTASIS per A.D.A. criteria. HBV surface Ag IA QlOrdered By: Mariel Reed on 05-19-2024 Hepatitis B Surface Antigen Negative Negative [facility] Hematocrit Auto (Bld) [Volum e fraction]Ordered By: Mariel Reed on 05-19-2024 Hematocrit (Bld) [Volume fraction] 46.2 % 37-47 [facility] Hemoglobin measurementOrdere d By: Mariel Reed on 05-19-2024 Hemoglobin (Bld) [Mass/Vol] 15.1 g/dL High 12.0-15.0 [facility] Hepatitis A virus IgM antibo dy assayOrdered By: Mariel Reed on 05-19-2024 Hepatitis A IgM Antibody Negative Negative [facility] Comment on above: A negative anti-HAV IgM result suggests no recent orcurrent HAV infection. Hepatitis B virus core IgM a ntibody assayOrdered By: Mariel Reed on 05-19-2024 Hepatitis B Core IgM Antibody Negative Negative [facility] Hepatitis C virus antibody a ssayOrdered By: Mariel Reed on 05-19-2024 Hepatitis C Antibody (EIA) Non-Reactive Non Reactive [facility] High density lipoprotein (HD L) measurementOrdered By: Marile Reed on 05-19-2024 Cholesterol in HDL [Mass/Vol] 48 mg/dL >40 [facility] Comment on above: The drugs N-Acetylcy steine and Metamizole may falsely depress this assay. Reference Range HDL <40 mg/dL Low HDL Cholesterol HDL >or= 60 mg/dL High HDL Cholesterol Immature granulocytes/100 WB C Auto (Bld)Ordered By: Mariel Reed on 05-19-2024 Immature granulocytes/100 WBC (Bld) 0.400 % 0.0-0.9 [facility] Comment on above: IG% - Immature Granu locytes (promyelocytes, myelocytes and metamyelocytes) > 1% indicates that a LEFT SHIFT is Present. International normalized rat io (INR) calculationOrdered By: Mariel Reed on 05-19-2024 INR Coag (Bld) [Relative time] 1.0 {INR} [facility] Iron Binding Capacity,Totalo n 05-19-2024 TIBC 334 ug/dL Normal 250-450 [facility] Comment on above: Performed By: #### L 101.9900, L100.0100, L503.6550, L501.6710, L3100.6900, L3300.1200, L500.4100, L503.5510, L300.3900, L500.4050, L3400.0700, L3000.0375, L800.1280, L803.2200, L3100.5440, L3300.0100, L503.6075 ####[facility] [address] [place], [address] Nathaly-1 antibody assayOrdered B y: Mariel Reed on 05-19-2024 NATHALY-1 Antibody <0.2 AI 0.0-0.9 [facility] Comment on above: Previous reported re sult: TNP AIEdited by: AGGIE on 05/23/24:1307 AMENDED REPORT 05/23/24 1307 ANTI-NATHALY previously reported as: Test not performed Laboratory - Chemistry and C hemistry - challengeOrdered By: Mairel Reed on 05-19-2024 AST [Catalytic activity/Vol] 13 U/L Low 15-37 [facility] Lipid Profileon 05-19-2024 Cholesterol [Mass/Vol] 309 mg/dL High 200 [facility] Comment on above: Result Comment: <200 mg/dL Desirable 200-240 mg/dL Borderline >240 mg/dL High Risk Performed By: #### L 101.9900, L100.0100, L503.6550, L501.6710, L3100.6900, L3300.1200, L500.4100, L503.5510, L300.3900, L500.4050, L3400.0700, L3000.0375, L800.1280, L803.2200, L3100.5440, L3300.0100, L503.6075 ####[facility] [address] [place], [address] Cholesterol in HDL [Mass/Vol] 48 mg/dL Normal [facility] Comment on above: Result Comment: The drugs N-Acetylcysteine and Metamizole may falsely depress this assay. Reference Range HDL <40 mg/dL Low HDL Cholesterol HDL >or= 60 mg/dL High HDL Cholesterol Performed By: #### L 101.9900, L100.0100, L503.6550, L501.6710, L3100.6900, L3300.1200, L500.4100, L503.5510, L300.3900, L500.4050, L3400.0700, L3000.0375, L800.1280, L803.2200, L3100.5440, L3300.0100, L503.6075 ####[facility] [address] [place], [place], [phone] LDL TNP Normal 0-130 [facility] Comment on above: Performed By: #### L 101.9900, L100.0100, L503.6550, L501.6710, L3100.6900, L3300.1200, L500.4100, L503.5510, L300.3900, L500.4050, L3400.0700, L3000.0375, L800.1280, L803.2200, L3100.5440, L3300.0100, L503.6075 ####[facility] [address] [facility] [place], [place], [id number] Triglyceride [Mass/Vol] 402 mg/dL High [facility] Comment on above: Result Comment: The drugs N-Acetylcysteine and Metamizole may falsely depress this assay. TRIGLYCERIDE IS GREATER THAN 400 mg/dL. LDL RESULT IS INVALID AND WILL NOT BE REPORTED. Serum Triglycerides Reference Interval Normal <150 mg/dL Borderline high 150 - 199 mg/dL High 200 - 499 mg/dL Very High > or = 500 mg/dL Performed By: #### L 101.9900, L100.0100, L503.6550, L501.6710, L3100.6900, L3300.1200, L500.4100, L503.5510, L300.3900, L500.4050, L3400.0700, L3000.0375, L800.1280, L803.2200, L3100.5440, L3300.0100, L503.6075 ####[facility] [address] [place], [place], [id number] VLDL TNP Normal 5-40 [facility] Comment on above: Performed By: #### L 101.9900, L100.0100, L503.6550, L501.6710, L3100.6900, L3300.1200, L500.4100, L503.5510, L300.3900, L500.4050, L3400.0700, L3000.0375, L800.1280, L803.2200, L3100.5440, L3300.0100, L503.6075 ####[facility] [address] [facility] [address] [place], [place], [phone] Low density lipoprotein (LDL ) cholesterol measurementOrdered By: Mariel Reed on 05-19-2024 [facility] on [facility]: Test not performed Lymphocytes Auto (Unsp spec) [#/Vol]Ordered By: Mariel Reed on 05-19-2024 Lymphocytes (Bld) [#/Vol] 3.12 10*3/uL 0.83-4.51 [facility] Lymphocytes/100 WBC Auto (Un sp spec)Ordered By: Mariel Reed on 05-19-2024 Lymphocytes/100 WBC (Bld) 28.0 % 19-41 [facility] MCV (mean corpuscular volume ) determinationOrdered By: Mariel Reed on 05-19-2024 MCV (RBC) [Entitic vol] 85.7 fL 81-99 [facility] Mean corpuscular hemoglobin (MCH) determinationOrdered By: Mariel Reed on 05-19-2024 MCH (RBC) [Entitic mass] 28.0 pg 27.0-32.0 [facility] Mean corpuscular hemoglobin concentration (MCHC) determinationOrdered By: Mariel Reed on 05-19-2024 MCHC (RBC) [Mass/Vol] 32.7 g/dL 32-36 [facility] Mean platelet volume determi nationOrdered By: Mariel Reed on 05-19-2024 Platelet mean volume (Bld) [Entitic vol] 12.1 fL High 6.2-12.0 [facility] Mitochondria Ab Ql (S)Ordere d By: Mariel Reed on 05-19-2024 Anti-Mitochondrial Antibody <20.0 Units 0.0-20.0 [facility] Comment on above: Negative 0.0 - 20.0 Equivocal 20.1 - 24.9 Positive >24.9Mitochondrial (M2) Antibodies are found in 90-96% ofpatients with primary biliary cirrhosis.Performed at: [facility] [id number] Director: Riaz Rayo PhD, Phone: [phone] Monocyte percentageOrdered B y: Mariel Reed on 05-19-2024 Monocytes/100 WBC (Bld) 9.1 % 0-10 [facility] Neutrophil cytoplasmic Ab.cl assic Qn (S)Ordered By: Mariel Reed on 05-19-2024 Cytoplasmic ANCA (c-ANCA) Antibody <1:20 titer Neg:<1:20 [facility] Neutrophil cytoplasmic Ab.pe rinuclear IF (S) [Titer]Ordered By: Mariel Reed on 05-19-2024 Perinuclear ANCA (p-ANCA) Antibody <1:20 titer Neg:<1:20 [facility] Comment on above: The presence of posi tive fluorescence exhibiting P-ANCA orC-ANCA patterns alone is not specific for the diagnosis ofWegener's Granulomatosis (WG) or microscopic polyangiitis.Decisions about treatment should not be based solely onANCA IFA results. The International ANCA Group Consensusrecommends follow up testing of positive sera with both HI-3 and MPO-ANCA enzyme immunoassays. As many as 5% serumsamples are positive only by EIA. Ref. AM J Clin Rdcgzz8785;111:507-513. Neutrophil percentageOrdered By: Mariel Reed on 05-19-2024 Neutrophils/100 WBC (Bld) 58.4 % 47-70 [facility] No Panel InformationOrdered By: Mariel Reed on 05-19-2024 Hepatitis C Antibody Comment Comment . [facility] Comment on above: Not infected with HC V unless early or acute infection issuspected (which may be delayed in an immunocompromisedindividual), or other evidence exists to indicate HCVinfection. Nucleated red blood cell per centageOrdered By: Mariel Reed on 05-19-2024 Nucleated RBC/100 WBC (Bld) [Ratio] 0 % 0-5 [facility] Platelet countOrdered By: Anita Reed on 05-19-2024 Platelets (Bld) [#/Vol] 181 10*3/uL 150-450 [facility] Potassium measurementOrdered By: Mariel Reed on 05-19-2024 Potassium [Moles/Vol] 4.0 mmol/L 3.5-5.1 [facility] Prothrombin Time w/INRon INR Coag (PPP) [Relative time] 1.0 {INR} Normal [facility] Comment on above: Performed By: #### L 101.9900, L100.0100, L503.6550, L501.6710, L3100.6900, L3300.1200, L500.4100, L503.5510, L300.3900, L500.4050, L3400.0700, L3000.0375, L800.1280, L803.2200, L3100.5440, L3300.0100, L503.6075 ####[facility] [address] [place], [address] PT Coag (PPP) [Time] 13.1 s Normal 11.7-14.9 [facility] Comment on above: Performed By: #### L 101.9900, L100.0100, L503.6550, L501.6710, L3100.6900, L3300.1200, L500.4100, L503.5510, L300.3900, L500.4050, L3400.0700, L3000.0375, L800.1280, L803.2200, L3100.5440, L3300.0100, L503.6075 ####[facility] [address] [place], [address] Prothrombin timeOrdered By: Mariel Reed on 05-19-2024 PT Coag (PPP) [Time] 13.1 s 11.7-14.9 [facility] RBC Auto (Bld) [#/Vol]Ordere d By: Mariel Reed on 05-19-2024 RBC (Bld) [#/Vol] 5.39 10*6/uL 4.2-5.4 [facility] YEAST STACKER abOrdered By: Mariel Poon anasov on 05-19-2024 YEAST STACKER Antibody <0.2 AI 0.0-0.9 [facility] Comment on above: Previous reported re sult: TNP AIEdited by: AGGIE on 05/23/24:1307 AMENDED REPORT 05/23/24 1307 YEAST STACKER Ab previously reported as: Test not performed SCL-70 extractable nuclear A b Qn (S)Ordered By: Mariel Reed on 05-19-2024 Scl-70 (Scleroderma) Antibody <0.2 AI 0.0-0.9 [facility] Comment on above: Previous reported re sult: TNP AIEdited by: AGGIE on 05/23/24:1307 AMENDED REPORT 05/23/24 1307 ANTISCLER previously reported as: Test not performed SS-A IgG antibody assayOrder ed By: Mariel Reed on 05-19-2024 SS-A/Ro IgG Antibody < 0.2 AI 0.0-0.9 [facility] Comment on above: Previous reported re sult: TNP AIEdited by: AGGIE on 05/23/24:1307 AMENDED REPORT 05/23/24 1307 Anti-SS-A previously reported as: Test not performed SS-B IgG antibody assayOrder ed By: Mariel Reed on 05-19-2024 SS-B/La IgG Antibody < 0.2 AI 0.0-0.9 [facility] Comment on above: Previous reported re sult: TNP AIEdited by: AGGIE on 05/23/24:1307 AMENDED REPORT 05/23/24 1307 Anti-SS-B previously reported as: Test not performed Serum anion gap measurementO rdered By: Mariel Reed on 05-19-2024 Anion gap [Moles/Vol] 7 mmol/L 5-15 [facility] Serum globulin measurementOr dered By: Mariel Reed on 05-19-2024 Globulin (S) [Mass/Vol] 3.8 g/dL 2.2-4.2 [facility] Serum or plasma alanine wolfe otransferase (ALT) measurementOrdered By: Mariel Reed on 05-19-2024 ALT [Catalytic activity/Vol] 98 U/L High 13-56 [facility] Serum or plasma albumin justen urement (mass/volume)Ordered By: Mariel Reed on 05-19-2024 Albumin [Mass/Vol] 3.6 g/dL 3.2-5.0 [facility] Serum or plasma alkaline jonny sphatase measurementOrdered By: Mariel Reed on 05-19-2024 ALP [Catalytic activity/Vol] 87 U/L 45-117 [facility] Serum or plasma angiotensin converting enzyme measurement (enzymatic activity/volume)Ordered By: Mariel Reed on 05-19-2024 Angiotensin converting enzyme [Catalytic activity/Vol] 43 U/L 14-82 [facility] Serum or plasma calcium justen urement (mass/volume)Ordered By: Mariel Reed on 05-19-2024 Calcium [Mass/Vol] 10.1 mg/dL 8.5-10.1 [facility] Serum or plasma cholesterol measurement (mass/volume)Ordered By: Mariel Reed on 05-19-2024 Cholesterol [Mass/Vol] 309 mg/dL High <200 [facility] Comment on above: <200 mg/dL Desirable 200-240 mg/dL Borderline >240 mg/dL High Risk Serum or plasma creatinine m easurement (mass/volume)Ordered By: Mariel Reed on 05-19-2024 Creatinine [Mass/Vol] 1.11 mg/dL High 0.55-1.02 [facility] Comment on above: The validity of the calculated GFR & GFRAA in patients over 70 years has not been determined. Clinical correlation is essential. Serum or plasma urea nitroge n measurement (mass/volume)Ordered By: Mariel Reed on 01-09-2025 Urea nitrogen [Mass/Vol] 34 mg/dL High 7-18 [facility] Hernandez antibody assayOrdered By: Mariel Reed on 05-19-2024 SM Antibody <0.2 AI 0.0-0.9 [facility] Comment on above: Previous reported re sult: TNP AIEdited by: AGGIE on 05/23/24:1307 AMENDED REPORT 05/23/24 1307 DILIP Ab previously reported as: Test not performed Sodium levelOrdered By: Willem Reed on 05-19-2024 Sodium [Moles/Vol] 138 mmol/L 136-145 [facility] TIBCOrdered By: Mariel Nicole asov on 05-19-2024 Total Iron Binding Capacity 334 ug/dL 250-450 [facility] Total proteinOrdered By: Camille Reed on 05-19-2024 Protein [Mass/Vol] 7.4 g/dL 6.4-8.2 [facility] Triglycerides measurementOrd ered By: Mariel Reed on 05-19-2024 Triglyceride [Mass/Vol] 402 mg/dL High <199 [facility] Comment on above: The drugs N-Acetylcy steine and Metamizole may falsely depress this assay. TRIGLYCERIDE IS GREATER THAN 400 mg/dL. LDL RESULT IS INVALID AND WILL NOT BE REPORTED.Serum Triglycerides Reference Interval Normal <150 mg/dL Borderline high 150 - 199 mg/dL High 200 - 499 mg/dL Very High > or = 500 mg/dL Venous blood ammonia measure mentOrdered By: Mariel Reed on 05-19-2024 Ammonia (P) [Moles/Vol] 29.0 umol/L 11-32 [facility] Very low density lipoprotein (VLDL) cholesterol measurementOrdered By: Mariel Reed on 05-19-2024 VLDL Cholesterol TNP [facility] Comment on above: Test not performed White blood cell (WBC) count Ordered By: Mariel Reed on 05-19-2024 WBC (Bld) [#/Vol] 11.2 10*3/uL High 4.4-11.0 [facility] 12 Lead EKG performed by [facility] on 03-24-2024 12 Lead EKG performed by [facility] [address] [place] [address] 12 Lead EKG performed by [facility] 03/24/24 1543 MR#: [id number] Acct: [id number] Name: YASMINE MTZ Rep #: [id number] : 1955 68 From: Marcelo Merrill MD Attending Dr: Dr. Marcelo Merrill MD Status: DEP A MB Ordering Dr: Marcelo Merrill MD Date: 03/24/24 Location: [facility] Sex: F C Admitted: BMS/12 Lead EKG performed by [facility] ECG Report Interpretation -Sinus Rhythm -RSR(V1) -nondiagnostic. PROBABLY NORMALElectronically signed on 03/29/2024 at 08:27 by Marcelo Merrill [email or web address] Version [email or web address] 03/29/24 0832 Date Marcelo Merrill MD CC: Dr. Selina Bowser MD Date Dictated: 03/24/241542 Date Transcribed: 03/24/241542 Overnight Babysitter: [place] Signed Normal [facility] Cardiology Visit Reporton Cardiology Visit Report [facility] [address] [place] [address] OFFICE VISIT Date of Service: 03/24/24 MR#: [id number] Acct: [id number] Name: YASMINE MTZ Rep #: [id number] : 1955 Provider: Dr. Marcelo Merrill MD Age/Sex: 68/F [place] [facility] Status: Signed HPI HPI History of Present Illness Details: This is a 68-year-old female who presents here today for a cardiovascular follow-up. She has a long history of atrial tachyarrhythmias. In October 2015 she had a cardioversion for atrial flutter. She also underwent a cardioversion in 2018, JUAN guided cardioversion in 2019 and most recently in April 2021. She does have a history of hypertension, hyperlipidemia, diastolic heart failure, obesity. In the past she had been on warfarin as well as amiodarone however she had discontinued both of those on her own because it was not making a change in her overall condition. From a cardiac standpoint, the patient is doing well. She denies any palpitations, chest pain, pressure or heaviness. She does have occasional SOB with walking longer distances. This is nothing new or worsening. She denies SOB, Orthopnea, and PND. She does not have bleeding issues; no blood in urine, stool or nosebleeds. She denies any decrease in energy level, myalgias, or claudication. She does not have edema, or sudden weight gain. She denies dizziness, lightheadedness, syncopal or near syncopal episodes, and headaches. Intake Vital Signs 02/03/23 13:06 02/25/24 09:05 03/24/24 15:12 Height 5 ft 2 in 5 ft 1 in 5 ft 1 in Weight: 189 lb BMI 35.6 BP 116/65 Blood Pressure Location Lt brachial Position Sitting Respiration 16 Pulse 63 Pulse Source Monitor Intake Visit Reasons: 1 Y FU Yeast Supervisor Required: No Accompanied by: Self Is patient in pain?: No Allergies No Known Allergies Allergy (Verified 03/24/24 15:13) Medications ???Medication ???Instructions ???Recorded ???Confirmed ???Type multivit with minerals-iron 18 1 ea PO DAILY 10/13/15 03/24/24 History mg-folic ac 400 mcg-vit K 25 mcg tablet (Multi-Day Plus Minerals) cholecalciferol (vitamin D3) 50 50 mcg PO DAILY 02/03/23 03/24/24 History mcg (2,000 unit) tablet (Vitamin D3) furosemide 40 mg tablet 40 mg PO DAILY #90 tabs 03/17/23 03/24/24 Rx metoprolol succinate 200 mg 200 mg PO DAILY #90 tabs 03/17/23 03/24/24 Rx tablet,extended release 24 hr magnesium 200 mg tablet 400 mg PO DAILY 09/14/23 03/24/24 History pantoprazole 40 mg tablet,delayed 40 mg PO BID #60 tabs 02/17/24 03/24/24 Rx release apixaban 5 mg tablet (Eliquis) 5 mg PO BID #60 tabs 02/29/24 03/24/24 Rx losartan 100 mg tablet 100 mg PO DAILY #90 tabs 02/29/24 03/24/24 Rx sucralfate 1 gram tablet 1 g PO TID 8 weeks #168 tabs 02/29/24 03/24/24 Rx Have you fallen in the past year?: No PFSH Medical History Wears glasses High cholesterol History of GI bleed Sleep apnea Smoker Diverticulosis Cardiology follow-up encounter Back pain Leg cramps History of echocardiogram History of stress test History of atrial fibrillation History of kidney stones Obesity Cholelithiasis Insulin resistance Recurrent hematuria UTI (urinary tract infection) Vitamin D deficiency History of shoulder fracture History of renal stone Atrial flutter, chronic Tobacco dependence Paroxysmal atrial fibrillation Hyperlipidemia Essential hypertension Chronic diastolic CHF (congestive heart failure) Gastroesophageal reflux disease Colon polyps Family history of cardiovascular disease Diverticulosis Surgical History History of colonoscopy History of colonoscopy with polypectomy History of lithotripsy ( 2015) History of open reduction and internal fixation (ORIF) procedure ( 2003) History of tubal ligation History of cardioversion (06/21/19) Family History Mother Diabetes Hypertension Myocardial infarction Father Hypertension Heart disease Sister Diabetes Heart disease Grandmother CVA (cerebral vascular accident) Social History household members: spouse Smoking Status: Current every day smoker (Patient smoked today.) tobacco type: cigarettes Tobacco: How many years used: 40 second hand exposure: Yes alcohol intake: never substance use type: does not use caffeine: Yes Type: coffee Number of servings: 3 what type of physical activity do you participate in: aerobics frequency: 3-4 times per week ROS Const Const: Negative for fatigue, weakness, headache(s), daytime sleepiness or difficulty sleeping ENT ENT: Negative for headache(s), dizziness or (more content not included)... Normal [facility] L/S Spine Min 4 Viewson 02-08 L/S Spine Min 4 Views [facility] [address] [place] [address] L/S Spine Min 4 Views MR#: [id number] Acct: [id number] Name: YASMINE MTZ Rep #: [id number] : 1955 F 68 From: Max Becerril PCP: Dr. Selina Bowser MD Status: DEP AMB Study: L/S Spine Min 4 Views Date of Exam: 02/25/24 Exam# [id number] Ordering Dr: Yarelis Palomo [id number] STUDY: X-RAY - LUMBAR SPINE REASON FOR EXAM: Female, 68 years old. back pain -- upright AP, LAT, flex/ext TECHNIQUE: XR Spine Lumbar 4 Views COMPARISON: 6.14.23 FINDINGS: Normal lumbar lordosis. There is no substantial scoliosis. There is a grade 1 anterolisthesis of L4 on L5. Neutral position distance of the anterolisthesis is 6 mm. This is unchanged on the flexion view. However on the extension view, The distance measures 8.7 mm. This has increased since the prior study. There is multilevel endplate spondylosis of the lumbar vertebrae. There is multi-level degenerative disc disease with multi-level disc space narrowing. There are atherosclerotic vascular calcifications. The soft tissue structures are unremarkable. RAD/L/S Spine Min 4 Views IMPRESSION: Degenerative changes of the spine, as detailed above. There is movement of the anterolisthesis at L4-5 on the extension views. Electronically Signed: Max Washington MD at 19:40 EDT , CC: SUE Ortega; Dr. Selina Bowser MD Overnight Babysitter: Signed Normal [facility] Orthopedic Visit Reporton Orthopedic Visit Report [facility] [address] [place] [address] [address] [place] [address] OFFICE VISIT Date of Service: 02/25/24 MR#: [id number] Acct: [id number] Name: YASMINE MTZ Rep #: [id number] : 1955 Provider: Dr. Wei Butler MD Age/Sex: 68/F Location: [facility] Status: Signed Intake Vital Signs 09/23/23 11:24 02/17/24 12:33 02/25/24 09:05 Height 5 ft 1.5 in 5 ft 1 in 5 ft 1 in Weight: 189 lb 8 oz BMI 35.8 Intake Visit Reasons: LUMBAR SPINE Accompanied by: Self Is patient in pain?: Yes Pain scale (1-10): 7 Allergies No Known Allergies Allergy (Verified 02/25/24 09:05) Medications ???Medication ???Instructions ???Recorded ???Confirmed ???Type multivit with minerals-iron 18 1 ea PO DAILY 10/13/15 02/25/24 History mg-folic ac 400 mcg-vit K 25 mcg tablet (Multi-Day Plus Minerals) apixaban 5 mg tablet (Eliquis) 5 mg PO BID #60 tabs 01/13/23 02/25/24 Rx cholecalciferol (vitamin D3) 50 50 mcg PO DAILY 02/03/23 02/25/24 History mcg (2,000 unit) tablet (Vitamin D3) furosemide 40 mg tablet 40 mg PO DAILY #90 tabs 03/17/23 02/25/24 Rx losartan 100 mg tablet 100 mg PO DAILY #90 tabs 03/17/23 02/25/24 Rx metoprolol succinate 200 mg 200 mg PO DAILY #90 tabs 03/17/23 02/25/24 Rx tablet,extended release 24 hr magnesium 200 mg tablet 400 mg PO DAILY 09/14/23 02/25/24 History pantoprazole 40 mg tablet,delayed 40 mg PO BID #60 tabs 02/17/24 02/25/24 Rx release Have you fallen in the past year?: No PFSH Medical History Wears glasses High cholesterol History of GI bleed Sleep apnea Smoker Diverticulosis Cardiology follow-up encounter Back pain Leg cramps History of echocardiogram History of stress test History of atrial fibrillation History of kidney stones Obesity Cholelithiasis Insulin resistance Recurrent hematuria UTI (urinary tract infection) Vitamin D deficiency History of shoulder fracture History of renal stone Atrial flutter, chronic Tobacco dependence Paroxysmal atrial fibrillation Hyperlipidemia Essential hypertension Chronic diastolic CHF (congestive heart failure) Gastroesophageal reflux disease Colon polyps Family history of cardiovascular disease Diverticulosis Surgical History History of colonoscopy History of colonoscopy with polypectomy History of lithotripsy ( 2015) History of open reduction and internal fixation (ORIF) procedure ( 2003) History of tubal ligation History of cardioversion (06/21/19) Family History Mother Diabetes Hypertension Myocardial infarction Father Hypertension Heart disease Sister Diabetes Heart disease Grandmother CVA (cerebral vascular accident) Social History household members: spouse Smoking Status: Current every day smoker (Patient smoked today.) tobacco type: cigarettes Tobacco: How many years used: 40 second hand exposure: Yes alcohol intake: never substance use type: does not use caffeine: Yes Type: coffee Number of servings: 3 what type of physical activity do you participate in: aerobics frequency: 3-4 times per week HPI LUMBAR SPINE Details: This documentation accurately reflects the service provided and the decisions made by me, Dr. Wei Butler MD 02/25/24 0801. Part of today???s visit was documented by Eva NGUYEN and Yarelis ROGERS, acting as scribe. YASMINE MTZ is a 68 year old F here today NEW patient for low back pain. He states that she has had low back pain for 10-15 years. She does have neuropathy in her feet. She has numbness and tingling in both legs but primarily on the left side. Also has numbness down her left and occasionally into her fingers. She denies previous injury or surgery. She has a lot of pain in her left buttock and down the left leg that extends to her ankle. She is having trouble sleeping due to the pain. She states that laying down and prolonged walking increases her pain. She denies physical therapy. She denies injections. She denies any recent MRI. She takes Eliquis for A fib. Claudication distance is about 1 block. Ortho Exam General General: Yes no acute distress Neurologic: Yes alert and Yes oriented x3 Spine SPINE TESTING CERVICAL THORACIC LUMBAR Musculoskeletal Strength 0=absent - 5=normal Details: Neurological exam of the lower extremities shows 5x5 power and upper extremities shows 4+ strength of left biceps all other muscle groups showed 5 power. Normal sensations across all dermatomes. No hyperreflexia. No midline or paraspinal tenderness. Coding Level of Care Code Off vis,new,level 4 Diagnoses Neurogenic juany (more content not included)... Normal [facility] Colonoscopy Reporton 024 Colonoscopy Report [facility] Medical Records Department [address] [place] [address] Colonoscopy Report MR#: [id number] Acct: [id number] Name: YASMINE MTZ Rep #: [id number] : 1955 68 From: Lester Grimaldo DO PCP: Dr. Selnia Bowser MD Status:[facility] Patient Name: Yasmine Mtz Procedure Date: 02/17/2024 2:00 PM Date of : 1955 Age: 68 Procedure: Colonoscopy Indications: Screening for colorectal malignant neoplasm Providers: Lester Grimaldo DO Referring MD: Selina Bowser Medicines: Monitored Anesthesia Care Patient Profile: This is a 68 year old female. Refer to note in patient chart for documentation of history and physical. Last Colonoscopy: date unknown. Unable to locate last colonoscopy report. Complications: No immediate complications. Procedure: Pre-Anesthesia Assessment: - Prior to the procedure, a History and Physical was performed, and patient medications and allergies were reviewed. The patient is competent. The risks and benefits of the procedure and the sedation options and risks were discussed with the patient. All questions were answered and informed consent was obtained. Patient identification and proposed procedure were verified by the physician in the pre-procedure area. Mental Status Examination: alert and oriented. Airway Examination: normal oropharyngeal airway and neck mobility. Respiratory Examination: clear to auscultation. CV Examination: normal. Prophylactic Antibiotics: The patient does not require prophylactic antibiotics. Prior Anticoagulants: The patient has taken no anticoagulant or antiplatelet agents except for NSAID medication. ASA Grade Assessment: II - A patient with mild systemic disease. After reviewing the risks and benefits, the patient was deemed in satisfactory condition to undergo the procedure. The anesthesia plan was to use monitored anesthesia care (MAC). Immediately prior to administration of medications, the patient was re-assessed for adequacy to receive sedatives. The heart rate, respiratory rate, oxygen saturations, blood pressure, adequacy of pulmonary ventilation, and response to care were monitored throughout the procedure. The physical status of the patient was re-assessed after the procedure. After I obtained informed consent, the scope was passed under direct vision. Throughout the procedure, the patient's blood pressure, pulse, and oxygen saturations were monitored continuously. The adult colonoscope was introduced through the anus and advanced to the cecum, identified by the appendiceal orifice, IC valve and transillumination. The colonoscopy was performed without difficulty. The patient tolerated the procedure well. The quality of the bowel preparation was good. The ileocecal valve, appendiceal orifice, and rectum were photographed. Scope In: 2:02:42 PM Scope Withdrawal Time 0 hours 12 minutes 48 seconds Scope Out: 2:20:17 PM Total Procedure Duration Time 0 hours 17 minutes 35 seconds Findings: Multiple small and large-mouthed diverticula were found in the recto-sigmoid colon, sigmoid colon and descending colon. Four sessile polyps were found in the rectum. The polyps were 1 to 2 mm in size. These polyps were removed with a hot snare. Resection and retrieval were complete. Verification of patient identification for the specimen was done. Estimated blood loss was minimal. An 8 mm polyp was found in the sigmoid colon. The polyp was sessile. The polyp was removed with a cold snare. Resection and retrieval were complete. Verification of patient identification for the specimen was done. Estimated blood loss was minimal. A 4 mm polyp was found in the splenic flexure. The polyp was sessile. The polyp was removed with a jumbo cold forceps. Resection and retrieval were complete. Verification of patient identification for the specimen was done. Estimated blood loss was minimal. Stool was found in the rectum, in the sigmoid colon, in the descending colon, in the transverse colon and in the cecum. Impression: - Diverticulosis in the recto-sigmoid colon, in the sigmoid colon and in the descending colon. - Four 1 to 2 mm polyps in the rectum, removed with a hot snare. Resected and retrieved. - One 8 mm polyp in the sigmoid colon, removed with a cold snare. Resected and retrieved. - One 4 mm polyp at the splenic flexure, removed with a jumbo cold forceps. Resected and retrieved. - Stool in the rectum, in the sigmoid colon, in the descending colon, in the transverse colon and in the cecum. Recommendation: - Discharge patient to home. - Resume previous diet. - Continue present medications. - Await pathology results. - Repeat colonoscopy in 3 years for surveillance. Procedure Code(s): --- Professional --- 96885, Colonoscopy, flexible; with removal of tumor(s), poly (more content not included)... Normal [facility] EGD Reporton 02-17-2024 EGD Report [facility] Medical Records Department [address] [place] [id number] EGD Report MR#: [id number] Acct: [id number] Name: YASMINE MTZ Rep #: [id number] : 1955 68 From: Lester Grimaldo DO PCP: Dr. Selina Bowser MD Status:[facility] Patient Name: Yasmine Mtz Procedure Date: 02/17/2024 1:56 PM Date of : 1955 Age: 68 Procedure: Upper GI endoscopy Indications: Epigastric abdominal pain Providers: Lester Grimaldo DO Referring MD: Selina Bowser Medicines: Monitored Anesthesia Care Patient Profile: This is a 68 year old female. Complications: No immediate complications. Procedure: Pre-Anesthesia Assessment: - Prior to the procedure, a History and Physical was performed, and patient medications and allergies were reviewed. The patient is competent. The risks and benefits of the procedure and the sedation options and risks were discussed with the patient. All questions were answered and informed consent was obtained. Patient identification and proposed procedure were verified by the physician in the pre-procedure area. Mental Status Examination: alert and oriented. Airway Examination: normal oropharyngeal airway and neck mobility. Respiratory Examination: clear to auscultation. CV Examination: normal. Prophylactic Antibiotics: The patient does not require prophylactic antibiotics. Prior Anticoagulants: The patient has taken no anticoagulant or antiplatelet agents except for NSAID medication. ASA Grade Assessment: II - A patient with mild systemic disease. After reviewing the risks and benefits, the patient was deemed in satisfactory condition to undergo the procedure. The anesthesia plan was to use monitored anesthesia care (MAC). Immediately prior to administration of medications, the patient was re-assessed for adequacy to receive sedatives. The heart rate, respiratory rate, oxygen saturations, blood pressure, adequacy of pulmonary ventilation, and response to care were monitored throughout the procedure. The physical status of the patient was re-assessed after the procedure. After obtaining informed consent, the endoscope was passed under direct vision. Throughout the procedure, the patient's blood pressure, pulse, and oxygen saturations were monitored continuously. The gastroscope was introduced through the mouth, and advanced to the second part of duodenum. The upper GI endoscopy was accomplished without difficulty. The patient tolerated the procedure well. Scope In: 1:56:53 PM Scope Out: 2:00:39 PM Total Procedure Duration Time 0 hours 3 minutes 46 seconds Findings: Grade I varices were found in the lower third of the esophagus. They were 10 mm in largest diameter. Moderate portal hypertensive gastropathy was found in the entire examined stomach. Patchy mildly erythematous mucosa without active bleeding and with no stigmata of bleeding was found in the duodenal bulb. The nasopharynx and oropharynx are abnormal. There was a 3 mm lesion seen on the epiglottis. Two non-bleeding cratered gastric ulcers with no stigmata of bleeding were found in the gastric antrum. The largest lesion was 3 mm in largest dimension. Biopsies were taken with a cold forceps for histology. Verification of patient identification for the specimen was done. Estimated blood loss was minimal. Impression: - Grade I esophageal varices. - Portal hypertensive gastropathy. - Erythematous duodenopathy. - Biopsy of ulcer Recommendation: - Discharge patient to home. - Resume previous diet. - Continue present medications. - Await pathology results. - Liver Biopsy -Workup for chronic liver disease -Referral to ENT for lesion seen on the epiglottis -Protonix 40 mg p.o. twice daily Procedure Code(s): --- Professional --- 42955, Esophagogastroduodenoscop y, flexible, transoral; diagnostic, including collection of specimen(s) by brushing or washing, when performed (separate procedure) CPT copyright 2021 [employer]. All rights reserved. The codes documented in this report are preliminary and upon datapower consultant review may be revised to meet current compliance requirements. Lester Grimaldo DO 02/17/2024 2:43:59 PM This report has been signed electronically. Number of Addenda: 0 Note Initiated On: 02/17/2024 1:56 PM 02/17/24 1444 Date Lester Grimaldo DO Cosigner Signature: Date (if indicated) CC: Dr. Selina Bowser MD; Lester Grimaldo DO Date Dictated: 02/17/24 1356 Date Transcribed: Overnight Babysitter: PREETHI Signed Normal [facility] H Pylori (initial)on 024 H Pylori (initial) ----- Patient Age/Sex Location Account Attending Physician YASMINE MTZ 68/F EN [id number] Lester Grimaldo DO Specimen: [id number] Received: 02/18/24 Status: MIROSLAVA Kim Num: [id number] Spec Type: IMMUNO Subm Dr: Lester Grimaldo, PHYSICIAN INSTITUTION [address] [address] SPECIMEN INFORMATION: Tissue Source: A- Gastric ulcer biopsy Clinical Info: Abdominal pain Specimen Number: [id number] CPT code: 75567 METHODOLOGY: Deparaffinized sections of prefer/formalin-fixed tissue or PAP/DQ stained slides are incubated with monoclonal/polyclonal antibodies/oligonucleotid e probes. Localization is made via biotin free immunoperoxidase method. Appropriate controls are performed and reacted as expected. Results on target cell population are indicated in the following table: RESULTS: ANTIBODY / CLONE RESULT Block A H Pylori (polyclonal) negative These tests were developed and their performance characteristics determined by [facility]. They may not have been cleared or approved by the U.S. Food and Drug Administration. The FDA has determined that such clearance or approval is not necessary. The above immunohistochemical/dualI SH markers are ordered and reviewed by the Pathologist. INTERPRETATION: A. Gastric ulcer, biopsy: Negative for Helicobacter pylori organisms. AM. 02/19/2024 Signed (signature on file) Dr. Gregory Bee DO 02/19/24 1324 Normal [facility] Comment on above: Performed By: #### P H.PYLORI ####[facility] [address] [facility] [place], [address] MR/POSTOP.ANEon 02-17-2024 MR/POSTOP.[facility] Medical Records Department [address] [facility] [place] [address] Anesthesia Postop Eval I 02/17/24 1430 MR#: [id number] Acct: [id number] Name: YASMINE MTZ Devika Rep #: [id number] : 1955 68 From: Josselin White PCP: Dr. Selina Bowser MD Status:REG [facility] Race: C Location: [place] [address] Anesthesia: Postop Eval I Current Vital Signs Temperature: 97.1 F Pulse Rate: 65 Blood Pressure: 86/38 Respiratory Rate: 18 Pulse Ox: 93 Assessment Airway patent: Yes Spontaneous unlabored respirations: Yes nausea: No Vomiting: No Anesthesia Complication: No Fluid Hydration Crystalloid volume administer (ml): 10 Total IV fluid infused: 10 Progress Note Anesthesia document: Postop Eval 1 completed: Yes 02/17/24 1431 Date Josselin Francisco Signature: Date CC: Signed Normal [facility] MR/[id number] 02-17-2024 MR/POSTOPAN2 [facility] Medical Records Department [address] [place] [address] Anesthesia Postop Eval II 02/17/24 1518 MR#: [id number] Acct: [id number] Name: JACOBYASMINE GUTIERREZ Devika Rep #: [id number] : 1955 68 From: Barney Steve MD PCP: Dr. Selina Bowser MD Status:REG SD Y Race: C Location: [place] [address] Anesthesia Postop Eval I Sum Postop Eval Completion status Anesthesia document: Postop Eval 1 completed: Yes Anesthesia Postop Eval I Summary Anesthesia Postop Eval I Summary: Anesthesia Postop Eval I: Assessment Summary Airway patent Yes 02/17/24 14:30 ELECTROCARDIOGRAPH OPERATOR.CSIR Spontaneous unlabored Yes 02/17/24 14:30 ELECTROCARDIOGRAPH OPERATOR.CSIR respirations Mental status nausea No 02/17/24 14:30 ELECTROCARDIOGRAPH OPERATOR.CSIR Vomiting No 02/17/24 14:30 ELECTROCARDIOGRAPH OPERATOR.CSIR Anesthesia Postop Eval I: Fluid Summary Crystalloid volume administer 10 02/17/24 14:30 ELECTROCARDIOGRAPH OPERATOR.CSIR (ml) Colloids volume administered ( ml) Blood Product volume administered (ml) Total IV fluid infused 10 02/17/24 14:30 ELECTROCARDIOGRAPH OPERATOR.CSIR Anesthesia Postop Eval I: Summary Notes Anesthesia Complication No 02/17/24 14:30 ELECTROCARDIOGRAPH OPERATOR.CSIR Anesthesia Complication Comment: Post-operative progress note Anesthesia: Postop Eval II Evaluation Mental status: Awake and Calm Pain Level: 0 nausea: No Vomiting: No Complications Anesthesia Complication: No 02/17/24 1518 Date Barney Francisco Signature: Date CC: Signed Normal [facility] Surgery Specimen Level Carrie 02-17-2024 Surgery Specimen Level IV Patient Age/Sex Location Account Attending Physician BIBIYASMINE Devika 68/F EN [id number] Lester Grimaldo DO Specimen: [id number] Received: 02/18/24 Status: MIROSLAVA Kim Num: [id number] Spec Type: COLON BX Subm Dr: Lester Grimaldo DO HEADER OPERATION: Colonoscopy with biopsies, EGD with biopsies PRE-OP DIAGNOSIS: Abdominal pain TISSUE SUBMITTED: A- Gastric ulcer biopsy, B- Duodenum biopsy, C- Cecum biopsy, D- Hepatic flexure polyp biopsy, E- Rectum polyp MICROSCOPIC DIAGNOSIS A. Gastric ulcer, biopsy: Ulceration with associated acute inflammation and fibrinoid reaction. See comment. B. Duodenum, biopsy: No pathologic change. C. Cecum, biopsy: No significant pathologic change. D. Colonic polyp at hepatic flexure, biopsy: Tubular adenoma. E. Rectal polyp, biopsy: Fragments of hyperplastic polyp. AM. 02/19/2024 COMMENT A. The results of immunohistochemistry for Helicobacter pylori will be reported separately ([id number]). MICROSCOPIC DESCRIPTION Slides are reviewed. GROSS DESCRIPTION A. Received in fixative is one container labeled with the patient's name and designated Gastric ulcer biopsy. The specimen consists of one irregular fragment of light rios soft tissue that measures 0.3 x 0.3 x 0.1 cm. The specimen is totally submitted in one cassette. B. Received in fixative is one container labeled with the patient's name and designated Duodenum biopsy. The specimen consists of two irregular fragments of light rios soft tissue that measures 0.4 x 0.2 x 0.1 cm. The specimen is totally submitted in one cassette. C. Received in fixative is one container labeled with the patient's name and designated Cecum biopsy. The specimen consists of multiple irregular fragments of light rios soft tissue that in aggregate measure 1.0 x 0.3 x 0.1 cm. The specimen is totally submitted in one cassette. D. Received in fixative is one container labeled with the patient's name and designated Hepatic flexure polyp biopsy. The specimen consists of multiple irregular fragments of Patient Age/Sex Location Account Attending Physician YASMINE MTZ 68/F SARY [id number] Lester Grimaldo DO light rios soft tissue mixed with fecal material that in aggregate measure 0.4 x 0.3 x 0.1 cm. The specimen is totally submitted in one cassette. E. Received in fixative is one container labeled with the patient's name and designated Rectum polyp. The specimen consists of multiple irregular fragments of light rios soft tissue that in aggregate measure 2.0 x 1.0 x 0.3 cm. The specimen is totally submitted in one cassette. 02/18/2024 TC:3 CPT:10347f8,47410 Patient Age/Sex Location Account Attending Physician YASMINE MTZ 68/F EN [id number] Lester Grimaldo DO Signed (signature on file) Dr. Gregory Bee DO 02/19/24 1133 [facility] Comment on above: Performed By: #### P SUIV ####[facility] [address] [place], [address] Anti-Parietal Cell AB, QNon 02-02-2024 ANTIPARIET CELL 1.4 Units Normal 0.0-20.0 [facility] Comment on above: Result Comment: Nega tive 0.0 - 20.0 Equivocal 20.1 - 24.9 Positive >24.9 Parietal Cell Antibodies are found in 90% of patients with pernicious anemia and 30% of first degree relatives with pernicious anemia. Performed By: #### L 3410.1000, L3300.1800, L101.9900, L501.2450, L3410.2400, L501.6710, L3410.0900, L500.4050 ####[facility] [address] [place], [address] Celiac Disease Profileon ENDOMYSIAL IGA Negative Normal Negative [facility] Comment on above: Performed By: #### L 3410.1000, L3300.1800, L101.9900, L501.2450, L3410.2400, L501.6710, L3410.0900, L500.4050 ####[facility] [address] [place], [address] IMMUNOGLOB A QN 134 mg/dL Normal 87-352 [facility] Comment on above: Performed By: #### L 3410.1000, L3300.1800, L101.9900, L501.2450, L3410.2400, L501.6710, L3410.0900, L500.4050 ####[facility] [address] [place], [address] tTG IGA <2 Normal 0-3 [facility] Comment on above: Result Comment: Nega tive 0 - 3 Weak Positive 4 - 10 Positive >10 Tissue Transglutaminase (tTG) has been identified as the endomysial antigen. Studies have demonstr- ated that endomysial IgA antibodies have over 99% specificity for gluten sensitive enteropathy. Performed By: #### L 3410.1000, L3300.1800, L101.9900, L501.2450, L3410.2400, L501.6710, L3410.0900, L500.4050 ####[facility] [address] [place], [place], [id number] Gastrin, Serumon 02-02-2024 GASTRIN 22 pg/mL Normal 0-115 [facility] Comment on above: Result Comment: Siem ens Immulite 2000 Immunochemiluminometric assay (ICMA) Values obtained with different assay methods or kits cannot be used interchangeably. Results cannot be interpreted as absolute evidence of the presence or absence of malignant disease. Performed By: #### L 3410.1000, L3300.1800, L101.9900, L501.2450, L3410.2400, L501.6710, L3410.0900, L500.4050 ####[facility] [address] [place], [place], [id number] Intrinsic Factor Abon 2023 INTRINS FACT AB 1.0 AU/mL Normal 0.0-1.1 [facility] Comment on above: Result Comment: Perf ormed at: [facility] [id number] Normalizer: Riaz Rayo PhD, Phone: [phone] Performed at: [facility] [id number] Normalizer: Faby Crane MD, Phone: [phone] Performed By: #### L 3410.1000, L3300.1800, L101.9900, L501.2450, L3410.2400, L501.6710, L3410.0900, L500.4050 ####[facility] [address] [place], [place], [id number] CRPon 01-28-2024 C-REACTIVE PROT 5.41 mg/L High 0.0-3.0 [facility] Comment on above: Result Comment: C-Re active Protein (CRP) provides useful information for the diagnosis, therapy and monitoring of inflammatory processes and associated diseases. For the evaluation of Relative Risk for Cardiovascular Disease, a High Sensitivity CRP (HSCRP) should be ordered. Performed By: #### L 3410.1000, L3300.1800, L101.9900, L501.2450, L3410.2400, L501.6710, L3410.0900, L500.4050 ####[facility] [address] [place], [address] Comprehensive Metabolic Prof ilon 01-28-2024 Albumin [Mass/Vol] 3.8 g/dL Normal 3.2-5.0 [facility] Comment on above: Performed By: #### L 3410.1000, L3300.1800, L101.9900, L501.2450, L3410.2400, L501.6710, L3410.0900, L500.4050 ####[facility] [address] [place], [address] Albumin/Globulin [Mass ratio] 1.0 {ratio} Normal 0.9-2.4 [facility] Comment on above: Performed By: #### L 3410.1000, L3300.1800, L101.9900, L501.2450, L3410.2400, L501.6710, L3410.0900, L500.4050 ####[facility] [address] [place], [address] ALK P 71 U/L Normal 45-117 [facility] Comment on above: Performed By: #### L 3410.1000, L3300.1800, L101.9900, L501.2450, L3410.2400, L501.6710, L3410.0900, L500.4050 ####[facility] [address] [place], [address] ALT [Catalytic activity/Vol] 23 U/L Normal 13-56 [facility] Comment on above: Performed By: #### L 3410.1000, L3300.1800, L101.9900, L501.2450, L3410.2400, L501.6710, L3410.0900, L500.4050 ####[facility] [address] [place], [address] AST [Catalytic activity/Vol] 12 U/L Low 15-37 [facility] Comment on above: Performed By: #### L 3410.1000, L3300.1800, L101.9900, L501.2450, L3410.2400, L501.6710, L3410.0900, L500.4050 ####[facility] [address] [place], [address] Bilirubin [Mass/Vol] 0.40 mg/dL Normal 0.20-1.00 [facility] Comment on above: Result Comment: For patients on eltrombopag therapy, use of Dimension [place] TBIL is not recommended. Performed By: #### L 3410.1000, L3300.1800, L101.9900, L501.2450, L3410.2400, L501.6710, L3410.0900, L500.4050 ####[facility] [address] [place], [address] BUN/CRE 27.7 RATIO High 10-20 [facility] Comment on above: Performed By: #### L 3410.1000, L3300.1800, L101.9900, L501.2450, L3410.2400, L501.6710, L3410.0900, L500.4050 ####[facility] [address] [place], [address] CA,Total 9.6 mg/dL Normal 8.5-10.1 [facility] Comment on above: Performed By: #### L 3410.1000, L3300.1800, L101.9900, L501.2450, L3410.2400, L501.6710, L3410.0900, L500.4050 ####[facility] [address] [place], [address] Chloride [Moles/Vol] 106 mmol/L Normal 98-107 [facility] Comment on above: Performed By: #### L 3410.1000, L3300.1800, L101.9900, L501.2450, L3410.2400, L501.6710, L3410.0900, L500.4050 ####[facility] [address] [place], [address] CO2 [Moles/Vol] 26.0 mmol/L Normal 21.0-32.0 [facility] Comment on above: Performed By: #### L 3410.1000, L3300.1800, L101.9900, L501.2450, L3410.2400, L501.6710, L3410.0900, L500.4050 ####[facility] [address] [place], [address] Creatinine [Mass/Vol] 1.01 mg/dL Normal 0.55-1.02 [facility] Comment on above: Result Comment: The validity of the calculated GFR GFRAA in patients over 70 years has not been determined. Clinical correlation is essential. Performed By: #### L 3410.1000, L3300.1800, L101.9900, L501.2450, L3410.2400, L501.6710, L3410.0900, L500.4050 ####[facility] [address] [place], [address] EST GFR - AA 71 mL/min Normal >60 [facility] Comment on above: Result Comment: Afri can [employer] GFR Calc Performed By: #### L 3410.1000, L3300.1800, L101.9900, L501.2450, L3410.2400, L501.6710, L3410.0900, L500.4050 ####[facility] [address] [place], [address] GAP 7 Normal 5-15 [facility] Comment on above: Performed By: #### L 3410.1000, L3300.1800, L101.9900, L501.2450, L3410.2400, L501.6710, L3410.0900, L500.4050 ####[facility] [address] [place], [address] GFR/1.73 sq M.predicted among non-blacks MDRD (S/P/Bld) [Vol rate/Area] 58 mL/min/{1.73_m2} Low >60 [facility] Comment on above: Result Comment: Non- GFR Calc Performed By: #### L 3410.1000, L3300.1800, L101.9900, L501.2450, L3410.2400, L501.6710, L3410.0900, L500.4050 ####[facility] [address] [place], [address] Globulin (S) [Mass/Vol] 3.8 g/dL Normal 2.2-4.2 [facility] Comment on above: Performed By: #### L 3410.1000, L3300.1800, L101.9900, L501.2450, L3410.2400, L501.6710, L3410.0900, L500.4050 ####[facility] [address] [place], [address] Glucose [Mass/Vol] 111 mg/dL High 74-106 [facility] Comment on above: Result Comment: Fast ing Glucose result from 100 to 125 mg/dL suggests IMPAIRED HOMEOSTASIS per A.D.A. criteria. Performed By: #### L 3410.1000, L3300.1800, L101.9900, L501.2450, L3410.2400, L501.6710, L3410.0900, L500.4050 ####[facility] [address] [place], [address] Potassium [Moles/Vol] 3.8 mmol/L Normal 3.5-5.1 [facility] Comment on above: Performed By: #### L 3410.1000, L3300.1800, L101.9900, L501.2450, L3410.2400, L501.6710, L3410.0900, L500.4050 ####[facility] [address] [place], [address] Sodium [Moles/Vol] 139 mmol/L Normal 136-145 [facility] Comment on above: Performed By: #### L 3410.1000, L3300.1800, L101.9900, L501.2450, L3410.2400, L501.6710, L3410.0900, L500.4050 ####[facility] [address] [place], [address] T PROT 7.6 g/dL Normal 6.4-8.2 [facility] Comment on above: Performed By: #### L 3410.1000, L3300.1800, L101.9900, L501.2450, L3410.2400, L501.6710, L3410.0900, L500.4050 ####[facility] [address] [place], [address] Urea nitrogen [Mass/Vol] 28 mg/dL High 7-18 [facility] Comment on above: Performed By: #### L 3410.1000, L3300.1800, L101.9900, L501.2450, L3410.2400, L501.6710, L3410.0900, L500.4050 ####[facility] [address] [place], [address] Erythrocyte Sed Rateon 01-27 SED RATE Normal 0-30 [facility] Comment on above: Result Comment: SED UNAVAILABLE Performed By: #### L 3410.1000, L3300.1800, L101.9900, L501.2450, L3410.2400, L501.6710, L3410.0900, L500.4050 ####[facility] [address] [place], [address] Gastroenterology Visit Repor ton 01-28-2024 Gastroenterology Visit Report [facility] Gastroenterology [address] [place] [address] OFFICE VISIT Date of Service: 01/28/24 MR#: [id number] Acct: [id number] Name: YASMINE MTZ Rep #: [id number] : 1955 Provider: SUE Barfield Age/Sex: 68/F Location: [facility] Status: Signed Intake Vital Signs 09/23/23 11:24 Height 5 ft 1.5 in Intake Visit Reasons: Upper abdominal pain Chief Complaint: establishment Allergies No Known Allergies Allergy (Verified 12/24/23 08:31) Have you fallen in the past year?: No Nurse's Note: OV 01.28.24 Pt here for f/u from ED for abdominal pain, nausea, vomiting, and diarrhea. Pt denies blood in stools. Ran out of pantoprazole about 3 weeks ago but does not notice a difference. Pt has had an EGD and colonoscopy years ago. [facility] Medical History Obesity Cholelithiasis Insulin resistance Recurrent hematuria UTI (urinary tract infection) Vitamin D deficiency History of shoulder fracture History of renal stone Atrial flutter, chronic Tobacco dependence Paroxysmal atrial fibrillation Hyperlipidemia Essential hypertension Chronic diastolic CHF (congestive heart failure) Gastroesophageal reflux disease Colon polyps Family history of cardiovascular disease Diverticulosis Surgical History History of open reduction and internal fixation (ORIF) procedure History of tubal ligation History of cardioversion (06/21/19) Family History Mother Diabetes Hypertension Myocardial infarction Father Hypertension Heart disease Sister Diabetes Heart disease Grandmother CVA (cerebral vascular accident) Social History household members: spouse Smoking Status: Current every day smoker tobacco type: cigarettes Tobacco: How many years used: 40 second hand exposure: Yes alcohol intake: never substance use type: does not use caffeine: Yes Type: coffee Number of servings: 3 what type of physical activity do you participate in: aerobics frequency: 3-4 times per week HPI HPI Chief Complaint: establishment Details: YASMINE MTZ, is a 68 F who presents to the office today for establishment. Patient has a PMHx of venous insufficiency, chronic back pain, aortic valve insufficiency, gallstones, afib, HTN and HLD. She was hospitalized in May and September of 2023 with abdominal pain. She followed up with general surgery who thought the etiology to be related to the passing of gallstones. She had a HIDA scan which was normal. At this time her only complaints are come gas and LUQ tingling. CT abdomen pelvis showed some mural wall thickening in the stomach and small bowel. She has had both colonoscopy and EGD before but were many years ago. She tells me she had to have surgery to remove polyps. She denies abdominal pain, heartburn, diarrhea, constipation or n/v. CT Abdomnen/pelvis 09.14.23; 1. Mild mural thickening of duodenal sweep and some loops of jejunum suggests an enteritis. Question of abnormal mural thickening of the distal stomach versus artifact of nondistention. 2. Small prominent small bowel gas may represent ileus. No evidence for mechanical bowel obstruction. 3. Chronic pancreatitis. No evidence for acute pancreatitis. 4. Gallstones. 5. Nonobstructive renal calculi bilaterally. Mildly atrophic right kidney with cortical scarring. No demonstrated ureteral calculi or hydronephrosis. 6. Colonic diverticulosis without evidence for acute diverticulitis. 7. Atherosclerosis. 8. Umbilical hernia contains fat, but no bowel. HIDA scan 06.24.23; NORMAL 99m Tc Mebrofenin hepatobiliary imaging examination. A. Visualization of the gallbladder within 60 minutes post radiopharmaceutical administration excludes acute cholecystitis with 97% certitude. (Agata et al, Nucl Med [place] Darcie Press pg. 35, 1980). B. There appears to be spontaneous contraction and refilling of the gallbladder contents during the second hour of acquisition ROS Const Constitutional: No fatigue, fever(s) or weight change ENT ENT: No difficulty swallowing Gastro GI: Positive for abdominal pain, bloating, constipation, heartburn and excessive flatus; No belching, change in bowel habits, change in stool character, coffee ground emesis, cramping, diarrhea, difficulty swallowing, feeling full early, incontinent of stools, Vomiting blood/hematemesis, Blood in stool, loose stools, Black,tarry stools, nausea/dyspepsia, pain with swallowing, vomiting or other Musc Musculoskeletal: Positive for back pain, numbness, stiffness, tingling and leg pain at night; No joint pain Skin Skin: No yellowing of the eye or itchy eyes Neuro Neurolo (more content not included)... Normal [facility] Lipaseon 01-28-2024 Lipase [Catalytic activity/Vol] 30 U/L Normal 13-75 [facility] Comment on above: Result Comment: Jaspal cordoba note: LIPASE revised reference range effective 22. New Lipase methodology. Expected to produce lower values than the previous assay method. NEW Reference Range: 13 - 75 U/L Performed By: #### L 3410.1000, L3300.1800, L101.9900, L501.2450, L3410.2400, L501.6710, L3410.0900, L500.4050 ####[facility] [id number], [place], [address] MR/Juancarlos 12-24-2023 /[facility] [address] [place] [address] OFFICE VISIT Date of Service: 12/24/23 MR#: [id number] Acct: [id number] Name: YASMINE MTZ Rep #: [id number] : 1955 Provider: SUE Soliz Age/Sex: 68/F Location: [facility] Status: Signed Intake Vital Signs 09/23/23 11:24 12/24/23 08:29 Height 5 ft 1.5 in Weight: 194 lb BP 140/68 H Blood Pressure Location Lt brachial Position Sitting Respiration 16 Pulse 72 Pulse Source Monitor Temp 98.4 F Temp Source Temporal Pulse Oximetry (%) 97 Oxygen Delivery Method room air Intake Visit Reasons: DISCUSS RESULTS Chief Complaint: discuss test Is patient in pain?: No Allergies No Known Allergies Allergy (Verified 12/24/23 08:31) Medications ???Medication ???Instructions ???Recorded ???Confirmed ???Type multivit with minerals-iron 18 1 ea PO DAILY 10/13/15 12/24/23 History mg-folic ac 400 mcg-vit K 25 mcg tablet (Multi-Day Plus Minerals) apixaban 5 mg tablet (Eliquis) 5 mg PO BID #60 tabs 01/13/23 12/24/23 Rx cholecalciferol (vitamin D3) 50 50 mcg PO DAILY 02/03/23 12/24/23 History mcg (2,000 unit) tablet (Vitamin D3) furosemide 40 mg tablet 40 mg PO DAILY #90 tabs 03/17/23 12/24/23 Rx losartan 100 mg tablet 100 mg PO DAILY #90 tabs 03/17/23 12/24/23 Rx metoprolol succinate 200 mg 200 mg PO DAILY #90 tabs 03/17/23 12/24/23 Rx tablet,extended release 24 hr magnesium 200 mg tablet 120 mg PO DAILY 09/14/23 12/24/23 History pantoprazole 40 mg tablet,delayed 40 mg PO DAILY #30 tabs 09/15/23 12/24/23 Rx release (Protonix) Is last menstrual period known: No Post menopausal: Yes Patient : No Have you fallen in the past year?: No PFSH Medical History Obesity Cholelithiasis Insulin resistance Recurrent hematuria UTI (urinary tract infection) Vitamin D deficiency History of shoulder fracture History of renal stone Atrial flutter, chronic Tobacco dependence Paroxysmal atrial fibrillation Hyperlipidemia Essential hypertension Chronic diastolic CHF (congestive heart failure) Gastroesophageal reflux disease Colon polyps Family history of cardiovascular disease Diverticulosis Surgical History History of open reduction and internal fixation (ORIF) procedure History of tubal ligation History of cardioversion (06/21/19) Family History Mother Diabetes Hypertension Myocardial infarction Father Hypertension Heart disease Sister Diabetes Heart disease Grandmother CVA (cerebral vascular accident) Social History household members: spouse Smoking Status: Current every day smoker tobacco type: cigarettes Tobacco: How many years used: 40 second hand exposure: Yes alcohol intake: never substance use type: does not use caffeine: Yes Type: coffee Number of servings: 3 what type of physical activity do you participate in: aerobics frequency: 3-4 times per week HPI HPI HPI: YASMINE MTZ, is a 68 F who presents to the office today for follow-up after completing all the testing ordered at her last appointment. She does report that since her appointment in November, she has had improvement in her GI related symptoms. She does have an upcoming appointment with GI in January. She has not had any recurrence of her episodes of acute abdominal pain. She has not had any difficulties eating. Recall that she had had an ultrasound study which suggested significant celiac axis and SMA stenosis. She completed CTA on December 08, 2023 which showed only mild stenosis at the origin of the celiac axis and minimal calcific disease at the origin of the SMA without any significant stenosis. She also completed a lower extremity venous study on 12/09/2023 which which showed reflux in the right GSV below the knee and ASV below the knee and reflux in the left GSV below the knee. She completed a carotid duplex on 12/09/2023 which showed mild stenosis less than 50% in the bilateral internal carotid arteries and showed bilateral vertebral arteries to be patent with antegrade flow. Fortunately she has not had any recurrence of the left arm paresthesias or vague left eye vision changes since her last office visit. ROS General General: Yes weight change; No appetite, fatigue, colon cancer, breast cancer or weakness HEENT HEENT: No difficulty swallowing, eye injury, eye surgery, swollen glands or hoarseness Endo Endocrine: Yes diabetes mellitus; No thyroid disease, thyroid cancer, Hair loss, heat intolerance or cold intolerance Skin Skin: No rash or changing moles Musc Musculoskeleta (more content not included)... Normal [facility] CREATININE FINGERSTICKon Creatinine [Mass/Vol] 1.1 mg/dL High 0.55-1.02 [facility] Comment on above: Performed By: #### L 9100.0200 ####[facility] [id number] [place], [address] GFR/1.73 sq M.predicted among non-blacks MDRD (S/P/Bld) [Vol rate/Area] 51.0000 mL/min/{1.73_m2} Low >60 [facility] Comment on above: Performed By: #### L 9100.0200 ####[facility] [id number] [place], [address] CTA Abd/Pelvis W/WO Contrast on 12-08-2023 CTA Abd/Pelvis W/WO Contrast [facility] Imaging Services [address] [place], [place] [address] CTA Abd/Pelvis W/WO Contrast MR#: [id number] Acct: [id number] Name: YASMINE MTZ Rep #: [id number] : 1955 F 67 From: Karri price MD PCP: Dr. Selina Bowser MD Status: [facility] Study: CTA Abd/Pelvis W/WO Contrast Date of Exam: Exam# [id number] Ordering Dr: Leslie Marquez [id number] INDICATION: mesenteric artery stenosis EXAMINATION: CTA abdomen and pelvis - TECHNIQUE: Routine abdomen and pelvis CT angiogram protocol was performed with IV contrast. MIP images provided. The protocol utilizes one or more of the following dose reduction techniques: automated exposure control, adjustment of mA and/or kV according to patient size,and/or use of iterative reconstruction technique. IV Contrast dosage and agent: 100 mL Isovue-370 RADIATION DOSAGE (If Supplied By Facility): CTDIvol = ( 28.81 ) mGy, DLP = ( 1061.96 ) mGycm COMPARISON: Prior study dated: 11/06/2022 FINDINGS: Lung bases: Normal. Liver: Normal. No bile ductal dilatation. Gallbladder: Normal. Spleen: Normal. Adrenal gland: Normal. Kidneys: Mild right renal atrophy. No hydronephrosis. There is a left mid to upper pole calculus measuring 0.7 cm, 8 cm from the posterior axillary line. This measures 740 Hounsfield units. There are at least 4 additional left upper pole calculi. The largest measures 1.1 cm. There are 2 right lower pole calculi measuring up to 0.8 cm. Simple renal cysts are seen. No specific follow-up recommended. Pancreas:Normal. Bowel gas pattern: The stomach is unremarkable. Normal caliber small bowel. Colonic diverticulosis without diverticulitis. No bowel wall thickening. Appendix: Normal. Free air: None. Free fluid: None. Pelvis: Pelvic organs: No mass lesion noted. Bone survey: Mild degenerative changes of the spine. No acute abnormality. Adenopathy: No significant pathologic adenopathy detected. Other: Complex fat-containing umbilical ventral abdominal wall hernia. Vascular: Normal caliber aorta with moderate atherosclerotic calcific and noncalcific disease. Mild stenosis at the origin of the celiac axis with the vessel otherwise patent. There is minimal calcific disease at the origin of the superior mesenteric artery without significant stenosis. The vessel is patent. Replaced right hepatic artery noted. Single bilateral renal arteries are seen with mild narrowing of the right. The inferior mesenteric artery is patent. There is no aneurysm or dissection. CT/CTA Abd/Pelvis W/WO Contrast IMPRESSION: Moderate atherosclerotic disease. Mild stenosis at the origin of the celiac axis. Minimal calcific disease at the origin of the superior mesenteric artery without significant stenosis. Patent vessels. Nonobstructing renal calculi noted. Electronically Signed: Karri Khan MD at 22:15 EDT , CC: SUE Soliz; Dr. Selina Bowser MD Overnight Babysitter: Signed Normal [facility] Carotid Duplex Ultrasoundon 12-08-2023 Carotid Duplex Ultrasound [facility] Cardiovascular Services [facility] [place] [address] Carotid Duplex Ultrasound 12/08/23 1401 MR#: [id number] Acct: [id number] Name: YASMINE MTZ Rep #: [id number] : 1955 67 From: Jose Miguel Barber MD Attending Dr: SUE Soliz Status: REG CLI Ordering Dr: Leslie Marquez Date: 12/08/23 Location: [facility] Sex: F C Admitted: Reason For Study: carotid artery disease Rt. Velocities/BP Lt. Velocities/BP Prox CCA 96.0/17.9 cm/sec. Prox CCA 93.7/15.1 cm/sec. Mid CCA 81.7/19.0 cm/sec. Mid CCA 92.5/17.6 cm/sec. Dist CCA 75.1/19.0 cm/sec. Dist CCA 85.1/17.6 cm/sec. Prox ICA 91.2/23.7 cm/sec. Prox ICA 75.3/26.2 cm/sec. Mid ICA 85.1/26.2 cm/sec. Mid ICA 82.6/26.2 cm/sec. Dist ICA 86.3/29.8 cm/sec. Dist ICA 72.8/22.5 cm/sec. Rt. ICA/CCA = 1.1. Lt. ICA/CCA = .9. Prox ECA 112.0/6.0 cm/sec. Prox ECA 141.2/16.0 cm/sec. Rt. Vert. 48.3/10.2 cm/sec. Lt. Vert. 42.1/12.6 cm/sec. Right Extracranial There is heterogeneous, smooth atherosclerotic plaque noted in the right common carotid artery. There is heterogeneous, irregular atherosclerotic plaque noted in the right internal carotid artery. There is homogeneous, smooth atherosclerotic plaque noted in the right external carotid artery. Antegrade flow is noted in the right vertebral artery. Left Extracranial There is heterogeneous, irregular atherosclerotic plaque noted in the left common carotid artery. There is heterogeneous, irregular atherosclerotic plaque noted in the left internal carotid artery. There is heterogeneous, irregular atherosclerotic plaque noted in the left external carotid artery. Antegrade flow is noted in the left vertebral artery. Procedure Carotid Duplex 76730. This is a Carotid Duplex examination using B-mode, color flow and specral Doppler. The exam was diagnostic. Exam performed in department. VL/Carotid Duplex Ultrasound Interpretation Summary Mild (<50%) stenosis right extracranial internal carotid. Mild (<50%) stenosis left extracranial internal carotid. Patent and antegrade vertebrals bilaterally. ___ Ordering Physician: Leslie Marquez Performed By: Clyde Howell RVT 12/09/23 1528 Date Jose Miguel Barber MD CC: SUE Soliz; Dr. Selina Bowser MD Date Dictated: 12/08/23 1401 Date Transcribed: 12/09/23 1528 Overnight Babysitter: Signed Normal [facility] Venous Duplex US - Balje[facility] 12-08-2023 Venous Duplex US - Baljeet [facility] Cardiovascular Services [address] [place] [address] Venous Duplex US - Baljeet Extrem 12/08/23 1420 MR#: [id number] Acct: [id number] Name: YASMINE MTZ Rep #: [id number] : 1955 67 From: Jose Miguel Barber MD Attending Dr: SUE Soliz Status: REG CLI Ordering Dr: Leslie Marquez Date: 12/08/23 Location: [facility] Sex: F C Admitted: Reason For Study: pain RIGHT LEFT CFV is compressible, spontaneous, phasic, CFV is compressible, spontaneous, phasic, competent and demonstrates normal competent, and demonstrates normal augmentation. augmentation. FV is compressible, spontaneous, phasic, FV is compressible, spontaneous, phasic, competent and demonstrates normal competent and demonstrates normal augmentation. augmentation. POP V is compressible, spontaneous, phasic, POP V is compressible, spontaneous, phasic, competent and demonstrates normal competent and demonstrates normal augmentation. augmentation. T/P Trunk is compressible. T/P Trunk is compressible. PTV is compressible. PTV is compressible. RT PerV is compressible. LT PerV is compressible. SFJ is competent and measures .52 cm. SFJ is competent and measures .61 cm. GSV proximal thigh measures .51 x .55 cm. GSV proximal thigh measures .63 x .65 cm. GSV at knee measures .37 x .35 cm. GSV at knee measures .4 x .36 cm. GSV above knee is competent. GSV above knee is competent. GSV below knee is INCOMPETENT for greater GSV below knee is INCOMPETENT for greater than 0.5 seconds. than 0.5 seconds. SSV proximal calf is competent and SSV proximal calf is competent and measures .23 x .27 cm. measures .2 x .23 cm. ASV at knee is INCOMPETENT for greater than 0.5 seconds and measures .17 x .19 cm. Procedure This is a venous duplex using B-mode, color flow and spectral Doppler. Exam performed in department. The exam was diagnostic. VL/Venous Duplex US - Baljeet Extrem Interpretation Summary Deep veins of the bilateral lower extremities are patent and compressible segmentally. There is no evidence of bilateral lower extremity deep vein thrombosis. The bilateral great saphenous veins appear patent and compressible segmentally. Positive for reflux in the right great saphenous vein below the knee, accessory saphenous vein below the knee. Positive for reflux in the left great saphenous vein below the knee. ___ Ordering Physician: Leslie Marquez Performed By: Clyde Howell RVT 12/09/23 1526 Date Jose Miguel Barber MD CC: SUE Soliz; Dr. Selina Bowser MD Date Dictated: 12/08/23 1420 Date Transcribed: 12/09/23 1526 Overnight Babysitter: Signed Normal [facility] MR/Juancarlos 11-19-2023 [facility] [address] [place] [address] OFFICE VISIT Date of Service: 11/19/23 MR#: [id number] Acct: [id number] Name: YASMINE MTZ Rep #: [id number] : 1955 Provider: SUE Soliz Age/Sex: 67/F Location: [facility] Status: Signed Intake Vital Signs 09/23/23 11:24 11/19/23 10:38 Height 5 ft 1.5 in Weight: 186 lb 186 lb BMI 34.5 BP 110/72 129/68 H Blood Pressure Location Rt brachial Lt brachial Position Sitting Sitting Respiration 16 16 Pulse 72 78 Pulse Source Monitor Monitor Temp 98.4 F 98.6 F Temp Source Temporal Temporal Pulse Oximetry (%) 94 96 Oxygen Delivery Method room air room air Intake Visit Reasons: CONSULT-VASCULAR DISORDER OF INSTINE Chief Complaint: establish care Is patient in pain?: Yes Allergies No Known Allergies Allergy (Verified 11/19/23 10:39) Medications ???Medication ???Instructions ???Recorded ???Confirmed ???Type multivit with minerals-iron 18 1 ea PO DAILY 10/13/15 11/19/23 History mg-folic ac 400 mcg-vit K 25 mcg tablet (Multi-Day Plus Minerals) apixaban 5 mg tablet (Eliquis) 5 mg PO BID #60 tabs 01/13/23 11/19/23 Rx cholecalciferol (vitamin D3) 50 50 mcg PO DAILY 02/03/23 11/19/23 History mcg (2,000 unit) tablet (Vitamin D3) furosemide 40 mg tablet 40 mg PO DAILY #90 tabs 03/17/23 11/19/23 Rx losartan 100 mg tablet 100 mg PO DAILY #90 tabs 03/17/23 11/19/23 Rx metoprolol succinate 200 mg 200 mg PO DAILY #90 tabs 03/17/23 11/19/23 Rx tablet,extended release 24 hr magnesium 200 mg tablet 120 mg PO DAILY 09/14/23 11/19/23 History pantoprazole 40 mg tablet,delayed 40 mg PO DAILY #30 tabs 09/15/23 11/19/23 Rx release (Protonix) Have you fallen in the past year?: No PFSH Medical History Obesity Cholelithiasis Insulin resistance Recurrent hematuria UTI (urinary tract infection) Vitamin D deficiency History of shoulder fracture History of renal stone Atrial flutter, chronic Tobacco dependence Paroxysmal atrial fibrillation Hyperlipidemia Essential hypertension Chronic diastolic CHF (congestive heart failure) Gastroesophageal reflux disease Colon polyps Family history of cardiovascular disease Diverticulosis Surgical History History of open reduction and internal fixation (ORIF) procedure History of tubal ligation History of cardioversion (06/21/19) Family History Mother Diabetes Hypertension Myocardial infarction Father Hypertension Heart disease Sister Diabetes Heart disease Grandmother CVA (cerebral vascular accident) Social History household members: spouse Smoking Status: Current every day smoker tobacco type: cigarettes Tobacco: How many years used: 40 second hand exposure: Yes alcohol intake: never substance use type: does not use caffeine: Yes Type: coffee Number of servings: 3 what type of physical activity do you participate in: aerobics frequency: 3-4 times per week HPI HPI HPI: YASMINE MTZ, is a 67 F who presents to the office today with multiple concerns including leg pain, abdominal pain, and reported history of TIAs. She was referred to our office by her PCP Dr. Bowser for evaluation for chronic mesenteric ischemia. She has had 2-3 episodes of acute abdominal pain over the last year. In Apr 2023, had some vague abdominal pain with loose stools, nausea, and anorexia which resolved without intervention within about 5-7 days. Then in May 2023, presented to the ER with recurrence of those symptoms plus more intense RUQ pain. She had workup which showed cholelithiasis without any evidence of cholecystitis. Following discharge, her acute pain did resolve but she had some persistent bloating a few more episodes of loose stools. In September 2023, she presented to the ER with acute LUQ pain that had been intermittently present for 1 week but then became more constant. It was associated with nausea, vomiting, and diarrhea. Workup revealed possible enteritis, chronic pancreatitis (no evidence of acute pancreatitis), cholelithiasis (no evidence of acute cholecystitis), and also revealed mesenteric vessel calcifications. Her pain resolved within 24 hours of admission. She saw her PCP who ordered abdominal ultrasound to evaluate for mesenteric ischemia. Ultrasound suggested >70% stenosis Celiac axis and SMA, normal DEBBIE. She has not had any further recurrence of acute abdominal pain. At present, she states she mostly deals with bloating and a lot of gassiness. She has some discomfort with eating, but not enough to prevent her from eating. She states she eats (more content not included)... Normal [facility] Absolute lymphocyte countOrd ered By: Marguerite Cheng on 09-15-2023 Lymphocytes Auto (Unsp spec) [#/Vol] 3.07 10*3/uL 0.83-4.51 [facility] Automated lymphocyte count a s percentage of total leukocytesOrdered By: Marguerite Cheng on 09-15-2023 Lymphocytes/100 WBC Auto (Unsp spec) 35.5 % 19-41 [facility] Basophil percentageOrdered B y: Marguerite Cheng on 09-15-2023 Basophil percentage 3.8 mg/dL 2.5-4.9 [facility] Basophils/100 WBC (Bld) 0.9 % 0-1 [facility] Bilirubin [Mass/Vol] 0.30 mg/dL 0.20-1.00 [facility] Comment on above: For patients on eltr ombopag therapy, use of Dimension [place] TBIL is not recommended. Chloride [Moles/Vol] 105 mmol/L 98-107 [facility] Eosinophils/100 WBC (Bld) 2.4 % 0-5 [facility] Glucose [Mass/Vol] 84 mg/dL 74-106 [facility] Hemoglobin (Bld) [Mass/Vol] 14.3 g/dL 12.0-15.0 [facility] Monocytes/100 WBC (Bld) 8.2 % 0-10 [facility] Neutrophils (Bld) [#/Vol] 4.6 10*3/uL 2.0-7.7 [facility] Neutrophils/100 WBC (Bld) 52.8 % 47-70 [facility] Potassium [Moles/Vol] 4.2 mmol/L 3.5-5.1 [facility] Protein [Mass/Vol] 6.3 g/dL 6.4-8.2 [facility] Sodium [Moles/Vol] 136 mmol/L 136-145 [facility] WBC (Bld) [#/Vol] 8.7 10*3/uL 4.4-11.0 [facility] Determination of erythrocyte mean corpuscular volume (MCV)Ordered By: Marguerite Cheng on 09-15-2023 MCV (RBC) [Entitic vol] 87.4 fL 81-99 [facility] Erythrocyte distribution wid th ratioOrdered By: Marguerite Cheng on 09-15-2023 Erythrocyte distribution width (RBC) [Ratio] 15.1 % 11.6-14.6 [facility] Erythrocyte distribution wid th standard deviationOrdered By: Marguerite Cheng on 09-15-2023 Erythrocyte distribution width (RBC) [Entitic vol] 48.4 fL 35.1-43.9 [facility] Hematocrit Auto (Bld) [Volum e fraction]Ordered By: Marguerite Cheng on 09-15-2023 Hematocrit (Bld) [Volume fraction] 44.5 % 37-47 [facility] Immature granulocytes/100 WB C Auto (Bld)Ordered By: Marguerite Cheng on 09-15-2023 Immature granulocytes/100 WBC (Bld) 0.200 % 0.0-0.9 [facility] Comment on above: IG% - Immature Granu locytes (promyelocytes, myelocytes and metamyelocytes) > 1% indicates that a LEFT SHIFT is Present. Laboratory - Chemistry and C hemistry - challengeOrdered By: Marguerite Cheng on 09-15-2023 Albumin/Globulin [Mass ratio] 1.0 {ratio} 0.9-2.4 [facility] ALP [Catalytic activity/Vol] 60 U/L 45-117 [facility] ALT [Catalytic activity/Vol] 27 U/L 13-56 [facility] CO2 [Moles/Vol] 26.0 mmol/L 21.0-32.0 [facility] Globulin (S) [Mass/Vol] 3.2 g/dL 2.2-4.2 [facility] Magnesium [Mass/Vol] 2.1 mg/dL 1.6-2.6 [facility] Urea nitrogen/Creatinine [Mass ratio] 17.9 mg/mg 10-20 [facility] Laboratory - Hematology and Cell countsOrdered By: Marguerite Cheng on 09-15-2023 MCH (RBC) [Entitic mass] 28.1 pg 27.0-32.0 [facility] MCHC (RBC) [Mass/Vol] 32.1 g/dL 32-36 [facility] Nucleated RBC/100 WBC (Bld) [Ratio] 0 % 0-5 [facility] Platelet mean volume (Bld) [Entitic vol] 12.5 fL 6.2-12.0 [facility] Platelets (Bld) [#/Vol] 210 10*3/uL 150-450 [facility] No Panel InformationOrdered By: Marguerite Cheng on 09-15-2023 Estimated Creatinine Clearance Calc 68.75 ml/min [facility] Estimated GFR (MDRD) Amer 113 mL/min >60 [facility] Comment on above: GFR Calc Estimated GFR (MDRD) Non-Af Amer 93 mL/min >60 [facility] Comment on above: Non- GFR Calc RBC Auto (Bld) [#/Vol]Ordere d By: Marguerite Cheng on 09-15-2023 RBC (Bld) [#/Vol] 5.09 10*6/uL 4.2-5.4 [facility] Serum or plasma calcium justen urement (mass/volume)Ordered By: Marguerite Cheng on 09-15-2023 Calcium [Mass/Vol] 8.9 mg/dL 8.5-10.1 [facility] Serum or plasma creatinine m easurement (mass/volume)Ordered By: Marguerite Cheng on 09-15-2023 Creatinine [Mass/Vol] 0.67 mg/dL 0.55-1.02 [facility] Comment on above: The validity of the calculated GFR & GFRAA in patients over 70 years has not been determined. Clinical correlation is essential. Serum or plasma urea nitroge n measurement (mass/volume)Ordered By: Marguerite Cheng on 09-15-2023 Urea nitrogen [Mass/Vol] 12 mg/dL 7-18 [facility] Thin prep Papanicolaou smear with manual screeningOrdered By: Marguerite Cheng on 09-15-2023 Thin prep Papanicolaou smear with manual screening 3.1 g/dL 3.2-5.0 [facility] Thin prep Papanicolaou smear with manual screening 14 U/L 15-37 [facility] Thin prep Papanicolaou smear with manual screening 5 5-15 [facility] Absolute lymphocyte countOrd ered By: Rashaad Rooney on 09-14-2023 Lymphocytes Auto (Unsp spec) [#/Vol] 4.19 10*3/uL 0.83-4.51 [facility] Automated lymphocyte count a s percentage of total leukocytesOrdered By: Rashaad Rooney on 09-14-2023 Lymphocytes/100 WBC Auto (Unsp spec) 30.1 % 19-41 [facility] Basophil percentageOrdered B y: Rashaad Rooney on 09-14-2023 Basophil percentage 5-10 SEEN /hpf 0-5 [facility] Basophils/100 WBC (Bld) 0.9 % 0-1 [facility] Bilirubin [Mass/Vol] 0.30 mg/dL 0.20-1.00 [facility] Comment on above: For patients on eltr ombopag therapy, use of Dimension [place] TBIL is not recommended. Chloride [Moles/Vol] 106 mmol/L 98-107 [facility] Eosinophils/100 WBC (Bld) 2.2 % 0-5 [facility] Glucose [Mass/Vol] 122 mg/dL 74-106 [facility] Comment on above: Fasting Glucose resu lt from 100 to 125 mg/dL suggests IMPAIRED HOMEOSTASIS per A.D.A. criteria. Hemoglobin (Bld) [Mass/Vol] 15.8 g/dL 12.0-15.0 [facility] Monocytes/100 WBC (Bld) 7.8 % 0-10 [facility] Neutrophils (Bld) [#/Vol] 8.2 10*3/uL 2.0-7.7 [facility] Neutrophils/100 WBC (Bld) 58.7 % 47-70 [facility] Potassium [Moles/Vol] 3.9 mmol/L 3.5-5.1 [facility] Protein [Mass/Vol] 6.9 g/dL 6.4-8.2 [facility] Sodium [Moles/Vol] 138 mmol/L 136-145 [facility] WBC (Bld) [#/Vol] 13.9 10*3/uL 4.4-11.0 [facility] Bilirubin Test strip Ql (U)O rdered By: Rashaad Rooney on 09-14-2023 Bilirubin Ql (U) Negative Negative [facility] Calcium oxalate crystals det ection in urine sediment by light microscopyOrdered By: Rashaad Rooney on 09-14-2023 Calcium oxalate crystals LM Ql (Urine sed) 1+ /hpf [facility] Culture, urineOrdered By: Nanette Altman on 09-14-2023 Bacteria identified Cx Nom (U) Positive [facility] Determination of erythrocyte mean corpuscular volume (MCV)Ordered By: Rashaad Rooney on 09-14-2023 MCV (RBC) [Entitic vol] 86.2 fL 81-99 [facility] Erythrocyte distribution wid th ratioOrdered By: Rashaad Rooney on 09-14-2023 Erythrocyte distribution width (RBC) [Ratio] 15.2 % 11.6-14.6 [facility] Erythrocyte distribution wid th standard deviationOrdered By: Rashaad Rooney on 09-14-2023 Erythrocyte distribution width (RBC) [Entitic vol] 47.8 fL 35.1-43.9 [facility] Hematocrit Auto (Bld) [Volum e fraction]Ordered By: Rashaad Rooney on 09-14-2023 Hematocrit (Bld) [Volume fraction] 48.7 % 37-47 [facility] Hyaline casts LM.LPF (Urine sed) [#/Area]Ordered By: Rashaad Rooney on 09-14-2023 Hyaline casts (Urine sed) [#/Area] 0 /[LPF] 0-5 [facility] Immature granulocytes/100 WB C Auto (Bld)Ordered By: Rashaad Rooney on 09-14-2023 Immature granulocytes/100 WBC (Bld) 0.300 % 0.0-0.9 [facility] Comment on above: IG% - Immature Granu locytes (promyelocytes, myelocytes and metamyelocytes) > 1% indicates that a LEFT SHIFT is Present. Ketones Test strip Ql (U)Ord ered By: Rashaad Rooney on 09-14-2023 Ketones Ql (U) Negative Negative [facility] Laboratory - Chemistry and C hemistry - challengeOrdered By: Rashaad Rooney on 09-14-2023 Albumin/Globulin [Mass ratio] 1.0 {ratio} 0.9-2.4 [facility] ALP [Catalytic activity/Vol] 65 U/L 45-117 [facility] ALT [Catalytic activity/Vol] 24 U/L 13-56 [facility] CO2 [Moles/Vol] 25.0 mmol/L 21.0-32.0 [facility] Globulin (S) [Mass/Vol] 3.4 g/dL 2.2-4.2 [facility] Lipase [Catalytic activity/Vol] 28 U/L 13-75 [facility] Comment on above: Please note:LIPASE r evised reference range effective 22. New Lipase methodology. Expected to produce lower values than the previous assay method. NEW Reference Range: 13 - 75 U/L Urea nitrogen/Creatinine [Mass ratio] 24.4 mg/mg 10-20 [facility] Laboratory - Hematology and Cell countsOrdered By: Rashaad Rooney on 09-14-2023 MCH (RBC) [Entitic mass] 28.0 pg 27.0-32.0 [facility] MCHC (RBC) [Mass/Vol] 32.4 g/dL 32-36 [facility] Nucleated RBC/100 WBC (Bld) [Ratio] 0 % 0-5 [facility] Platelet mean volume (Bld) [Entitic vol] 12.3 fL 6.2-12.0 [facility] Platelets (Bld) [#/Vol] 214 10*3/uL 150-450 [facility] Mucus LM Ql (Urine sed)Order ed By: Rashaad Rooney on 09-14-2023 Mucus Ql (Urine sed) 1+ /hpf [facility] Nitrite Test strip Ql (U)Ord ered By: Rashaad Rooney on 09-14-2023 Nitrite Ql (U) Negative Negative [facility] No Panel InformationOrdered By: Rashaad Rooney on 09-14-2023 Urine RBC 10-25 SEEN /hpf 0-5 [facility] Estimated Creatinine Clearance Calc 68.76 ml/min [facility] Estimated GFR (MDRD) Amer 90 mL/min >60 [facility] Comment on above: GFR Calc Estimated GFR (MDRD) Non-Af Amer 74 mL/min >60 [facility] Comment on above: Non- GFR Calc Troponin I High Sensitivity 5 pg/mL 3.0-54.0 [facility] Comment on above: Please Note: New [place]ence t Units and Gender Specific Reference Ranges. For more information see Policy Stat Procedure [place] High Sensitivity Troponin (TNIH) and attachments. Protein Test strip Ql (U)Ord ered By: Rashaad Rooney on 09-14-2023 Protein Ql (U) 15 mg/dl Negative [facility] RBC Auto (Bld) [#/Vol]Ordere d By: Rashaad Rooney on 09-14-2023 RBC (Bld) [#/Vol] 5.65 10*6/uL 4.2-5.4 [facility] Serum or plasma calcium justen urement (mass/volume)Ordered By: Rashaad Rooney on 09-14-2023 Calcium [Mass/Vol] 9.3 mg/dL 8.5-10.1 [facility] Serum or plasma creatinine m easurement (mass/volume)Ordered By: Rashaad Rooney on 09-14-2023 Creatinine [Mass/Vol] 0.82 mg/dL 0.55-1.02 [facility] Comment on above: The validity of the calculated GFR & GFRAA in patients over 70 years has not been determined. Clinical correlation is essential. Serum or plasma urea nitroge n measurement (mass/volume)Ordered By: Rashaad Rooney on 09-14-2023 Urea nitrogen [Mass/Vol] 20 mg/dL 7-18 [facility] Serum procalcitonin measurem entOrdered By: Meli Altman on 09-14-2023 Procalcitonin [Mass/Vol] ng/mL 0.00-0.09 [facility] Comment on above: A procalcitonin (PCT ) level above 2.0 ng/mL on the first day of ICU admission is associated with a high risk for progression to severe sepsis and/or septic shock. A PCT level below 0.5 ng/mL on the first day of ICU admission is associated with a low risk for progression to severe and/or septic shock. Note: Concentrations <0.5 ng/mL do not exclude an infection on account of localized infections (without systemic signs) which can be associated with such low concentrations, or a systemic infection in its initial stages (<6 hours). Furthermore, increased procalcitonin can occur without infection. PCT concentrations between 0.5 and 2.0 ng/mL should be interpreted taking into account the patient's history. It is recommended to retest PCT within 6-24 hours if any concentrations <2 ng/mL are obtained. Squamous epithelial cells de tection in urine sediment by light microscopyOrdered By: Rashaad Rooney on 09-14-2023 Epithelial cells.squamous LM Ql (Urine sed) 5-10 SEEN /hpf 5-10 [facility] Thin prep Papanicolaou smear with manual screeningOrdered By: Rashaad Rooney on 09-14-2023 Thin prep Papanicolaou smear with manual screening 3.5 g/dL 3.2-5.0 [facility] Thin prep Papanicolaou smear with manual screening 11 U/L 15-37 [facility] Thin prep Papanicolaou smear with manual screening 7 5-15 [facility] Urine blood detectionOrdered By: Rashaad Rooney on 09-14-2023 RBC Ql (U) 250 /ul Negative [facility] Urine clarityOrdered By: Jie Rooney on 09-14-2023 Clarity (U) Clear Clear [facility] Urine color determinationOrd ered By: Rashaad Rooney on 09-14-2023 Color (U) Yellow Yellow [facility] Urine glucose detectionOrder ed By: Rashaad Rooney on 09-14-2023 Glucose Ql (U) Normal mg/dl Normal [facility] Urine leukocyte esterase det ection by dipstickOrdered By: Rashaad Rooney on 09-14-2023 Leukocyte esterase Test strip Ql (U) 500 /ul Negative [facility] Urine pHOrdered By: Rashaad whiteside on 09-14-2023 pH (U) 5.0 [pH] 5.0 - 8.0 [facility] Urine sediment bacteria coun t by microscopy (number/high power field)Ordered By: Rashaad Rooney on 09-14-2023 Bacteria LM.HPF (Urine sed) [#/Area] 1 /[HPF] None Seen [facility] Urine specific gravity measu rementOrdered By: Rashaad Rooney on 09-14-2023 Specific gravity (U) [Rel density] 1.020 1.002-1.03 0 [facility] Urine urobilinogen measureme ntOrdered By: Rashaad Rooney on 09-14-2023 Urobilinogen Ql (U) Normal mg/dl Normal [facility] Absolute lymphocyte countOrd ered By: Selina Bowser on 05-27-2023 Lymphocytes Auto (Unsp spec) [#/Vol] 3.37 10*3/uL 0.83-4.51 [facility] Automated lymphocyte count a s percentage of total leukocytesOrdered By: Selina Bowser on 05-27-2023 Lymphocytes/100 WBC Auto (Unsp spec) 20.8 % 19-41 [facility] Basophil percentageOrdered B y: Selina Bowser on 05-27-2023 Basophils/100 WBC (Bld) 0.8 % 0-1 [facility] Bilirubin [Mass/Vol] 0.40 mg/dL 0.20-1.00 [facility] Comment on above: For patients on eltr ombopag therapy, use of Dimension [place] TBIL is not recommended. Chloride [Moles/Vol] 109 mmol/L 98-107 [facility] Eosinophils/100 WBC (Bld) 2.2 % 0-5 [facility] Glucose [Mass/Vol] 102 mg/dL 74-106 [facility] Comment on above: Fasting Glucose resu lt from 100 to 125 mg/dL suggests IMPAIRED HOMEOSTASIS per A.D.A. criteria. Hemoglobin (Bld) [Mass/Vol] 15.8 g/dL 12.0-15.0 [facility] Monocytes/100 WBC (Bld) 6.8 % 0-10 [facility] Neutrophils (Bld) [#/Vol] 11.2 10*3/uL 2.0-7.7 [facility] Neutrophils/100 WBC (Bld) 69.0 % 47-70 [facility] Potassium [Moles/Vol] 4.1 mmol/L 3.5-5.1 [facility] Protein [Mass/Vol] 7.8 g/dL 6.4-8.2 [facility] Sodium [Moles/Vol] 139 mmol/L 136-145 [facility] WBC (Bld) [#/Vol] 16.2 10*3/uL 4.4-11.0 [facility] Determination of erythrocyte mean corpuscular volume (MCV)Ordered By: Selina Bowser on 05-27-2023 MCV (RBC) [Entitic vol] 87.1 fL 81-99 [facility] Erythrocyte distribution wid th ratioOrdered By: Selina Bowser on 05-27-2023 Erythrocyte distribution width (RBC) [Ratio] 15.4 % 11.6-14.6 [facility] Erythrocyte distribution wid th standard deviationOrdered By: Selina Bowser on 05-27-2023 Erythrocyte distribution width (RBC) [Entitic vol] 48.8 fL 35.1-43.9 [facility] Hematocrit Auto (Bld) [Volum e fraction]Ordered By: Selina Bowser on 05-27-2023 Hematocrit (Bld) [Volume fraction] 49.5 % 37-47 [facility] Immature granulocytes/100 WB C Auto (Bld)Ordered By: Selina Bowser on 05-27-2023 Immature granulocytes/100 WBC (Bld) 0.400 % 0.0-0.9 [facility] Comment on above: IG% - Immature Granu locytes (promyelocytes, myelocytes and metamyelocytes) > 1% indicates that a LEFT SHIFT is Present. Laboratory - Chemistry and C hemistry - challengeOrdered By: Selina Bowser on 05-27-2023 Albumin/Globulin [Mass ratio] 0.8 {ratio} 0.9-2.4 [facility] ALP [Catalytic activity/Vol] 90 U/L 45-117 [facility] ALT [Catalytic activity/Vol] 56 U/L 13-56 [facility] CO2 [Moles/Vol] 24.0 mmol/L 21.0-32.0 [facility] Globulin (S) [Mass/Vol] 4.3 g/dL 2.2-4.2 [facility] Magnesium [Mass/Vol] 2.4 mg/dL 1.6-2.6 [facility] Urea nitrogen/Creatinine [Mass ratio] 29.2 mg/mg 10-20 [facility] Laboratory - Hematology and Cell countsOrdered By: Selina Bowser on 05-27-2023 MCH (RBC) [Entitic mass] 27.8 pg 27.0-32.0 [facility] MCHC (RBC) [Mass/Vol] 31.9 g/dL 32-36 [facility] Nucleated RBC/100 WBC (Bld) [Ratio] 0 % 0-5 [facility] Platelets (Bld) [#/Vol] 316 10*3/uL 150-450 [facility] No Panel InformationOrdered By: Selina Bowser on 05-27-2023 Estimated GFR (MDRD) Amer 67 mL/min >60 [facility] Comment on above: GFR Calc Estimated GFR (MDRD) Non-Af Amer 55 mL/min >60 [facility] Comment on above: Non- GFR Calc Platelet mean volume Suman-Ec ker (Bld) [Entitic vol]Ordered By: Selina Bowser on 05-27-2023 Platelet mean volume (Bld) [Entitic vol] 11.4 fL 6.2-12.0 [facility] RBC Auto (Bld) [#/Vol]Ordere d By: Selina Bowser on 05-27-2023 RBC (Bld) [#/Vol] 5.68 10*6/uL 4.2-5.4 [facility] Serum or plasma calcium justen urement (mass/volume)Ordered By: Selina Bowser on 05-27-2023 Calcium [Mass/Vol] 9.3 mg/dL 8.5-10.1 [facility] Serum or plasma creatinine m easurement (mass/volume)Ordered By: Selina Bowser on 05-27-2023 Creatinine [Mass/Vol] 1.06 mg/dL 0.55-1.02 [facility] Comment on above: The validity of the calculated GFR & GFRAA in patients over 70 years has not been determined. Clinical correlation is essential. Serum or plasma urea nitroge n measurement (mass/volume)Ordered By: Selina Bowser on 05-27-2023 Urea nitrogen [Mass/Vol] 31 mg/dL 7-18 [facility] Stool enteric pathogen panel by probe and target amplification methodOrdered By: Selina Bowser on 05-27-2023 Gastrointestinal pathogens panel ZEHRA+probe (Stl) [facility] Gastrointestinal pathogens panel ZEHRA+probe (Stl) [facility] Thin prep Papanicolaou smear with manual screeningOrdered By: Selina Bowser on 05-27-2023 Thin prep Papanicolaou smear with manual screening 3.5 g/dL 3.2-5.0 [facility] Thin prep Papanicolaou smear with manual screening 14 U/L 15-37 [facility] Thin prep Papanicolaou smear with manual screening 6 5-15 [facility] Absolute lymphocyte countOrd ered By: ED PROVIDER on 05-21-2023 Lymphocytes Auto (Unsp spec) [#/Vol] 1.81 10*3/uL 0.83-4.51 [facility] Basophil percentageOrdered B y: ED PROVIDER on 05-21-2023 Basophil percentage 0-5 SEEN /hpf 0-5 [facility] Basophils/100 WBC (Bld) 0.8 % 0-1 [facility] Bilirubin [Mass/Vol] 0.90 mg/dL 0.20-1.00 [facility] Comment on above: For patients on eltr ombopag therapy, use of Dimension [place] TBIL is not recommended. Chloride [Moles/Vol] 105 mmol/L 98-107 [facility] Eosinophils/100 WBC (Bld) 0.3 % 0-5 [facility] Glucose [Mass/Vol] 201 mg/dL 74-106 [facility] Comment on above: Glucose result great er than or equal to 200 mg/dLsuggests DIABETES MELLITUS per A.D.A. criteria. Neutrophils (Bld) [#/Vol] 14.1 10*3/uL 2.0-7.7 [facility] Neutrophils/100 WBC (Bld) 83.1 % 47-70 [facility] Potassium [Moles/Vol] 4.1 mmol/L 3.5-5.1 [facility] Protein [Mass/Vol] 7.7 g/dL 6.4-8.2 [facility] Sodium [Moles/Vol] 138 mmol/L 136-145 [facility] WBC (Bld) [#/Vol] 17.0 10*3/uL 4.4-11.0 [facility] Bilirubin Test strip Ql (U)O rdered By: ED PROVIDER on 05-21-2023 Bilirubin Ql (U) 1 mg/dL Negative [facility] Comment on above: COLOR OF URINE MAY A FFECT DIPSTICK RESULTS. Blood erythrocytes count (nu mber/volume)Ordered By: ED PROVIDER on 05-21-2023 RBC (Bld) [#/Vol] 5.46 10*6/uL 4.2-5.4 [facility] Blood hemoglobin measurement (mass/volume)Ordered By: ED PROVIDER on 05-21-2023 Hemoglobin (Bld) [Mass/Vol] 15.2 g/dL 12.0-15.0 [facility] Blood lymphocytes/100 leukoc ytesOrdered By: ED PROVIDER on 05-21-2023 Lymphocytes/100 WBC (Bld) 10.6 % 19-41 [facility] Blood monocytes/100 leukocyt esOrdered By: ED PROVIDER on 05-21-2023 Monocytes/100 WBC (Bld) 4.7 % 0-10 [facility] Blood platelet mean volumeOr dered By: ED PROVIDER on 05-21-2023 Platelet mean volume (Bld) [Entitic vol] 11.5 fL 6.2-12.0 [facility] Determination of erythrocyte mean corpuscular volume (MCV)Ordered By: ED PROVIDER on 05-21-2023 MCV (RBC) [Entitic vol] 87.9 fL 81-99 [facility] Hematocrit Auto (Bld) [Volum e fraction]Ordered By: ED PROVIDER on 05-21-2023 Hematocrit (Bld) [Volume fraction] 48.0 % 37-47 [facility] Ketones Test strip Ql (U)Ord ered By: ED PROVIDER on 05-21-2023 Ketones Ql (U) 5 mg/dl Negative [facility] Laboratory - Chemistry and C hemistry - challengeOrdered By: ED PROVIDER on 05-21-2023 ALP [Catalytic activity/Vol] 203 U/L 45-117 [facility] ALT [Catalytic activity/Vol] 325 U/L 13-56 [facility] CO2 [Moles/Vol] 25.0 mmol/L 21.0-32.0 [facility] Globulin (S) [Mass/Vol] 4.5 g/dL 2.2-4.2 [facility] Urea nitrogen/Creatinine [Mass ratio] 27.9 mg/mg 10-20 [facility] Laboratory - Chemistry and C hemistry - challengeOrdered By: Sloan Melendez on 05-21-2023 Lipase [Catalytic activity/Vol] 36 U/L 13-75 [facility] Comment on above: Please note:LIPASE r evised reference range effective 22. New Lipase methodology. Expected to produce lower values than the previous assay method. NEW Reference Range: 13 - 75 U/L Laboratory - Hematology and Cell countsOrdered By: ED PROVIDER on 05-21-2023 Erythrocyte distribution width (RBC) [Entitic vol] 48.5 fL 35.1-43.9 [facility] Erythrocyte distribution width (RBC) [Ratio] 15.1 % 11.6-14.6 [facility] Immature granulocytes/100 WBC (Bld) 0.500 % 0.0-0.9 [facility] Comment on above: IG% - Immature Granu locytes (promyelocytes, myelocytes and metamyelocytes) > 1% indicates that a LEFT SHIFT is Present. MCH (RBC) [Entitic mass] 27.8 pg 27.0-32.0 [facility] Nucleated RBC/100 WBC (Bld) [Ratio] 0 % 0-5 [facility] MCHC Auto (RBC) [Mass/Vol]Or dered By: ED PROVIDER on 05-21-2023 MCHC (RBC) [Mass/Vol] 31.7 g/dL 32-36 [facility] Mucus LM Ql (Urine sed)Order ed By: ED PROVIDER on 05-21-2023 Mucus Ql (Urine sed) 0 SEEN /hpf [facility] Nitrite Test strip Ql (U)Ord ered By: ED PROVIDER on 05-21-2023 Nitrite Ql (U) Negative Negative [facility] No Panel InformationOrdered By: ED PROVIDER on 05-21-2023 Estimated Creatinine Clearance Calc 55.10 ml/min [facility] Estimated GFR (MDRD) Amer 68 mL/min >60 [facility] Comment on above: GFR Calc Estimated GFR (MDRD) Non-Af Amer 57 mL/min >60 [facility] Comment on above: Non- GFR Calc Platelets bldOrdered By: ED PROVIDER on 05-21-2023 Platelets (Bld) [#/Vol] 303 10*3/uL 150-450 [facility] Protein Test strip Ql (U)Ord ered By: ED PROVIDER on 05-21-2023 Protein Ql (U) 30 mg/dl Negative [facility] Serum or plasma albumin justen urement (mass/volume)Ordered By: ED PROVIDER on 05-21-2023 Albumin [Mass/Vol] 3.2 g/dL 3.2-5.0 [facility] Serum or plasma albumin/glob ulin mass ratioOrdered By: ED PROVIDER on 05-21-2023 Albumin/Globulin [Mass ratio] 0.7 {ratio} 0.9-2.4 [facility] Serum or plasma calcium justen urement (mass/volume)Ordered By: ED PROVIDER on 05-21-2023 Calcium [Mass/Vol] 9.7 mg/dL 8.5-10.1 [facility] Serum or plasma creatinine m easurement (mass/volume)Ordered By: ED PROVIDER on 05-21-2023 Creatinine [Mass/Vol] 1.04 mg/dL 0.55-1.02 [facility] Comment on above: The validity of the calculated GFR & GFRAA in patients over 70 years has not been determined. Clinical correlation is essential. Serum or plasma urea nitroge n measurement (mass/volume)Ordered By: ED PROVIDER on 05-21-2023 Urea nitrogen [Mass/Vol] 29 mg/dL 7-18 [facility] Squamous epithelial cells de tection in urine sediment by light microscopyOrdered By: ED PROVIDER on 05-21-2023 Epithelial cells.squamous LM Ql (Urine sed) 0-5 SEEN /hpf 5-10 [facility] Thin prep Papanicolaou smear with manual screeningOrdered By: ED PROVIDER on 05-21-2023 Thin prep Papanicolaou smear with manual screening 469 U/L 15-37 [facility] Thin prep Papanicolaou smear with manual screening 8 5-15 [facility] Urine blood detectionOrdered By: ED PROVIDER on 05-21-2023 RBC Ql (U) 25 /ul Negative [facility] RBC Ql (U) 0 SEEN /hpf 0-5 [facility] Urine clarityOrdered By: ED PROVIDER on 05-21-2023 Clarity (U) Clear Clear [facility] Urine color determinationOrd ered By: ED PROVIDER on 05-21-2023 Color (U) Yellow Yellow [facility] Urine glucose detectionOrder ed By: ED PROVIDER on 05-21-2023 Glucose Ql (U) Normal mg/dl Normal [facility] Urine leukocyte esterase det ection by dipstickOrdered By: ED PROVIDER on 05-21-2023 Leukocyte esterase Test strip Ql (U) 100 /ul Negative [facility] Urine pHOrdered By: ED PROVI NIGEL on 05-21-2023 pH (U) 5.0 [pH] 5.0 - 8.0 [facility] Urine sediment bacteria coun t by microscopy (number/high power field)Ordered By: ED PROVIDER on 05-21-2023 Bacteria LM.HPF (Urine sed) [#/Area] RARE /hpf None Seen [facility] Urine specific gravity measu rementOrdered By: ED PROVIDER on 05-21-2023 Specific gravity (U) [Rel density] 1.025 1.002-1.03 0 [facility] Urobilinogen Auto test strip Ql (U)Ordered By: ED PROVIDER on 05-21-2023 Urobilinogen Ql (U) 4 mg/dl Normal [facility] Culture, urineOrdered By: Nena Bowser on 01-05-2023 Bacteria identified Cx Nom (U) Culture exhibits no growth. [facility] Laboratory - Chemistry and C hemistry - challengeon 01-05-2023 Bilirubin Ql (U) Negative [facility] Glucose Ql (U) Negative [facility] Ketones Ql (U) Negative [facility] pH (U) 5.0 [pH] [facility] Specific gravity (U) [Rel density] 1.010 [facility] Urobilinogen (U) [Mass/Vol] 0.6804439 mg/dL [facility] Laboratory - Hematology and Cell countson 01-05-2023 Hemoglobin Ql (U) Trace [facility] - Specimen inform ationon 01-05-2023 Clarity (U) Clear [facility] Color (U) Yellow [facility] - Urinalysison Nitrite Ql (U) Negative [facility] Protein Ql (U) Negative [facility] No Panel Informationon 01-05 Urine Leukocytes Negatve [facility] Urine Non-Hemolyzed Blood [facility] Basophil percentageOrdered B y: Dr. Bowser on 10-24-2022 Basophil percentage 25-50 SEEN /hpf 0-5 [facility] Bilirubin Test strip Ql (U)O rdered By: Dr. Bowser on 10-24-2022 Bilirubin Ql (U) Negative Negative [facility] Ketones Test strip Ql (U)Ord ered By: Dr. Bowser on 10-24-2022 Ketones Ql (U) Negative Negative [facility] Mucus LM Ql (Urine sed)Order ed By: Dr. Bowser on 10-24-2022 Mucus Ql (Urine sed) 0 SEEN /hpf [facility] Nitrite Test strip Ql (U)Ord ered By: Dr. Bowser on 10-24-2022 Nitrite Ql (U) Negative Negative [facility] Protein Test strip Ql (U)Ord ered By: Dr. Bowser on 10-24-2022 Protein Ql (U) Negative Negative [facility] Squamous epithelial cells de tection in urine sediment by light microscopyOrdered By: Dr. Bowser on 10-24-2022 Epithelial cells.squamous LM Ql (Urine sed) 0-5 SEEN /hpf 5-10 [facility] Urine blood detectionOrdered By: Dr. Bowser on 10-24-2022 RBC Ql (U) 25 /ul Negative [facility] RBC Ql (U) 0-5 SEEN /hpf 0-5 [facility] Urine clarityOrdered By: Dr. Bowser on 10-24-2022 Clarity (U) Sl. Cloudy Clear [facility] Urine color determinationOrd ered By: Dr. Bowser on 06-16-2023 Color (U) Yellow Yellow [facility] Urine glucose detectionOrder ed By: Dr. Bowser on 10-24-2022 Glucose Ql (U) Normal mg/dl Normal [facility] Urine leukocyte esterase det ection by dipstickOrdered By: Dr. Bowser on 10-24-2022 Leukocyte esterase Test strip Ql (U) 500 /ul Negative [facility] Urine pHOrdered By: Dr. Treviño hner on 10-24-2022 pH (U) 6.0 [pH] 5.0 - 8.0 [facility] Urine sediment bacteria coun t by microscopy (number/high power field)Ordered By: Dr. Bowser on 10-24-2022 Bacteria LM.HPF (Urine sed) [#/Area] 1 /[HPF] None Seen [facility] Urine specific gravity measu rementOrdered By: Dr. Bowser on 10-24-2022 Specific gravity (U) [Rel density] 1.020 1.002-1.03 0 [facility] Urobilinogen Auto test strip Ql (U)Ordered By: Dr. Bowser on 10-24-2022 Urobilinogen Ql (U) Normal mg/dl Normal [facility] Absolute lymphocyte countOrd ered By: Dr. Bowser on 10-22-2022 Lymphocytes Auto (Unsp spec) [#/Vol] 3.67 10*3/uL 0.83-4.51 [facility] Basophil percentageOrdered B y: Dr. Bowser on 10-22-2022 Basophils/100 WBC (Bld) 1.3 % 0-1 [facility] Bilirubin [Mass/Vol] 0.50 mg/dL 0.20-1.00 [facility] Comment on above: For patients on eltr ombopag therapy, use of Dim[place] TBIL is not recommended. Chloride [Moles/Vol] 105 mmol/L 98-107 [facility] Cholesterol [Mass/Vol] 296 mg/dL <200 [facility] Comment on above: <200 mg/dL Desirable 200-240 mg/dL Borderline >240 mg/dL High Risk Eosinophils/100 WBC (Bld) 1.9 % 0-5 [facility] Glucose [Mass/Vol] 124 mg/dL 74-106 [facility] Comment on above: Fasting Glucose resu lt from 100 to 125 mg/dL suggests IMPAIRED HOMEOSTASIS per A.D.A. criteria. Neutrophils (Bld) [#/Vol] 7.2 10*3/uL 2.0-7.7 [facility] Neutrophils/100 WBC (Bld) 58.6 % 47-70 [facility] Potassium [Moles/Vol] 3.8 mmol/L 3.5-5.1 [facility] Protein [Mass/Vol] 8.1 g/dL 6.4-8.2 [facility] Sodium [Moles/Vol] 138 mmol/L 136-145 [facility] Triglyceride [Mass/Vol] 320 mg/dL <199 [facility] Comment on above: The drugs N-Acetylcy steine and Metamizole may falsely depress this assay.Serum Triglycerides Reference Interval Normal <150 mg/dL Borderline high 150 - 199 mg/dL High 200 - 499 mg/dL Very High > or = 500 mg/dL WBC (Bld) [#/Vol] 12.2 10*3/uL 4.4-11.0 [facility] Blood erythrocytes count (nu mber/volume)Ordered By: Dr. Bowser on 10-22-2022 RBC (Bld) [#/Vol] 5.93 10*6/uL 4.2-5.4 [facility] Blood hemoglobin measurement (mass/volume)Ordered By: Dr. Bowser on 10-22-2022 Hemoglobin (Bld) [Mass/Vol] 16.8 g/dL 12.0-15.0 [facility] Blood lymphocytes/100 leukoc ytesOrdered By: Dr. Bowser on 10-22-2022 Lymphocytes/100 WBC (Bld) 30.1 % 19-41 [facility] Blood monocytes/100 leukocyt esOrdered By: Dr. Bowser on 10-22-2022 Monocytes/100 WBC (Bld) 7.7 % 0-10 [facility] Blood platelet mean volumeOr dered By: Dr. Bowser on 10-22-2022 Platelet mean volume (Bld) [Entitic vol] 12.7 fL 6.2-12.0 [facility] Determination of erythrocyte mean corpuscular volume (MCV)Ordered By: Dr. Bowser on 10-22-2022 MCV (RBC) [Entitic vol] 88.0 fL 81-99 [facility] Hematocrit Auto (Bld) [Volum e fraction]Ordered By: Dr. Bowser on 10-22-2022 Hematocrit (Bld) [Volume fraction] 52.2 % 37-47 [facility] Laboratory - Chemistry and C hemistry - challengeOrdered By: Dr. Bowser on 10-22-2022 ALP [Catalytic activity/Vol] 71 U/L 45-117 [facility] ALT [Catalytic activity/Vol] 25 U/L 13-56 [facility] CO2 [Moles/Vol] 26.0 mmol/L 21.0-32.0 [facility] Globulin (S) [Mass/Vol] 4.3 g/dL 2.2-4.2 [facility] Magnesium [Mass/Vol] 2.4 mg/dL 1.6-2.6 [facility] Urea nitrogen/Creatinine [Mass ratio] 26.5 mg/mg 10-20 [facility] Laboratory - Hematology and Cell countsOrdered By: Dr. Bowser on 10-22-2022 Erythrocyte distribution width (RBC) [Entitic vol] 51.6 fL 35.1-43.9 [facility] Erythrocyte distribution width (RBC) [Ratio] 16.6 % 11.6-14.6 [facility] Immature granulocytes/100 WBC (Bld) 0.400 % 0.0-0.9 [facility] Comment on above: IG% - Immature Granu locytes (promyelocytes, myelocytes and metamyelocytes) > 1% indicates that a LEFT SHIFT is Present. MCH (RBC) [Entitic mass] 28.3 pg 27.0-32.0 [facility] Nucleated RBC/100 WBC (Bld) [Ratio] 0 % 0-5 [facility] MCHC Auto (RBC) [Mass/Vol]Or dered By: Dr. Bowser on 10-22-2022 MCHC (RBC) [Mass/Vol] 32.2 g/dL 32-36 [facility] No Panel InformationOrdered By: Dr. Bowser on 10-22-2022 Estimated GFR (MDRD) Amer 73 mL/min >60 [facility] Comment on above: GFR Calc Estimated GFR (MDRD) Non-Af Amer 61 mL/min >60 [facility] Comment on above: Non- GFR Calc Insulin Level 21.3 mU/L 2.6-37.6 [facility] Thyroid Stimulating Hormone (TSH) 1.08 uIU/mL 0.358-3.74 [facility] Vitamin D 25-Hydroxy 31.2 ng/mL [facility] Comment on above: Vitamin D 25(OH) Sta tus Range Deficiency <20 ng/mL (50nmol/L) Insufficiency 20 - 30 ng/mL (50 - 75 nmol/L) Sufficiency 30 - 100 ng/mL (75 - 250 nmol/L) Toxicity >100 ng/mL (>250 nmol/L) Platelets bldOrdered By: Dr. Bowser on 10-22-2022 Platelets (Bld) [#/Vol] 246 10*3/uL 150-450 [facility] Serum or plasma albumin justen urement (mass/volume)Ordered By: Dr. Bowser on 10-22-2022 Albumin [Mass/Vol] 3.8 g/dL 3.2-5.0 [facility] Serum or plasma albumin/glob ulin mass ratioOrdered By: Dr. Bowser on 10-22-2022 Albumin/Globulin [Mass ratio] 0.9 {ratio} 0.9-2.4 [facility] Serum or plasma calcium justen urement (mass/volume)Ordered By: Dr. Bowser on 10-22-2022 Calcium [Mass/Vol] 9.3 mg/dL 8.5-10.1 [facility] Serum or plasma cholesterol in HDL measurement (mass/volume)Ordered By: Dr. Bowser on 10-22-2022 Cholesterol in HDL [Mass/Vol] 44 mg/dL >40 [facility] Comment on above: The drugs N-Acetylcy steine and Metamizole may falsely depress this assay. Reference Range HDL <40 mg/dL Low HDL Cholesterol HDL >or= 60 mg/dL High HDL Cholesterol Serum or plasma cholesterol in VLDL measurement (mass/volume)Ordered By: Dr. Bowser on 10-22-2022 Cholesterol in VLDL [Mass/Vol] 64 mg/dL 5-40 [facility] Serum or plasma creatinine m easurement (mass/volume)Ordered By: Dr. Bowser on 10-22-2022 Creatinine [Mass/Vol] 0.98 mg/dL 0.55-1.02 [facility] Comment on above: The validity of the calculated GFR & GFRAA in patients over 70 years has not been determined. Clinical correlation is essential. Serum or plasma low density lipoprotein (LDL) cholesterol measurement (mass/volume)Ordered By: Dr. Bowser on 10-22-2022 Cholesterol in LDL [Mass/Vol] 188 mg/dL 0-130 [facility] Serum or plasma urea nitroge n measurement (mass/volume)Ordered By: Dr. Bowser on 10-22-2022 Urea nitrogen [Mass/Vol] 26 mg/dL 7-18 [facility] Thin prep Papanicolaou smear with manual screeningOrdered By: Dr. Bowser on 10-22-2022 Thin prep Papanicolaou smear with manual screening 11 U/L 15-37 [facility] Thin prep Papanicolaou smear with manual screening 7 5-15 [facility] Whole blood hemoglobin A1c/t otal hemoglobin ratio (mass fraction)Ordered By: Dr. Bowser on 10-22-2022 HbA1c (Bld) [Mass fraction] 6.1 % 3.8-5.6 [facility] Comment on above: Normal < 5.7 % Predi abetic 5.7 - 6.4 % Diabetic >or= 6.5 % Please note range changes. CarboxyhemoglobinOrdered By: Dr. Bowser on 05-15-2022 Carboxyhemoglobin (Bld) [Mass/Vol] 12.6 % 0.0-1.5 [facility] Comment on above: * NON-SMOKER RANGE 1 .6 - 5.0% * LIGHT SMOKER RANGE 5.1 - 9.0% * HEAVY SMOKER RANGE JAK2 V617F mutation detectio nOrdered By: Dr. Bowser on 05-15-2022 JAK2 gene p.[id number] Molgen Ql (Bld/Tiss) Comment . [facility] Comment on above: Result: NEGATIVE for the JAK2 V617F mutation.Interpretation: The G to T nucleotide change encoding [id number] mutation was not detected. This result does not ruleout the presence of the JAK2 mutation at a level below thesensitivity of detection of this assay, or the presence ofother mutations within JAK2 not detected by this assay.This result does not rule out a diagnosis of polycythemiavera, essential thrombocythemia or idiopathicmyelofibrosis as the V617F mutation is not detected inall patients with these disorders. No Panel InformationOrdered By: Dr. Bowser on 05-15-2022 JAK2 Mutation Comment . [facility] Comment on above: Anita Pittman, PhD, [facility] D irector, Molecular [facility] [place], [place] This test was developed and its performance characteristicsdetermined by [employer]. It has not been cleared orapproved by the Food and Drug Administration.Performed at: [facility] [employer] [id number] [address] [facility], [facility], [place] [id number] Director: kathy [facility], Phone: [phone] at: [facility] [employer] [id number] [place], [place] [id number] Director: Charity [facility], Phone: [phone] JAK2 V617F Reviewed By Comment . [facility] Comment on above: JAK2 is a cytoplasmi c tyrosine kinase with a seymour role insignal transduction from multiple hematopoietic growthfactor receptors. A point mutation within exon 14 of theJAK2 gene ([id number]) encoding a valine to phenylalaninesubstitution at position 617 of the JAK2 protein (V617F)has been identified in most patients with polycythemiavera, and in about half of those with either essentialthrombocythemia or idiopathic myelofibrosis. The V617F hasalso been detected, although infrequently, in other myeloiddisorders such as chronic myelomonocytic leukemia andchronic neutrophilic luekemia. V617F is an acquiredmutation that alters a highly conserved valine present inthe negative regulatory JH2 domain of the JAK2 proteinand is predicted to dysregulate kinase activity.Methodology:Total genomic DNA was extracted and subjected to TaqManreal-time PCR amplification/detection. Two amplificationproducts per sample were monitored by real-time PCR usingprimers/probes specific to JAK2 wild type (WT) and EEU4ymuspm V617F. The myThings Absolute Quantitation softwarewill compare the patient specimen valuse to the standardcurves and generate percent values for wild type andmutant type. In vitro studies have indicated that thisassay has an analytical sensitivity of 1%.References:Florian EJ, Jose SILVER, Moses PJ, et al. Acquiredmutation of the tyrosine kinase JAK2 in humanmyeloproliferative disorders. Lancet. 2004Jul 27;365(8269):6518-0276. Vladimir Finn, Trevin V, Yamilet Chilel KALYAN. Aunique clonal JAK2 mutation leading to constitutivesignaling causes polycythaemia vera. Nature. 2005 Sep 05;277(8652):9256-0915.Isaias R, Justin F, Kellen , et al. A [id number] mutation of JAK2 in myeloproliferative disorders.N Engl J Med. 2005 Sep 05; 352(80):9186-6044. Serum or plasma erythropoiet in (EPO) measurement (units/volume)Ordered By: Dr. Bowser on 04-17-2022 Erythropoietin (EPO) Qn 11.4 mIU/mL 2.6-18.5 [facility] Comment on above: Paperfold el DxI 800 Immunoassay SystemValues obtained with different assay methods or kits cannotbe used interchangeably. Results cannot be interpreted asabsolute evidence of the presence or absence of malignantdisease.Performed at: [facility] [address] Director: Riaz Rayo PhD, Phone: [phone] Absolute lymphocyte countOrd ered By: Dr. Bowser on 04-16-2022 Lymphocytes Auto (Unsp spec) [#/Vol] 3.83 10*3/uL 0.83-4.51 [facility] Basophil percentageOrdered B y: Dr. Bowser on 04-16-2022 Basophils/100 WBC (Bld) 0.7 % 0-1 [facility] Bilirubin [Mass/Vol] 0.40 mg/dL 0.20-1.00 [facility] Comment on above: For patients on eltr ombopag therapy, use of Dim[place] TBIL is not recommended. Chloride [Moles/Vol] 105 mmol/L 98-107 [facility] Cholesterol [Mass/Vol] 316 mg/dL <200 [facility] Comment on above: <200 mg/dL Desirable 200-240 mg/dL Borderline >240 mg/dL High Risk Eosinophils/100 WBC (Bld) 1.8 % 0-5 [facility] Glucose [Mass/Vol] 125 mg/dL 74-106 [facility] Comment on above: Fasting Glucose resu lt from 100 to 125 mg/dL suggests IMPAIRED HOMEOSTASIS per A.D.A. criteria. Neutrophils (Bld) [#/Vol] 8.6 10*3/uL 2.0-7.7 [facility] Neutrophils/100 WBC (Bld) 61.6 % 47-70 [facility] Potassium [Moles/Vol] 3.6 mmol/L 3.5-5.1 [facility] Protein [Mass/Vol] 8.3 g/dL 6.4-8.2 [facility] Sodium [Moles/Vol] 139 mmol/L 136-145 [facility] Triglyceride [Mass/Vol] 499 mg/dL <199 [facility] Comment on above: The drugs N-Acetylcy steine and Metamizole may falsely depress this assay. TRIGLYCERIDE IS GREATER THAN 400 mg/dL. LDL RESULT IS INVALID AND WILL NOT BE REPORTED.Serum Triglycerides Reference Interval Normal <150 mg/dL Borderline high 150 - 199 mg/dL High 200 - 499 mg/dL Very High > or = 500 mg/dL WBC (Bld) [#/Vol] 14.0 10*3/uL 4.4-11.0 [facility] Blood erythrocytes count (nu mber/volume)Ordered By: Dr. Bowser on 04-16-2022 RBC (Bld) [#/Vol] 5.71 10*6/uL 4.2-5.4 [facility] Blood hemoglobin measurement (mass/volume)Ordered By: Dr. Bowser on 04-16-2022 Hemoglobin (Bld) [Mass/Vol] 16.4 g/dL 12.0-15.0 [facility] Blood lymphocytes/100 leukoc ytesOrdered By: Dr. Bowser on 04-16-2022 Lymphocytes/100 WBC (Bld) 27.4 % 19-41 [facility] Blood monocytes/100 leukocyt esOrdered By: Dr. Bowser on 04-16-2022 Monocytes/100 WBC (Bld) 8.0 % 0-10 [facility] Blood platelet mean volumeOr dered By: Dr. Bowser on 04-16-2022 Platelet mean volume (Bld) [Entitic vol] 13.1 fL 6.2-12.0 [facility] Determination of erythrocyte mean corpuscular volume (MCV)Ordered By: Dr. Bowser on 04-16-2022 MCV (RBC) [Entitic vol] 89.0 fL 81-99 [facility] Hematocrit Auto (Bld) [Volum e fraction]Ordered By: Dr. Bowser on 04-16-2022 Hematocrit (Bld) [Volume fraction] 50.8 % 37-47 [facility] Laboratory - Chemistry and C hemistry - challengeOrdered By: Dr. Bowser on 04-16-2022 ALP [Catalytic activity/Vol] 74 U/L 45-117 [facility] ALT [Catalytic activity/Vol] 44 U/L 13-56 [facility] CO2 [Moles/Vol] 27.0 mmol/L 21.0-32.0 [facility] Globulin (S) [Mass/Vol] 4.3 g/dL 2.2-4.2 [facility] Urea nitrogen/Creatinine [Mass ratio] 22.3 mg/mg 10-20 [facility] Laboratory - Hematology and Cell countsOrdered By: Dr. Bowser on 04-16-2022 Erythrocyte distribution width (RBC) [Entitic vol] 50.5 fL 35.1-43.9 [facility] Erythrocyte distribution width (RBC) [Ratio] 15.5 % 11.6-14.6 [facility] Immature granulocytes/100 WBC (Bld) 0.500 % 0.0-0.9 [facility] Comment on above: IG% - Immature Granu locytes (promyelocytes, myelocytes and metamyelocytes) > 1% indicates that a LEFT SHIFT is Present. MCH (RBC) [Entitic mass] 28.7 pg 27.0-32.0 [facility] Nucleated RBC/100 WBC (Bld) [Ratio] 0 % 0-5 [facility] Laboratory - Hematology and Cell countson 04-16-2022 HbA1c (Bld) [Mass fraction] 6.5 % 4.2-6.3 [facility] Auto (RBC) [Mass/Vol]Or dered By: Dr. Bowser on 04-16-2022 MCHC (RBC) [Mass/Vol] 32.3 g/dL 32-36 [facility] No Panel InformationOrdered By: Dr. Bowser on 04-16-2022 Estimated GFR (MDRD) Amer 77 mL/min >60 [facility] Comment on above: GFR Calc Estimated GFR (MDRD) Non-Af Amer 64 mL/min >60 [facility] Comment on above: Non- GFR Calc Insulin Level 16.5 mU/L 2.6-37.6 [facility] Thyroid Stimulating Hormone (TSH) 1.03 uIU/mL 0.358-3.74 [facility] Vitamin D 25-Hydroxy 22.5 ng/mL [facility] Comment on above: Vitamin D 25(OH) Sta tus Range Deficiency <20 ng/mL (50nmol/L) Insufficiency 20 - 30 ng/mL (50 - 75 nmol/L) Sufficiency 30 - 100 ng/mL (75 - 250 nmol/L) Toxicity >100 ng/mL (>250 nmol/L) Platelets bldOrdered By: Dr. Bowser on 04-16-2022 Platelets (Bld) [#/Vol] 205 10*3/uL 150-450 [facility] Serum or plasma albumin justen urement (mass/volume)Ordered By: Dr. Bowser on 04-16-2022 Albumin [Mass/Vol] 4.0 g/dL 3.2-5.0 [facility] Serum or plasma albumin/glob ulin mass ratioOrdered By: Dr. Bowser on 04-16-2022 Albumin/Globulin [Mass ratio] 0.9 {ratio} 0.9-2.4 [facility] Serum or plasma calcium justen urement (mass/volume)Ordered By: Dr. Bowser on 04-16-2022 Calcium [Mass/Vol] 9.5 mg/dL 8.5-10.1 [facility] Serum or plasma cholesterol in HDL measurement (mass/volume)Ordered By: Dr. Bowser on 04-16-2022 Cholesterol in HDL [Mass/Vol] 43 mg/dL >40 [facility] Comment on above: The drugs N-Acetylcy steine and Metamizole may falsely depress this assay. Reference Range HDL <40 mg/dL Low HDL Cholesterol HDL >or= 60 mg/dL High HDL Cholesterol Serum or plasma cholesterol in VLDL measurement (mass/volume)Ordered By: Dr. Bowser on 04-16-2022 Cholesterol in VLDL [Mass/Vol] [facility] Comment on above: Test not performed Serum or plasma creatinine m easurement (mass/volume)Ordered By: Dr. Bowser on 04-16-2022 Creatinine [Mass/Vol] 0.94 mg/dL 0.55-1.02 [facility] Comment on above: The validity of the calculated GFR & GFRAA in patients over 70 years has not been determined. Clinical correlation is essential. Serum or plasma low density lipoprotein (LDL) cholesterol measurement (mass/volume)Ordered By: Dr. Bowser on 04-16-2022 Cholesterol in LDL [Mass/Vol] [facility] Comment on above: Test not performed Serum or plasma urea nitroge n measurement (mass/volume)Ordered By: Dr. Bowser on 04-16-2022 Urea nitrogen [Mass/Vol] 21 mg/dL 7-18 [facility] Thin prep Papanicolaou smear with manual screeningOrdered By: Dr. Bowser on 04-16-2022 Thin prep Papanicolaou smear with manual screening 18 U/L 15-37 [facility] Thin prep Papanicolaou smear with manual screening 7 5-15 [facility] Whole blood hemoglobin A1c/t otal hemoglobin ratio (mass fraction)Ordered By: Dr. Bowser on 04-16-2022 HbA1c (Bld) [Mass fraction] 6.6 % 3.8-5.6 [facility] Comment on above: Normal < 5.7 % Predi abetic 5.7 - 6.4 % Diabetic >or= 6.5 % Please note range changes. No Panel Informationon 01-08 Insulin Level 13.4 mU/L 2.6-37.6 [facility] Work Phone: .Auto Diffon 05-15-2020 Basophil, Absolute 0.10 10 3/mcL Normal 0.00-0.19 [facility] ([place]) Comment on above: Performed By: #### T SH, LIPID, CMP, GFR #### [address] [address] Basophils/100 WBC (Bld) 1.3 % Normal 0.0-2.5 [facility] ([place]) Comment on above: Performed By: #### T SH, LIPID, CMP, GFR #### [address] [address] Eosinophil, Absolute 0.20 10 3/mcL Normal 0.00-0.40 [facility] ([place]) Comment on above: Performed By: #### T SH, LIPID, CMP, GFR #### [address] [address] Eosinophils/100 WBC (Bld) 1.6 % Normal 0.0-7.0 [facility] ([place]) Comment on above: Performed By: #### T SH, LIPID, CMP, GFR #### [address] [address] Lymphocyte, Absolute 3.20 10 3/mcL Normal 0.77-3.85 [facility] ([place]) Comment on above: Performed By: #### T SH, LIPID, CMP, GFR #### [address] [address] Lymphocytes/100 WBC (Bld) 31.0 % Normal 10.0-50.0 [facility] ([place]) Comment on above: Performed By: #### T SH, LIPID, CMP, GFR #### [address] [address] Monocyte, Absolute 1.10 10 3/mcL High 0.15-1.00 [facility] ([place] Comment on above: Performed By: #### T SH, LIPID, CMP, GFR #### [address] [address] Monocytes/100 WBC (Bld) 10.8 % Normal 1.7-13.0 [facility] ([place]) Comment on above: Performed By: #### T SH, LIPID, CMP, GFR #### [address] [address] Neutrophils/100 WBC (Bld) 55.3 % Normal 37.0-80.0 [facility] ([place]) Comment on above: Performed By: #### T SH, LIPID, CMP, GFR #### [address] [address] .GFRon 05-15-2020 GFR 53 ml/min/1.73sqm Normal [facility] ([place]) Comment on above: Result Comment: GFR Population mean for , Non- Americans Ages 20-29 = 116 mL/min/1.73 sq.m. Ages 30-39 = 107 mL/min/1.73 sq.m. Ages 40-49 = 99 mL/min/1.73 sq.m. Ages 50-59 = 93 mL/min/1.73 sq.m. Ages 60-69 = 85 mL/min/1.73 sq.m. Ages 70+ = 75 mL/min/1.73 sq.m. Chronic Kidney Disease: Less than 60 mL/min/1.73 square meters End Stage Renal Disease: Less than 15 mL/min/1.73 square meters Performed By: #### T SH, LIPID, CMP, GFR #### [address] [address] GFR Non- 43 ml/min/1.73sqm Normal [facility] ([place]) Comment on above: Result Comment: GFR Population mean for , Non- Americans Ages 20-29 = 116 mL/min/1.73 sq.m. Ages 30-39 = 107 mL/min/1.73 sq.m. Ages 40-49 = 99 mL/min/1.73 sq.m. Ages 50-59 = 93 mL/min/1.73 sq.m. Ages 60-69 = 85 mL/min/1.73 sq.m. Ages 70+ = 75 mL/min/1.73 sq.m. Chronic Kidney Disease: Less than 60 mL/min/1.73 square meters End Stage Renal Disease: Less than 15 mL/min/1.73 square meters Performed By: #### T SH, LIPID, CMP, GFR #### [place] [address] .NEUABSon 05-15-2020 Neutrophil, Absolute 5.80 10 3/mcL Normal 2.85-6.16 A [facility], [facility] ([place]) Comment on above: Performed By: #### T SH, LIPID, CMP, GFR #### [place] [address] CBCon 05-15-2020 Erythrocyte distribution width (RBC) [Ratio] 16.8 % High 11.5-14.5 [facility] ([place]) Comment on above: Performed By: #### T SH, LIPID, CMP, GFR #### [place] [address] Hematocrit (Bld) [Volume fraction] 52.2 % High 37.0-47.0 [facility] ([place]) Comment on above: Performed By: #### T SH, LIPID, CMP, GFR #### [place] [address] Hgb 17.1 G/dL High 12.0-16.0 [facility] ([place]) Comment on above: Performed By: #### T SH, LIPID, CMP, GFR #### [place] [address] MCH (RBC) [Entitic mass] 30.5 pg Normal 27.0-31.2 [facility] ([place]) Comment on above: Performed By: #### T SH, LIPID, CMP, GFR #### [place] [address] MCHC 32.8 G/dL Low 33.0-37.0 [facility] ([place]) Comment on above: Performed By: #### T SH, LIPID, CMP, GFR #### [place] [address] MCV (RBC) [Entitic vol] 92.9 fL Normal 80.0-94.0 A [facility], [facility] ([place]) Comment on above: Performed By: #### T SH, LIPID, CMP, GFR #### [address] [address] Platelet 180 10 3/mcL Normal 130-400 [facility] ([place]) Comment on above: Performed By: #### T SH, LIPID, CMP, GFR #### [place]berto [address] [address] Platelet mean volume (Bld) [Entitic vol] 10.8 fL High 7.4-10.4 [facility] ([place]) Comment on above: Performed By: #### T SH, LIPID, CMP, GFR #### [place] [address] RBC 5.62 10 6/mcL High 4.20-5.40 [facility] ([place]) Comment on above: Performed By: #### T SH, LIPID, CMP, GFR #### [place] [address] [address] WBC 10.40 10 3/mcL Normal 4.60-10.80 [facility] ([place]) Comment on above: Performed By: #### T SH, LIPID, CMP, GFR #### [address] [address] CMPon 05-15-2020 Albumin Level 4.0 G/dL Normal 3.4-4.8 [facility] ([place]) Comment on above: Performed By: #### T SH, LIPID, CMP, GFR #### [address] [address] Albumin/Globulin [Mass ratio] 1.1 {ratio} Normal 1.1-2.5 [facility] ([place]) Comment on above: Performed By: #### T SH, LIPID, CMP, GFR #### [address] [address] ALP [Catalytic activity/Vol] 59 U/L Normal 40-135 [facility] ([place]) Comment on above: Performed By: #### T SH, LIPID, CMP, GFR #### [address] [address] ALT [Catalytic activity/Vol] 63 U/L High 14-59 [facility] ([place]) Comment on above: Performed By: #### T SH, LIPID, CMP, GFR #### [address] [address] AST [Catalytic activity/Vol] 25 U/L Normal 10-40 [facility] ([place]) Comment on above: Performed By: #### T SH, LIPID, CMP, GFR #### [address] [address] Bili Total 0.4 mg/dL Normal 0.2-1.0 [facility] ([place]) Comment on above: Result Comment: Use of this assay is not recommended for patients undergoing treatment with eltrombopag due to the potential for falsely elevated results. Performed By: #### T SH, LIPID, CMP, GFR #### [address] [address] BUN/Creatinine Ratio 22 ratio Normal 7-27 [facility] ([place]) Comment on above: Performed By: #### T SH, LIPID, CMP, GFR #### [address] [address] Calcium [Mass/Vol] 9.3 mg/dL Normal 8.4-10.2 [facility] ([place]) Comment on above: Performed By: #### T SH, LIPID, CMP, GFR #### [address] [address] Chloride [Moles/Vol] 103 mmol/L Normal 98-107 [facility] ([place]) Comment on above: Performed By: #### T SH, LIPID, CMP, GFR #### [address] [address] CO2 [Moles/Vol] 29 mmol/L Normal 23-31 [facility] ([place]) Comment on above: Performed By: #### T SH, LIPID, CMP, GFR #### [address] [address] Creatinine [Mass/Vol] 1.25 mg/dL High 0.55-1.02 [facility] [place] Comment on above: Performed By: #### T SH, LIPID, CMP, GFR #### [address] [address] Electrolyte Balance 8.0 mEq/L Normal [facility] ([place]) Comment on above: Performed By: #### T SH, LIPID, CMP, GFR #### [address] [address] Globulin 3.5 G/dL Normal [facility] ([place]) Comment on above: Performed By: #### T SH, LIPID, CMP, GFR #### [address] [address] Glucose [Mass/Vol] 120 mg/dL High 80-115 [facility] ([place]) Comment on above: Performed By: #### T SH, LIPID, CMP, GFR #### [address] [address] Potassium [Moles/Vol] 4.7 mmol/L Normal 3.5-5.1 [facility] [place] Comment on above: Performed By: #### T SH, LIPID, CMP, GFR #### [address] [address] Sodium [Moles/Vol] 140 mmol/L Normal 136-145 [facility] ([place]) Comment on above: Performed By: #### T SH, LIPID, CMP, GFR #### [address] [address] Total Protein 7.5 G/dL Normal 6.4-8.2 [facility] ([place]) Comment on above: Performed By: #### T SH, LIPID, CMP, GFR #### [address] [address] Urea nitrogen [Mass/Vol] 28 mg/dL High 7-18 [facility] ([place]) Comment on above: Performed By: #### T SH, LIPID, CMP, GFR #### [address] [address] LIPIDon 05-15-2020 Cholesterol [Mass/Vol] 193 mg/dL Normal 0-200 [facility] ([place]) Comment on above: Result Comment: Chol esterol Reference Interval: Less than 200 Desirable 200-239 Borderline high risk 240 and above High risk Performed By: #### T SH, LIPID, CMP, GFR #### [address] [address] Cholesterol in HDL [Mass/Vol] 38 mg/dL Low 40-60 [facility] ([place]) Comment on above: Performed By: #### T SH, LIPID, CMP, GFR #### [address] [address] Cholesterol in LDL [Mass/Vol] 100 mg/dL Normal 0-130 [facility] ([place]) Comment on above: Performed By: #### T SH, LIPID, CMP, GFR #### [address] [address] Triglyceride [Mass/Vol] 275 mg/dL High 0-150 A [facility], [facility] ([place]) Comment on above: Result Comment: Trig lyceride Reference Interval: Less than 150 Normal 150-199 Borderline high risk 200-499 High risk 500 or higher Very high risk Performed By: #### T SH, LIPID, CMP, GFR #### [address] [address] PBNPon 05-15-2020 Natriuretic peptide B (Bld) [Mass/Vol] 528 pg/mL High 0-125 [facility] ([place]) Comment on above: Result Comment: NT-p roBNP results of less than 300 pg/mL effectively rules out acute congestive heart failure with 99% negative predictive value. Performed By: #### T SH, LIPID, CMP, GFR #### [address] [address] TSHon 05-15-2020 TSH Qn 1.47 m[IU]/L Normal 0.36-3.74 [facility] ([place]) Comment on above: Performed By: #### T SH, LIPID, CMP, GFR #### [address] [address] .GFRon 02-09-2020 GFR 45 ml/min/1.73sqm Normal [facility] ([place]) Comment on above: Result Comment: GFR Population mean for , Non- Americans Ages 20-29 = 116 mL/min/1.73 sq.m. Ages 30-39 = 107 mL/min/1.73 sq.m. Ages 40-49 = 99 mL/min/1.73 sq.m. Ages 50-59 = 93 mL/min/1.73 sq.m. Ages 60-69 = 85 mL/min/1.73 sq.m. Ages 70+ = 75 mL/min/1.73 sq.m. Chronic Kidney Disease: Less than 60 mL/min/1.73 square meters End Stage Renal Disease: Less than 15 mL/min/1.73 square meters Performed By: #### P BNP, BMP, GFR #### [address] [address] GFR Non- 37 ml/min/1.73sqm Normal [facility] ([place]) Comment on above: Result Comment: GFR Population mean for , Non- Americans Ages 20-29 = 116 mL/min/1.73 sq.m. Ages 30-39 = 107 mL/min/1.73 sq.m. Ages 40-49 = 99 mL/min/1.73 sq.m. Ages 50-59 = 93 mL/min/1.73 sq.m. Ages 60-69 = 85 mL/min/1.73 sq.m. Ages 70+ = 75 mL/min/1.73 sq.m. Chronic Kidney Disease: Less than 60 mL/min/1.73 square meters End Stage Renal Disease: Less than 15 mL/min/1.73 square meters Performed By: #### P BNP, BMP, GFR #### [address] [address] BMPon 02-09-2020 BUN/Creatinine Ratio 20 ratio Normal 7-27 [facility] ([place]) Comment on above: Order Comment: copy Dr Marquez Performed By: #### P BNP, BMP, GFR #### [address] [address] Calcium [Mass/Vol] 9.9 mg/dL Normal 8.4-10.2 [facility] ([place]) Comment on above: Order Comment: copy Dr Marquez Performed By: #### P BNP, BMP, GFR #### [address] [address] Chloride [Moles/Vol] 99 mmol/L Normal 98-107 [facility] ([place]) Comment on above: Order Comment: copy Dr Marquez Performed By: #### P BNP, BMP, GFR #### [address] [address] CO2 [Moles/Vol] 26 mmol/L Normal 23-31 [facility] ([place]) Comment on above: Order Comment: copy Dr Marquez Performed By: #### P BNP, BMP, GFR #### [address] [address] Creatinine [Mass/Vol] 1.44 mg/dL High 0.55-1.02 [facility] [place] Comment on above: Order Comment: copy Dr Marquez Performed By: #### P BNP, BMP, GFR #### [address] [address] Electrolyte Balance 14.0 mEq/L Normal [facility] ([place]) Comment on above: Order Comment: copy Dr Marquez Performed By: #### P BNP, BMP, GFR #### [address] [address] Glucose [Mass/Vol] 117 mg/dL High 80-115 [facility] ([place]) Comment on above: Order Comment: copy Dr Marquez Performed By: #### P BNP, BMP, GFR #### [address] [address] Potassium [Moles/Vol] 4.4 mmol/L Normal 3.5-5.1 [facility] [place] Comment on above: Order Comment: copy Dr Marquez Performed By: #### P BNP, BMP, GFR #### [address] [address] Sodium [Moles/Vol] 139 mmol/L Normal 136-145 [facility] ([place]) Comment on above: Order Comment: copy Dr Marquez Performed By: #### P BNP, BMP, GFR #### [address] [address] Urea nitrogen [Mass/Vol] 29 mg/dL High 7-18 [facility] ([place]) Comment on above: Order Comment: copy Dr Marquez Performed By: #### P BNP, BMP, GFR #### [address] [address] .Auto Diffon 02-08-2020 Basophil, Absolute 0.10 10 3/mcL Normal 0.00-0.19 [facility] [place] Comment [place] above: Performed By: #### C BCRACHEL, ANEU #### [address] [address] Basophils/100 WBC (Bld) 0.7 % Normal 0.0-2.5 A [facility] ([place]) Comment on above: Performed By: #### C BCRACHEL, ANEU #### [address] [address] Eosinophil, Absolute 0.30 10 3/mcL Normal 0.00-0.40 A [facility], [facility] ([place] Comment on above: Performed By: #### C BCRACHEL, ANEU #### [address] [address] Eosinophils/100 WBC (Bld) 2.1 % Normal 0.0-7.0 [facility] ([place] Comment on above: Performed By: #### C BCARCHEL, ANEU #### [address] [address] Lymphocyte, Absolute 4.10 10 3/mcL High 0.77-3.85 A [facility] ([place] Comment on above: Performed By: #### C BCRACHEL, ANEU #### [address] [address] Lymphocytes/100 WBC (Bld) 28.9 % Normal 10.0-50.0 [facility] ([place]) Comment on above: Performed By: #### C BCRACHEL, ANEU #### [address] [address] Monocyte, Absolute 1.40 10 3/mcL High 0.15-1.00 [facility] [place] Comment on above: Performed By: #### C RACHEL GOMEZ, ANEU #### [place] [address] [address] Monocytes/100 WBC (Bld) 9.9 % Normal 1.7-13.0 A [facility] ([place] Comment on above: Performed By: #### C RACHEL GOMEZ, ANEU #### [place] [address] Neutrophils/100 WBC (Bld) 58.4 % Normal 37.0-80.0 [facility] ([place]) Comment on above: Performed By: #### C RACHEL GOMEZ, ANEU #### [address] [address] .NEUABSon 02-08-2020 Neutrophil, Absolute 8.30 10 3/mcL High 2.85-6.16 A [facility] ([place] Comment on above: Performed By: #### C RACHEL GOMEZ, ANEU #### [address] [address] CBCon 02-08-2020 Erythrocyte distribution width (RBC) [Ratio] 17.9 % High 11.5-14.5 [facility] ([place]) Comment on above: Order Comment: copy Dr Suresh Marquez Performed By: #### RACHEL PITTS, ANEU #### [place] [address] [address] Hematocrit (Bld) [Volume fraction] 54.8 % High 37.0-47.0 [facility] ([place]) Comment on above: Order Comment: copy Dr Suresh Marquez Performed By: #### RACHEL PITTS, ANEU #### [address] [address] Hgb 17.9 G/dL High 12.0-16.0 [facility] ([place]) Comment on above: Order Comment: copy Dr Suresh Marquez Performed By: #### RACHEL PITTS, ANEU #### [address] [address] MCH (RBC) [Entitic mass] 29.4 pg Normal 27.0-31.2 [facility] ([place]) Comment on above: Order Comment: copy Dr Suresh Marquez Performed By: #### RACHEL PITTS, ANEU #### [place] [address] [address] MCHC 32.6 G/dL Low 33.0-37.0 [facility] ([place]) Comment on above: Order Comment: copy Dr Suresh Marquez Performed By: #### C RACHEL GOMEZ, ANEU #### [address] [address] MCV (RBC) [Entitic vol] 90.3 fL Normal 80.0-94.0 A [facility] ([place]) Comment on above: Order Comment: copy Dr Suresh Marquez Performed By: #### RACHEL PITTS, ANEU #### [address] [address] Platelet 207 10 3/mcL Normal 130-400 [facility] ([place]) Comment on above: Order Comment: copy Dr Suresh Marquez Performed By: #### RACHEL PITTS, ANEU #### [address] [address] Platelet mean volume (Bld) [Entitic vol] 10.5 fL High 7.4-10.4 [facility] ([place]) Comment on above: Order Comment: copy Dr Suresh Marquez Performed By: #### RACHEL PITTS, ANEU #### [address] [address] RBC 6.07 10 6/mcL High 4.20-5.40 [facility] ([place]) Comment on above: Order Comment: copy Dr Suresh Marquez Performed By: #### RACHEL PITTS, ANEU #### [place] [address] [address] WBC 14.20 10 3/mcL High 4.60-10.80 [facility] ([place]) Comment on above: Order Comment: copy Dr Suresh Marquez Performed By: #### C BC, ADIFF, ANEU #### [address] [address] PBNPon 02-08-2020 Natriuretic peptide B (Bld) [Mass/Vol] 443 pg/mL High 0-125 [facility] ([place]) Comment on above: Order Comment: copy Dr Marquez Result Comment: NT-p roBNP results of less than 300 pg/mL effectively rules out acute congestive heart failure with 99% negative predictive value. Performed By: #### P BNP, BMP, GFR #### [address] [address] TSHon 02-08-2020 TSH Qn 2.29 m[IU]/L Normal 0.36-3.74 [facility] ([place]) Comment on above: Performed By: #### T SH, LIPID, CMP, GFR #### [address] [address] .GFRon 12-09-2019 GFR 55 ml/min/1.73sqm Normal [facility] ([place]) Comment on above: Result Comment: GFR Population mean for , Non- Americans Ages 20-29 = 116 mL/min/1.73 sq.m. Ages 30-39 = 107 mL/min/1.73 sq.m. Ages 40-49 = 99 mL/min/1.73 sq.m. Ages 50-59 = 93 mL/min/1.73 sq.m. Ages 60-69 = 85 mL/min/1.73 sq.m. Ages 70+ = 75 mL/min/1.73 sq.m. Chronic Kidney Disease: Less than 60 mL/min/1.73 square meters End Stage Renal Disease: Less than 15 mL/min/1.73 square meters Performed By: #### T SH, LIPID, CMP, GFR #### [address] [address] GFR Non- 46 ml/min/1.73sqm Normal [facility] ([place]) Comment on above: Result Comment: GFR Population mean for , Non- Americans Ages 20-29 = 116 mL/min/1.73 sq.m. Ages 30-39 = 107 mL/min/1.73 sq.m. Ages 40-49 = 99 mL/min/1.73 sq.m. Ages 50-59 = 93 mL/min/1.73 sq.m. Ages 60-69 = 85 mL/min/1.73 sq.m. Ages 70+ = 75 mL/min/1.73 sq.m. Chronic Kidney Disease: Less than 60 mL/min/1.73 square meters End Stage Renal Disease: Less than 15 mL/min/1.73 square meters Performed By: #### T SH, LIPID, CMP, GFR #### [address] [address] CMPon 12-09-2019 Albumin Level 3.9 G/dL Normal 3.4-4.8 [facility] ([place]) Comment on above: Performed By: #### T SH, LIPID, CMP, GFR #### [address] [address] Albumin/Globulin [Mass ratio] 1.2 {ratio} Normal 1.1-2.5 [facility] ([place]) Comment on above: Performed By: #### T SH, LIPID, CMP, GFR #### [address] [address] ALP [Catalytic activity/Vol] 48 U/L Normal 40-135 [facility] ([place]) Comment on above: Performed By: #### T SH, LIPID, CMP, GFR #### [address] [address] ALT [Catalytic activity/Vol] 39 U/L High 10-35 [facility] ([place]) Comment on above: Performed By: #### T SH, LIPID, CMP, GFR #### [address] [address] AST [Catalytic activity/Vol] 20 U/L Normal 10-40 [facility] ([place]) Comment on above: Performed By: #### T SH, LIPID, CMP, GFR #### [address] [address] Bili Total 0.5 mg/dL Normal 0.2-1.0 [facility] ([place]) Comment on above: Result Comment: Use of this assay is not recommended for patients undergoing treatment with eltrombopag due to the potential for falsely elevated results. Performed By: #### T SH, LIPID, CMP, GFR #### [address] [address] BUN/Creatinine Ratio 22 ratio Normal 7-27 [facility] ([place]) Comment on above: Performed By: #### T SH, LIPID, CMP, GFR #### [address] [address] Calcium [Mass/Vol] 9.0 mg/dL Normal 8.4-10.2 [facility] ([place]) Comment on above: Performed By: #### T SH, LIPID, CMP, GFR #### [address] [address] Chloride [Moles/Vol] 102 mmol/L Normal 98-107 [facility] ([place] Comment on above: Performed By: #### T SH, LIPID, CMP, GFR #### [address] [address] CO2 [Moles/Vol] 28 mmol/L Normal 23-31 [facility] ([place]) Comment on above: Performed By: #### T SH, LIPID, CMP, GFR #### [address] [address] Creatinine [Mass/Vol] 1.20 mg/dL High 0.55-1.02 [facility] [place] Comment [place] above: Performed By: #### T SH, LIPID, CMP, GFR #### [address] [address] Electrolyte Balance 11.0 mEq/L Normal [facility] ([place]) Comment on above: Performed By: #### T SH, LIPID, CMP, GFR #### [address] [address] Globulin 3.3 G/dL Normal [facility] ([place]) Comment on above: Performed By: #### T SH, LIPID, CMP, GFR #### [address] [address] Glucose [Mass/Vol] 109 mg/dL Normal 80-115 [facility] ([place]) Comment on above: Performed By: #### T SH, LIPID, CMP, GFR #### [address] [address] Potassium [Moles/Vol] 4.4 mmol/L Normal 3.5-5.1 [facility] [place] Comment [place] above: Performed By: #### T SH, LIPID, CMP, GFR #### [address] [address] Sodium [Moles/Vol] 141 mmol/L Normal 136-145 [facility] ([place]) Comment on above: Performed By: #### T SH, LIPID, CMP, GFR #### [address] [address] Total Protein 7.2 G/dL Normal 6.4-8.2 [facility] ([place]) Comment on above: Performed By: #### T SH, LIPID, CMP, GFR #### [address] [address] Urea nitrogen [Mass/Vol] 27 mg/dL High 7-18 [facility] ([place]) Comment on above: Performed By: #### T SH, LIPID, CMP, GFR #### [address] [address] LIPIDon 12-09-2019 Cholesterol [Mass/Vol] 250 mg/dL High 0-200 [facility] ([place]) Comment on above: Result Comment: Chol esterol Reference Interval: Less than 200 Desirable 200-239 Borderline high risk 240 and above High risk Performed By: #### T SH, LIPID, CMP, GFR #### [address] [address] Cholesterol in HDL [Mass/Vol] 42 mg/dL Normal 40-60 [facility] ([place]) Comment on above: Performed By: #### T SH, LIPID, CMP, GFR #### [address] [address] Cholesterol in LDL [Mass/Vol] 165 mg/dL High 0-130 [facility] ([place]) Comment on above: Performed By: #### T SH, LIPID, CMP, GFR #### [place] [address] [place], [place] [address] Triglyceride [Mass/Vol] 216 mg/dL High 0-150 A [facility] ([place] Comment on above: Result Comment: Trig lyceride Reference Interval: Less than 150 Normal 150-199 Borderline high risk 200-499 High risk 500 or higher Very high risk Performed By: #### T SH, LIPID, CMP, GFR #### [place] [address] [place], [place] [address] TSHon 12-09-2019 TSH Qn 2.32 m[IU]/L Normal 0.36-3.74 [facility] ([place]) Comment on above: Performed By: #### T SH, LIPID, CMP, GFR #### [address] [address] CNPTOUTREACHon 11-29-2019 CNPTOUTREACH Patient Outreach ( MPWS) ----- YASMINE MTZ ([id number]) 1955 F Date Time Provider Department 11/29/19 ADÁN YOSTRACIEL During your visit today, we recorded the following information about you: Cinthia James LPN 11/29/2019 3:12 PM Signed Message left asking pt to call the office to schedule yearly mammogram Cinthia James LPN ' Allergies As of Date: 11/29/2019 (No Known Allergies) Date Reviewed: 07/03/2017 Reviewed by: Devin (Rn)(Hist) DRE Doll - Fully Assessed Reason for Visit: PHMA/Care Gap Outreach [[id number]] Prescriptions as of 11/29/2019 Sig: METOPROLOL TARTRATE 25 MG TAB* Take 1 tablet by mouth twice * LOSARTAN 100 MG TABLET Take 1 tablet by mouth once d* WARFARIN 5 MG TABLET Take 1 tablet by mouth once d* ATORVASTATIN 40 MG TABLET Take 1 tablet by mouth once d* ASPIRIN 81 MG TABLET,DELAYED * Take 1 tablet by mouth once d* OMEPRAZOLE MAGNESIUM 20 MG TA* Take 1 tablet by mouth daily * DOXYCYCLINE MONOHYDRATE 100 M* Take 1 capsule by mouth twice* ALBUTEROL SULFATE HFA 90 MCG/* Inhale 2 Puffs as instructed * CHOLECALCIFEROL (VITAMIN D3) * Take 1 tablet by mouth once d* MAGNESIUM SULFATE-FOR TPN Take 250 mEq by mouth once da* MULTIVITAMIN ORAL Take 1 tablet by mouth once d* COQ10 (LIPOSOMAL UBIQUINOL) O* Take 1 tablet by mouth once d* Problem List As Of Date 11/29/2019 Noted Resolved HTN (hypertension) [I10] 10/22/2012 More... Hyperlipidemia [E78.5] 10/22/2012 SUMMARY [V999.95] 03/17/2013 02/13/2017 More... BRBPR (bright red blood per rectum) [K62.5] 03/17/2013 More... DVT prophylaxis [Z29.9] 03/17/2013 02/13/2017 More... Lung nodule seen on imaging study [R91.1] 03/17/2013 More... Typical atrial flutter (HCC) [I48.3] 10/26/2015 More... Atrial flutter (HCC) [I48.92] 06/24/2017 Obesity, Class III, BMI 40-49.9 (morbid obesity*08/10/2017 Encounter Status:Closed by CINTHIA JAMES LPN on 11/29/19 Normal [facility] PROGRESSon 11-29-2019 PROGRESS HNO ID: [id number] Author: Cinthia James LPN Service: ? Author Type: ? Type: Progress Notes Filed: 11/29/2019 3:12 PM Note Text: Message left asking pt to call the office to schedule yearly mammogram Cinthia James LPN ' Normal [facility] PROGRESSon 01-14-2019 PROGRESS HNO ID: [id number] Author: Maite Flores Service: ? Author Type: Chief Controller Tower Type: Progress Notes Filed: 01/14/2019 10:00 AM Note Text: POPULATION HEALTH BLOOD OR BLOOD BANK TECHNICIAN QUICKNOTE Provider Action/FYI: Letter mailed to patient. Patient identified by name and . Maite Flores CMA [facility] PROGRESS HNO ID: [id number] Author: Maite Flores Service: ? Author Type: Chief Controller Tower Type: Progress Notes Filed: 01/14/2019 10:00 AM Note Text: POPULATION [facility] BLOOD OR BLOOD BANK TECHNICIAN QUICKNOTE Provider Action/FYI: 3rd attempt - Left message for patient to return call #[phone] Mailing letter to patient. Patient identified by name and . Maite Flores CMA [facility] PROGRESSon 01-07-2019 PROGRESS HNO ID: [id number] Author: Maite Flores Service: ? Author Type: Chief Controller Tower Type: Progress Notes Filed: 01/14/2019 10:00 AM Note Text: POPULATION [facility] BLOOD OR BLOOD BANK TECHNICIAN QUICKNOTE Provider Action/FYI: 2nd attempt - Left message for patient to return call #[phone] Patient identified by name and . Maite Flores CMA [facility] CNPTOUTREACHon 01-03-2019 CNPTOUTREACH Patient Outreach ([place] MPWS) ----- YASMINE MTZ ([id number]) 1955 F Date Time Provider [facility]03[facility] During your visit today, we recorded the following information about you: Maite Flores CMA 01/14/2019 10:00 AM Signed [facility] CARE GAP REGISTRY DOCUMENTATION (OUTSIDE TEAMLET) Provider Action/FYI: PSR Action/FYI: - due for Follow up/physical with pcp (Last pcp appointment 06/23/17) Health Maintenance Due: BP CONTROLLED (<130/80) due on 12/23/1975 DTAP,TDAP,TD(1 - Tdap) due on 1976 HEPATITIS C SCREENING due on 2001 PAP TESTING due on 10/26/2017 HPV TESTING due on 10/26/2017 COLORECTAL CANCER SCREENING,SEE MODIFIER due on 11/04/2017 MAMMOGRAM due on 02/25/2018 - ordered ANNUAL PCP TEAM CHRONIC DISEASE VISIT due on 06/23/2018 Patient identified by name and date of . Last BP/Labs: Blood Pressure: Last 3 Encounter BP Readings: Date: BP: 07/03/2017 134/72[ (from Extended Vitals)[ 06/23/2017 144/79 06/23/2017 130/71 Lipids: Cholesterol, Total (mg/dL) Date Value 08/27/2017 234 06/26/2017 217 HDL Cholesterol (mg/dL) Date Value 08/27/2017 39 06/26/2017 45 LDL Cholesterol (mg/dL) Date Value 08/27/2017 Unable to calculate due to increased Triglycerides. See LDL-Chol, Direct. 06/26/2017 126 Triglyceride (mg/dL) Date Value 08/27/2017 444 06/26/2017 229 HGB A1C: No results found for: HBA1C TSH: TSH (uU/mL) Date Value 06/02/2017 1.710 03/31/2016 1.810 ) ? Patient has the following care gap registry disease diagnosis:HTN ? Hyperlipidemia ? Patient has the following open care gaps: Health Maintenance Due: BP CONTROLLED (<130/80) due on 12/23/1975 DTAP,TDAP,TD(1 - Tdap) due on 1976 HEPATITIS C SCREENING due on 2001 PAP TESTING due on 10/26/2017 HPV TESTING due on 10/26/2017 COLORECTAL CANCER SCREENING,SEE MODIFIER due on 11/04/2017 MAMMOGRAM due on 02/25/2018 - ordered ANNUAL PCP TEAM CHRONIC DISEASE VISIT due on 06/23/2018 ? Last office visit: 06/23/2017 ? Future office visit:Follow up/Physical with pcp or fnp PHUC Black CMA 01/14/2019 10:00 AM Signed [facility] BLOOD OR BLOOD BANK TECHNICIAN JANICE Provider Action/FYI: 1st attempt - MyChart message sent. Patient identified by name and . PHUC Black CMA 01/14/2019 10:00 AM Signed [facility] BLOOD OR BLOOD BANK TECHNICIAN JANICE Provider Action/FYI: 2nd attempt - Left message for patient to return call #[phone] Patient identified by name and . PHUC Black CMA 01/14/2019 10:00 AM Signed [facility] BLOOD OR BLOOD BANK TECHNICIAN TARUNE Provider Action/FYI: 3rd attempt - Left message for patient to return call #[phone] Mailing letter to patient. Patient identified by name and . PHUC Black CMA 01/14/2019 10:00 AM Signed [facility] BLOOD OR BLOOD BANK TECHNICIAN JANICE Provider Action/FYI: Letter mailed to patient. Patient identified by name and . Maite Flores CMA Allergies As of Date: 01/03/2019 (No Known Allergies) Date Reviewed: 07/03/2017 Reviewed by: Devin (Rn)(Hist) DRE Doll - Fully Assessed Reason for Visit: PHMA/Care Gap Outreach [[id number]] Prescriptions as of 01/03/2019 Sig: METOPROLOL TARTRATE 25 MG TAB* Take 1 tablet by mouth twice * WARFARIN 5 MG TABLET Take 1 tablet by mouth once d* ATORVASTATIN 40 MG TABLET Take 1 tablet by mouth once d* ASPIRIN 81 MG TABLET,DELAYED * Take 1 tablet by mouth once d* OMEPRAZOLE MAGNESIUM 20 MG TA* Take 1 tablet by mouth daily * DOXYCYCLINE MONOHYDRATE 100 M* Take 1 capsule by mouth twice* ALBUTEROL SULFATE HFA 90 MCG/* Inhale 2 Puffs as instructed * CHOLECALCIFEROL (VITAMIN D3) * Take 1 tablet by mouth once d* MAGNESIUM SULFATE-FOR TPN Take 250 mEq by mouth once da* MULTIVITAMIN ORAL Take 1 tablet by mouth once d* COQ10 (LIPOSOMAL UBIQUINOL) O* Take 1 tablet by mouth once d* Problem List As Of Date 01/03/2019 Noted Resolved HTN (hypertension) [I10] INVALID FOR* More... Hyperlipidemia [E78.5] INVALID FOR* SUMMARY [V999.95] INVALID FOR*02/13/2017 More... BRBPR (bright red blood per rectum) [K62.5] INVALID FOR* More... DVT prophylaxis [Z29.9] INVALID FOR*02/13/2017 More... Lung nodule seen on imaging study [R91.1] INVALID FOR* More... Typical atrial flutter (HCC) [I48.3] INVALID FOR* More... Atrial flutter (HCC) [I48.92] INVALID FOR* Obesity, Class III, BMI 40-49.9 (morbid obesity*INVALID FOR* Letter Text Encounter Status:Closed by MAITE FLORES CMA on 01/14/19 [facility] PROGRESSon 01-03-2019 PROGRESS HNO ID: [id number] Author: Maite (PhucNegrito Roge Service: ? Author Type: Chief Controller Tower Type: Progress Notes Filed: 01/14/2019 10:00 AM Note Text: [facility]ATION [facility] BLOOD OR BLOOD BANK TECHNICIAN QUICKNOTE Provider Action/FYI: 1st attempt - Sight[employer]inet message sent. Patient identified by name and . Maite Roge PHUC [facility] PROGRESS HNO ID: [id number] Author: Maite Flores Service: ? Author Type: Chief Controller Tower Type: Progress Notes Filed: 01/14/2019 10:00 AM Note Text: PHMA CARE GAP REGISTRY DOCUMENTATION (OUTSIDE TEAMLET) Provider Action/FYI: PSR Action/FYI: - due for Follow up/physical with pcp (Last pcp appointment 06/23/17) Health Maintenance Due: BP CONTROLLED (<130/80) due on 12/23/1975 DTAP,TDAP,TD(1 - Tdap) due on 1976 HEPATITIS C SCREENING due on 2001 PAP TESTING due on 10/26/2017 HPV TESTING due on 10/26/2017 COLORECTAL CANCER SCREENING,SEE MODIFIER due on 11/04/2017 MAMMOGRAM due on 02/25/2018 - ordered ANNUAL PCP TEAM CHRONIC DISEASE VISIT due on 06/23/2018 Patient identified by name and date of . Last BP/Labs: Blood Pressure: Last 3 Encounter BP Readings: Date: BP: 07/03/2017 134/72[ (from Extended Vitals)[ 06/23/2017 144/79 06/23/2017 130/71 Lipids: Cholesterol, Total (mg/dL) Date Value 08/27/2017 234 06/26/2017 217 HDL Cholesterol (mg/dL) Date Value 08/27/2017 39 06/26/2017 45 LDL Cholesterol (mg/dL) Date Value 08/27/2017 Unable to calculate due to increased Triglycerides. See LDL-Chol, Direct. 06/26/2017 126 Triglyceride (mg/dL) Date Value 08/27/2017 444 06/26/2017 229 HGB A1C: No results found for: HBA1C TSH: TSH (uU/mL) Date Value 06/02/2017 1.710 03/31/2016 1.810 ) ? Patient has the following care gap registry disease diagnosis:HTN ? Hyperlipidemia ? Patient has the following open care gaps: Health Maintenance Due: BP CONTROLLED (<130/80) due on 12/23/1975 DTAP,TDAP,TD(1 - Tdap) due on 1976 HEPATITIS C SCREENING due on 2001 PAP TESTING due on 10/26/2017 HPV TESTING due on 10/26/2017 COLORECTAL CANCER SCREENING,SEE MODIFIER due on 11/04/2017 MAMMOGRAM due on 02/25/2018 - ordered ANNUAL PCP TEAM CHRONIC DISEASE VISIT due on 06/23/2018 ? Last office visit: 06/23/2017 ? Future office visit:Follow up/Physical with pcp or fnp PHUC Black [facility] CNOVon 07-03-2017 CNOV Office Visit (AGCARDWST) YASMINE MTZ ([id number]) 1955 [facility] Time Provider Department07/03/17 1:30 PM BENNETT MATOS AGCARDWST During your visit today, we recorded the following information about you: Pulse Blood pressure Weight Height 84/minute 134/74 102 kg 1.562 Ankit Matos MD 07/03/2017 1:47 PM SignedLIFESTYLE CHANGEA healthy lifestyle is the most important component of your overall treatmentplan. Please give serious thought to the following areas and commit to makinglong term changes.EAT A WHOLE FOOD, PLANT BASED DIETThe nutrition your body gets is more important than the medicine you take.What matters most is the overall way you eat. We encourage you to minimize theuse of animal products (which include dairy and all meats except fatty fish)and use whole, unprocessed plant foods to provide your protein, vitamins andother nutrients. We have a lot of information to share with you on this topic. We also hold Shared Medical Appointments, where you can come visit with in the company of other patients and spend over an hour talking aboutthe challenges of changing the way you eat. This is not a ANDquot;dietANDquot;.It is a way of life that you will keep with you.EXERCISE REGULARLYIt is not important to spend hours in the gym, lifting weights and perspiringheavily. A total of 2-3 hours per week of aerobic (causing you to bemoderately short of breath) exercise is sufficient to improve your health.Talk to us before you begin a new exercise program, if you have heart diseaseor experience shortness of breath or chest pain.REDUCE STRESSChronic emotional and physical stress leads to disease. Ways of reducingstress include meditation, visualization, prayer, yoga and other forms ofrelaxation therapy. Consistency is the seymour. Find a technique that works foryou and do it every day.CULTIVATE RELATIONSHIPSLoneliness and isolation have a major negative impact on health. Seek outothers who can love, care for and nurture you. Avoid hurtful relationships.MAINTAIN IDEAL BODY WEIGHTThe best way to do this is to do all the things above. Our bodies naturallyfind the right weight if we keep moving and feed ourselves the right food. Ifyour BMI is greater than 25, we strongly recommend a referral to a weightmanagement program. Please speak to us or your family physician aboutavailable programs.AVOID NICOTINE IN ALL FORMSThis includes all tobacco products, whether chewed, smoked, vaped, or rubbed onthe skin. Smoking cessation programs, which can make use of tobaccosubstitutes, medications to suppress cravings and behavior management, areavailable. Please contact your family physician about programs in your area.Bennett Matos MD 07/03/2017 5:40 PM SignedPERTINENT CARDIAC HISTORYAtrial flutter - C-V 3TobaccoismMitral insufficiency - mildHTNHLCHF - diastolic, while in A flutterObesityOSA - untreatedACE-I intolerance - coughADHERENCE TO GUIDELINESACE-I or ARB for HF with prior LVEFANDlt;40 (NQF 0081) - N/AASA or Plavix for ASHD (NQF 0067) - N/ABeta bronson for ASHD with prior NC or prior LVEFANDlt;40 (NQF 0070) - N/ABeta bronson for HF with prior LVEFANDlt;40 (NQ 0083) - N/AACE-I or ARB for ASHD with DM or prior LVEFANDlt;40 (NQ 0066) - N/AStatin therapy for ASHD or FHL or DM - N/ABMI documented and plan if ANDgt;25 (NQ 0421) - lifestyle recommendation formTobacco use screening and referral (NQ 0028) - lifestyle recommendation formRecommendation for whole food, plant based diet - lifestyle recommendation formCLINICAL IMPRESSION/PLAN:Yasmine Mtz has intermittent atrial flutter. She may have had an episodethis morning. She reports that diltiazem has caused her heart rate to increase.This seems unlikely, but she wishes to return to metoprolol. I do not want tomake any additional changes or add medications until her sleep apnea istreated. I've asked her to contact me when she has her device therapy. At thatpoint, we can pay closer attention to her symptoms and make medicationadjustments. She would still be a candidate for ablation or antiarrhythmictherapy if she has breakthrough symptoms while on affective CPAP.INR will be checked as scheduled.I will see her in 3 months or as needed.Written and verbal health teaching given to patient, patient verbalizesunderstanding and agrees with treatment plan.This note was generated using [employer] voice recognition system, and there may besome incorrect words, spellings, and punctuation that were not noted inchecking the note before saving.DIAGNOSIS FOR VISIT:Atrial flutterHISTORY OF PRESENT ILLNESSYasmine Mtz returns for follow-up of her atrial flutter. She istolerating warfarin well. She notes that her heart rate occasionallyaccelerates. She's had no further documentation of atrial flutter on telemetry.This morning she had an episode where she felt that her heart was pounding, butshe did not make a transmission.She states that she felt better while taking metoprolol. She's had no orthopneaor edema. She denies syncope, TIAs, amaurosis and claudication.ALLERGIES:AL Dawit Known AllergiesCURRENT OUTPATIENT MEDICATIONS:warfarin (COUMADIN) 5 mg tablet Take 1 tablet by mouth once daily. OR ASDIRECTED, TAKE IN EVENINGdiltiazem CD (CARDIZEM CD, CARTIA XT) 180 mg 24 hr capsule Take 1 capsule bymouth once daily.losartan (COZAAR) 100 mg tablet Take 1 tablet by mouth once daily.atorvastatin (LIPITOR) 40 mg tablet Take 1 tablet by mouth once daily.aspirin, enteric coated (ADULT LOW DOSE ASPIRIN) 81 mg EC tablet Take 1 tabletby mouth once daily.Omeprazole Magnesium (PRILOSEC OTC) 20 mg tablet Take 1 tablet by mouth dailybefore breakfast. 1/2 hr before meal.doxycycline monohydrate (MONODOX) 100 mg capsule Take 1 capsule by mouth twicedaily.albuterol HFA (VENTOLIN HFA) 90 mcg/actuation inhaler Inhale 2 Puffs asinstructed every 4 hours as needed for Wheezing/Shortness of Breath.Cholecalciferol, Vitamin D3, 2,000 unit cap Take 1 tablet by mouth once daily.magnesium sulfate Take 250 mEq by mouth once daily.MULTIVITAMIN ORAL Take 1 tablet by mouth once daily.COQ10, LIPOSOMAL UBIQUINOL, ORAL Take 1 tablet by mouth once daily.PHYSICAL EXAMINATION:VITAL SIGNS: BP 134/74 Pulse 84 Ht 5' 1.5ANDquot; (1.56m) Wt 224 lb 12.8 oz(102.0kg) BMI 41.79 kg/(m2).Chest: Clear to percussion and auscultation. Trachea is midline. Air entry isequal. Cardiac: Regular rhythm. S1 and S2 are normal. PMI is nondisplaced.There is a soft systolic ejection murmur. Carotids are brisk without bruits.JVP is less than 10 cm. Abdomen: Soft and nontender. There are no pulsatilemasses or bruits. No liver enlargement. Bowel sounds are active.Extremities: No edema. Pulses are intact and symmetrical.EKG shows sinus rhythm. There is no significant change.Event monitor report was reviewed. She had one episode of atrial flutter whichlasted several hours.Electronically Signed:Bennett Matos MDBanner Md Anderson Cancer Centeruary 2017 1:50 PMCC: Adán Yost, [facility] Provider: BENNETT MATOS [[id number]]Allergies As of Date: 07/03/2017(No Known Allergies)Date Reviewed: 07/03/2017Reviewed by: Devin MuellerRn) DRE Doll - Fully AssessedReason for Visit: Follow Up [171] Cmt: one monthPrimary Visit Diagnosis:Atypical atrial flutter (HCC) [I48.4] Other Visit Diagnoses:Essential hypertension with goal blood pressure less than 140/90 [I10] LVH (left ventricular hypertrophy) [I51.7]Order(s):ECG COMPLETE W INTERPRETATION [ECG01] Order #: [id number] FUTURE metoprolol tartrate, short acting, (LOPRESSOR) 25 mg tabletTake 1 tablet by mouth twice daily.Disp: 90 tabletRfl: 0Prescriptions as of 07/03/2017 Sig: WARFARIN 5 MG TABLET Take 1 tablet by mouth once d* LOSARTAN 100 MG TABLET Take 1 tablet by mouth once d* ATORVASTATIN 40 MG TABLET Take 1 tablet by mouth once d* ASPIRIN 81 MG TABLET,DELAYED * Take 1 tablet by mouth once d* OMEPRAZOLE MAGNESIUM 20 MG TA* Take 1 tablet by mouth daily * DOXYCYCLINE MONOHYDRATE 100 M* Take 1 capsule by mouth twice* ALBUTEROL SULFATE HFA 90 MCG/* Inhale 2 Puffs as instructed * CHOLECALCIFEROL (VITAMIN D3) * Take 1 tablet by mouth once d* MAGNESIUM SULFATE Take 250 mEq by mouth once da* MULTIVITAMIN ORAL Take 1 tablet by mouth once d* COQ10 (LIPOSOMAL UBIQUINOL) O* Take 1 tablet by mouth once d* METOPROLOL TARTRATE 25 MG TAB* Take 1 tablet by mouth twice *Problem List As Of Date 07/03/2017 Noted Resolved HTN (hypertension) [I10] INVALID FOR* Priority: C More... Hyperlipidemia [E78.5] INVALID FOR* SUMMARY [V999.95] INVALID FOR*02/13/2017 Priority: A More... BRBPR (bright red blood per rectum) [K62.5] INVALID FOR* Priority: B More... DVT prophylaxis [GCF0693] INVALID FOR*02/13/2017 More... Lung nodule seen on imaging study [R91.1] INVALID FOR* More... Typical atrial flutter (HCC) [I48.3] INVALID FOR* More... Atrial flutter (HCC) [I48.92] INVALID FOR* Other instructions from your clinician: LIFESTYLE CHANGE A healthy lifestyle is the most important component of your overall treatment plan. Please give serious thought to the following areas and commit to making chcf changes. EAT A WHOLE FOOD, PLANT BASED DIET The nutrition your body gets is more important than the medicine you take. What matters most is the overall way you eat. We encourage you to minimize the use of animal products (which include dairy and all meats except fatty fish) and use whole, unprocessed plant foods to provide your protein, vitamins and other nutrients. We have a lot of information to share with you on this topic. We also hold Shared Medical Appointments, where you can come visit with Dr. Matos in the company of other patients and spend over an hour talking about the challenges of changing the way you eat. This is not a diet. It is a way of life that you will keep with you. EXERCISE REGULARLY It is not important to spend hours in the gym, lifting weights and perspiring heavily. A total of 2-3 hours per week of aerobic (causing you to be moderately short of breath) exercise is sufficient to improve your health. Talk to us before you begin a new exercise program, if you have heart disease or experience shortness of breath or chest pain. REDUCE STRESS Chronic emotional and physical stress leads to disease. Ways of reducing stress include meditation, visualization, prayer, yoga and other forms of relaxation therapy. Consistency is the seymour. Find a technique that works for you and do it every day. CULTIVATE RELATIONSHIPS Loneliness and isolation have a major negative impact on health. Seek out others who can love, care for and nurture you. Avoid hurtful relationships. MAINTAIN IDEAL BODY WEIGHT The best way to do this is to do all the things above. Our bodies naturally find the right weight if we keep moving and feed ourselves the right food. If your BMI is greater than 25, we strongly recommend a referral to a weight management program. Please speak to us or your family physician about available programs. AVOID NICOTINE IN ALL FORMS This includes all tobacco products, whether chewed, smoked, vaped, or rubbed on the skin. Smoking cessation programs, which can make use of tobacco substitutes, medications to suppress cravings and behavior management, are available. Please contact your family physician about programs in your area.Prescriptions ordered this encounter Disp Refills Start End METOPROLOL TARTRATE 25 MG TABLET 90 t* 0 07/03/2017 Class: Med Update Route: ORAL Sig: Take 1 tablet by mouth twice daily.Medications Discontinued During This Encounter diltiazem CD (CARDIZEM CD, CARTIA XT* 30 c* 6 06/23/2017 07/03/2017 Route: ORAL Sig: Take 1 capsule by mouth once daily. Disc: Reason for discontinue is not on file.Classic SmartForms filed during this visit:Extended VitalsEncounter Number: [id number] Status:Closed by BENNETT MATOS MD on 07/03/17 [facility] PROGRESSon 07-03-2017 PROGRESS HNO ID: [id number] thor: Bennett Fox: (none)Author Type: PhysicianType: Progress NotesFiled: 07/03/2017 5:40 PMNote Text:PERTINENT CARDIAC HISTORYAtrial flutter - C-V 3TobaccoismMitral insufficiency - mildHTNHLCHF - diastolic, while in A flutterObesityOSA - untreatedACE-I intolerance - coughADHERENCE TO GUIDELINESACE-I or ARB for HF with prior LVEF<40 (NQF 0081) - N/AASA or Plavix for ASHD (NQF 0067) - N/ABeta bronson for ASHD with prior NC or prior LVEF<40 (NQF 0070) - N/ABeta bronson for HF with prior LVEF<40 (NQF 0083) - N/AACE-I or ARB for ASHD with DM or prior LVEF<40 (NQF 0066) - N/AStatin therapy for ASHD or FHL or DM - N/ABMI documented and plan if >25 (NQF 0421) - lifestyle recommendation formTobacco use screening and referral (NQF 0028) - lifestyle recommendationformRecomme ndation for whole food, plant based diet - lifestyle recommendationformCLINICA L IMPRESSION/PLAN:Yasmine Mtz has intermittent atrial flutter. She may have had anepisode this morning. She reports that diltiazem has caused her heart rateto increase. This seems unlikely, but she wishes to return to metoprolol.I do not want to make any additional changes or add medications until hersleep apnea is treated. I've asked her to contact me when she has herdevice therapy. At that point, we can pay closer attention to her symptomsand make medication adjustments. She would still be a candidate forablation or antiarrhythmic therapy if she has breakthrough symptoms whileon affective CPAP.INR will be checked as scheduled.I will see her in 3 months or as needed.Written and verbal health teaching given to patient, patient verbalizesunderstanding and agrees with treatment plan.This note was generated using [employer] voice recognition system, and theremay be some incorrect words, spellings, and punctuation that were notnoted in checking the note before saving.DIAGNOSIS FOR VISIT:Atrial flutterHISTORY OF PRESENT ILLNESSYasmine Mtz returns for follow-up of her atrial flutter. She istolerating warfarin well. She notes that her heart rate occasionallyaccelerates. She's had no further documentation of atrial flutter ontelemetry. This morning she had an episode where she felt that her heartwas pounding, but she did not make a transmission.She states that she felt better while taking metoprolol. She's had noorthopnea or edema. She denies syncope, TIAs, amaurosis and claudication.ALLERGIES:GIULIA Pastor Known AllergiesCURRENT OUTPATIENT MEDICATIONS:warfarin (COUMADIN) 5 mg tablet Take 1 tablet by mouth once daily. OR ASDIRECTED, TAKE IN EVENINGdiltiazem CD (CARDIZEM CD, CARTIA XT) 180 mg 24 hr capsule Take 1 capsuleby mouth once daily.losartan (COZAAR) 100 mg tablet Take 1 tablet by mouth once daily.atorvastatin (LIPITOR) 40 mg tablet Take 1 tablet by mouth once daily.aspirin, enteric coated (ADULT LOW DOSE ASPIRIN) 81 mg EC tablet Take 1tablet by mouth once daily.Omeprazole Magnesium (PRILOSEC OTC) 20 mg tablet Take 1 tablet by mouthdaily before breakfast. 1/2 hr before meal.doxycycline monohydrate (MONODOX) 100 mg capsule Take 1 capsule by mouthtwice daily.albuterol HFA (VENTOLIN HFA) 90 mcg/actuation inhaler Inhale 2 Puffs asinstructed every 4 hours as needed for Wheezing/Shortness of Breath.Cholecalciferol, Vitamin D3, 2,000 unit cap Take 1 tablet by mouth oncedaily.magnesium sulfate Take 250 mEq by mouth once daily.MULTIVITAMIN ORAL Take 1 tablet by mouth once daily.COQ10, LIPOSOMAL UBIQUINOL, ORAL Take 1 tablet by mouth once daily.PHYSICAL EXAMINATION:VITAL SIGNS: BP 134/74 Pulse 84 Ht 5' 1.5 (1.56m) Wt 224 lb 12.8 oz(102.0kg) BMI 41.79 kg/(m2).Chest: Clear to percussion and auscultation. Trachea is midline. Airentry is equal. Cardiac: Regular rhythm. S1 and S2 are normal. PMI isnondisplaced. There is a soft systolic ejection murmur. Carotids arebrisk without bruits. JVP is less than 10 cm. Abdomen: Soft andnontender. There are no pulsatile masses or bruits. No liverenlargement. Bowel sounds are active. Extremities: No edema. Pulses areintact and symmetrical.EKG shows sinus rhythm. There is no significant change.Event monitor report was reviewed. She had one episode of atrial flutterwhich lasted several hours.Electronically Signed:Bennett Matos MDbruary 2017 1:50 PMCC: Adán Yost [facility] Office Visit (AGCARDWST) YASMINE MTZ ([id number]) 1955 [facility] Time Provider Department06/23/17 8:30 AM BENNETT MATOS AGCARDWSClaus During your visit today, we recorded the following information about you: Pulse Blood pressure Weight 90/minute 130/71 101.5 kgBennett Matos MD 06/23/2017 5:02 PM SignedPERTINENT CARDIAC HISTORYAtrial flutter - C-V 3TobaccoismMitral insufficiency - mildHTNHLCHF - diastolic, while in A flutterObesityOSA - untreatedACE-I intolerance - coughADHERENCE TO GUIDELINESACE-I or ARB for HF with prior LVEFANDlt;40 (NQF 0081) - N/AASA or Plavix for ASHD (NQF 0067) - N/ABeta bronson for ASHD with prior NC or prior LVEFANDlt;40 (NQF 0070) - N/ABeta bronson for HF with prior LVEFANDlt;40 (NQF 0083) - N/AACE-I or ARB for ASHD with DM or prior LVEFANDlt;40 (NQF 0066) - N/AStatin therapy for ASHD or FHL or DM - N/ABMI documented and plan if ANDgt;25 (NQ 0421) - lifestyle recommendation formTobacco use screening and referral (NQ 0028) - lifestyle recommendation formRecommendation for whole food, plant based diet - lifestyle recommendation formCLINICAL IMPRESSION/PLAN:Yasmine Mtz has evidence of recurrent atrial flutter. We will obtainfurther reports. For the time being, she's been advised to discontinue smoking,cut down on her caffeine and proceed with sleep study. She may haveintermittent episodes over the next few weeks. She is not tolerating metoprololwell as she is having some flushing. She reports that she cannot increase thedose. This will be discontinued and she will be started on diltiazem CD 180milligrams daily.She will begin with warfarin at 5 milligrams daily. Baseline INR will be donetoday and we will repeat this in 4-5 days.We discussed options including antiarrhythmic drugs and ablation. There is nopoint in pursuing any further treatment until her sleep apnea is under bettercontrol.I will see her as originally scheduled.Total duration of this visit was greater than 30 minutes, of which more than50% was counseling.Written and verbal health teaching given to patient, patient verbalizesunderstanding and agrees with treatment plan.This note was generated using [employer] voice recognition system, and there may besome incorrect words, spellings, and punctuation that were not noted inchecking the note before saving.DIAGNOSIS FOR VISIT:Atrial flutterMitral insufficiencyHypertension HISTORY OF PRESENT ILLNESSYasmine Mtz returns for follow-up of her atrial flutter. She hadrecurrence of symptoms and this was documented to be atrial flutter on eventmonitor . The episode lasted about 10 hours. She restarted Xarelto, but has runout and states that she cannot afford this any further.She's had no chest discomfort. Exercise tolerance has been stable. She's had noorthopnea, edema, syncope, TIAs, amaurosis or claudication.She has had no contraindication to anticoagulation . Her sleep study has yet og performed. She has consultation later this week.ALLERGIES:ALLERGIESN o Known AllergiesCURRENT OUTPATIENT MEDICATIONS:warfarin (COUMADIN) 5 mg tablet Take 1 tablet by mouth once daily. OR ASDIRECTED, TAKE IN EVENINGatorvastatin (LIPITOR) 40 mg tablet Take 1 tablet by mouth once daily.aspirin, enteric coated (ADULT LOW DOSE ASPIRIN) 81 mg EC tablet Take 1 tabletby mouth once daily.Omeprazole Magnesium (PRILOSEC OTC) 20 mg tablet Take 1 tablet by mouth dailybefore breakfast. 1/2 hr before meal.losartan (COZAAR) 50 mg tablet Take 1 tablet by mouth once daily.doxycycline monohydrate (MONODOX) 100 mg capsule Take 1 capsule by mouth twicedaily.metoprolol tartrate, short acting, (LOPRESSOR) 25 mg tablet Take 1 tablet bymouth twice daily.albuterol HFA (VENTOLIN HFA) 90 mcg/actuation inhaler Inhale 2 Puffs asinstructed every 4 hours as needed for Wheezing/Shortness of Breath.Cholecalciferol, Vitamin D3, 2,000 unit cap Take 1 tablet by mouth once daily.magnesium sulfate Take 250 mEq by mouth once daily.MULTIVITAMIN ORAL Take 1 tablet by mouth once daily.COQ10, LIPOSOMAL UBIQUINOL, ORAL Take 1 tablet by mouth once daily.PAST MEDICAL HISTORYDiagnosis Date- Esophageal ulcer- HTN (hypertension)- LVH (left ventricular hypertrophy) echo in 2012- MVP (mitral valve prolapse) repeat echo was normal in 2013- Other and unspecified hyperlipidemiaPAST SURGICAL HISTORYProcedure Laterality Date- [facility]- EGD W/O OR W/BRUSH/WASH 11/04/2012 EGD- EGD W/O OR W/BRUSH/WASH 02/25/2013 EGD- LIGATE FALLOPIAN TUBE 1980 Tubal ligation- REVISE MEDIAN N/CARPAL TUNNEL SURG 1997 Carpal tunnel decomp- SHOULDER ARTHROSCOPY/SURGERY 2004 MVAFAMILY HISTORYProblem Relation Age of Onset- Ischemic Heart Disease Father- Hypertension Father- Ischemic Heart Disease Mother- Diabetes Mother- Hypertension Mother- Diabetes Maternal Grandmother- Hypertension Maternal Grandmother- Colon Cancer Paternal Grandmother- Ischemic Heart Disease Sister had cabg at age 40's- Diabetes Sister- Diabetes Sister- Diabetes SisterSocial History Marital status: Spouse name: Sebastien Years of education: Number of children: 2Occupational HistoryOccupation Employer [employer] 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Respiratory: No productive cough. Cardiac: As noted above. GI: No melena.: No dysuria. Musculoskeletal: No myalgias.PHYSICAL EXAMINATION: S/he is alert and in no distress.VITAL SIGNS: BP 130/71 Pulse 90 Wt 223 lb 11.2 oz (101.5kg)SHEENT: Skin is warm and dry. No xanthelasmas appreciated. Pharynx isbenign. There is no oral cyanosis. Neck: supple. No adenopathy or thyroidenlargement. Chest: Clear to percussion and auscultation. Trachea is midline. Air entry is equal. There is no chest wall tenderness. Cardiac: Regularrhythm. S1 and S2 are normal. PMI is nondisplaced. There is a soft systolicejection murmur. Carotids are brisk without bruits. JVP is less than 10 cm.Abdomen: Soft and nontender. There are no pulsatile masses or bruits. Noliver enlargement. Bowel sounds are active. Extremities: No edema. Pulsesare intact and symmetrical. No clubbing or cyanosis. No femoral bruits.Neurologic: Grossly normal motor and sensory. S/he is alert and oriented x4.Event monitor was reviewed with her.Electronically Signed:Bennett Matos MDFebruary 2017 9:14 [facility]:Diana Tay MD 06/23/2017 9:16 AM SignedStop metoprololStart diltiazemStart warfarin tonite.Have blood test done today and ThursdayReferring Provider: BENNETT MATOS [[id number]]Allergies As of Date: 06/23/2017(No Known Allergies)Date Reviewed: 06/23/2017Reviewed by: Lizet Self [facility] - Fully AssessedReason for Visit: Recheck [92]Primary Visit Diagnosis:Atypical atrial flutter (HCC) [I48.4] Other Visit Diagnosis:Hypertension, essential [I10]Order(s):warfarin (COUMADIN) 5 mg tabletTake 1 tablet by mouth once daily. OR DIRECTED, TAKE IN EVENINGDisp: 30 tabletRfl: 6 PROTHROMBIN TIME/PT [SQPT] Order #: [id number] STANDING diltiazem CD (CARDIZEM CD, CARTIA XT) 180 mg 24 hr capsuleTake 1 capsule by mouth once daily.Disp: 30 capsuleRfl: 6Prescriptions as of 06/23/2017 Sig: WARFARIN 5 MG TABLET Take 1 tablet by mouth once d* DILTIAZEM SR 180 MG 24 HR CAP Take 1 capsule by mouth once * ATORVASTATIN 40 MG TABLET Take 1 tablet by mouth once d* ASPIRIN 81 MG TABLET,DELAYED * Take 1 tablet by mouth once d* OMEPRAZOLE MAGNESIUM 20 MG TA* Take 1 tablet by mouth daily * DOXYCYCLINE MONOHYDRATE 100 M* Take 1 capsule by mouth twice*X LOSARTAN 50 MG TABLET Take 1 tablet by mouth once d* ALBUTEROL SULFATE HFA 90 MCG/* Inhale 2 Puffs as instructed * CHOLECALCIFEROL (VITAMIN D3) * Take 1 tablet by mouth once d* MAGNESIUM SULFATE Take 250 mEq by mouth once da* MULTIVITAMIN ORAL Take 1 tablet by mouth once d* COQ10 (LIPOSOMAL UBIQUINOL) O* Take 1 tablet by mouth once d*Problem List As Of Date 06/23/2017 Noted Resolved HTN (hypertension) [I10] INVALID FOR* Priority: C More... Hyperlipidemia [E78.5] INVALID FOR* SUMMARY [V999.95] INVALID FOR*02/13/2017 Priority: A More... BRBPR (bright red blood per rectum) [K62.5] INVALID FOR* Priority: B More... DVT prophylaxis [[id number]] INVALID FOR*02/13/2017 More... Lung nodule seen on imaging study [R91.1] INVALID FOR* More... Typical atrial flutter (HCC) [I48.3] INVALID FOR* More... Other instructions from your clinician: Stop metoprolol Start diltiazem Start warfarin tonite. Have blood test done today and ThursdayPrescriptions ordered this encounter Disp Refills Start End WARFARIN 5 MG TABLET 30 t* 6 06/23/2017 Route: ORAL Sig: Take 1 tablet by mouth once daily. OR DIRECTED, TAKE IN EVENING DILTIAZEM SR 180 MG 24 HR CAP 30 c* 6 06/23/2017 Route: ORAL Sig: Take 1 capsule by mouth once daily.Medications Discontinued During This Encounter metoprolol tartrate, short acting, (* 90 t* 0 01/05/2017 06/23/2017 Route: ORAL Sig: Take 1 tablet by mouth twice daily. Disc: Reason for discontinue is not on file. Status:Closed by BENNETT MATOS MD on 06/23/17 [facility] PROGRESSon 06-23-2017 PROGRESS HNO ID: [id number] thor: Bennett Fox: (none)Author Type: PhysicianType: Progress NotesFiled: 06/23/2017 5:02 PMNote Text:PERTINENT CARDIAC HISTORYAtrial flutter - C-V 3TobaccoismMitral insufficiency - mildHTNHLCHF - diastolic, while in A flutterObesityOSA - untreatedACE-I intolerance - coughADHERENCE TO GUIDELINESACE-I or ARB for HF with prior LVEF<40 (NQF 0081) - N/AASA or Plavix for ASHD (NQF 0067) - N/ABeta bronson for ASHD with prior NC or prior LVEF<40 (NQF 0070) - N/ABeta bronson for HF with prior LVEF<40 (NQF 0083) - N/AACE-I or ARB for ASHD with DM or prior LVEF<40 (NQF 0066) - N/AStatin therapy for ASHD or FHL or DM - N/ABMI documented and plan if >25 (NQF 0421) - lifestyle recommendation formTobacco use screening and referral (NQF 0028) - lifestyle recommendationformRecomme ndation for whole food, plant based diet - lifestyle recommendationformNANCY Fortune IMPRESSION/PLAN:Yasmine Mtz has evidence of recurrent atrial flutter. We will obtainfurther reports. For the time being, she's been advised to discontinuesmoking, cut down on her caffeine and proceed with sleep study. She mayhave intermittent episodes over the next few weeks. She is not toleratingmetoprolol well as she is having some flushing. She reports that shecannot increase the dose. This will be discontinued and she will bestarted on diltiazem CD 180 milligrams daily.She will begin with warfarin at 5 milligrams daily. Baseline INR will bedone today and we will repeat this in 4-5 days.We discussed options including antiarrhythmic drugs and ablation. There isno point in pursuing any further treatment until her sleep apnea is underbetter control.I will see her as originally scheduled.Total duration of this visit was greater than 30 minutes, of which morethan 50% was counseling.Written and verbal health teaching given to patient, patient verbalizesunderstanding and agrees with treatment plan.This note was generated using [employer] voice recognition system, and theremay be some incorrect words, spellings, and punctuation that were notnoted in checking the note before saving.DIAGNOSIS FOR VISIT:Atrial flutterMitral insufficiencyHypertension HISTORY OF PRESENT ILLNESSYasmine Mtz returns for follow-up of her atrial flutter. She hadrecurrence of symptoms and this was documented to be atrial flutter onevent monitor . The episode lasted about 10 hours. She restarted Xarelto,but has run out and states that she cannot afford this any further.She's had no chest discomfort. Exercise tolerance has been stable. She'shad no orthopnea, edema, syncope, TIAs, amaurosis or claudication.She has had no contraindication to anticoagulation . Her sleep study hasyet to be performed. She has consultation later this week.ALLERGIES:ALLERGIESN o Known AllergiesCURRENT OUTPATIENT MEDICATIONS:warfarin (COUMADIN) 5 mg tablet Take 1 tablet by mouth once daily. OR ASDIRECTED, TAKE IN EVENINGatorvastatin (LIPITOR) 40 mg tablet Take 1 tablet by mouth once daily.aspirin, enteric coated (ADULT LOW DOSE ASPIRIN) 81 mg EC tablet Take 1tablet by mouth once daily.Omeprazole Magnesium (PRILOSEC OTC) 20 mg tablet Take 1 tablet by mouthdaily before breakfast. 1/2 hr before meal.losartan (COZAAR) 50 mg tablet Take 1 tablet by mouth once daily.doxycycline monohydrate (MONODOX) 100 mg capsule Take 1 capsule by mouthtwice daily.metoprolol tartrate, short acting, (LOPRESSOR) 25 mg tablet Take 1 tabletby mouth twice daily.albuterol HFA (VENTOLIN HFA) 90 mcg/actuation inhaler Inhale 2 Puffs asinstructed every 4 hours as needed for Wheezing/Shortness of Breath.Cholecalciferol, Vitamin D3, 2,000 unit cap Take 1 tablet by mouth oncedaily.magnesium sulfate Take 250 mEq by mouth once daily.MULTIVITAMIN ORAL Take 1 tablet by mouth once daily.COQ10, LIPOSOMAL UBIQUINOL, ORAL Take 1 tablet by mouth once daily.PAST MEDICAL HISTORYDiagnosis Date- Esophageal ulcer- HTN (hypertension)- LVH (left ventricular hypertrophy) echo in 2012- MVP (mitral valve prolapse) repeat echo was normal in 2013- Other and unspecified hyperlipidemiaPAST SURGICAL HISTORYProcedure Laterality Date- COLONOSCOP W/ OR W/O [facility] 11/04/2012 Colonoscopy- EGD W/O OR W/BRUSH/WASH 11/04/2012 EGD- EGD W/O OR W/BRUSH/WASH 02/25/2013 EGD- LIGATE FALLOPIAN TUBE 1980 Tubal ligation- REVISE MEDIAN N/CARPAL TUNNEL SURG 1997 Carpal tunnel decomp- SHOULDER ARTHROSCOPY/SURGERY 2004 MVAFAMILY HISTORYProblem Relation Age of Onset- Ischemic Heart Disease Father- Hypertension Father- Ischemic Heart Disease Mother- Diabetes Mother- Hypertension Mother- Diabetes Maternal Grandmother- Hypertension Maternal Grandmother- Colon Cancer Paternal Grandmother- Ischemic Heart Disease Sister had cabg at age 40's- Diabetes Sister- Diabetes Sister- Diabetes SisterSocial History Marital status: Spouse name: Sebastien Years of education: Number of children: 2Occupational HistoryOccupation Employer [employer] 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 Respiratory: No productive cough. Cardiac: As noted above. GI: Nomelena. : No dysuria. Musculoskeletal: No myalgias.PHYSICAL EXAMINATION: S/he is alert and in no distress.VITAL SIGNS: BP 130/71 Pulse 90 Wt 223 lb 11.2 oz (101.5kg)SHEENT: Skin is warm and dry. No xanthelasmas appreciated. Pharynx isbenign. There is no oral cyanosis. Neck: supple. No adenopathy orthyroid enlargement. Chest: Clear to percussion and auscultation.Trachea is midline. Air entry is equal. There is no chest walltenderness. Cardiac: Regular rhythm. S1 and S2 are normal. PMI isnondisplaced. There is a soft systolic ejection murmur. Carotids arebrisk without bruits. JVP is less than 10 cm. Abdomen: Soft andnontender. There are no pulsatile masses or bruits. No liverenlargement. Bowel sounds are active. Extremities: No edema. Pulsesare intact and symmetrical. No clubbing or cyanosis. No femoral bruits.Neurologic: Grossly normal motor and sensory. S/he is alert and orientedx4.Event monitor was reviewed with her.Electronically Signed:Bennett Matos MDbruary 2017 9:14 [facility] Nurse Visit (AGCARDWST) YASMINE MTZ ([id number]) 1955 FDate Time Provider Department06/02/17 10:30 AM NURSE CARD TRINH PA AGCARDWST During your visit today, we recorded the following information about you:La Velasquez MA 06/02/2017 11:34 AM [id number] day event monitor placed and instructions given.Patient verbalized understanding.Jayjay Griffin Provider: BENNETT MATOS [[id number]]Allergies As of Date: 06/02/2017(No Known Allergies)Date Reviewed: 06/02/2017Reviewed by: La Velasquez - Fully AssessedReason for Visit: Nurse Visit [792]Primary Visit Diagnosis:Atypical atrial flutter (HCC) [I48.4]Prescriptions as of 06/02/2017 Sig: ASPIRIN 81 MG TABLET,DELAYED * Take 1 tablet by mouth once d* OMEPRAZOLE MAGNESIUM 20 MG TA* Take 1 tablet by mouth daily * LOSARTAN 50 MG TABLET Take 1 tablet by mouth once d* DOXYCYCLINE MONOHYDRATE 100 M* Take 1 capsule by mouth twice* METOPROLOL TARTRATE 25 MG TAB* Take 1 tablet by mouth twice * ALBUTEROL SULFATE HFA 90 MCG/* Inhale 2 Puffs as instructed * CHOLECALCIFEROL (VITAMIN D3) * Take 1 tablet by mouth once d* MAGNESIUM SULFATE Take 250 mEq by mouth once da* MULTIVITAMIN ORAL Take 1 tablet by mouth once d* COQ10 (LIPOSOMAL UBIQUINOL) O* Take 1 tablet by mouth once d*Problem List As Of Date 06/02/2017 Noted Resolved HTN (hypertension) [I10] INVALID FOR* Priority: C More... Hyperlipidemia [E78.5] INVALID FOR* SUMMARY [V999.95] INVALID FOR*02/13/2017 Priority: A More... BRBPR (bright red blood per rectum) [K62.5] INVALID FOR* Priority: B More... DVT prophylaxis [[id number]] INVALID FOR*02/13/2017 More... Lung nodule seen on imaging study [R91.1] INVALID FOR* More... Typical atrial flutter (HCC) [I48.3] INVALID FOR* More... Status:Closed by LA VELASQUEZ MA on 06/02/17 [facility] CNJeremy 06-02-2017 [facility] Office Visit (AGCARDWST) YASMINE MTZ ([id number]) 1955 FDa Time Provider Department06/02/17 9:30 AM BENNETT MATOS During your visit today, we recorded the following information about you: Pulse Blood pressure Weight Height 68/minute 148/102 102.4 kg 1.575 Ankit Matos MD 06/02/2017 1:17 PM SignedPERTINENT CARDIAC HISTORYAtrial flutterTobaccoismMitral insufficiency - mildHTNHLObesityOSA - untreatedACE-I intolerance - coughADHERENCE TO GUIDELINESACE-I or ARB for HF with prior LVEFANDlt;40 (NQF 0081) - N/AASA or Plavix for ASHD (NQF 0067) - N/ABeta bronson for ASHD with prior NC or prior LVEFANDlt;40 (NQF 0070) - N/ABeta bronson for HF with prior LVEFANDlt;40 (NQF 0083) - N/AACE-I or ARB for ASHD with DM or prior LVEFANDlt;40 (NQF 0066) - N/AStatin therapy for ASHD or FHL or DM - N/ABMI documented and plan if ANDgt;25 (NQF 0421) - lifestyle recommendation formTobacco use screening and referral (NQF 0028) - lifestyle recommendation formRecommendation for whole food, plant based diet - lifestyle recommendation formCLINICAL IMPRESSION/PLAN:Yasmine Mtz has known typical atrial flutter which showed may berecurrent. She is likely a candidate for chronic anticoagulation. For the timebeing, I have asked her to begin aspirin 81 milligrams daily.She will be referred for repeat sleep study and titration. It will be verydifficult to control her atrial arrhythmia as long she has untreatedobstructive sleep apnea.She will have TSH, basic profile, magnesium and CBC. Lipid profile will beperformed. She will likely benefit from statin therapy.She's been advised to discontinue smoking. Caffeine restriction will likely behelpful.She will have an event recorder so that we can document her current rhythm.Blood pressure is elevated today. She was late taking her medication yet today.I've asked her to call with vital signs next week. She may need to have atitration of either Cozaar or metoprolol.Thank you for asking me to see and make recommendations on Yasmine Mtz.This report is available to you in the shared medical record.Written and verbal health teaching given to patient, patient verbalizesunderstanding and agrees with treatment plan.This note was generated using [employer] voice recognition system, and there may besome incorrect words, spellings, and punctuation that were not noted inchecking the note before saving.DIAGNOSIS FOR VISIT:Atrial flutterHypertensionHISTOR Y OF PRESENT ILLNESSYasmine Mtz is a 61-year-old woman who is seen in consultation at [facility] of Dr. Yost for recommendations regarding history of atrial flutter andrecurrent palpitations.She was diagnosed with atrial flutter in 2016. This failed to respond to IVtherapy and was associated with diastolic heart failure. She was cardiovertedin the emergency department then observed overnight. She was followed by for a time. She was given amiodarone and Xarelto but these were bothdiscontinued. Her Chads-Vasc score is 3.She is known to have obstructive sleep apnea but has never undergone titrationfor CPAP. She has risk factors of hypertension, obesity, hyperlipidemia andongoing tobacco use.Recently she has had recurrence of her sensation of palpitations, which canlast up to a week at a time. Heart rates can reach up to 140. These tend to beinduced by drinking cold water.ALLERGIES:ALLERGIES No Known AllergiesCURRENT OUTPATIENT MEDICATIONS:Omeprazole Magnesium (PRILOSEC OTC) 20 mg tablet Take 1 tablet by mouth dailybefore breakfast. 1/2 hr before meal.losartan (COZAAR) 50 mg tablet Take 1 tablet by mouth once daily.metoprolol tartrate, short acting, (LOPRESSOR) 25 mg tablet Take 1 tablet bymouth twice daily.albuterol HFA (VENTOLIN HFA) 90 mcg/actuation inhaler Inhale 2 Puffs asinstructed every 4 hours as needed for Wheezing/Shortness of Breath.magnesium sulfate Take 250 mEq by mouth once daily.MULTIVITAMIN ORAL Take 1 tablet by mouth once daily.COQ10, LIPOSOMAL UBIQUINOL, ORAL Take 1 tablet by mouth once daily.doxycycline monohydrate (MONODOX) 100 mg capsule Take 1 capsule by mouth twicedaily.Cholecalcifero l, Vitamin D3, 2,000 unit cap Take 1 tablet by mouth once daily.PAST MEDICAL HISTORYDiagnosis Date- Esophageal ulcer- HTN (hypertension)- LVH (left ventricular hypertrophy) echo in 2012- MVP (mitral valve prolapse) repeat echo was normal in 2013- Other and unspecified hyperlipidemiaPAST SURGICAL HISTORYProcedure Laterality Date- COLONOSCOP W/ OR W/O [facility] SPEC 11/04/2012 Colonoscopy- EGD W/O OR W/BRUSH/WASH 11/04/2012 EGD- EGD W/O OR W/BRUSH/WASH 02/25/2013 EGD- LIGATE FALLOPIAN TUBE 1980 Tubal ligation- REVISE MEDIAN N/CARPAL TUNNEL SURG 1997 Carpal tunnel decomp- SHOULDER ARTHROSCOPY/SURGERY 2004 MVAFAMILY HISTORYProblem Relation Age of Onset- Ischemic Heart Disease Father- Hypertension Father- Ischemic Heart Disease Mother- Diabetes Mother- Hypertension Mother- Diabetes Maternal Grandmother- Hypertension Maternal Grandmother- Colon Cancer Paternal Grandmother- Ischemic Heart Disease Sister had cabg at age 40's- Diabetes Sister- Diabetes Sister- Diabetes SisterSocial History Marital status: Spouse name: Sebastien Years of education: Number of children: 2Occupational HistoryOccupation Employer [employer] 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SHEENT: No change in vision or auditory acuity. Respiratory: No productivecough. Cardiac: As noted above. GI: No melena. : No dysuria.Musculoskeletal: No myalgias. Neurologic: No strokes. Psychiatric: Nodepression. Endocrine: No diabetes. Hematologic: No anemia.PHYSICAL EXAMINATION: S/he is alert and in no distressVITAL SIGNS: BP 148/102 Pulse 68 Ht 5' 2ANDquot; (1.58m) Wt 225 lb 12.8 oz(102.4kg) BMI 41.29 kg/(m2).SHEENT: Skin is warm and dry. Pupils are round and reactive. Retinal vesselsare grossly unremarkable. No xanthelasmas appreciated. Pharynx is benign.There is no oral cyanosis. Neck: supple. No adenopathy or thyroidenlargement. Chest: Clear to percussion and auscultation. Trachea is midline. Air entry is equal. There is no chest wall tenderness. Cardiac: Regularrhythm. S1 and S2 are normal. PMI is nondisplaced. There is a 1/6 systolicmurmur of mitral insufficiency. No click is heard. Carotids are brisk withoutbruits. JVP is less than 10 cm. Abdomen: Soft and nontender. Obesityprecludes adequate examination. There are no pulsatile masses or bruits. Noliver enlargement. Bowel sounds are active. : Deferred. Extremities: Noedema. Pulses are intact and symmetrical. No clubbing or cyanosis. Nofemoral bruits. Neurologic: Grossly normal motor and sensory. S/he is alertand oriented x4. Musculoskeletal: No joint deformities.Prior echo EKG showed atrial flutter with superior axis. Recent EKG shows sinusrhythm and is within normal limits.There was no evidence of acute coronary syndrome. Renal function was mildlyimpaired. LDL was 107. TSH was normal.No recent labs are available.Prior echocardiogram showed normal left ventricular function. There was mildeccentric mitral insufficiency.Prior stress test showed no evidence of ischemia.Electronically Signed:Bennett Matos MDJune 02, 2017 10:10 [facility]: Diana Tay MD 06/02/2017 10:11 AM SignedLIFESTYLE CHANGEA healthy lifestyle is the most important component of your overall treatmentplan. Please give serious thought to the following areas and commit to makinglong term changes.EAT A WHOLE FOOD, PLANT BASED DIETThe nutrition your body gets is more important than the medicine you take.What matters most is the overall way you eat. We encourage you to minimize theuse of animal products (which include dairy and all meats except fatty fish)and use whole, unprocessed plant foods to provide your protein, vitamins andother nutrients. We have a lot of information to share with you on this topic. We also hold Shared Medical Appointments, where you can come visit with in the company of other patients and spend over an hour talking aboutthe challenges of changing the way you eat. This is not a ANDquot;dietANDquot;.It is a way of life that you will keep with you.EXERCISE REGULARLYIt is not important to spend hours in the gym, lifting weights and perspiringheavily. A total of 2-3 hours per week of aerobic (causing you to bemoderately short of breath) exercise is sufficient to improve your health.Talk to us before you begin a new exercise program, if you have heart diseaseor experience shortness of breath or chest pain.REDUCE STRESSChronic emotional and physical stress leads to disease. Ways of reducingstress include meditation, visualization, prayer, yoga and other forms ofrelaxation therapy. Consistency is the seymour. Find a technique that works foryou and do it every day.CULTIVATE RELATIONSHIPSLoneliness and isolation have a major negative impact on health. Seek outothers who can love, care for and nurture you. Avoid hurtful relationships.MAINTAIN IDEAL BODY WEIGHTThe best way to do this is to do all the things above. Our bodies naturallyfind the right weight if we keep moving and feed ourselves the right food. Ifyour BMI is greater than 25, we strongly recommend a referral to a weightmanagement program. Please speak to us or your family physician aboutavailable programs.AVOID NICOTINE IN ALL FORMSThis includes all tobacco products, whether chewed, smoked, vaped, or rubbed onthe skin. Smoking cessation programs, which can make use of tobaccosubstitutes, medications to suppress cravings and behavior management, areavailable. Please contact your family physician about programs in your area.Referring Provider: ADÁN YOST [[id number]]Allergies As of Date: 06/02/2017(No Known Allergies)Date Reviewed: 06/02/2017Reviewed by: La Velasquez - Fully AssessedReason for Visit: New Patient [172]Primary Visit Diagnosis:WENDY (obstructive sleep apnea) [G47.33] Other Visit Diagnoses:Atypical atrial flutter (HCC) [I48.4] Essential hypertension [I10]Order(s):CONSULT TO SLEEP MEDICINE - ADULT [3260385] Order #: [id number]: 1 TSH BLD [SQTSH] Order #: [id number] FUTURE BASIC METABOLIC PNL [SQBMP] Order #: [id number] FUTURE LIPID PANEL BASIC [SQLIPB] Order #: [id number] FUTURE MAGNESIUM BLD [SQMG1] Order #: [id number] FUTURE CBC [SQCBC] Order #: [id number] FUTURE EVENT MONITOR [0999057] Order #: [id number]: 1 aspirin, enteric coated (ADULT LOW DOSE ASPIRIN) 81 mg EC tabletTake 1 tablet by mouth once daily.Disp: Rfl:Prescriptions as of 06/02/2017 Sig: OMEPRAZOLE MAGNESIUM 20 MG TA* Take 1 tablet by mouth daily * LOSARTAN 50 MG TABLET Take 1 tablet by mouth once d* METOPROLOL TARTRATE 25 MG TAB* Take 1 tablet by mouth twice * ALBUTEROL SULFATE HFA 90 MCG/* Inhale 2 Puffs as instructed * MAGNESIUM SULFATE Take 250 mEq by mouth once da* MULTIVITAMIN ORAL Take 1 tablet by mouth once d* COQ10 (LIPOSOMAL UBIQUINOL) O* Take 1 tablet by mouth once d* ASPIRIN 81 MG TABLET,DELAYED * Take 1 tablet by mouth once d* DOXYCYCLINE MONOHYDRATE 100 M* Take 1 capsule by mouth twice* CHOLECALCIFEROL (VITAMIN D3) * Take 1 tablet by mouth once d*Medication notes this encounter DOXYCYCLINE MONOHYDRATE 100 MG CAPSULE >> La Velasquez MA 06/02/2017 9:42 AM >> LA VELASQUEZ MA Jun 02, 2017 9:42 AM Course of therapy completed. CHOLECALCIFEROL (VITAMIN D3) 2,000 UNIT CAPSULE >> La Velasquez MA 06/02/2017 9:42 AM >> LA VELASQUEZ MA Jun 02, 2017 9:42 AM Not takingProblem List As Of Date 06/02/2017 Noted Resolved HTN (hypertension) [I10] INVALID FOR* Priority: C More... Hyperlipidemia [E78.5] INVALID FOR* SUMMARY [V999.95] INVALID FOR*02/13/2017 Priority: A More... BRBPR (bright red blood per rectum) [K62.5] INVALID FOR* Priority: B More... DVT prophylaxis [KUZ9268] INVALID FOR*02/13/2017 More... Lung nodule seen on imaging study [R91.1] INVALID FOR* More... Typical atrial flutter (HCC) [I48.3] INVALID FOR* More... Other instructions from your clinician: LIFESTYLE CHANGE A healthy lifestyle is the most important component of your overall treatment plan. Please give serious thought to the following areas and commit to making chcf changes. EAT A WHOLE FOOD, PLANT BASED DIET The nutrition your body gets is more important than the medicine you take. What matters most is the overall way you eat. We encourage you to minimize the use of animal products (which include dairy and all meats except fatty fish) and use whole, unprocessed plant foods to provide your protein, vitamins and other nutrients. We have a lot of information to share with you on this topic. We also hold Shared Medical Appointments, where you can come visit with Dr. Matos in the company of other patients and spend over an hour talking about the challenges of changing the way you eat. This is not a diet. It is a way of life that you will keep with you. EXERCISE REGULARLY It is not important to spend hours in the gym, lifting weights and perspiring heavily. A total of 2-3 hours per week of aerobic (causing you to be moderately short of breath) exercise is sufficient to improve your health. Talk to us before you begin a new exercise program, if you have heart disease or experience shortness of breath or chest pain. REDUCE STRESS Chronic emotional and physical stress leads to disease. Ways of reducing stress include meditation, visualization, prayer, yoga and other forms of relaxation therapy. Consistency is the seymour. Find a technique that works for you and do it every day. CULTIVATE RELATIONSHIPS Loneliness and isolation have a major negative impact on health. Seek out others who can love, care for and nurture you. Avoid hurtful relationships. MAINTAIN IDEAL BODY WEIGHT The best way to do this is to do all the things above. Our bodies naturally find the right weight if we keep moving and feed ourselves the right food. If your BMI is greater than 25, we strongly recommend a referral to a weight management program. Please speak to us or your family physician about available programs. AVOID NICOTINE IN ALL FORMS This includes all tobacco products, whether chewed, smoked, vaped, or rubbed on the skin. Smoking cessation programs, which can make use of tobacco substitutes, medications to suppress cravings and behavior management, are available. Please contact your family physician about programs in your area.Prescriptions ordered this encounter Disp Refills Start End ASPIRIN 81 MG TABLET,DELAYED RELEASE 06/02/2017 Class: Med Update Route: ORAL Sig: Take 1 tablet by mouth once daily.Follow-up and Disposition History RecordedEncounter Number: [id number] Status:Closed by BENNETT MATOS MD on 06/02/17 [facility] PROGRESSon 06-02-2017 PROGRESS HNO ID: [id number] Author: La Saldana) Ron Service: (none) Author Type: Chief Controller Tower Type: Progress Notes Filed: 06/02/2017 11:34 AM Note Text: 30 day event monitor placed and instructions given. Patient verbalized understanding. La Velasquez MA [facility] PROGRESS HNO ID: [id number] thor: Bennett Fox: (none)Author Type: PhysicianType: Progress NotesFiled: 06/02/2017 1:17 PMNote Text:PERTINENT CARDIAC HISTORYAtrial flutterTobaccoismMitral insufficiency - mildHTNHLObesityOSA - untreatedACE-I intolerance - coughADHERENCE TO GUIDELINESACE-I or ARB for HF with prior LVEF<40 (NQF 0081) - N/AASA or Plavix for ASHD (NQF 0067) - N/ABeta bronson for ASHD with prior NC or prior LVEF<40 (NQF 0070) - N/ABeta bronson for HF with prior LVEF<40 (NQF 0083) - N/AACE-I or ARB for ASHD with DM or prior LVEF<40 (NQF 0066) - N/AStatin therapy for ASHD or FHL or DM - N/ABMI documented and plan if >25 (NQF 0421) - lifestyle recommendation formTobacco use screening and referral (NQF 0028) - lifestyle recommendationformRecomme ndation for whole food, plant based diet - lifestyle recommendationformLEONCIOINICA Devika IMPRESSION/PLAN:Yasmine Mtz has known typical atrial flutter which showed may berecurrent. She is likely a candidate for chronic anticoagulation. For thetime being, I have asked her to begin aspirin 81 milligrams daily.She will be referred for repeat sleep study and titration. It will be verydifficult to control her atrial arrhythmia as long she has untreatedobstructive sleep apnea.She will have TSH, basic profile, magnesium and CBC. Lipid profile will beperformed. She will likely benefit from statin therapy.She's been advised to discontinue smoking. Caffeine restriction willlikely be helpful.She will have an event recorder so that we can document her currentrhythm.Blood pressure is elevated today. She was late taking her medication yettoday. I've asked her to call with vital signs next week. She may need tohave a titration of either Cozaar or metoprolol.Thank you for asking me to see and make recommendations on Yasmine Reid. This report is available to you in the shared medical record.Written and verbal health teaching given to patient, patient verbalizesunderstanding and agrees with treatment plan.This note was generated using [employer] voice recognition system, and theremay be some incorrect words, spellings, and punctuation that were notnoted in checking the note before saving.DIAGNOSIS FOR VISIT:Atrial flutterHypertensionHISTOR Y OF PRESENT ILLNESSYasmine Mtz is a 61-year-old woman who is seen in consultation atthe request of Dr. Yost for recommendations regarding history of atrialflutter and recurrent palpitations.She was diagnosed with atrial flutter in 2016. This failed to respond toIV therapy and was associated with diastolic heart failure. She wascardioverted in the emergency department then observed overnight. She wasfollowed by Dr. Merrill for a time. She was given amiodarone and Xarelto butthese were both discontinued. Her Chads-Vasc score is 3.She is known to have obstructive sleep apnea but has never undergonetitration for CPAP. She has risk factors of hypertension, obesity,hyperlipidemia and ongoing tobacco use.Recently she has had recurrence of her sensation of palpitations, whichcan last up to a week at a time. Heart rates can reach up to 140. Thesetend to be induced by drinking cold water.ALLERGIES:ALLERGIES No Known AllergiesCURRENT OUTPATIENT MEDICATIONS:Omeprazole Magnesium (PRILOSEC OTC) 20 mg tablet Take 1 tablet by mouthdaily before breakfast. 1/2 hr before meal.losartan (COZAAR) 50 mg tablet Take 1 tablet by mouth once daily.metoprolol tartrate, short acting, (LOPRESSOR) 25 mg tablet Take 1 tabletby mouth twice daily.albuterol HFA (VENTOLIN HFA) 90 mcg/actuation inhaler Inhale 2 Puffs asinstructed every 4 hours as needed for Wheezing/Shortness of Breath.magnesium sulfate Take 250 mEq by mouth once daily.MULTIVITAMIN ORAL Take 1 tablet by mouth once daily.COQ10, LIPOSOMAL UBIQUINOL, ORAL Take 1 tablet by mouth once daily.doxycycline monohydrate (MONODOX) 100 mg capsule Take 1 capsule by mouthtwice daily.Cholecalciferol, Vitamin D3, 2,000 unit cap Take 1 tablet by mouth oncedaily.PAST MEDICAL HISTORYDiagnosis Date- Esophageal ulcer- HTN (hypertension)- LVH (left ventricular hypertrophy) echo in 2012- MVP (mitral valve prolapse) repeat echo was normal in 2013- Other and unspecified hyperlipidemiaPAST SURGICAL HISTORYProcedure Laterality Date- COLONOSCOP W/ OR W/O BRSH SPEC 11/04/2012 Colonoscopy- EGD W/O OR W/BRUSH/WASH 11/04/2012 EGD- EGD W/O OR W/BRUSH/WASH 02/25/2013 EGD- LIGATE FALLOPIAN TUBE 1980 Tubal ligation- REVISE MEDIAN N/CARPAL TUNNEL SURG 1997 Carpal tunnel decomp- SHOULDER ARTHROSCOPY/SURGERY 2004 MVAFAMILY HISTORYProblem Relation Age of Onset- Ischemic Heart Disease Father- Hypertension Father- Ischemic Heart Disease Mother- Diabetes Mother- Hypertension Mother- Diabetes Maternal Grandmother- Hypertension Maternal Grandmother- Colon Cancer Paternal Grandmother- Ischemic Heart Disease Sister had cabg at age 40's- Diabetes Sister- Diabetes Sister- Diabetes SisterSocial History Marital status: Spouse name: Sebastien Years of education: Number of children: 2Occupational HistoryOccupation Employer 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 SHEENT: No change in vision or auditory acuity. Respiratory: Noproductive cough. Cardiac: As noted above. GI: No melena. : Nodysuria. Musculoskeletal: No myalgias. Neurologic: No strokes.Psychiatric: No depression. Endocrine: No diabetes. Hematologic: Noanemia.PHYSICAL EXAMINATION: S/he is alert and in no distressVITAL SIGNS: BP 148/102 Pulse 68 Ht 5' 2 (1.58m) Wt 225 lb 12.8 oz(102.4kg) BMI 41.29 kg/(m2).SHEENT: Skin is warm and dry. Pupils are round and reactive. Retinalvessels are grossly unremarkable. No xanthelasmas appreciated. Pharynxis benign. There is no oral cyanosis. Neck: supple. No adenopathy orthyroid enlargement. Chest: Clear to percussion and auscultation.Trachea is midline. Air entry is equal. There is no chest walltenderness. Cardiac: Regular rhythm. S1 and S2 are normal. PMI isnondisplaced. There is a 1/6 systolic murmur of mitral insufficiency. Noclick is heard. Carotids are brisk without bruits. JVP is less than 10cm. Abdomen: Soft and nontender. Obesity precludes adequate examination.There are no pulsatile masses or bruits. No liver enlargement. Bowelsounds are active. : Deferred. Extremities: No edema. Pulses areintact and symmetrical. No clubbing or cyanosis. No femoral bruits.Neurologic: Grossly normal motor and sensory. S/he is alert and orientedx4. Musculoskeletal: No joint deformities.Prior echo EKG showed atrial flutter with superior axis. Recent EKG showssinus rhythm and is within normal limits.There was no evidence of acute coronary syndrome. Renal function wasmildly impaired. LDL was 107. TSH was normal.No recent labs are available.Prior echocardiogram showed normal left ventricular function. There wasmild eccentric mitral insufficiency.Prior stress test showed no evidence of ischemia.Electronically Signed:Bennett Matos MDJan2017 10:10 [facility]: Adán Yost MD Normal [facility] Vital Signs Date Time Vital Sign Value Performing Clinician Juan aguayo 11-01-2024 15:55-0400 Body height 157.[address] Selina Bowser MD Work Phone: [facility] 11-01-2024 15:55-0400 Body mass index (BMI) [Ratio] 36.2 kg/m2 Dr. Selina Bowser MD Work Phone: [facility] 11-01-2024 15:55-0400 Body weight 89.[address] Selina Bowser MD Work Phone: [facility] 11-01-2024 15:55-0400 Diastolic blood pressure 75 mm[Hg] Dr. Selina Bowser MD Work Phone: [facility] 11-01-2024 15:55-0400 Heart rate 66 /min Dr. Selina Bowser MD Work Phone: [facility] 11-01-2024 15:55-0400 Respiratory rate 18 /min Dr. Selina Bowser MD Work Phone: [facility] 11-01-2024 15:55-0400 Systolic blood pressure 126 mm[Hg] Dr. Selina Bowser MD Work Phone: [facility] 08-11-2024 07:20-0400 Body temperature 97.7 [degF] Dr. Selina Bowser MD Work Phone: [facility] 08-11-2024 07:20-0400 Diastolic blood pressure 60 mm[Hg] Dr. Selina Bowser MD Work Phone: [facility] 08-11-2024 07:20-0400 Heart rate 69 /min Dr. Selina Bowser MD Work Phone: [facility] 08-11-2024 07:20-0400 Respiratory rate 16 /min Dr. Selina Bowser MD Work Phone: [facility] 08-11-2024 07:20-0400 SaO2% (BldA) [Mass fraction] 94 % Dr. Selina Bowser MD Work Phone: [facility] 08-11-2024 07:20-0400 Systolic blood pressure 105 mm[Hg] Dr. Selina Bowser MD Work Phone: [facility] 08-11-2024 05:49-0400 Body height 157.[address] Selina Bowser MD Work Phone: [facility] 08-11-2024 05:49-0400 Body mass index (BMI) [Ratio] 36.3 kg/m2 Dr. Selina Bowser MD Work Phone: [facility] 08-11-2024 05:49-0400 Body weight 90.[address] Selina Bowser MD Work Phone: [facility] 09-15-2023 11:22-0400 Body temperature 98.4 [degF] Dr. Selina Bowser Work Phone: [facility] 09-15-2023 11:22-0400 Diastolic blood pressure 64 mm[Hg] Dr. Selina Bowser Work Phone: [facility] 09-15-2023 11:22-0400 Heart rate 63 /min Dr. Selina Bowser Work Phone: [facility] 09-15-2023 11:22-0400 Respiratory rate 16 /min Dr. Selina Bowser Work Phone: [facility] 09-15-2023 11:22-0400 SaO2% (BldA) [Mass fraction] 96 % Dr. Selina Bowser Work Phone: [facility] 09-15-2023 11:22-0400 Systolic blood pressure 128 mm[Hg] Dr. Selina Bowser Work Phone: [facility] 09-15-2023 05:34-0400 Body mass index (BMI) [Ratio] 34.7 kg/m2 Dr. Selina Bowser Work Phone: [facility] 09-15-2023 05:34-0400 Body weight 83.[address] Selina Bowser Work Phone: [facility] 09-14-2023 05:08-0400 Body height 154.[address] Selina Bowser Work Phone: [facility] 09-14-2023 03:21-0400 Body temperature 98.2 [degF] Dr. Selina Bowser Work Phone: [facility] 09-14-2023 03:21-0400 Diastolic blood pressure 69 mm[Hg] Dr. Selina Bowser Work Phone: [facility] 09-14-2023 03:21-0400 Heart rate 62 /min Dr. Selina Bowser Work Phone: [facility] 09-14-2023 03:21-0400 Respiratory rate 19 /min Dr. Selina Bowser Work Phone: [facility] 09-14-2023 03:21-0400 SaO2% (BldA) [Mass fraction] 95 % Dr. Selina Bowser Work Phone: [facility] 09-14-2023 03:21-0400 Systolic blood pressure 153 mm[Hg] Dr. Selina Bowser Work Phone: [facility] 09-14-2023 00:57-0400 Body height 154.[address] Selina Bowser Work Phone: [facility] 09-14-2023 00:57-0400 Body mass index (BMI) [Ratio] 36.4 kg/m2 Dr. Selina Bowser Work Phone: [facility] 09-14-2023 00:57-0400 Body weight 87.[address] Selina Bowser Work Phone: [facility] 08-04-2023 15:03-0400 Body mass index (BMI) [Ratio] 34.4 kg/m2 Dr. Selina Bowser Work Phone: [facility] 08-04-2023 15:03-0400 Body weight 85.[address] Selina Bowser Work Phone: [facility] 08-04-2023 15:03-0400 Diastolic blood pressure 74 mm[Hg] Dr. Selina Bowser Work Phone: [facility] 08-04-2023 15:03-0400 Heart rate 68 /min Dr. Selina Bowser Work Phone: [facility] 08-04-2023 15:03-0400 Respiratory rate 18 /min Dr. Selina Bowser Work Phone: [facility] 08-04-2023 15:03-0400 SaO2% (BldA) [Mass fraction] 95 % Dr. Selina Bowser Work Phone: [facility] 08-04-2023 15:03-0400 Systolic blood pressure 124 mm[Hg] Dr. Selina Bowser Work Phone: [facility] 05-22-2023 09:10-0500 Body height 157.[address] Selina Bowser Work Phone: [facility] 05-22-2023 09:10-0500 Body mass index (BMI) [Ratio] 34.7 kg/m2 Dr. Selina Bowser Work Phone: [facility] 05-22-2023 09:10-0500 Body temperature 97.5 [degF] Dr. Selina Bowser Work Phone: [facility] 05-22-2023 09:10-0500 Body weight 86.[address] Selina Bowser Work Phone: [facility] 05-22-2023 09:10-0500 Diastolic blood pressure 78 mm[Hg] Dr. Selina Bowser Work Phone: [facility] 05-22-2023 09:10-0500 Heart rate 72 /min Dr. Selina Bowser Work Phone: [facility] 05-22-2023 09:10-0500 Respiratory rate 18 /min Dr. Selina Bowser Work Phone: [facility] 05-22-2023 09:10-0500 SaO2% (BldA) [Mass fraction] 97 % Dr. Selina Bowser Work Phone: [facility] 05-22-2023 09:10-0500 Systolic blood pressure 134 mm[Hg] Dr. Selina Bowser Work Phone: [facility] 05-21-2023 23:21-0500 Body temperature 97.8 [degF] Dr. Selina Bowser Work Phone: [facility] 05-21-2023 23:21-0500 Diastolic blood pressure 53 mm[Hg] Dr. Selina Bowser Work Phone: [facility] 05-21-2023 23:21-0500 Heart rate 66 /min Dr. Selina Bowser Work Phone: [facility] 05-21-2023 23:21-0500 Respiratory rate 14 /min Dr. Selina Bowser Work Phone: [facility] 05-21-2023 23:21-0500 SaO2% (BldA) [Mass fraction] 95 % Dr. Selina Bowser Work Phone: [facility] 05-21-2023 23:21-0500 Systolic blood pressure 142 mm[Hg] Dr. Selina Bowser Work Phone: [facility] 05-21-2023 18:19-0500 Body height 157.[address] Selina Bowser Work Phone: [facility] 05-21-2023 18:19-0500 Body mass index (BMI) [Ratio] 34.9 kg/m2 Dr. Selina Bowser Work Phone: [facility] 05-21-2023 18:19-0500 Body weight 86.[address] Selina Bowser Work Phone: [facility] 02-03-2023 13:06-0400 Body height 157.[address] Selina Bowser Work Phone: [facility] 02-03-2023 13:06-0400 Body mass index (BMI) [Ratio] 36.1 kg/m2 Dr. Selina Bowser Work Phone: [facility] 02-03-2023 13:06-0400 Body weight 89.[address] Selina Bowser Work Phone: [facility] 02-03-2023 13:06-0400 Diastolic blood pressure 67 mm[Hg] Dr. Selina Bowser Work Phone: [facility] 02-03-2023 13:06-0400 Heart rate 63 /min Dr. Selina Bowser Work Phone: [facility] 02-03-2023 13:06-0400 Respiratory rate 18 /min Dr. Selina Bowser Work Phone: [facility] 02-03-2023 13:06-0400 SaO2% (BldA) [Mass fraction] 97 % Dr. Selina Bowser Work Phone: [facility] 02-03-2023 13:06-0400 Systolic blood pressure 123 mm[Hg] Dr. Selina Bowser Work Phone: [facility] 01-05-2023 10:24-0400 Body mass index (BMI) [Ratio] 36.7 kg/m2 Dr. Selina Bowser Work Phone: [facility] 01-05-2023 10:24-0400 Body temperature 98.3 [degF] Dr. Selina Bowser Work Phone: [facility] 01-05-2023 10:24-0400 Body weight 91.[address] Selina Bowser Work Phone: [facility] 01-05-2023 10:24-0400 Diastolic blood pressure 80 mm[Hg] Dr. Selina Bowser Work Phone: [facility] 01-05-2023 10:24-0400 Heart rate 89 /min Dr. Selina Bowser Work Phone: [facility] 01-05-2023 10:24-0400 Respiratory rate 16 /min Dr. Selina Bowser Work Phone: [facility] 01-05-2023 10:24-0400 SaO2% (BldA) [Mass fraction] 95 % Dr. Selina Bowser Work Phone: [facility] 01-05-2023 10:24-0400 Systolic blood pressure 149 mm[Hg] Dr. Selina Bowser Work Phone: [facility] 10-22-2022 11:23-0400 Body height 157.[address] Selina Bowser Work Phone: [facility] 10-22-2022 11:23-0400 Body mass index (BMI) [Ratio] 36.9 kg/m2 Dr. Selina Bowser Work Phone: [facility] 10-22-2022 11:23-0400 Body temperature 98.4 [degF] Dr. Selina Bowser Work Phone: [facility] 10-22-2022 11:23-0400 Body weight 91.[address] Selina Bowser Work Phone: [facility] 10-22-2022 11:23-0400 Diastolic blood pressure 74 mm[Hg] Dr. Selina Bowser Work Phone: [facility] 10-22-2022 11:23-0400 Heart rate 72 /min Dr. Selina Bowser Work Phone: [facility] 10-22-2022 11:23-0400 Respiratory rate 16 /min Dr. Selina Bowser Work Phone: [facility] 10-22-2022 11:23-0400 SaO2% (BldA) [Mass fraction] 93 % Dr. Selina Bowser Work Phone: [facility] 10-22-2022 11:23-0400 Systolic blood pressure 133 mm[Hg] Dr. Selina Bowser Work Phone: [facility] 08-05-2022 11:01-0400 Body mass index (BMI) [Ratio] 37.3 kg/m2 Dr. Selina Bowser Work Phone: [facility] 08-05-2022 11:01-0400 Body weight 92.[address] Selina oBwser Work Phone: [facility] 08-05-2022 11:01-0400 Diastolic blood pressure 63 mm[Hg] Dr. Selina Bowser Work Phone: [facility] 08-05-2022 11:01-0400 Heart rate 67 /min Dr. Selina Bowser Work Phone: [facility] 08-05-2022 11:01-0400 Respiratory rate 18 /min Dr. Selina Bowser Work Phone: [facility] 08-05-2022 11:01-0400 Systolic blood pressure 125 mm[Hg] Dr. Selina Bowser Work Phone: [facility] 04-16-2022 13:40-0500 Body temperature 97.8 [degF] Dr. Selina Bowser Work Phone: [facility] 04-16-2022 13:40-0500 Body weight 95.[address] Selina Bowser Work Phone: [facility] 04-16-2022 13:40-0500 Diastolic blood pressure 59 mm[Hg] [facility] Selina Bowser [facility] [facility] 04-16-2022 13:40-0500 Heart rate 85 /min Dr. Selina Bowser Work Phone: [facility] 04-16-2022 13:40-0500 Respiratory rate 16 /min Dr. Selina Bowser Work Phone: [facility] 04-16-2022 13:40-0500 SaO2% (BldA) [Mass fraction] 94 % Dr. Selina Bowser Work Phone: [facility] 04-16-2022 13:40-0500 Systolic blood pressure 122 mm[Hg] Dr. Selina Bowser Work Phone: [facility] 01-08-2022 15:05-0400 Body temperature 97.4 [degF] Dr. Selina Bowser Work Phone: [facility] Work Phone: 01-08-2022 15:05-0400 Body weight 105.[address] Selina Bowser Work Phone: [facility] Work Phone: 01-08-2022 15:05-0400 Diastolic blood pressure 80 mm[Hg] Dr. Selina Bowser Work Phone: [facility] Work Phone: 01-08-2022 15:05-0400 Heart rate 77 /min Dr. Selina Bowser Work Phone: [facility] Work Phone: 01-08-2022 15:05-0400 Respiratory rate 16 /min Dr. Selina Bowser Work Phone: [facility] Work Phone: 01-08-2022 15:05-0400 SaO2% (BldA) [Mass fraction] 97 % Dr. Selina Bowser Work Phone: [facility] Work Phone: 01-08-2022 15:05-0400 Systolic blood pressure 136 mm[Hg] Dr. Selina Bowser Work Phone: [facility] Work Phone: Encounters Encounter Date Encounter Type Care Provider Facility Start: 11-01-2024 End: 11-01-2024 Patient encounter procedure Victor M GASPAR -[facility] Work Phone: Start: 11-01-2024 End: 11-01-[address] Selina Bowser MD Work Phone: [facility] Work Phone: Start: 08-11-2024 ambulatory Lester Grimaldo Facility :[facility] Start: 08-11-2024 Non-patient / Non-visit Lester Grimaldo DO -[facility] Start: 08-11-2024 End: 08-11-2024 Admission to same day surgery center Lester Grimaldo DO -Endoscopy Work Phone: Start: 08-11-2024 End: 08-11-[address] Selina Bowser MD Work Phone: [facility] Work Phone: Start: 06-22-2024 End: 06-22-2024 Patient encounter procedure Mariel ROGERS -Laboratory Work Phone: Start: 06-22-2024 End: 06-22-2024 ambulatory Selinasary Bowser Facility:[facility] Start: 06-02-2024 End: 06-02-2024 Patient encounter procedure Mariel ROGERS -[facility] Work Phone: Start: 06-02-2024 End: 06-02-2024 [facility] Start: 05-19-2024 End: 05-19-2024 Patient encounter procedure Mariel ROGERS -[facility] Work Phone: Start: 05-19-2024 End: 05-19-2024 ambulatory Selina Bowser Facility:[facility] Start: 05-19-2024 End: 05-19-2024 ambulatory Selina Bowser Facility:[facility] Start: 03-24-2024 End: 03-24-2024 ambulatory Selina Bowser Facility:[facility] Start: 02-25-2024 End: 02-25-2024 ambulatory Wei Butler Facility:[facility] Start: 02-17-2024 End: [facility] Start: 01-28-2024 End: 01-28-2024 ambulatory Selina Bowser Facility:[facility] Start: 01-28-2024 End: 01-28-2024 ambulatory Selina Bowser Facility:[facility] Start: 12-24-2023 End: 12-24-2023 ambulatory Selina Bowser Facility:[facility] Start: 12-09-2023 ambulatory Selina Bowser Facility :[facility] Start: 12-08-2023 ambulatory Jose Miguel Barber Facility:[facility] Start: 12-08-2023 End: 12-08-2023 ambulatory Selina Bowser Facility:[facility] Start: 11-19-2023 End: 11-19-2023 ambulatory Leslie Marquez Facility:[facility] Start: 09-15-2023 Non-patient / Non-visit Dr. Selina Bowser Work Phone: [facility] Work Phone: Start: 09-14-2023 End: 09-15-2023 Evaluation and management of inpatient Dr. Selina Bowser Work Phone: [facility] 3 Work Phone: Start: 09-14-2023 End: 09-15-[address] Selina Bowser Work Phone: [facility] Work Phone: Start: 08-04-2023 End: 08-04-[address] Selina Bowser Work Phone: [facility] Work Phone: Start: 06-24-2023 End: 06-24-[address] Selina Bowser Work Phone: [facility] Work Phone: Start: 06-24-2023 End: 06-24-[address] [facility] Work Phone: Start: 06-05-2023 End: 06-05-[address] Selina Bowser Work Phone: [facility] Work Phone: Start: 05-27-2023 End: 05-27-[address] Selina Bowser Work Phone: [facility] Work Phone: Start: 05-27-2023 End: 05-27-[address] Selina Bowser Work Phone: [facility] Work Phone: Start: 05-27-2023 End: 05-27-[address] Selina Bowser Work Phone: [facility] Work Phone: Start: 05-21-2023 End: 05-22-2023 Emergency department patient visit Dr. Selina Bowser Work Phone: [facility]-Emergency Department Work Phone: Start: 02-18-2023 Non-patient / Non-visit Dr. Selina Bowser Work Phone: [facility] Work Phone: Start: 02-18-2023 Non-patient / Non-visit Dr. Selina Bowser Work Phone: [facility] Start: 02-18-2023 End: 02-18-[address] Selina Bowser Work Phone: [facility] Work Phone: Start: 02-18-2023 End: 02-18-[address] [facility] Bowser [facility] Work Phone: Start: 02-03-2023 End: 02-03-[address] Selina Bowser Work Phone: [facility] Work Phone: Start: 01-05-2023 End: 01-05-[address] Selina Bowser Work Phone: [facility] [place] Work Phone: Start: 11-06-2022 End: 11-06-[address] Selina Bowser Work Phone: [facility] Work Phone: Start: 11-06-2022 End: 11-06-[address] Selina Bowser Work Phone: [facility] Work Phone: Start: 10-24-2022 Non-patient / Non-visit Dr. Selina Bowser Work Phone: [facility] Start: 10-24-2022 End: 10-24-[address] Selina Bowser Work Phone: [facility] Work Phone: Start: 10-24-2022 End: 10-24-[address] Sel[facility] Bowser [facility] Start: 10-22-2022 End: 10-22-[address] Selina Bowser Work Phone: [facility] Work Phone: Start: 10-22-2022 End: 10-22-[address] Selina Bowser Work Phone: [facility] Start: 10-22-2022 End: 10-22-[address] Selina Bowser Work Phone: [facility] [place] Start: 08-05-2022 End: 08-05-[address] Selina Bowser Work Phone: [facility] Start: 06-02-2022 End: 06-02-[address] Selina Bowser Work Phone: [facility] Work Phone: Start: 06-02-2022 End: 06-02-[address] Selina Bowser Work Phone: [facility] Start: 05-15-2022 End: 05-15-[address] Selina Bowser Work Phone: [facility] Work Phone: Start: 05-15-2022 End: 05-15-[address] Selina Bowser Work Phone: [facility] Start: 04-16-2022 End: 04-16-[address] [facility] Bowser [facility] Start: 04-16-2022 End: 04-16-[address] Selina Bowser Work Phone: [facility] [place] Start: 01-08-2022 End: 01-08-[address] Selina Bowser Work Phone: [facility] Work Phone: Start: 01-08-2022 End: 01-08-[address] Selina Bowser Work Phone: [facility] Start: 01-08-2022 End: 01-08-[address] Selina Bowser Work Phone: [facility] [place] Start: 09-30-2017 Ambulatory [facility] Facility:[facility] Start: 07-03-2017 End: 07-03-2017 Ambulatory BENNETT Das [facility] Start: 06-24-2017 Ambulatory [facility] Facility:[facility] Start: 06-23-2017 End: 06-23-2017 Ambulatory BENNETT Das [facility] Start: 06-02-2017 End: 06-02-2017 Ambulatory BENNETT MATOS [facility] Start: 06-02-2017 End: 06-02-2017 [facility] BENNETT MATOS [facility] Start: 03-18-2017 Ambulatory BENNETT MATOS Facility :[facility] Procedures Date Procedure Procedure Detail Performing Clinician Start: 08-11-[address] Selina de paz MD Work Phone: Start: 06-02-2024 Ultrasound elastography of liver Dr. Xenia Bowser MD Work Phone: Start: 09-14-[address] Selina Bowser Work Phone: Start: 09-14-2023 Computed tomography of abdomen and pelvis with intravenous contrast Dr. Selina Bowser Work Phone: Start: 06-24-2023 Radionuclide imaging of liver and/or biliary tract using radioactive isotope Dr. Selina Bowser Work Phone: Start: 05-27-[address] Selina Bowser Work Phone: Start: 05-21-2023 Computed tomography of abdomen and pelvis with intravenous contrast Dr. Selina Bowser Work Phone: Start: 05-21-2023 US scan of gallbladder Dr. Selina zhu Work Phone: Start: 01-05-[address] Selina Bowser Work Phone: Start: 11-06-2022 CT of abdomen and pelvis without contrast Dr. Selina Bowser Work Phone: Start: 10-22-2022 X-ray of lumbar spine, two or three views Dr. Selina Bowser Work Phone: Start: 06-02-[address] Selina Bowser Work Phone: Plan of Treatment Date Care Activity Detail Author Start: 08-11-2024 Patient discharge [facility] Start: 09-15-2023 Patient discharge [facility] Start: 09-14-2023 Enteric precautions [facility] Start: 09-14-2023 [facility] Start: 09-14-2023 Following clinical pathway protocol [facility] Start: 09-14-2023 Assessment of risk of venous thromboembolism [facility] Start: 09-14-2023 Clostridioides difficile DNA [Presence] in Unspecified specimen by ZEHRA with probe detection [facility] Start: 09-14-2023 Enteric precautions [facility] Start: 09-14-2023 Incentive spirometry [facility] Start: 09-14-2023 Inhalation therapy procedure [facility] Start: 09-14-2023 Insertion of catheter into peripheral vein [facility] Start: 09-14-2023 Introduction of urinary catheter [facility] Start: 09-14-2023 Measuring intake and output [facility] Start: 09-14-2023 Oxygen therapy [facility] Start: 09-14-2023 Providing care according to standard [facility] Start: 09-14-2023 Provision of activity privileges [facility] Start: 09-14-2023 Referral to service [facility] Start: 09-14-2023 Tobacco use cessation education [facility] Start: 09-14-2023 [facility] Start: 09-14-2023 Gastrointestinal pathogens panel - Stool by ZEHRA with probe detection [facility] Start: 09-14-2023 Verification routine [facility] Start: 09-14-2023 Admission procedure [facility] Start: 05-22-2023 [facility] Alanine aminotransfe rase [Enzymatic activity/volume] in Serum or Plasma [facility] Albumin [Mass/volume ] in Serum or Plasma [facility] Alkaline phosphatase [Enzymatic activity/volume] in Serum or Plasma [facility] Anion gap measurement [facility] Aspartate aminotrans ferase [Enzymatic activity/volume] in Serum or Plasma [facility] Bilirubin, total measurement [facility] BUN/Creatinine ratio [facility] Calcium [Mass/volume ] in Serum or Plasma [facility] Carbon dioxide, tota l [Moles/volume] in Serum or Plasma [facility] Chloride [Moles/volu me] in Serum or Plasma [facility] Creatinine [Moles/vo lume] in Serum or Plasma [facility] Erythrocyte mean cor puscular volume determination [facility] Glucose [Mass/volume ] in Serum or Plasma [facility] Hematocrit [Volume F raction] of Blood [facility] Hemoglobin [Mass/vol ume] in Blood [facility] Hepatic function panel [facility] Leukocytes [#/volume ] in Blood [facility] Lipid 1996 panel - S [place] or Plasma [facility] Mean corpuscular hem oglobin concentration determination [facility] Mean corpuscular hem oglobin determination [facility] Measurement of renal function [facility] Neutrophil count [facility] Neutrophil percent differential count [facility] Patient Education ED Abdominal P ain Unkn Cause Fem [facility] Work Phone: Patient referral [facility] Work Phone: Platelets [#/volume] in Blood [facility] Potassium [Moles/vol ume] in Serum or Plasma [facility] Procalcitonin [Mass/ volume] in Serum or Plasma [facility] Red blood cell count [facility] Red cell distributio n width determination [facility] Sodium [Moles/volume ] in Serum or Plasma [facility] Total protein measurement [facility] Urea nitrogen [Mass/ volume] in Serum or Plasma [facility] Payers Date Payer Category Payer Self-pay [id number] 2023 Unknown [id number] 2013 Unknown [id number] Unknown COMMERCIAL OTHER [id number] Unknown [id number] Unknown [id number] Unknown [id number] 2.16.8 [id number] Unknown [id number] 2.16.8 [id number] Unknown [id number] 2.16.8 [id number] Unknown [id number] 2.16.8 [id number] Unknown [id number] 2.16.8 40.1.890641.3.579.2.462 Unknown [id number] 2.16.8 40.1.049331.3.579.2.462 Unknown [id number] 2.16.8 40.1.655100.3.579.2.462 Unknown [id number] 2.16.8 40.1.871042.3.579.2.462 Unknown [id number] 2.16.8 40.1.756521.3.579.2.462 Unknown [id number] 2.16.8 40.1.971593.3.579.2.462 Unknown [id number] 2.16.8 40.1.762791.3.579.2.462 Unknown [id number] 2.16.8 40.1.839899.3.579.2.462 Unknown [id number] 2.16.8 40.1.572842.3.579.2.462 Unknown [id number] 2.16.8 40.1.960374.3.579.2.462 Unknown [id number] 2.16.8 40.1.843307.3.579.2.462 Unknown [id number] 2.16.8 40.1.897942.3.579.2.462 Unknown [id number] 2.16.8 40.1.665710.3.579.2.462 Unknown [id number] 2.16.8 [id number] Unknown [id number] 2.16.8 [id number] Social History Date Type Detail Facility Start: 01-08-2022 End: 09-14-2023 Tobacco smoking status CTIS Unknown if ever smoked [facility] Start: 09-01-2019 Rare [facility] Start: 09-01-2019 None [facility] Start: 09-01-2019 Spouse/ Signif icant Other [facility] Start: 10-13-2015 Cigarettes [facility] Start: 1955 Sex Assigned At Female [facility] Start: 08-11-2024 Tobacco smoking status NHIS Smokes tobacco daily (finding) [facility] Start: 08-11-2024 Sex Female (finding) [facility] NEGATED: Highlighted row Not [facility] Goals Date Patient Goal Desired Activity /State Functional Status Date Assessment Result Facility 09-15-2023 Functional status Bathroom Privilege [facility] Work Phone: Mental Status Date Assessment Result Facility 08-11-2024 Cognitive function Voice/Name [facility] Work Phone: 09-15-2023 Cognitive function Voice/Name [facility] Work Phone: Clinical Notes 05-22-2023 to 11-01-2024 Note Date & Type Note Facility 11-01-2024 Progress note Note Date/Time November 01, 2024 4:35pm [facility] [address] [place] [address] OFFICE VISIT Date of Service: 11/01/24 MR#: [id number] Acct: [id number] Name: YASMINE MTZ Rep #: [id number] : 1955 Provider: HUBERT Mak Age/Sex: 68/F Location: [facility] Status: Signed HPI HPI History of Present Illness Details: This is a 68-year-old female who presents here today for a cardiovascular follow-up. She has a long history of atrial tachyarrhythmias. In October 2015 shehad a cardioversion for atrial flutter. She also underwent a cardioversion in 2018, JUAN guided cardioversion in 2019 and most recently in April 2021. She does have a history of hypertension, hyperlipidemia, diastolic heart failure, obesity. In the past she had been on warfarin as well as amiodarone however she had discontinued both of those on her own because it was not making a change in her overall condition. She denies chest, arm, jaw, or neck discomfort. She states palpitations. She describes as a fast sensation and consistent with previous atrial fibrillation episodes. She states individual episodes lasted 1-3 days. She felt weakness and fatigue. She noted worsening shortness of breath during the episode. She deniesbilateral lower extremity edema. She denies claudication. She states shortnessof breath with activity. She denies shortness of breath at rest, orthopnea, or PND. She denies chronic cough. She denies significant, sudden weight gain. She denies lightheadedness, dizziness, near-syncope, or syncope. She denies blood in urine, blood in stool, or epistaxis. He denies fever with chills. Shedenies myalgia. She denies fatigue. Her exercise level has remained stable. 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 Required: No Is patient in pain?: No Allergies No Known Allergies Allergy (Verified 11/01/24 15:58) Medications ?Medication ?Instructions ?Recorded ?Confirmed ?Type multivit with minerals-iron 18 1 ea PO DAILY 10/13/15 11/01/24 History mg-folic ac 400 mcg-vit K 25 mcg tablet (Multi-Day Plus Minerals) magnesium 200 mg tablet 400 mg PO DAILY 09/14/23 History losartan 100 mg tablet 100 mg PO DAILY #90 tabs 11/01/24 Rx apixaban 5 mg tablet (Eliquis) 5 mg PO BID #60 TABLETS 03/29/24 11/01/24 Rx furosemide 40 mg tablet 40 mg PO DAILY #90 tabs 05/1211/01/24 Rx metoprolol succinate 200 mg 200 mg PO DAILY #90 tabs 0 08/12/24 11/01/24 Rx tablet,extended release 24 hr cholecalciferol (vitamin D3) 125 125 mcg PO QDAY 11/0111/01/24 History mcg (5,000 unit) tablet pantoprazole 40 mg tablet,delayed 40 mg PO DAILY PRN a mari reflux 11/01/24 History release Ejection fraction %: 60 Have you fallen in the past year?: No PFSH Medical History History of ulceration History of diverticulosis Gastric reflux Shortness of breath on exertion Esophageal varix Wears glasses High cholesterol History of GI bleed Sleep apnea Smoker Diverticulosis Cardiology follow-up encounter Back pain Leg cramps History of echocardiogram History of stress test History of atrial fibrillation History of kidney stones Obesity Cholelithiasis Insulin resistance Recurrent hematuria UTI (urinary tract infection) Vitamin D deficiency History of shoulder fracture History of renal stone Atrial flutter, chronic Tobacco dependence Paroxysmal atrial fibrillation Hyperlipidemia Essential hypertension Chronic diastolic CHF (congestive heart failure) Gastroesophageal reflux disease Colon polyps Family history of cardiovascular disease Diverticulosis Surgical History History of colonoscopy History of colonoscopy with polypectomy History of lithotripsy (~2015) History of open reduction and internal fixation (ORIF) procedure (~2003) History of tubal ligation History of cardioversion (06/21/19) Family History Mother Diabetes Hypertension Myocardial infarction Father Hypertension Heart disease Sister Diabetes Heart disease Grandmother CVA (cerebral vascular accident) Social History household members: spouse Smoking Status: Current every day smoker (Patient smoked today.) tobacco type: cigarettes Tobacco: How many years used: 40 second hand exposure: Yes alcohol intake: never substance use type: does not use caffeine: Yes Type: coffee Number of servings: 3 what type of physical activity do you participate in: aerobics frequency: 3-4 times per week ROS Const Const: Negative for fatigue or weakness Eyes Eyes: Negative for change in vision ENT ENT: Negative for dizziness or balance problems Cardio Chest Pain: No Palpitations: Yes (3 weeks in a row had episode of afib lasted 1-3 days) feels like its: fast Edema: None Muscle aches with walking: None Resp Respiratory: Positive for SOB with activity; Negative for SOB at rest or SOB orthopneaundefinedSOB lying down GI GI: Negative nausea or heartburn : Negative for hematuria or frequent nighttime urination/ nocturia Musc Musc: Negative for balance problems Skin Skin: Negative non-healing lesions or rash Neuro Neuro: Negative for dizziness, lightheadedness, near syncope, syncope or weakness Endo Endo: Negative for fatigue Allergy Allergy/Immunology: Negative for rash Cardiology Exam Const Appearance: cooperative, healthy appearing, comfortable and no acute distress Nutritional Appearance: well nourished and obese Orientation: alert, awake and oriented x3 Head Head: normal to inspection Ears: hearing grossly normal bilaterally Nose: external nose normal Face and Sinus: face symmetric Mouth: moist mucous membranes Eyes General: appearance normal, both eyes and all related structures Eyelids: eyelids normal EOM: EOM intact bilaterally Neck Neck: normal visual inspection and no JVD Carotids: normal carotid upstroke Chest Chest inspection: normal inspection of the chest, symmetric chest movement and normal respiratory effort; Negative cough Auscultation: Bilateral: Clear to Auscultation Cardio Rate: regular rate Rhythm: regular rhythm Heart sounds: S1 normal and S2 normal; Negative rub, gallop or murmur GI GI: normal to inspection and obese Neuro General: patient alert, patient awake, patient oriented x3 and CN's II-XI intactbilaterally Skin Skin: no rashes or lesions noted Extremities Pulses: Normal: Right Posterior Tibial Pulse, Left Posterior Tibial Pulse, RightRadial Pulse and Left Radial Pulse Lower Extremity Edema: None: Bilateral Psych Psychological: normal affect Supplemental Info Supplemental Information Echocardiogram 02/18/2023: Interpretation Summary Normal LV size. Left ventricular systolic function is normal. The estimated ejection fraction is 60 %. No regional wall motion abnormalities noted. Mild (1+) aortic valve insufficiency. Echocardiogram 04/01/2021: Normal LV size. Left ventricular systolic function is normal. The estimated ejection fraction is 60 %. Stage 2 diastolic dysfunction. Contrast injection was performed. Stress test 04/01/2021: Normal pharmacologic myocardial perfusion stress test. Atrial flutter noted. Preserved ejection fraction. Abdomen/Pelvis CTA 12/08/23 IMPRESSION: Moderate atherosclerotic disease. Mild stenosis at the origin of the celiac axis. Minimal calcific disease at the origin of the superior mesenteric artery without significant stenosis. Patent vessels. Carotid Duplex 12/08/23 Interpretation Summary Mild (<50%) stenosis right extracranial internal carotid. Mild (<50%) stenosis left extracranial internal carotid. Patent and antegrade vertebrals bilaterally. Renal Artery Duplex 10/06/23 Aorta Proximal abdominal aorta 2.31 x 2.39 cm . Proximal abdominal aorta peak systolicvelocity is 66.1cm/sec . Distal abdominal aorta 1.38 x 1.43 cm . Distal abdominal aorta peak systolic velocity is 60.6 cm/sec . 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 Assessment and Plan Assessment and Plan (1) Paroxysmal atrial fibrillation: Status: Chronic Plan: [id number] score: 3 (age, gender, HTN) (3.2% stroke risk) Atrial fibrillation stage: 3A, paroxysmal 12 Lead EC03/24/2024-sinus rhythm at 63 bpm DCCV: 10/13/2015, 07/20/2018, , 04/15/2021 Echocardiogram: 02/18/2023-EF: 60%, normal left and right atrial size Heart Rate Control: Metoprolol succinate 200 mg p.o. daily Anticoagulation/CVA Protection: Eliquis 5 mg p.o. twice daily We discussed undergoing stress test to ensure no ischemic component and consideration for flecainide therapy. She declines antiarrhythmic therapy. We discussed exercise, diet, weight loss, WENDY treatment, and alcohol reduction/elimination. Overall, we will continue to monitor and consider rhythmcontrolling strategies as necessary. (2) Essential hypertension: Status: Chronic Plan: Patient's blood pressure is well-controlled. We will continue to monitor. We will not make any medication regimen changes. (3) Hyperlipidemia: Status: Chronic Plan: Lipid panel on 05/19/2024 showed total cholesterol: 309, HDL: 48, LDL: TNP, and triglycerides: 402. Risk factor and lifestyle modification encouraged. She is currently not on cholesterol or triglyceride lowering medication. She will repeat liver and lipid profile at her earliest convenience to guide further. She does not wish to begin statin medication. Fenofibrate therapy briefly discussed. (4) Aortic valve insufficiency: Status: Acute Qualifiers: Cardiac valve disease etiology: nonrheumatic Qualified Code(s): I35.1 -Nonrheumatic aortic (valve) insufficiency Plan: Echocardiogram in February 2023 showed LV function 60% and mild aortic valve insufficiency. This appears stable. She will continue current medical therapy and we will continue to monitor. We will consider repeat echocardiogram as needed. (5) Smoker: Status: Acute Plan: Patient continues to smoke. She received extensive education regarding the health benefits of smoking cessation. We will continue to support and encouragesmoking cessation. Orders: Orders Lipid Profile Today E78.5 - Hyperlipidemia, unspecified, I35.1 - Nonrheumatic aortic (valve) insufficiency Liver Profile Today E78.5 - Hyperlipidemia, unspecified, I35.1 - Nonrheumatic aortic (valve) insufficiency Plan Details Additional Comments: Thank you for allowing us to participate in the patients plan of care, if you have any questions please do not hesitate to call. Plan was reviewed with patient/family member along with red flag symptoms. Understanding was acknowledged. Questions were answered to apparent satisfaction. This note was generated using a voice recognition system and there may be incorrect words, spelling or punctuation that were not noted when reviewing the office note prior to saving. Portions of this documentation were copied and pasted from previous office visitnotes to provide a cohesive continuity of the history. The note has been reviewed, edited, and updated, as necessary. Follow Up: 6 Months (TECHNICAL PROJECT MANAGER/PA) 12-15 Months (ASSISTANT PRODUCTION MANAGER) Coding Level of Care Code Off vis,est,level 4 Diagnoses Paroxysmal atrial fibrillation I48.0 Essential hypertension I10 Hyperlipidemia E78.5 Nonrheumatic aortic valve insufficiency I35.1 Cardiac valve disease etiology: nonrheumatic Smoker F17.200 Coding Level of Care Code Off vis,est,level 4 Diagnoses Paroxysmal atrial fibrillation I48.0 Essential hypertension I10 Hyperlipidemia E78.5 Nonrheumatic aortic valve insufficiency I35.1 Cardiac valve disease etiology: nonrheumatic Smoker F17.200 Clinical Quality Measures Falls Risk Screening/Assistive Devices Have you fallen in the past year?: No Cardiac Ejection fraction %: 60 11/01/24 2555 <Electronically signed by Victor M GREWALC> Date _ Victor M Mak NP TECHNICAL PROJECT MANAGER-C Cosigner Signature: Date (if applicable) CC: Dr. Selina Bowser MD ~ [facility] Work Phone: [phone]) 938-286606-24-2025 [facility] [address] [place] [address] OFFICE VISIT Date of Service: 11/01/24 MR#: [id number] Acct: [id number] Name: YASMINE MTZ Rep #: [id number] : 1955 Provider: HUBERT Mak Age/Sex: 68/F Location: [email or web address] Status: Signed HPI HPI History of Present Illness Details: This is a 68-year-old female who presents here today for a cardiovascular follow-up. She has a longhistory of atrial tachyarrhythmias. In October 2015 shehad a cardioversion for atrial flutter. She also underwent a cardioversion in 2018, JUAN guided cardioversion in 2019 and most recently in April 2021. She does have a history of hypertension, hyperlipidemia, diastolic heart failure, obesity. In the past she had been on warfarin as well as amiodarone however she had discontinued both of those on her own because it was not making a change in her overall condition. She denies chest, arm, jaw, or neck discomfort. She states palpitations. She describes as a fast sensation and consistent with previous atrial fibrillation episodes. She states individual episodes lasted 1-3 days. She felt weakness and fatigue. She noted worsening shortness of breath during the episode. She deniesbilateral lower extremity edema. She denies claudication. She states shortnessof breath with activity. She denies shortness of breath at rest, orthopnea, or PND. She denies chronic cough. She denies significant, sudden weight gain. She denies lightheadedness, dizziness, near-syncope,or syncope. She denies blood in urine, blood in stool, or epistaxis. He denies fever with chills. Shedenies myalgia. She denies fatigue. Her exercise level has remained stable. 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 Required: No Is patient in pain?: No Allergies No Known Allergies Allergy (Verified 11/01/24 15:58) Medications ?Medication ?Instructions ?Recorded ?Confirmed ?Type multivit with minerals-iron 18 1 ea PO DAILY 10/13/15 11/01/24 History mg-folic ac 400 mcg-vit K 25 mcg tablet (Multi-Day Plus Minerals) magnesium 200 mg tablet 400 mg PO DAILY 09/14/23 History losartan 100 mg tablet 100 mg PO DAILY #90 tabs 11/01/24 Rx apixaban 5 mg tablet (Eliquis) 5 mg PO BID #60 TABLETS 03/29/24 11/01/24 Rx furosemide 40 mg tablet 40 mg PO DAILY #90 tabs 05/1211/01/24 Rx metoprolol succinate 200 mg 200 mg PO DAILY #90 tabs 0 08/12/24 11/01/24 Rx tablet,extended release 24 hr cholecalciferol (vitamin D3) 125 125 mcg PO QDAY 11/0111/01/24 History mcg (5,000 unit) tablet pantoprazole 40 mg tablet,delayed 40 mg PO DAILY PRN a mari reflux 11/01/24 History release Ejection fraction %: 60 Have you fallen in the past year?: No PFSH Medical History History of ulceration History of diverticulosis Gastric reflux Shortness of breath on exertion Esophageal varix Wears glasses High cholesterol History of GI bleed Sleep apnea Smoker Diverticulosis Cardiology follow-up encounter Back pain Leg cramps History of echocardiogram History of stress test History of atrial fibrillation History of kidney stones Obesity Cholelithiasis Insulin resistance Recurrent hematuria UTI (urinary tract infection) Vitamin D deficiency History of shoulder fracture History of renal stone Atrial flutter, chronic Tobacco dependence Paroxysmal atrial fibrillation Hyperlipidemia Essential hypertension Chronic diastolic CHF (congestive heart failure) Gastroesophageal reflux disease Colon polyps Family history of cardiovascular disease Diverticulosis Surgical History History of colonoscopy History of colonoscopy with polypectomy History of lithotripsy (~2015) History of open reduction and internal fixation (ORIF) procedure (~2003) History of tubal ligation History of cardioversion (06/21/19) Family History Mother Diabetes Hypertension Myocardial infarction Father Hypertension Heart disease Sister Diabetes Heart disease Grandmother CVA (cerebral vascular accident) Social History household members: spouse Smoking Status: Current every day smoker (Patient smoked today.) tobacco type: cigarettes Tobacco: How many years used: 40 second hand exposure: Yes alcohol intake: never substance use type: does not use caffeine: Yes Type: coffee Number of servings: 3 what type of physical activity do you participate in: aerobics frequency: 3-4 times per week ROS Const Const: Negative for fatigue or weakness Eyes Eyes: Negative for change in vision ENT ENT: Negative for dizziness or balance problems Cardio Chest Pain: No Palpitations: Yes (3 weeks in a row had episode of afib lasted 1-3 days) feels like its: fast Edema: None Muscle aches with walking: None Resp Respiratory: Positive for SOB with activity; Negative for SOB at rest or SOB orthopneaundefinedSOB lying down GI GI: Negative nausea or heartburn : Negative for hematuria or frequent nighttime urination/ nocturia Musc Musc: Negative for balance problems Skin Skin: Negative non-healing lesions or rash Neuro Neuro: Negative for dizziness, lightheadedness, near syncope, syncope or weakness Endo Endo: Negative for fatigue Allergy Allergy/Immunology: Negative for rash Cardiology Exam Const Appearance: cooperative, healthy appearing, comfortable and no acute distress Nutritional Appearance: well nourished and obese Orientation: alert, awake and oriented x3 Head Head: normal to inspection Ears: hearing grossly normal bilaterally Nose: external nose normal Face and Sinus: face symmetric Mouth: moist mucous membranes Eyes General: appearance normal, both eyes and all related structures Eyelids: eyelids normal EOM: EOM intact bilaterally Neck Neck: normal visual inspection and no JVD Carotids: normal carotid upstroke Chest Chest inspection: normal inspection of the chest, symmetric chest movement and normal respiratory effort; Negative cough Auscultation: Bilateral: Clear to Auscultation Cardio Rate: regular rate Rhythm: regular rhythm Heart sounds: S1 normal and S2 normal; Negative rub, gallop or murmur GI GI: normal to inspection and obese Neuro General: patient alert, patient awake, patient oriented x3 and CN's II-XI intactbilaterally Skin Skin: no rashes or lesions noted Extremities Pulses: Normal: Right Posterior Tibial Pulse, Left Posterior Tibial Pulse, RightRadial Pulse and Left Radial Pulse Lower Extremity Edema: None: Bilateral Psych Psychological: normal affect Supplemental Info Supplemental Information Echocardiogram 02/18/2023: Interpretation Summary Normal LV size. Left ventricular systolic function is normal. The estimated ejection fraction is 60 %. No regional wall motion abnormalities noted. Mild (1+) aortic valve insufficiency. Echocardiogram 04/01/2021: Normal LV size. Left ventricular systolic function is normal. The estimated ejection fraction is 60 %. Stage 2 diastolic dysfunction. Contrast injection was performed. Stress test 04/01/2021: Normal pharmacologic myocardial perfusion stress test. Atrial flutter noted. Preserved ejection fraction. Abdomen/Pelvis CTA 12/08/23 IMPRESSION: Moderate atherosclerotic disease. Mild stenosis at the origin of the celiac axis. Minimal calcific disease at the origin of the superior mesenteric artery without significant stenosis. Patent vessels. Carotid Duplex 12/08/23 Interpretation Summary Mild (<50%) stenosis right extracranial internal carotid. Mild (<50%) stenosis left extracranial internal carotid. Patent and antegrade vertebrals bilaterally. Renal Artery Duplex 10/06/23 Aorta Proximal abdominal aorta 2.31 x 2.39 cm . Proximal abdominal aorta peak systolicvelocity is 66.1cm/sec . Distal abdominal aorta 1.38 x 1.43 cm . Distal abdominal aorta peak systolic velocity is 60.6 cm/sec . 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 Assessment and Plan Assessment and Plan (1) Paroxysmal atrial fibrillation: Status: Chronic Plan: [id number] score: 3 (age, gender, HTN) (3.2% stroke risk) Atrial fibrillation stage: 3A, paroxysmal 12 Lead EC03/24/2024-sinus rhythm at 63 bpm DCCV: 10/13/2015, 07/20/2018, , 04/15/2021 Echocardiogram: 02/18/2023-EF: 60%, normal left and right atrial size Heart Rate Control: Metoprolol succinate 200 mg p.o. daily Anticoagulation/CVA Protection: Eliquis 5 mg p.o. twice daily We discussed undergoing stress test to ensure no ischemic component and consideration for flecainide therapy. She declines antiarrhythmic therapy. We discussed exercise, diet, weight loss, WENDY treatment, and alcohol reduction/elimination. Overall, we will continue to monitor and consider rhythmcontrolling strategies as necessary. (2) Essential hypertension: Status: Chronic Plan: Patient's blood pressure is well-controlled. We will continue to monitor. We will not make any medication regimen changes. (3) Hyperlipidemia: Status: Chronic Plan: Lipid panel on 05/19/2024 showed total cholesterol: 309, HDL: 48, LDL: TNP, and triglycerides: 402. Risk factor and lifestyle modification encouraged. She is currently not on cholesterol or triglyceride lowering medication. She will repeat liver and lipid profile at her earliest convenience to guide further. She does not wish to begin statin medication. Fenofibrate therapy briefly discussed. (4) Aortic valve insufficiency: Status: Acute Qualifiers: Cardiac valve disease etiology: nonrheumatic Qualified Code(s): I35.1 - Nonrheumatic aortic (valve) insufficiency Plan: Echocardiogram in February 2023 showed LV function 60% and mild aortic valve insufficiency. This appears stable. She will continue current medical therapy and we will continue to monitor. We will consider repeat echocardiogram as needed. (5) Smoker: Status: Acute Plan: Patient continues to smoke. She received extensive education regarding the health benefits of smoking cessation. We will continue to support and encouragesmoking cessation. Orders: Orders Lipid Profile Today E78.5 - Hyperlipidemia, unspecified, I35.1 - Nonrheumatic aortic (valve) insufficiency Liver Profile Today E78.5 - Hyperlipidemia, unspecified, I35.1 - Nonrheumatic aortic (valve) insufficiency Plan Details Additional Comments: Thank you for allowing us to participate in the patients plan of care, if you have any questions please do not hesitate to call. Plan was reviewed with patient/family member along with red flag symptoms. Understanding was acknowledged. Questions were answered to apparent satisfaction. This note was generated using a voice recognition system and there may be incorrect words, spellingor punctuation that were not noted when reviewing the office note prior to saving. Portions of this documentation were copied and pasted from previous office visitnotes to provide a cohesive continuity of the history. The note has been reviewed, edited, and updated, as necessary. Follow Up: 6 Months (TECHNICAL PROJECT MANAGER/PA) 12-15 Months (ASSISTANT PRODUCTION MANAGER) Coding Level of Care Code Off vis,est,level 4 Diagnoses Paroxysmal atrial fibrillation I48.0 Essential hypertension I10 Hyperlipidemia E78.5 Nonrheumatic aortic valve insufficiency I35.1 Cardiac valve disease etiology: nonrheumatic Smoker F17.200 Coding Level of Care Code Off vis,est,level 4 Diagnoses Paroxysmal atrial fibrillation I48.0 Essential hypertension I10 Hyperlipidemia E78.5 Nonrheumatic aortic valve insufficiency I35.1 Cardiac valve disease etiology: nonrheumatic Smoker F17.200 Clinical Quality Measures Falls Risk Screening/Assistive Devices Have you fallen in the past year?: No Cardiac Ejection fraction %: 60 11/01/24 1635 P TECHNICAL PROJECT MANAGER-C> Date _ Victor M H Roof TECHNICAL PROJECT MANAGER TECHNICAL PROJECT MANAGER-C Cosigner Signature: Date (if applicable) CC: Dr. Selina Bowser MD ~ [facility]04-03-2025 Evaluation note* Diagnosis Onset Date Resolution Status Admit Date Esophageal varix acute August 5:30am Aortic valve insufficiency acute November 01, 2024 3:39pm Smoker acute November 01 3:39pm Essential hypertension chronic Ju 2024 3:39pm Hyperlipidemia chronic November 01, 2024 3:39pm Paroxysmal atrial fibrillation chron ic November 01, 2024 3:39pm [facility] Work Phone: 1(758) 303-585304-03-2025 Consult note [facility] Medical Records Department [address] [place] [address] Anesthesia Postop Eval I 08/11/24712 MR#: [id number] Acct: [id number] Name: YASMINE MTZ Rep #:[id number] : 1955 68 From: Jono Collier PCP: Dr. Selina Bowser MD Status:REG SDC Y Race: C Location: [place] [address] Anesthesia: Postop Eval I Current Vital Signs Temperature: 97.7 F Pulse Rate: 67 Blood Pressure: 120/50 Respiratory Rate: 18 Pulse Ox: 97 Oxygen Delivery Method: Room Air Assessment Airway patent: Yes Spontaneous unlabored respirations: Yes Mental status: Awake and Calm nausea: No Vomiting: No Anesthesia Complication: No Fluid Hydration Crystalloid volume administer (ml): 30 Total IV fluid infused: 30 Progress Note Anesthesia document: Postop Eval 1 completed: Yes 08/11/24 0714 > Date _ Jono Shenamy Laraspencer Signature: Date CC: ~ Signed [facility]04-03-2025 Procedure note [facility] Medical Records Department [address] [place] [id number] EGD Report MR#: [id number] Acct: [id number] Name: YASMINE MTZ Rep #:[id number] : 1955 68 From: Lester Grimaldo DO PCP: Dr. Selina Bowser MD Status:[facility] Patient Name: Yasmine Mtz Procedure Date: 08/11/2024 6:12 AM Date of : 1955 Age: 68 Procedure: Upper GI endoscopy Indications: Heartburn, Portal hypertension with suspected esophageal varices Providers: Lester Grimaldo DO Referring MD: Selina Bowser Medicines: Monitored Anesthesia Care Patient Profile: This is a 68 year old female. Refer to note in patient chart for documentation of history and physical. Patient has symptoms of chronic heartburn. Complications: No immediate complications. Procedure: Pre-Anesthesia Assessment: - Prior to the procedure, a History and Physical was performed, and patient medications and allergies were reviewed. The patient is competent. The risks and benefits of the procedure and the sedation options and risks were discussed with the patient. All questions were answered and informed consent was obtained. Patient identification and proposed procedure were verified by the physician in the pre-procedure area. Mental Status Examination: alert and oriented. Airway Examination: normal oropharyngeal airway and neck mobility. Respiratory Examination: clear to auscultation. CV Examination: normal. Prophylactic Antibiotics: The patient does not require prophylactic antibiotics. Prior Anticoagulants: The patient has taken no anticoagulant or antiplatelet agents except for NSAID medication. ASA Grade Assessment: II - A patient with mild systemic disease. After reviewing the risks and benefits, the patient was deemed in satisfactory condition to undergo the procedure. The anesthesia plan was to use monitored anesthesia care (MAC). Immediately prior to administration of medications, the patient was re-assessed for adequacy to receive sedatives. The heart rate, respiratory rate, oxygen saturations, blood pressure, adequacy of pulmonary ventilation, and response to care were monitored throughout the procedure. The physical status of the patient was re-assessed after the procedure. After obtaining informed consent, the endoscope was passed under direct vision. Throughout the procedure, the patient's blood pressure, pulse, and oxygen saturations were monitored continuously. The Endoscope was introduced through the mouth, and advanced to the second part of duodenum. The upper GI endoscopy was accomplished without difficulty. The patient tolerated the procedure well. Scope In: 7:00:16 AM Scope Out: 7:03:28 AM Total Procedure Duration Time 0 hours 3 minutes 12 seconds Findings: Small (< 5 mm) varices were found in the lower third of the esophagus. They were 5 mm in largest diameter. There were esophageal mucosal changes secondary to established long-segment Hooks's disease present in the lower third of the esophagus. The maximum longitudinal extent of these mucosal changes was 4 cm in length. Mucosa was biopsied with a cold forceps for histology in a targeted manner at intervals of 1 cm in the lower third of the esophagus. One specimen bottle was sent to pathology. Verification of patient identification for the specimen was done. Estimated blood loss was minimal. A hiatal hernia was present. Mild portal hypertensive gastropathy was found in the cardia and in the gastric fundus. Patchy mildly erythematous mucosa without active bleeding and with no stigmata of bleeding was found in the duodenal bulb and in the first portion of the duodenum. Impression: - Small (< 5 mm) esophageal varices. - Esophageal mucosal changes secondary to established long-segment Hooks's disease. Biopsied. - Hiatal hernia. - Portal hypertensive gastropathy. - Erythematous duodenopathy. Recommendation: - Discharge patient to home. - Resume previous diet. - Continue present medications. - Await pathology results. - Repeat upper endoscopy for surveillance based on pathology results. Procedure Code(s): --- Professional --- 65447, Esophagogastroduodenoscopy, flexible, transoral; with biopsy, single or multiple CPT copyright 2021 [employer]. All rights reserved. The codes documented in this report are preliminary and upon datapower consultant review may be revised to meet current compliance requirements. Lester Grimaldo DO 08/11/2024 7:08:11 AM This report has been signed electronically. Number of Addenda: 0 Note Initiated On: 08/11/2024 6:12 AM 08/11/24708 Date _ Lester Grimaldo DO Cosigner Signature: Date (if indicated) CC: Dr. Selina Bowser MD; Lester Grimaldo DO ~ Date Dictated: 08/11/24611 Date Transcribed: Overnight Babysitter: RF Signed [facility]04-03-2025 Procedure note [facility] Medical Records Department [address] [place] [address] Operative Report - CC Letter MR#: [id number] Acct: [id number] Name: YASMINE MZT Rep #:[id number] : 1955 68 From: Lester Grimaldo DO PCP: Dr. Selina Bowser MD Status:[facility] 08/11/2024 Selina Bowser [facility] [address] [place] [id number] Re : Upper GI endoscopy procedure for Yasmine Mtz Dear Dr. Bowser This procedure was performed on August. My impressions and recommendations are as follows: Impressions : - Small (< 5 mm) esophageal varices. - Esophageal mucosal changes secondary to established long-segment Hooks's disease. Biopsied. - Hiatal hernia. - Portal hypertensive gastropathy. - Erythematous duodenopathy. Recommendations : - Discharge patient to home. - Resume previous diet. - Continue present medications. - Await pathology results. - Repeat upper endoscopy for surveillance based on pathology results. My findings are described in the full procedure note, which is enclosed. If I can be of further assistance, please feel free to contact me at . Sincerely, Lester Grimaldo DO 08/11/2024 7:08:11 AM This report has been signed electronically. 08/11/24708 Date _ Lester Grimaldo DO Cosigner Signature: Date (if indicated) CC: Dr. Selina Bowser MD; Lester Grimaldo DO ~ Date Dictated: 08/11/24 0612 Date Transcribed: Overnight Babysitter: RF Signed [facility]04-03-[address] [facility] Medical Records Department [address] [place] [address] History & Physical Exam 08/11/24 0651 MR#: [id number] Acct: [id number] Name: YASMINE MTZ Rep #:[id number] : 1955 68 From: Lester Grimaldo DO PCP: Dr. Selina Bowser MD Status:[facility] Location: [place] [address] HPI - General General Date of Admission: 08/11/24 Date of Service: 08/11/24 Chief Complaint: Esophageal varices HPI Narrative YASMINE MTZ, is a 68 F who presentsBGI established 9.19.24 after multiple hospitalizations for abd pain. General surgery believed etiology to be passing of gallstones. Hx of normal HIDA scan. EGDand colonoscopy many years ago. CT Abdomen/pelvis 5.6.24; 1. Mild mural thickening of duodenal sweep and some loops of jejunum suggests an enteritis. Question of abnormal mural thickening of the distal stomach versus artifact of nondistention. 2. Small prominent small bowel gas may represent ileus. No evidence for mechanical bowel obstruction. 3. Chronic pancreatitis. No evidence for acute pancreatitis. 4. Gallstones. 5. Nonobstructive renal calculi bilaterally. Mildly atrophic right kidney with cortical scarring. No demonstrated ureteral calculi or hydronephrosis. 6. Colonic diverticulosis without evidence for acute diverticulitis. 7. Atherosclerosis. 8. Umbilical hernia contains fat, but no bowel. HIDA scan 06.24.23; NORMAL 99m Tc Mebrofenin hepatobiliary imaging examination. A. Visualization of the gallbladder within 60 minutes post radiopharmaceutical administration excludes acute cholecystitis with 97% certitude. (Agata rodriguez al, Nucl Med [place] [employer] pg. 35, 1980). B. There appears to be spontaneous contraction and refilling of the gallbladder contents during the second hour of acquisition EGD 02.17.24: - Grade I esophageal varices. - Portal hypertensive gastropathy. - Erythematous duodenopathy. - Biopsy of ulcer Colonoscopy 02.17.24; Diverticulosis in the recto-sigmoid colon, in the sigmoid colon and in the descending colon. - Four 1 to 2 mm polyps in the rectum, removed with a hot snare. Resected and retrieved. - One 8 mm polyp in the sigmoid colon, removed with a cold snare. Resected and retrieved. - One 4 mm polyp at the splenic flexure, removed with a jumbo cold forceps. Resected and retrieved. - Stool in the rectum, in the sigmoid colon, in the descending colon, in the transverse colon and in the cecum. *PPI and Carafate started OV 05.19.24 Pt has been doing well since her scope. She is no longer having any abd pain or heartburn. She continues taking the pantoprazole but is no longer oncarafate. [facility] Medical History History of ulceration History of diverticulosis Gastric reflux Shortness of breath on exertion Esophageal varix Wears glasses High cholesterol History of GI bleed Sleep apnea Smoker Diverticulosis Cardiology follow-up encounter Back pain Leg cramps History of echocardiogram History of stress test History of atrial fibrillation History of kidney stones Obesity Cholelithiasis Insulin resistance Recurrent hematuria UTI (urinary tract infection) Vitamin D deficiency History of shoulder fracture History of renal stone Atrial flutter, chronic Tobacco dependence Paroxysmal atrial fibrillation Hyperlipidemia Essential hypertension Chronic diastolic CHF (congestive heart failure) Gastroesophageal reflux disease Colon polyps Family history of cardiovascular disease Diverticulosis Home Medications ?Medication ?Instructions ?Recorded ?Last Taken ?Type multivit with minerals-iron 18 1 ea PO DAILY 10/13/15 08/10/24 History mg-folic ac 400 mcg-vit K 25 mcg tablet (Multi-Day Plus Minerals) cholecalciferol (vitamin D3) 50 50 mcg PO DAILY 08/10/24 History mcg (2,000 unit) tablet (Vitamin D3) metoprolol succinate 200 mg 200 mg PO DAILY #90 tabs 1 05/17/22 08/11/24 05:00 Rx tablet,extended release 24 hr magnesium 200 mg tablet 400 mg PO DAILY 09/14/2307/05 History losartan 100 mg tablet 100 mg PO DAILY #90 tabs 08/11/24 05:00 Rx apixaban 5 mg tablet (Eliquis) 5 mg PO BID #60 TABLETS 03/29/24 08/10/24 08:00 Rx furosemide 40 mg tablet 40 mg PO DAILY #90 tabs 05/1208/10/24 Rx pantoprazole 40 mg tablet,delayed 40 mg PO DAILY PRN a mari reflux 07/25/24 Unknown History release Allergy/AdvReac Type Severity Reaction Status Date / Time No Known Allergies Allergy Verified 08/11/24 05:44 Family History Mother Diabetes Hypertension Myocardial infarction Father Hypertension Heart disease Sister Diabetes Heart disease Grandmother CVA (cerebral vascular accident) Surgical History History of colonoscopy History of colonoscopy with polypectomy History of lithotripsy (~2015) History of open reduction and internal fixation (ORIF) procedure (~2003) History of tubal ligation History of cardioversion (06/21/19) Social History household members: spouse Smoking Status: Current every day smoker (Patient smoked today.) tobacco type: cigarettes Tobacco: How many years used: 40 second hand exposure: Yes alcohol intake: never substance use type: does not use caffeine: Yes Type: coffee Number of servings: 3 what type of physical activity do you participate in: aerobics frequency: 3-4 times per week ROS Constitutional Constitutional: Denies fatigue, fever(s), poor appetite, weight gain or weight loss Gastrointestinal Gastrointestinal: Denies belching, bloating, change in bowel habits, change in stool character, chewing difficulty, coffee ground emesis, constipation, cramping, diarrhea, dyspepsia, dysphagia, earlysatiety, excessive flatus, fecalincontinence, heartburn, hematemesis, hematochezia, hemorrhoids, loose stools, melena, nausea, odynophagia, rectal bleeding, tenesmus, vomiting or weight changes Vital Signs Vital Signs Vital Signs: 08/11/24 05:47 08/11/24 05:49 08/11/24 06:26 Temperature 97.3 F L 97.3 F L Temperature Source Temporal Pulse Rate 71 71 Respiratory Rate 16 16 Respiratory Pattern Normal Blood Pressure 131/66 H 131/66 H Blood Pressure Mean 87 Blood Pressure Source Monitor Blood Pressure Position Semi-Fowlers Blood Pressure Location Right Arm Pulse Ox 99 99 Oxygen Delivery Method Room Air Room Air Weight Weight: 199 lb Body Mass Index (BMI) 36.3 Physical Exam Const alert, oriented x3, no apparent distress and healthy appearing General Appearance: cooperative GI normal to inspection, nondistended, normoactive bowel sounds, soft to palpation,non-tender and non-distended Percussion: normal to percussion Rectal Exam: deferred Assessment & Plan Assessment/Plan (1) Esophageal varix: PLAN: Assessment and Plan Assessment and Plan (1) Esophageal varix: Status: Acute (2) Fatty liver: Status: Acute (3) Gastric ulcer: Status: Acute Plan: This is a 68 yo female pt here today for f/u after EGD. EGD showed a gastric ulcer, hypertensive gastropathy, esophageal varix and erythematous duodenopathy.She has been taking Pantoprazole and finished her Carafate which did help with her symptoms. She is no longer having abd pain or heartburn. She will undergo a repeat EGD to assess for healing of the gastric ulcer. Pt has no hx of cirrhosisor alcohol use yet she has esophageal varix and gastropathy. She will have chronic liver blood work andliver elastography -Chronic liver disease work up -Liver elastography -Repeat EGD Orders: Orders Ammonia Today I85.00 - Esophageal varices without bleeding, K76.0 - Fatty (change of) liver, not elsewhere classified EVELYN Comprehensive Panel Today I85.00 - Esophageal varices without bleeding, K76.0 - Fatty (change of) liver, not elsewhere classified ANCA Today I85.00 - Esophageal varices without bleeding, K76.0 - Fatty (change of) liver, not elsewhere classified Angiotensin Convert Enzyme Today I85.00 - Esophageal varices without bleeding, K76.0 - Fatty (change of) liver, not elsewhere classified Anti-Smooth Muscle ABS Today I85.00 - Esophageal varices without bleeding, K76.0 - Fatty (change of) liver, not elsewhere classified Anti-Mitochondrial AB Today I85.00 - Esophageal varices without bleeding, K76.0- Fatty (change of) liver, not elsewhere classified CBC W/Diff, Automated Today I85.00 - Esophageal varices without bleeding, K76.0- Fatty (change of) liver, not elsewhere classified Ceruloplasmin Today I85.00 - Esophageal varices without bleeding, K76.0 - Fatty(change of) liver, not elsewhere classified Comprehensive Metabolic Profil Today I85.00 - Esophageal varices without bleeding, K76.0 - Fatty (change of) liver, not elsewhere classified Copper, Serum or Plasma Today I85.00 - Esophageal varices without bleeding, K76.0 - Fatty (change of) liver, not elsewhere classified CRP Today I85.00 - Esophageal varices without bleeding, K76.0 - Fatty (change of) liver, not elsewhere classified Erythrocyte Sed Rate Today I85.00 - Esophageal varices without bleeding, K76.0 - Fatty (change of) liver, not elsewhere classified Ferritin Today I85.00 - Esophageal varices without bleeding, K76.0 - Fatty (change of) liver, not elsewhere classified Hepatitis Panel Acute Today I85.00 - Esophageal varices without bleeding, K76.0- Fatty (change of) liver, not elsewhere classified, R10.11 - Right upper quadrant pain Prothrombin Time w/INR Today I85.00 - Esophageal varices without bleeding, K76.0 - Fatty (change of) liver, not elsewhere classified Triglycerides Today I85.00 - Esophageal varices without bleeding, K76.0 - Fatty(change of) liver, not elsewhere classified Iron Binding Capacity,Total Today I85.00 - Esophageal varices without bleeding,K76.0 - Fatty (change of) liver, not elsewhere classified Lipid Profile Today I85.00 - Esophageal varices without bleeding, K76.0 - Fatty(change of) liver, not elsewhere classified ABD Limited w/ Elastography Today I85.00 - Esophageal varices without bleeding,K76.0 - Fatty (change of) liver, not elsewhere classified 08/11/24 0652 Cosigner Signature (if applicable): CC: Dr. Selina Bowser MD; Lester Grimaldo DO~ Signed [facility]04-03-2025 [facility] Medical Records Department [address] [place] [address] History Physical Exam 08/11/24 0651 MR#: [id number] Acct: [id number] Name: YASMINE MTZ Rep #: [id number] : 1955 68 From: Lester Grimaldo DO PCP: Dr. Selina Bowser MD Status:[facility] Location: [place] [address] HPI - General General Date of Admission: 08/11/24 Date of Service: 08/11/24 Chief Complaint: Esophageal varices HPI Narrative YASMINE MTZ, is a 68 F who presentsBGI established 9..24 after multiple hospitalizations for abd pain. General surgery believed etiology to be passing of gallstones. Hx of normal HIDA scan. EGD and colonoscopy many years ago. CT Abdomen/pelvis 524; 1. Mild mural thickening of duodenal sweep and some loops of jejunum suggests an enteritis. Question of abnormal mural thickening of the distal stomach versus artifact of nondistention. 2. Small prominent small bowel gas may represent ileus. No evidence for mechanical bowel obstruction. 3. Chronic pancreatitis. No evidence for acute pancreatitis. 4. Gallstones. 5. Nonobstructive renal calculi bilaterally. Mildly atrophic right kidney with cortical scarring. No demonstrated ureteral calculi or hydronephrosis. 6. Colonic diverticulosis without evidence for acute diverticulitis. 7. Atherosclerosis. 8. Umbilical hernia contains fat, but no bowel. HIDA scan 06.24.23; NORMAL 99m Tc Mebrofenin hepatobiliary imaging examination. A. Visualization of the gallbladder within 60 minutes post radiopharmaceutical administration excludes acute cholecystitis with 97% certitude. (Agata rodriguez al, Nucl Med [place] [employer] pg. 35, 1981). B. There appears to be spontaneous contraction and refilling of the gallbladder contents during the second hour of acquisition EGD 02.17.24: - Grade I esophageal varices. - Portal hypertensive gastropathy. - Erythematous duodenopathy. - Biopsy of ulcer Colonoscopy 02.17.24; Diverticulosis in the recto-sigmoid colon, in the sigmoid colon and in the descending colon. - Four 1 to 2 mm polyps in the rectum, removed with a hot snare. Resected and retrieved. - One 8 mm polyp in the sigmoid colon, removed with a cold snare. Resected and retrieved. - One 4 mm polyp at the splenic flexure, removed with a jumbo cold forceps. Resected and retrieved. - Stool in the rectum, in the sigmoid colon, in the descending colon, in the transverse colon and in the cecum. *PPI and Carafate started OV 05.19.24 Pt has been doing well since her scope. She is no longer having any abd pain or heartburn. She continues taking the pantoprazole but is no longer on carafate. [facility] Medical History History of ulceration History of diverticulosis Gastric reflux Shortness of breath on exertion Esophageal varix Wears glasses High cholesterol History of GI bleed Sleep apnea Smoker Diverticulosis Cardiology follow-up encounter Back pain Leg cramps History of echocardiogram History of stress test History of atrial fibrillation History of kidney stones Obesity Cholelithiasis Insulin resistance Recurrent hematuria UTI (urinary tract infection) Vitamin D deficiency History of shoulder fracture History of renal stone Atrial flutter, chronic Tobacco dependence Paroxysmal atrial fibrillation Hyperlipidemia Essential hypertension Chronic diastolic CHF (congestive heart failure) Gastroesophageal reflux disease Colon polyps Family history of cardiovascular disease Diverticulosis Home Medications ???Medication ???Instructions ???Recorded ???Last Taken ???Type multivit with minerals-iron 18 1 ea PO DAILY 10/13/15 08/10/24 Hi story mg-folic ac 400 mcg-vit K 25 mcg tablet (Multi-Day Plus Minerals) cholecalciferol (vitamin D3) 50 50 mcg PO DAILY 02/03/23 08/10/24 History mcg (2,000 unit) tablet (Vitamin D3) metoprolol succinate 200 mg 200 mg PO DAILY #90 tabs 03/17/23 08/11/24 05:00 Rx tablet,extended release 24 hr magnesium 200 mg tablet 400 mg PO DAILY 09/14/23 08/10/24 History losartan 100 mg tablet 100 mg PO DAILY #90 tabs 02/29/24 08/11/24 05:00 Rx apixaban 5 mg tablet (Eliquis) 5 mg PO BID #60 TABLETS 03/29/24 0 08/10/24 08:00 Rx furosemide 40 mg tablet 40 mg PO DAILY #90 tabs 06/02/24 0 08/10/24 Rx pantoprazole 40 mg tablet,delayed 40 mg PO DAILY PRN acid reflux Unknown History release Allergy/AdvReac Type Severity Reaction Status Date / Time No Known Allergies Allergy Verified 08/11/24 05:44 Family History Mother Diabetes Hypertension Myocardial infarction Father Hypertension Heart disease Sister Diabetes Heart disease Grandmother CVA (cerebral vascular accident) Surgica (more content not included)...[facility]04-03-2025 Consult note [facility] Medical Records Department [address] [place] [address] Pre-Anesthesia Evaluation 08/11/24619 MR#: [id number] Acct: [id number] Name: YASMINE MTZ Rep #:[id number] : 1955 68 From: Barney Steve MD PCP: Dr. Selina Bowser MD Status:REG SDC Y Race: C Location: [place] [address]- ASA Classification* ASA Classification ASA Classification: 3 Assessment & Plan Anesthesia* Anesthesia Assessment Anesthesia Assessment: Discussed sedation and/or anesthesia options, risks, benefits, and alternatives with patient/parents/legal guardian/POA. Questions invited. The patient/parents/legal guardian/POA seems to understand and agrees to proceedwith anesthesia plan. Reviewed the physical assessment, medical history, allergy history and patient home medications list prior to surgery/procedure/anesthetic and documented any changes. Performed airway and anesthesia risk assessments. Anesthesia Type Anesthesia Type: MAC History Source History Obtained from:: Patient and Chart Anesthesia Focused Assessment* Temperature: 97.3 F Pulse Rate: 71 Blood Pressure: 131/66 Respiratory Rate: 16 Pulse Ox: 99 Oxygen Delivery Method: Room Air Airway Assessment Mouth opens: >3 cm Mallampati Score: IV Teeth Condition: Intact Neck Range of motion (ROM): Full ROM Focused Labs Anesthesia Preop lab: CBC WBC 11.2 K/mm3 (4.4-11.0) H 05/19/24 15:32 5 RBC 5.39 M/mm3 (4.2-5.4) 05/19/24 15:05/19/24 Hgb 15.1 g/dL (12.0-15.0) H 05/19/24 15:32 5 Hct 46.2 % (37-47) 05/19/24 15:32 05/19/24 Plt Count 181 K/mm3 (150-450) 05/19/24 15:32 05/19/24 CHEMISTRY Potassium 4.0 mmol/L (3.5-5.1) 05/19/24 15:32 05/19/24 Sodium 138 mmol/L (136-145) 05/19/24 15:32 05/19/24 Magnesium 2.1 mg/dL (1.6-2.6) 09/15/23 06:12 09/15/23 Phosphorus 3.8 mg/dL (2.5-4.9) 09/15/23 06:12 09/15/23 BUN 34 mg/dL (7-18) H 05/19/24 15:32 05/19/24 Creatinine 1.11 mg/dL (0.55-1.02) H 05/19/24 15:32 Glucose 121 mg/dL (74-106) H 06/22/24 09:12 06/22/24 TSH 1.240 uIU/mL (0.358-3.740) 06/22/24 09:06/11 COAG PT 13.1 SECONDS (11.7-14.9) 05/19/24 15:32 Pre-Assessment Diagnosis/Proposed Procedure Planned Operative Procedure(s): EGD Anesthesia History Anesthesia History - licensing registration examiner: Anesthesia History - licensing registration examiner Hx Hospitalization No 07/25/24 14:46 Any Problems With Anesthesia No 07/25/24 14:46 Cholinesterase deficiency No 07/25/24 14:46 You/Your Family Experience No 07/25/24 14:46 fever (hyperthermia) with Relationship Recent Exposure to Contagious No 08/11/24 05:47 Disease Does patient have nerve No 07/25/24 14:46 stimulator Patient instructed to have device shut off --Does patient have Pacemaker No 08/11/24 05:49 or ICD? When Was Last Pacemaker Check QUESTION #4 FULL TEXT: You/Your Family Experience fever (hyperthermia) with Anesthesia Last Oral Intake Last Oral intake: Last Oral Intake NPO since 04:00 08/11/24 05:49 Meds taken in AM with sips of Yes 08/11/24 05:49 water? Meds patient instructed to take am of surgery Any additional information?: Yes NPO since: 04:00 (Patient had black coffee at 4AM.) Meds taken in AM with sips of water?: Yes PONV PONV - licensing registration examiner: PONV - licensing registration examiner Female Yes 07/25/24 14:46 HX of Motion Sickness No 07/25/24 14:46 HX of N/V After Surgery No 07/25/24 14:46 Non-Smoker No 07/25/24 14:46 Duration of Surgery greater No 07/25/24 14:46 than 60 minutes Number of Risk Factors 1 07/25/24 14:46 PONV Score Low Risk 07/25/24 14:46 Height & Weight Height & Weight: Anesthesia: Height & Weight Height 5 ft 2 in 08/11/24 05:49 Weight: 90.265 kg 08/11/24 05:49 Body Mass Index (BMI) 36.3 08/11/24 05:49 Respiratory Assessment Respiratory Assessment - licensing registration examiner: Respiratory Tract Infection Hx - licensing registration examiner Hx Respiratory Tract Infection No 07/25/24 14:46 STOP Sleep Apnea STOP Sleep Apnea - licensing registration examiner: STOP Sleep Apnea - licensing registration examiner Hx Hypertension Yes: PER PT, CONTROLLED ON 07/25/24 14:46 MEDS Hx Sleep Apnea Yes: PT STATES DR THINK SHE 07/25/24 14:46 HAS SLEEP APNEA BUT PT DOESNT THINK SHE DOES CPAP No 07/25/24 14:46 BIPAP No 07/25/24 14:46 Do you snore loudly (louder than talking or can be heard Do you often feel tired/ fatigued/ sleepy during daytime? Has anyone observed you stop breathing during sleep? STOP Results Positive 07/25/24 14:46 QUESTION #5 FULL TEXT : Do you snore loudly (louder than talking or can be heard through closeddoors)? 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 Specify any problems Hx of Preganancy in last 3 No 07/25/24 14:46 Months Nurse Filling Out Transfusion MGRIFFITH 07/25/24 14:46 & Questions: Date: 07/25/24 07/25/24 14:46 Time: 14:48 07/25/24 14:46 Patient unable to answer at this time (ie. confused, unrespo /Reproduction History /Reproductive History - licensing registration examiner: /Reproductive Hx- licensing registration examiner Hx Now No 07/25/24 14:46 Gestational Age (in weeks): EDC: Hx Hx Para Hx Section SAB No 07/25/24 14:46 PFSH Medical History History of ulceration History of diverticulosis Gastric reflux Shortness of breath on exertion Esophageal varix Wears glasses High cholesterol History of GI bleed Sleep apnea Smoker Diverticulosis Cardiology follow-up encounter Back pain Leg cramps History of echocardiogram History of stress test History of atrial fibrillation History of kidney stones Obesity Cholelithiasis Insulin resistance Recurrent hematuria UTI (urinary tract infection) Vitamin D deficiency History of shoulder fracture History of renal stone Atrial flutter, chronic Tobacco dependence Paroxysmal atrial fibrillation Hyperlipidemia Essential hypertension Chronic diastolic CHF (congestive heart failure) Gastroesophageal reflux disease Colon polyps Family history of cardiovascular disease Diverticulosis Home Medications ?Medication ?Instructions ?Recorded ?Last Taken ?Type multivit with minerals-iron 18 1 ea PO DAILY 10/13/15 08/10/24 History mg-folic ac 400 mcg-vit K 25 mcg tablet (Multi-Day Plus Minerals) cholecalciferol (vitamin D3) 50 50 mcg PO DAILY 08/10/24 History mcg (2,000 unit) tablet (Vitamin D3) metoprolol succinate 200 mg 200 mg PO DAILY #90 tabs 1 05/17/22 08/11/24 05:00 Rx tablet,extended release 24 hr magnesium 200 mg tablet 400 mg PO DAILY 09/14/2307/05 History losartan 100 mg tablet 100 mg PO DAILY #90 tabs 08/11/24 05:00 Rx apixaban 5 mg tablet (Eliquis) 5 mg PO BID #60 TABLETS 03/29/24 08/10/24 08:00 Rx furosemide 40 mg tablet 40 mg PO DAILY #90 tabs 05/1208/10/24 Rx pantoprazole 40 mg tablet,delayed 40 mg PO DAILY PRN a mari reflux 07/25/24 Unknown History release Allergy/AdvReac Type Severity Reaction Status Date / Time No Known Allergies Allergy Verified 08/11/24 05:44 Family History Mother Diabetes Hypertension Myocardial infarction Father Hypertension Heart disease Sister Diabetes Heart disease Grandmother CVA (cerebral vascular accident) Surgical History History of colonoscopy History of colonoscopy with polypectomy History of lithotripsy (~2015) History of open reduction and internal fixation (ORIF) procedure (~2003) History of tubal ligation History of cardioversion (06/21/19) Social History household members: spouse Smoking Status: Current every day smoker tobacco type: cigarettes Tobacco: How many years used: 40 second hand exposure: Yes alcohol intake: never substance use type: does not use caffeine: Yes Type: coffee Number of servings: 3 what type of physical activity do you participate in: aerobics frequency: 3-4 times per week Review of Systems (Anesthesia) ROS Narrative System reviewed and no additional complaints, except as documented. 08/11/24 0626 gaviota SALMERON> Date _ Barney Laraignamy Signature: Date CC: ~ Signed [facility]01-09-2025 Evaluation note* Diagnosis Onset Date Resolution Status Admit Date Esophageal varix acute May 19, 2024 2:53pm Fatty liver acute May 19, 2024 2:53pm Gastric ulcer acute May 2:53pm Esophageal varix acute August 5:30am [facility] Work Phone: [phone]) 276-426710-09-2024 [facility] Medical Records Department [address] [place] [address] History Physical Exam 02/17/24 1218 MR#: [id number] Acct: [id number] Name: YASMINE MTZ Rep #: [id number] : 1955 68 From: [facility] Friend DO PCP: Dr. Selina Bowser MD Status:[facility] Location: [place] [address] History and Physical Date of Admission: 02/17/24 YASMINE MTZ, is a 68 F who presents to the office today for establishment. Patient has a PMHx of venous insufficiency, chronic back pain, aortic valve insufficiency, gallstones, afib, HTN and HLD. She was hospitalized in May and September of 2023 with abdominal pain. She followed up with general surgery who thought the etiology to be related to the passing of gallstones. She had a HIDA scan which was normal. At this time her only complaints are come gas and LUQ tingling. CT abdomen pelvis showed some mural wall thickening in the stomach and small bowel. She has had both colonoscopy and EGD before but were many years ago. She tells me she had to have surgery to remove polyps. She denies abdominal pain, heartburn, diarrhea, constipation or n/v. CT Abdomnen/pelvis 09.14.23; 1. Mild mural thickening of duodenal sweep and some loops of jejunum suggests an enteritis. Question of abnormal mural thickening of the distal stomach versus artifact of nondistention. 2. Small prominent small bowel gas may represent ileus. No evidence for mechanical bowel obstruction. 3. Chronic pancreatitis. No evidence for acute pancreatitis. 4. Gallstones. 5. Nonobstructive renal calculi bilaterally. Mildly atrophic right kidney with cortical scarring. No demonstrated ureteral calculi or hydronephrosis. 6. Colonic diverticulosis without evidence for acute diverticulitis. 7. Atherosclerosis. 8. Umbilical hernia contains fat, but no bowel. HIDA scan 06.24.23; NORMAL 99m Tc Mebrofenin hepatobiliary imaging examination. A. Visualization of the gallbladder within 60 minutes post radiopharmaceutical administration excludes acute cholecystitis with 97% certitude. (Agata et al, Nucl Med [place] [employer] Press pg. 35, 1980). B. There appears to be spontaneous contraction and refilling of the gallbladder contents during the second hour of acquisition ROS Const Constitutional: No fatigue, fever(s) or weight change ENT ENT: No difficulty swallowing Gastro GI: Positive for abdominal pain, bloating, constipation, heartburn and excessive flatus; No belching, change in bowel habits, change in stool character, coffee ground emesis, cramping, diarrhea, difficulty swallowing, feeling full early, incontinent of stools, Vomiting blood/hematemesis, Blood in stool, loose stools, Black,tarry stools, nausea/dyspepsia, pain with swallowing, vomiting or other Musc Musculoskeletal: Positive for back pain, numbness, stiffness, tingling and leg pain at night; No joint pain Skin Skin: No yellowing of the eye or itchy eyes Neuro Neurology: Positive for numbness and tingling Psych Psychiatric: No anxiety and No depression Endo Endocrine: No fatigue or weight change Aller/Imm Allergy/Immunologic: No itchy eyes Clayton/Lymp Hematologic/Lymphatic: No easy bleeding or easy bruising Exam Const General: cooperative and comfortable Nutritional Appearance: average body habitus and well nourished [facility] Head: normal to inspection Ears: hearing grossly normal bilaterally Nose: external nose normal Face and sinus: normal facial exam Eyes General: appearance normal, both eyes and all related structures Neck Neck: normal visual inspection Chest Chest palpation inspection: normal inspection of the chest Resp Effort Inspection: normal respiratory effort GI Inspection: normal to inspection Skin General: no rashes or lesions noted Neuro General: patient alert Extrem General: normal to inspection Psych Affect: normal affect Assessment and Plan Assessment and Plan (1) Abdominal pain: Status: Resolved Plan: Pt is a 68 yo female here today for establishment with [facility]. She was hospitalized in May and September 2023 for abdominal pain with elevated liver enzymes. She had follow up with surgery who recommended HIDA scan and possible cholecystectomy. HIDA was normal and she did not wish to pursue surgery. Her last CT abdomen pelvis showed some mural wall thickening in the stomach and small bowel and also showed signs of chronic pancreatitis. She has had both EGD and colonoscopy many years ago. I think at this time she would benefit from both lower and upper scopes to assess the thickening and for colon cancer screening. She is agreeable to this. I will also order blood work to check on her liver enzymes and autoimmune condition that could affect the liver. She denies any GI symptoms at this point in time. She will f/u in 3 months. -EGD and colonoscopy -blood work -f/u in 3 months (more content not included)...[facility]05-06-2024 Progress note Author Marguerite Cheng [facility] September 14, 2023 10:03am Note Date/Time September 14, 2023 8:11am [facility] Medical Records Department [address] [place] [address] Progress Note - Hospitalist 09/14/23806 MR#: [id number] Acct: [id number] Name: YASMINE MTZ Rep #:[id number] : 1955 67 From: Marguerite Cheng DO PCP: Dr. Selina Bowser MD Status:ADM THERESA Location: [facility] [place] [id number] Hospitalist Note Ms. Mtz is a 67-year-old white female who presented to emergency department [facility] on 09/14/2023 with abdominal pain, nausea, vomiting, and diarrhea. She reported it had been ongoing for about a week priorto presentation and was noted predominantly in the epigastric and left upper quadrant area. It had been intermittent but as of late had been more constant with a boring sensation to her back. She denied fever and chills. Vital signs on presentation were unremarkable other than elevated blood pressure 169/73. CBC showed a mild leukocytosis with a white count of 13.9 but she did appear to be hemoconcentrated as her hemoglobin was 15.8. She left shift was present. BUN was 20 with a serum creatinine of 0.82. Hepatic profile was unremarkable. Lipase was 28. Troponin was 5. UA was consistent with dehydration showing a specific gravity of 1.02 and some occult blood but was negative for nitrite. Leuk esterase was 500 white blood cells were elevated with 1+ bacteria. Urine culture was sent in the emergency department and she was not started antibioticsat that time. CT of the abdomen pelvis was done and showed mild mural thickening of the duodenum and some loops of jejunum suggestive of enteritis with possible mural thickening at the distal stomach. She was given 1 L of IV fluids, Zofran, and morphine x 2 in the emergency department. Procalcitonin wasobtained and completely normal. Enteric panel was unremarkable. And urine culture is pending at this time. She was admitted to the medical floor and maintain on IV fluids, given antiemetics, pain medication and started on ceftriaxone for suspected UTI. Will start clear liquid diet and advance as ableto cardiac. Once patient is able to take in a p.o. diet without any difficulty we will plan to discharge home. 09/14/23 1003 <Electronically signed by Marguerite Cheng DO> Cosigner Signature (if applicable): CC: ~ Signed [facility] Work Phone: 1(708) 992-216705-06-2024 Discharge summary Author Rashaad Rooney [facility] September 14, 2023 4:42am Note Date/Time September 14, 2023 1:09am [facility] Medical Records Department [address] [place] [address] Emergency Department Summary 09/14/23 MR#: [id number] Acct: [id number] Name: YASMINE MZT Rep #:[id number] : 1955 67 From: Rashaad Rooney MD PCP: Dr. Selina Bowser MD Status:ADM THERESA Location: [facility] [id number] HPI HPI - GI History of Present Illness Chief Complaint: Abd Pain Narrative Narrative: 67-year-old female presents with left upper quadrant abdominal pain that she hashad for the last week. Initially, she states that it was intermittent perhaps lasting hours but has been relatively constant as of late. Over the last 24 hours she is nauseated and she vomited about 4 times without any blood in her emesis. She has had intermittent diarrhea as well. She describes it more as a boring sensation from the front to the back. No exacerbating or alleviating factors. Past abdominal surgery includes bilateral tubal ligation. She denies any fevers or chills, but states she has been taking pain medication. Given that has become more constant, she presents, and occasionally it radiates towards her left chest. [facility] Medical History (Updated 09/14/23 @ 03:[address] Meli Altman MD) Atrial flutter, chronic Cholelithiasis Chronic diastolic CHF (congestive heart failure) Colon polyps Diverticulosis Essential hypertension Family history of cardiovascular disease Gastroesophageal reflux disease History of renal stone History of shoulder fracture Hyperlipidemia Insulin resistance Obesity Paroxysmal atrial fibrillation Recurrent hematuria Tobacco dependence UTI (urinary tract infection) Vitamin D deficiency Home Medications multivit with minerals-iron 18 mg-folic ac 400 mcg-vit K 25 mcg tablet (Multi- Day Plus Minerals) 1 ea PO DAILY 10/13/15 [History Last Taken Unknown] apixaban 5 mg tablet (Eliquis) 5 mg PO BID #60 tabs 01/13/23 [Rx Last Taken Unknown] cholecalciferol (vitamin D3) 50 mcg (2,000 unit) tablet (Vitamin D3) 50 mcg PO DAILY 02/03/23 [History Last Taken Unknown] magnesium citrate 100 mg capsule 200 mg PO DAILY 02/03/23 [History Last Taken Unknown] furosemide 40 mg tablet 40 mg PO DAILY #90 tabs 03/17/23 [Rx Last Taken Unknown] losartan 100 mg tablet 100 mg PO DAILY #90 tabs 03/17/23 [Rx Last Taken Unknown] metoprolol succinate 200 mg tablet,extended release 24 hr 200 mg PO DAILY #90 tabs 03/17/23 [Rx Last Taken Unknown] Allergy/AdvReac Type Severity Reaction Status Date / Time No Known Allergies Allergy Verified 08/04/23 15:10 Family History Mother Diabetes Hypertension Myocardial infarction Father Hypertension Heart disease Sister Diabetes Heart disease Grandmother CVA (cerebral vascular accident) Surgical History History of cardioversion (06/21/19) History of open reduction and internal fixation (ORIF) procedure History of tubal ligation Social History Smoking Status: Current every day smoker tobacco type: cigarettes Tobacco: How many years used: 40 second hand exposure: Yes alcohol intake: never substance use type: does not use caffeine: Yes Type: coffee Number of servings: 3 what type of physical activity do you participate in: aerobics frequency: 3-4 times per week ROS ROS ED ROS Narrative Constitutional: No fever, no chills. HEENT: No sore throat. No neck pain. No loss of vision. No rhinorrhea. Cardiovascular: Left upper quadrant abdominal pain radiating to left chest/chestpain. No palpitations. No pedal edema. Respiratory: No cough, no shortness of breath. Abdominal: Left upper quadrant abdominal pain. Positive nausea and vomiting, 4 times last 24 hours. Diarrhea. Genitourinary: No dysuria. No hematuria. Musculoskeletal: No myalgias. No arthralgias. Neurologic: No headaches. No dizziness. No lightheadedness. Skin: No rash. No change in color. Psychiatric: No depression. No anxiety. EXAM Physical Exam Narrative Exam Narrative: Afebrile. Vital signs noted. Regular rate and rhythm. Lungs clear to auscultation bilaterally. Abdomen is soft with mild tenderness to palpation left upper quadrant and epigastrium. No guarding or rebound. Neurological examination awake, alert, nonfocal and nonlateralizing. Const Vital Signs: 09/14/23 00:57 09/14/23 02:57 Temperature 97.9 F Temperature Source Temporal Pulse Rate 71 64 Respiratory Rate 20 H 19 H Blood Pressure 169/73 H 143/50 H Blood Pressure Mean 105 81 Pulse Ox 98 96 Oxygen Delivery Method Room Air MDM MDM MDM Narrative Medical decision making narrative: The differential diagnosis would be splenic rupture in the left upper quadrant versus pancreatitis versus diverticulitis of the transverse and descending colonversus bowel obstruction. Her pain has been ongoing for 1 week. Comprehensive workup was pursued. Given that she had radiating chest pain, EKG was obtained and interpreted by myself independently as normal sinus rhythm at 64 bpm withoutectopy or acute ST changes. No STEMI. Troponin will be drawn along with baseline laboratories and CT of the abdomen and pelvis with IV contrast. I reviewed her laboratory work and she has slightly elevated white count of 13.9which I think is nonspecific because she has had chronic leukocytosis in the past. Hemoglobin slightly hemoconcentrated at 15.8 with hematocrit 48.7, platelet count normal at 214. Electrolyte panel is grossly unremarkable for a sodium of 138 and potassium normal at 3.9, chloride 106. BUN is slightly elevated at 20, creatinine normal at 0.8. LFTs show AST low at 11 and ALT normal at 24. Lipase is also normal so I doubt pancreatitis. Urinalysis shows white cells 5-10 with RBCs 10-25. I do not feel antibiotics are indicated. High-sensitivity troponin is 5. Patient continued to have pain and feels like her abdominal pain is getting worse even after 2 doses of morphine and a dose ofondansetron. I reviewed the radiology report of the CT of the abdomen and pelvis which is concerning for enteritis and ileus. They do comment on her chronic pancreatitis, but no acute pancreatitis. Given that she is still havingpain and has concern for ileus, I will discuss patient with Dr. Altman for at least observation with possible consult to gastroenterology. She may also have gastroparesis as in review of her problem list she has history of insulin resistance. Patient is in stable condition. History & Record Review Discussion w/independent historian: Patient Additional record(s) reviewed:: Prior labs Lab Data Attestation: I reviewed the patient's lab results. Labs: Laboratory Results - last 24 hr 09/14/23 09/14/23 01:03 01:40 WBC 13.9 H RBC 5.65 H Hgb 15.8 H Hct 48.7 H MCV 86.2 MCH 28.0 MCHC 32.4 RDW Std Deviation 47.8 H RDW Coeff of Nhung 15.2 H Plt Count 214 MPV 12.3 H Immature Gran % (Auto) 0.300 Neut % (Auto) 58.7 Lymph % (Auto) 30.1 Dag[place] % (Auto) 7.8 Eos % (Auto) 2.2 Baso % (Auto) 0.9 Absolute Neuts (auto) 8.2 H Absolute Lymphs (auto) 4.19 Nucleated RBC % 0 Sodium 138 Potassium 3.9 Chloride 106 Carbon Dioxide 25.0 Anion Gap 7 BUN 20 H Creatinine 0.82 Estim Creat Clear Calc 68.76 Est GFR (MDRD) Af Amer 90 Est GFR (MDRD) Non-Af 74 BUN/Creatinine Ratio 24.4 H Glucose 122 H Calcium 9.3 Total Bilirubin 0.30 AST 11 L ALT 24 Alkaline Phosphatase 65 Troponin I High Sens 5 Total Protein 6.9 Albumin 3.5 Globulin 3.4 Albumin/Globulin Ratio 1.0 Lipase 28 Urine Color Yellow Urine Clarity Clear Urine pH 5.0 Ur Specific [place] 1.020 Urine Protein 15 H Urine Glucose (UA) Normal Urine Ketones Negative Urine Occult Blood 250 H Urine Nitrite Negative Urine Bilirubin Negative Urine Urobilinogen Normal Ur Leukocyte Esterase 500 H Urine RBC 10-25 SEEN Urine WBC 5-10 SEEN Ur Squamous Epith Cells 5-10 SEEN Calcium Oxalate Crystal 1+ Urine Bacteria 1+ Hyaline Casts 0-5 SEEN Urine Mucus 1+ Radiography Diagnostic Testing: Clinical Impression(s) from Imaging Studies Abdomen/Pelvis CT 09/14/23 01:05 IMPRESSION: 1. Mild mural thickening of duodenal sweep and some loops of jejunum suggests an enteritis. Question of abnormal mural thickening of the distal stomach versus artifact of nondistention. 2. Small prominent small bowel gas may represent ileus. No evidence for mechanical bowel obstruction. 3. Chronic pancreatitis. No evidence for acute pancreatitis. 4. Gallstones. 5. Nonobstructive renal calculi bilaterally. Mildly atrophic right kidney with cortical scarring. No demonstrated ureteral calculi or hydronephrosis. 6. Colonic diverticulosis without evidence for acute diverticulitis. 7. Atherosclerosis. 8. Umbilical hernia contains fat, but no bowel. Electronically Signed: Julio César Weber MD at 2:54 EDT , Discharge Plan Triage Chief Complaint: Abd Pain ED Provider: Rashaad Rooney Dx/Rx/DC Orders Clinical Impression: Ileus, Abdominal pain Prescriptions: No Action cholecalciferol (vitamin D3) [Vitamin D3] 50 mcg (2,000 unit) tablet 50 mcg PO DAILY magnesium citrate 100 mg capsule 200 mg PO DAILY Multi-Day Plus Minerals 1 EACH tablet 1 ea PO DAILY Patient Comments: supplement Eliquis 5 mg tablet 5 mg PO BID Qty: 60 12RF metoprolol succinate 200 mg tablet extended release 24 hr 200 mg PO DAILY Qty: 90 3RF losartan 100 mg tablet 100 mg PO DAILY Qty: 90 3RF furosemide 40 mg tablet 40 mg PO DAILY Qty: 90 3RF Primary Care Provider: Selina Bowser Referrals: Selina Bowser MD [Primary Care Provider] - What to do if you have Problems For any increased pain, shortness of breath, bleeding, nausea or vomiting, chestpain, or any unexpected problems, contact your Primary Care Provider. Call [facility] ([phone]) or report to the closest Emergency Room. Call 911 if necessary. 09/14/23 0442 <Electronically signed by Rashaad Rooney MD> Cosigner Signature (if applicable): CC: Dr. Selina Bowser MD ~ Signed [facility] Work Phone: 1(547) 553-747305-06-2024 History and physical note Author Meli Agapito [facility] September 14, 2023 4:10am Note Date/Time September 14, 2023 3:23am [facility] Medical Records Department [address] [place] [id number] H&P Exam - Hospitalist 09/14/23 0322 MR#: [id number] Acct: [id number] Name: YASMINE MTZ Rep #:[id number] : 1955 67 From: Meli Altman MD PCP: Dr. Selina Bowser MD Status:ADM THERESA [id number] - General General Date of Admission: 09/14/23 Date of Service: 09/14/23 Chief Complaint: Abdominal pain, N/V/D HPI Narrative The patient is a 67 y/o F w/ PMHx: Chart reported Hx Insulin resistance, Obesity, PAF/Flutter, HFpEF, HTN, HLD, GERD, Tobacco use, Valvular Heart diseasewho presents to the [facility] ED on 09/14/23 with history of abdominal pain ongoing for the last week primarily epigastric and left upper quadrant noted to be intermittent occasionally lasting hours but constant of late with over the last 24 hours persistent worsening abdominal discomfort with a boring sensation going toward her back with nausea and emesis as well as intermittent loose stools withno fevers or chills prompting ED evaluation. She does report some mild dysuria and intermittent hematuria. She is currently reporting her pain is 10 out of 10in severity although upon evaluation she appears more comfortable following ED pain regimen and examination with general tenderness but no rebound or guarding. Workup in the ED included T97.6, heart rate 71, BP 169/73, respiratory rate 20,98% on room air, CBC with WBC 13.9, hemoglobin 15.8, MCV 86.2, platelet 214 withleft shift, CMP with BUN/creatinine 20/0.82, glucose 122, hepatic profile unremarkable, lipase 28, troponin 5, urinalysis with specific gravity mildly elevated 1.020, protein 15, occult blood 250, negative nitrite, leukocyte Estrace 500 with urine RBCs 10-25 with urine WBCs 5-10 with 1+ urine bacteria, urine culture pending per ED, CT abdomen and pelvis with IV contrast with mild mural thickening of the duodenal sweep and some loops of jejunum suggestive of enteritis with questional abnormal mural thickening in the distal stomach versusartifact of nondistention, small prominent small bowel gas possibly representingileus with no evidence of any obstruction, evidence of chronic pancreatitis withno evidence of any acute pancreatitis, cholelithiasis evident with gallstones noted, nonobstructive renal calculi bilaterally, mildly atrophic right kidney with cortical scarring, colonic diverticulosis without any evidence for acute diverticulitis, atherosclerosis. In the ED patient ministered 1 L normal saline, Zofran 4 mg IV x 1, morphine 4 mg IV x 2. [facility] Medical History Atrial flutter, chronic Cholelithiasis Chronic diastolic CHF (congestive heart failure) Colon polyps Diverticulosis Essential hypertension Family history of cardiovascular disease Gastroesophageal reflux disease History of renal stone History of shoulder fracture Hyperlipidemia Insulin resistance Obesity Paroxysmal atrial fibrillation Recurrent hematuria Tobacco dependence UTI (urinary tract infection) Vitamin D deficiency Home Medications multivit with minerals-iron 18 mg-folic ac 400 mcg-vit K 25 mcg tablet (Multi- Day Plus Minerals) 1 ea PO DAILY 10/13/15 [History Last Taken Unknown] apixaban 5 mg tablet (Eliquis) 5 mg PO BID #60 tabs 01/13/23 [Rx Last Taken Unknown] cholecalciferol (vitamin D3) 50 mcg (2,000 unit) tablet (Vitamin D3) 50 mcg PO DAILY 02/03/23 [History Last Taken Unknown] furosemide 40 mg tablet 40 mg PO DAILY #90 tabs 03/17/23 [Rx Last Taken Unknown] losartan 100 mg tablet 100 mg PO DAILY #90 tabs 03/17/23 [Rx Last Taken Unknown] metoprolol succinate 200 mg tablet,extended release 24 hr 200 mg PO DAILY #90 tabs 03/17/23 [Rx Last Taken Unknown] magnesium 200 mg tablet 120 mg PO DAILY 09/14/23 [History Last Taken Unknown] Allergy/AdvReac Type Severity Reaction Status Date / Time No Known Allergies Allergy Verified 08/04/23 15:10 Family History Mother Diabetes Hypertension Myocardial infarction Father Hypertension Heart disease Sister Diabetes Heart disease Grandmother CVA (cerebral vascular accident) Surgical History History of cardioversion (06/21/19) History of open reduction and internal fixation (ORIF) procedure History of tubal ligation Social History (Updated 09/14/23 @ 04:[address] Meli Altman MD) household members: spouse Smoking Status: Current every day smoker tobacco type: cigarettes Smoking packsper day: 1 Smoking cigarettes per day: 20.0 Tobacco: How many years used: 40 second hand exposure: Yes alcohol intake: never substance use type: does not use caffeine: Yes Type: coffee Number of servings: 3 what type of physical activity do you participate in: aerobics frequency: 3-4 times per week ROS ROS Narrative Admission Review of Systems: CONSTITUTIONAL: No weight loss, fever, chills, + weakness or fatigue. HEENT: Eyes: No visual loss, blurred vision, double vision or yellow sclerae. Ears, Nose, Throat: No hearing loss, sneezing, congestion, runny nose or sore throat. SKIN: No rash or itching, lesions, wounds. CARDIOVASCULAR: No chest pain, chest pressure or chest discomfort, palpitations,edema, orthopnea, syncopal events. RESPIRATORY: No shortness of breath, cough or sputum, wheezing, hemoptysis. GASTROINTESTINAL: + anorexia, nausea, vomiting, vomiting, abdominal discomfort. No melena, BRBPR. GENITOURINARY: + Dysuria, intermittent hematuria. No frequency, urgency or retention. NEUROLOGICAL: No headache, dizziness, syncope, paralysis, ataxia, numbness or tingling in the extremities, focal weakness, change in bowel or bladder control,seizure. MUSCULOSKELETAL: + muscle, back pain, joint pain or stiffness. HEMATOLOGIC: No anemia, bleeding or bruising. LYMPHATICS: No enlarged nodes. No history of splenectomy. PSYCHIATRIC: No history of depression or anxiety. ENDOCRINOLOGIC: No reports of sweating, cold or heat intolerance. No polyuria orpolydipsia. ALLERGIES: No history of asthma, hives, eczema or rhinitis. Vital Signs Vital Signs Vital Signs: 09/14/23 00:57 09/14/23 02:57 Temperature 97.9 F Temperature Source Temporal Pulse Rate 71 64 Respiratory Rate 20 H 19 H Blood Pressure 169/73 H 143/50 H Blood Pressure Mean 105 81 Pulse Ox 98 96 Oxygen Delivery Method Room Air Weight Weight: 192 lb 14.472 oz Body Mass Index (BMI) 36.4 Physical Exam Narrative Physical Examination: General: Awake, alert, oriented x 3 and cooperative, seated upright in the ED bed, appears comfortable but reporting pain 10 out of 10 in severity to the abdomen. Skin: Normal color, normal turgor, no icterus, no cyanosis. HEENT: AT/NC, EOMI, PERRLA, mildly dry MM, no carotid bruits or JVD noted. Lungs: Mildly diminished, distant, appropriate effort, no evidence any distress,no rales, ronchi or wheezing. Heart: Regular rate and rhythm; no gallop, rub audible. Abdomen: Soft, obese, despite reporting tentative 10 pain patient abdomen soft, very minimal discomfort to left upper quadrant and epigastric region palpation, mildly distended without marked tympany, mildly hyperactive BS, no appreciated HSM. Extremities: No cyanosis, no clubbing, no marked peripheral edema. Neurological: Patient awake, alert, oriented as noted, cognitive function intact; pupils equally reactive to light and accommodation, cranial nerves grossly normal, moving all 4 extremities, no focal deficits, strength mildly to moderately globally decreased. Psychiatric: Affect appears mildly fatigued otherwise normal, no acute evidence of depressive or anxiety feelings. Results Lab / Micro Data 09/14/23 01:03 09/14/23 01:03 Labs: Laboratory Results - last 24 hr 09/14/23 01:03: WBC 13.9 H, RBC 5.65 H, Hgb 15.8 H, Hct 48.7 H, MCV 86.2, MCH 28.0, MCHC 32.4, RDW Std Deviation 47.8 H, RDW Coeff of Nhung 15.2 H, Plt Count 214, MPV 12.3 H, Immature Gran % (Auto) 0.300, Neut % (Auto) 58.7, Lymph % (Auto) 30.1, Daggett % (Auto) 7.8, Eos % (Auto) 2.2, Baso % (Auto) 0.9, Absolute Neuts (auto) 8.2 H, Absolute Lymphs (auto) 4.19, Nucleated RBC % 0, Sodium 138, Potassium 3.9, Chloride 106, Carbon Dioxide 25.0, Anion Gap 7, BUN 20 H, Creatinine 0.82, Estim Creat Clear Calc 68.76, Est GFR (MDRD) Af Amer 90, Est GFR (MDRD) Non-Af 74, BUN/Creatinine Ratio 24.4 H, Glucose 122 H, Calcium 9.3, Total Bilirubin 0.30, AST 11 L, ALT 24, Alkaline Phosphatase 65, Troponin I HighSens 5, Total Protein 6.9, Albumin 3.5, Globulin 3.4, Albumin/Globulin Ratio 1.0, Lipase 28 09/14/23 01:40: Urine Color Yellow, Urine Clarity Clear, Urine pH 5.0, Ur Specific [place] 1.020, Urine Protein 15 H, Urine Glucose (UA) Normal, Urine Ketones Negative, Urine Occult Blood 250 H, Urine Nitrite Negative, Urine Bilirubin Negative, Urine Urobilinogen Normal, Ur Leukocyte Esterase 500 H, Urine RBC 10-25 SEEN, Urine WBC 5-10 SEEN, Ur Squamous Epith Cells 5-10 SEEN, Calcium Oxalate Crystal 1+, Urine Bacteria 1+, Hyaline Casts 0-5 SEEN, Urine Mucus 1+ Imaging Radiology Impression Abdomen/Pelvis CT 09/14/23 01:05 IMPRESSION: 1. Mild mural thickening of duodenal sweep and some loops of jejunum suggests an enteritis. Question of abnormal mural thickening of the distal stomach versus artifact of nondistention. 2. Small prominent small bowel gas may represent ileus. No evidence for mechanical bowel obstruction. 3. Chronic pancreatitis. No evidence for acute pancreatitis. 4. Gallstones. 5. Nonobstructive renal calculi bilaterally. Mildly atrophic right kidney with cortical scarring. No demonstrated ureteral calculi or hydronephrosis. 6. Colonic diverticulosis without evidence for acute diverticulitis. 7. Atherosclerosis. 8. Umbilical hernia contains fat, but no bowel. Electronically Signed: Julio César Weber MD at 2:54 EDT Reading Location ID and State: [facility] / [place] , Service support , Assessment & Plan Assessment/Plan (1) Abdominal pain: PLAN: Plan The patient is a 67 y/o F w/ PMHx: Chart reported Hx Insulin resistance, Obesity, PAF/Flutter, HFpEF, HTN, HLD, GERD, Tobacco use, Valvular Heart diseasewho presents to the [facility] ED on 09/14/23 with history of abdominal pain ongoing for the last week primarily epigastric and left upper quadrant noted to be intermittent occasionally lasting hours but constant of late with over the last 24 hours persistent worsening abdominal discomfort with a boring sensation goingtoward her back with nausea and emesis as well as intermittent loose stools withno fevers or chills prompting ED evaluation. #1. Intractable nausea, emesis, diarrhea with abdominal discomfort, possible component of ileus, possible enteritis complicated by underlying chronic pancreatitis with no evidence of acute pancreatitis of note with underlying cholelithiasis: Given ongoing discomfort will admit to medical surgical floor, will maintain on judicious hydration given underlying heart failure history, will obtain c diff, stool cx. Procalcitonin requested. Given symptoms currently will maintain n.p.o. status on IV PPI until clinically improving with transition at that time to clears if appropriate. Anti-emetics, pain regimen PRN. Patient has had ongoing issues with occasional nausea and emesis and abdominal pain which they thought was from cholelithiasis but she reportedly wasseen by general surgeon Dr. Roberto who felt that another etiology was possible. Her current presentation is different and more acute in nature. If patient doesnot improve may need to consider gastric emptying versus endoscopies for furtherevaluation. #2. Questionable Acute Complicated Urinary Tract Infection: UA upon ED evaluation mildly remarkable with 500 leukocyte esterase, urine RBCs 10-25 with occult blood 250, urine WBCs to 5-10 with 1+ urine bacteria, pending UCx, continue judicious VFs, monitor I/Os, initiate on IV Rocephin to be cautious with de-escalation off therapy if unremarkable otherwise w/ transition as able pending sensitivities and speciation. #3. HFpEF: Most recent noted echocardiogram 02/18/2023 with normal LV size, LV systolic function normal, EF 60%, no regional wall motion abnormalities, mild AVinsufficiency. Will continue home eliquis, metoprolol, losartan, cautiously continue lasix but low threshold to hold given #1 but will monitor I&Os and if profound hold but no marked output noted in the ED, not on statin therapy of note, cautiously hydrating given history. #4. PAF/flutter: Will continue patient home metoprolol and Eliquis regimen. #5. Hypertension: Continue home regimen including metoprolol, losartan, Lasix judiciously given recent reported GI losses however no marked electrolyte disturbances noted, PRN hydralazine. #6. Hyperlipidemia: Per current list not on statin therapy, no allergy listed, defer to outpatient. #7. Valvular heart disease: ECHO 02/18/2023 with normal LV size, LV systolic function normal, EF 60%, no regional wall motion abnormalities, mild AV insufficiency. #8. Tobacco Abuse: Encouraged cessation, inpatient consultation per RT, NR if desired. #9. Obesity: Weight loss and lifestyle changes encouraged. #10. GERD: Will maintain on IV PPI given presentation concurrently as noted above. #11. DVT prophylaxis: Continue patient home Eliquis regimen. #12. CODE status: Patient HCPOA and living will are not in place but she notes her and her daughter would be her decision makers if necessary. Discussed CODE status at length including difference between FULL code, DNR-CCA and DNR-CC status. Following discussions about the differences in these status, requested Full Code status. Advanced Care Planning Face to Face Time: 16 minutes. Charges/Coding Visit Charges Inpatient E&M: 15446 Init Hosp L2 Procedures Hospitalists Procedures: 88086 Advncd Care Plan 30 Min 09/14/23 0410 <Electronically signed by Meli Altman MD> Cosigner Signature (if applicable): CC: Dr. Meli Altman MD; Dr. Selina Bowser MD~ Signed [facility] Work Phone: 1(894) 123-992105-06-2024 Discharge summary Author Rashaad Rooney [facility] September 14, 2023 4:42am Note Date/Time September 14, 2023 1:09am [facility] Medical Records Department [address] [place] [address] Emergency Department Summary 09/14/23 MR#: [id number] Acct: [id number] Name: YASMINE MTZ Rep #:[id number] : 1955 67 From: Rashaad Rooney MD PCP: Dr. Selina Bowser MD Status:ADM THERESA Location: [place] [address] HPI HPI - GI History of Present Illness Chief Complaint: Abd Pain Narrative Narrative: 67-year-old female presents with left upper quadrant abdominal pain that she hashad for the last week. Initially, she states that it was intermittent perhaps lasting hours but has been relatively constant as of late. Over the last 24 hours she is nauseated and she vomited about 4 times without any blood in her emesis. She has had intermittent diarrhea as well. She describes it more as a boring sensation from the front to the back. No exacerbating or alleviating factors. Past abdominal surgery includes bilateral tubal ligation. She denies any fevers or chills, but states she has been taking pain medication. Given that has become more constant, she presents, and occasionally it radiates towards her left chest. [facility] Medical History (Updated 09/14/23 @ 03:[address] Meli Altman MD) Atrial flutter, chronic Cholelithiasis Chronic diastolic CHF (congestive heart failure) Colon polyps Diverticulosis Essential hypertension Family history of cardiovascular disease Gastroesophageal reflux disease History of renal stone History of shoulder fracture Hyperlipidemia Insulin resistance Obesity Paroxysmal atrial fibrillation Recurrent hematuria Tobacco dependence UTI (urinary tract infection) Vitamin D deficiency Home Medications multivit with minerals-iron 18 mg-folic ac 400 mcg-vit K 25 mcg tablet (Multi- Day Plus Minerals) 1 ea PO DAILY 10/13/15 [History Last Taken Unknown] apixaban 5 mg tablet (Eliquis) 5 mg PO BID #60 tabs 01/13/23 [Rx Last Taken Unknown] cholecalciferol (vitamin D3) 50 mcg (2,000 unit) tablet (Vitamin D3) 50 mcg PO DAILY 02/03/23 [History Last Taken Unknown] magnesium citrate 100 mg capsule 200 mg PO DAILY 02/03/23 [History Last Taken Unknown] furosemide 40 mg tablet 40 mg PO DAILY #90 tabs 03/17/23 [Rx Last Taken Unknown] losartan 100 mg tablet 100 mg PO DAILY #90 tabs 03/17/23 [Rx Last Taken Unknown] metoprolol succinate 200 mg tablet,extended release 24 hr 200 mg PO DAILY #90 tabs 03/17/23 [Rx Last Taken Unknown] Allergy/AdvReac Type Severity Reaction Status Date / Time No Known Allergies Allergy Verified 08/04/23 15:10 Family History Mother Diabetes Hypertension Myocardial infarction Father Hypertension Heart disease Sister Diabetes Heart disease Grandmother CVA (cerebral vascular accident) Surgical History History of cardioversion (06/21/19) History of open reduction and internal fixation (ORIF) procedure History of tubal ligation Social History Smoking Status: Current every day smoker tobacco type: cigarettes Tobacco: How many years used: 40 second hand exposure: Yes alcohol intake: never substance use type: does not use caffeine: Yes Type: coffee Number of servings: 3 what type of physical activity do you participate in: aerobics frequency: 3-4 times per week ROS ROS ED ROS Narrative Constitutional: No fever, no chills. HEENT: No sore throat. No neck pain. No loss of vision. No rhinorrhea. Cardiovascular: Left upper quadrant abdominal pain radiating to left chest/chestpain. No palpitations. No pedal edema. Respiratory: No cough, no shortness of breath. Abdominal: Left upper quadrant abdominal pain. Positive nausea and vomiting, 4 times last 24 hours. Diarrhea. Genitourinary: No dysuria. No hematuria. Musculoskeletal: No myalgias. No arthralgias. Neurologic: No headaches. No dizziness. No lightheadedness. Skin: No rash. No change in color. Psychiatric: No depression. No anxiety. EXAM Physical Exam Narrative Exam Narrative: Afebrile. Vital signs noted. Regular rate and rhythm. Lungs clear to auscultation bilaterally. Abdomen is soft with mild tenderness to palpation left upper quadrant and epigastrium. No guarding or rebound. Neurological examination awake, alert, nonfocal and nonlateralizing. Const Vital Signs: 09/14/23 00:57 09/14/23 02:57 Temperature 97.9 F Temperature Source Temporal Pulse Rate 71 64 Respiratory Rate 20 H 19 H Blood Pressure 169/73 H 143/50 H Blood Pressure Mean 105 81 Pulse Ox 98 96 Oxygen Delivery Method Room Air MDM MDM MDM Narrative Medical decision making narrative: The differential diagnosis would be splenic rupture in the left upper quadrant versus pancreatitis versus diverticulitis of the transverse and descending colonversus bowel obstruction. Her pain has been ongoing for 1 week. Comprehensive workup was pursued. Given that she had radiating chest pain, EKG was obtained and interpreted by myself independently as normal sinus rhythm at 64 bpm withoutectopy or acute ST changes. No STEMI. Troponin will be drawn along with baseline laboratories and CT of the abdomen and pelvis with IV contrast. I reviewed her laboratory work and she has slightly elevated white count of 13.9which I think is nonspecific because she has had chronic leukocytosis in the past. Hemoglobin slightly hemoconcentrated at 15.8 with hematocrit 48.7, platelet count normal at 214. Electrolyte panel is grossly unremarkable for a sodium of 138 and potassium normal at 3.9, chloride 106. BUN is slightly elevated at 20, creatinine normal at 0.8. LFTs show AST low at 11 and ALT normal at 24. Lipase is also normal so I doubt pancreatitis. Urinalysis shows white cells 5-10 with RBCs 10-25. I do not feel antibiotics are indicated. High-sensitivity troponin is 5. Patient continued to have pain and feels like her abdominal pain is getting worse even after 2 doses of morphine and a dose ofondansetron. I reviewed the radiology report of the CT of the abdomen and pelvis which is concerning for enteritis and ileus. They do comment on her chronic pancreatitis, but no acute pancreatitis. Given that she is still havingpain and has concern for ileus, I will discuss patient with Dr. Altman for at least observation with possible consult to gastroenterology. She may also have gastroparesis as in review of her problem list she has history of insulin resistance. Patient is in stable condition. History & Record Review Discussion w/independent historian: Patient Additional record(s) reviewed:: Prior labs Lab Data Attestation: I reviewed the patient's lab results. Labs: Laboratory Results - last 24 hr 09/14/23 09/14/23 01:03 01:40 WBC 13.9 H RBC 5.65 H Hgb 15.8 H Hct 48.7 H MCV 86.2 MCH 28.0 MCHC 32.4 RDW Std Deviation 47.8 H RDW Coeff of Nhung 15.2 H Plt Count 214 MPV 12.3 H Immature Gran % (Auto) 0.300 Neut % (Auto) 58.7 Lymph % (Auto) 30.1 [place] % (Auto) 7.8 Eos % (Auto) 2.2 Baso % (Auto) 0.9 Absolute Neuts (auto) 8.2 H Absolute Lymphs (auto) 4.19 Nucleated RBC % 0 Sodium 138 Potassium 3.9 Chloride 106 Carbon Dioxide 25.0 Anion Gap 7 BUN 20 H Creatinine 0.82 Estim Creat Clear Calc 68.76 Est GFR (MDRD) Af Amer 90 Est GFR (MDRD) Non-Af 74 BUN/Creatinine Ratio 24.4 H Glucose 122 H Calcium 9.3 Total Bilirubin 0.30 AST 11 L ALT 24 Alkaline Phosphatase 65 Troponin I High Sens 5 Total Protein 6.9 Albumin 3.5 Globulin 3.4 Albumin/Globulin Ratio 1.0 Lipase 28 Urine Color Yellow Urine Clarity Clear Urine pH 5.0 Ur Specific [place] 1.020 Urine Protein 15 H Urine Glucose (UA) Normal Urine Ketones Negative Urine Occult Blood 250 H Urine Nitrite Negative Urine Bilirubin Negative Urine Urobilinogen Normal Ur Leukocyte Esterase 500 H Urine RBC 10-25 SEEN Urine WBC 5-10 SEEN Ur Squamous Epith Cells 5-10 SEEN Calcium Oxalate Crystal 1+ Urine Bacteria 1+ Hyaline Casts 0-5 SEEN Urine Mucus 1+ Radiography Diagnostic Testing: Clinical Impression(s) from Imaging Studies Abdomen/Pelvis CT 09/14/23 01:05 IMPRESSION: 1. Mild mural thickening of duodenal sweep and some loops of jejunum suggests an enteritis. Question of abnormal mural thickening of the distal stomach versus artifact of nondistention. 2. Small prominent small bowel gas may represent ileus. No evidence for mechanical bowel obstruction. 3. Chronic pancreatitis. No evidence for acute pancreatitis. 4. Gallstones. 5. Nonobstructive renal calculi bilaterally. Mildly atrophic right kidney with cortical scarring. No demonstrated ureteral calculi or hydronephrosis. 6. Colonic diverticulosis without evidence for acute diverticulitis. 7. Atherosclerosis. 8. Umbilical hernia contains fat, but no bowel. Electronically Signed: Julio César Weber MD at 2:54 EDT , Discharge Plan Triage Chief Complaint: Abd Pain ED Provider: Rashaad Rooney Dx/Rx/DC Orders Clinical Impression: Ileus, Abdominal pain Prescriptions: No Action cholecalciferol (vitamin D3) [Vitamin D3] 50 mcg (2,000 unit) tablet 50 mcg PO DAILY magnesium citrate 100 mg capsule 200 mg PO DAILY Multi-Day Plus Minerals 1 EACH tablet 1 ea PO DAILY Patient Comments: supplement Eliquis 5 mg tablet 5 mg PO BID Qty: 60 12RF metoprolol succinate 200 mg tablet extended release 24 hr 200 mg PO DAILY Qty: 90 3RF losartan 100 mg tablet 100 mg PO DAILY Qty: 90 3RF furosemide 40 mg tablet 40 mg PO DAILY Qty: 90 3RF Primary Care Provider: Selina Bowser Referrals: Selina Bowser MD [Primary Care Provider] - What to do if you have Problems For any increased pain, shortness of breath, bleeding, nausea or vomiting, chestpain, or any unexpected problems, contact your Primary Care Provider. Call [facility] ([phone]) or report to the closest Emergency Room. Call 911 if necessary. 09/14/23 0442 <Electronically signed by Rashaad Rooney MD> Cosigner Signature (if applicable): CC: Dr. Selina Bowser MD ~ Signed [facility] Work Phone: 1(910) 650-895001-12-2024 Discharge summary Author Sloan Melendez [facility] May 22, 2023 12:25am Note Date/Time May 21, 2023 1 0:06pm [facility] Medical Records Department [address] [place] [address] Emergency Department Summary 05/21/23 MR#: [id number] Acct: [id number] Name: YASMINE MTZ Rep #:[id number] : 1955 67 From: Sloan Davila PCP: Dr. Selina Bowser MD Status:REG ER Location: ED HPI History of Present Illness Chief Complaint: Abd Pain PFSH PFS Medical History (Reviewed 02/03/23 @ 13:04 by Brooke Christianson TECHNICAL PROJECT MANAGER, TECHNICAL PROJECT MANAGER-C) Atrial flutter with rapid ventricular response (10/2015) Atrial flutter, chronic Blood in urine Chronic diastolic CHF (congestive heart failure) Colon polyps Decreased dorsalis pedis pulse Diverticulosis Dyspnea Elevated blood sugar Elevated hemoglobin Essential hypertension Family history of cardiovascular disease Fatigue Gastroesophageal reflux disease History of renal stone History of shoulder fracture Hyperlipidemia Insulin resistance Left leg swelling Morbid obesity Paroxysmal atrial fibrillation Paroxysmal atrial flutter Persistent atrial fibrillation Recurrent hematuria Tobacco dependence UTI (urinary tract infection) Vitamin D deficiency Home Medications multivit with minerals-iron 18 mg-folic ac 400 mcg-vit K 25 mcg tablet (Multi- Day Plus Minerals) 1 ea PO DAILY 10/13/15 [History Last Taken Unknown] apixaban 5 mg tablet (Eliquis) 5 mg PO BID #60 tabs 01/13/23 [Rx Last Taken Unknown] cholecalciferol (vitamin D3) 50 mcg (2,000 unit) tablet (Vitamin D3) 50 mcg PO DAILY 02/03/23 [History Last Taken Unknown] magnesium citrate 100 mg capsule 200 mg PO DAILY 02/03/23 [History Last Taken Unknown] furosemide 40 mg tablet 40 mg PO DAILY #90 tabs 03/17/23 [Rx Last Taken Unknown] losartan 100 mg tablet 100 mg PO DAILY #90 tabs 03/17/23 [Rx Last Taken Unknown] losartan 100 mg tablet 100 mg PO DAILY #90 tabs 03/17/23 [Rx Last Taken Unknown] metoprolol succinate 200 mg tablet,extended release 24 hr 200 mg PO DAILY #90 tabs 03/17/23 [Rx Last Taken Unknown] ondansetron 4 mg disintegrating tablet 4 mg PO Q8H PRN PRN Nausea #10 tabs 05/22/23 [Rx Last Taken Unknown] Allergy/AdvReac Type Severity Reaction Status Date / Time No Known Allergies Allergy Verified 05/21/23 21:26 Family History Mother Diabetes Hypertension Myocardial infarction Father Hypertension Heart disease Sister Diabetes Heart disease Grandmother CVA (cerebral vascular accident) Surgical History History of cardioversion (06/21/19) History of open reduction and internal fixation (ORIF) procedure History of tubal ligation Social History Smoking Status: Current every day smoker tobacco type: cigarettes Tobacco: How many years used: 40 second hand exposure: Yes alcohol intake: never substance use type: does not use caffeine: Yes Type: coffee Number of servings: 3 what type of physical activity do you participate in: aerobics frequency: 3-4 times per week EXAM Physical Exam Const Vital Signs: 05/21/23 18:19 05/21/23 23:21 Temperature 97.4 F L 97.8 F Temperature Source Temporal Oral Pulse Rate 69 66 Respiratory Rate 15 14 Blood Pressure 151/64 H 142/53 H Blood Pressure Mean 93 82 Pulse Ox 100 95 Oxygen Delivery Method Room Air Room Air MDM MDM MDM Narrative Medical decision making narrative: HISTORY OF PRESENT ILLNESS: 67-year-old female presents with concern for abdominal pain. Notes this startedafternoon. She further states pain is in her right upper quadrant. It radiatesto the back. It is not worse after food. Notes history of diverticulitis but denies any other abdominal surgical history. Denies any vomiting but notes nausea. Denies any chest pain or shortness of breath. Denies any urinary complaints or changes to bowel habits. Denies any vaginal bleeding. REVIEW OF SYSTEMS: Pertinent positives: Abdominal pain, right upper quadrant pain Pertinent negatives: Chest pain, shortness of breath, syncope PHYSICAL EXAM: Nursing triage notes reviewed, Vital signs reviewed Constitutional: please see mdm HENT: MMM Eyes: Pupils equal round and reactive to light, Extraocular muscles intact Neck: No stridor, no JVD, full neck ROM Lungs: Clear to auscultation, No wheezing or rales. No increased work of breathing, no conversational dyspnea, no accessory muscle use, no nasal flaring. No respiratory distress noted Heart: Regular rate and rhythm, No murmurs, No rubs and No gallops, 2+ distal pulses (radial, femoral, posterior tibial) in all extremities Abdomen: Soft, right upper quadrant TTP, negative Grissom's, no rigidity, reboundor guarding, no obvious peritoneal signs, no palpable pulsatile abdominal masses, no auscultated abdominal bruit : No CVAT Extremities: No edema Neuro: No focal neurological deficits, cranial nerves II through XII intact, 5/5strength in all extremities. Intact sensation to light touch in all extremities,2+ reflexes bilateral patella tendons. Normal gait. No ataxia. Skin: No rash or lesions noted MEDICAL DECISION MAKING: Chief Complaint: Abdominal pain External records reviewed: CT scan of the abdomen pelvis from October of 2022 showed acute sigmoid diverticulitis. Factors affecting care: Atrial fibrillation, CHF, hypertension hyperlipidemia Social determinants of health: Tobacco abuse History obtained from others: none Consults: none MDM Narrative: Patient was hemodynamically stable, afebrile, nontoxic-appearing. Exam with right upper quadrant TTP. Concern for acute cholecystitis given elevated liver enzymes right require TTP so initially obtained a rapid heart ultrasound. Required ultrasound did not show evidence of acute gallbladder pathology including acute cholecystitis so then I obtained a CT scan to determine the patient any surgical pathology in the belly. I considered the following differential diagnosis: AAA, small bowel obstruction,abdominal perforation, appendicitis, pancreatitis, hepatobiliary pathology (acute cholecystitis), mesenteric ischemia, pathology (ie nephrolithiasis, pyelonephritis). ALL IMAGES (IF OBTAINED) HAVE BEEN PERSONALLY REVIEWED AND INTERPRETED BY MYSELF. CBC with leukocytosis suggestive of system inflammation, no anemia or thrombocytopenia BMP without evidence of significant electrolyte abnormalities, no anion gap, no acute kidney injury. LFTs with elevated liver enzymes concerning for hepatobiliary disease, bilirubinwithin normal limits Urinalysis shows no evidence of urinary inflammation suggestive of UTI Right upper quadrant ultrasound shows gallstones with no evidence of acute cholecystitis CT scan abdomen pelvis shows no evidence of acute intra-abdominal pathology The synthesis of the patient history, physical exam, labs images suggest no acute life-limiting etiology. Patient is appropriate discharge home with instructions to take Tylenol, ibuprofen and given Zofran for dramatically. She is given GI and PCP follow-up. The patient and/or family, caregivers express understanding. The patient and/orfamily, caregivers agrees with the plan. Shared decision making: I will have a discussion with the patient and or visitors regarding risk/benefits of further testing or admission. They will be made aware of of the risk/benefits inherent in this decision they will be given the opportunity to voice understanding. Total critical care time today provided was at least 0 minutes. This excludes separately billable procedures. Critical care time (if documented) is secondary to the patient having high probability of clinically significant/life threatening deterioration in the patient's condition which required my urgent intervention. Impression: 1. Abdominal pain 2. Leukocytosis 3. Gallstones 4. Elevated liver enzymes Dispo: Discharge Lab Data Labs: Laboratory Results - last 24 hr 05/21/23 05/21/23 21:20 21:25 WBC 17.0 H RBC 5.46 H Hgb 15.2 H Hct 48.0 H MCV 87.9 MCH 27.8 MCHC 31.7 L RDW Std Deviation 48.5 H RDW Coeff of Nhung 15.1 H Plt Count 303 MPV 11.5 Immature Gran % (Auto) 0.500 Neut % (Auto) 83.1 H Lymph % (Auto) 10.6 L Daggett % (Auto) 4.7 Eos % (Auto) 0.3 Baso % (Auto) 0.8 Absolute Neuts (auto) 14.1 H Absolute Lymphs (auto) 1.81 Nucleated RBC % 0 Sodium 138 Potassium 4.1 Chloride 105 Carbon Dioxide 25.0 Anion Gap 8 BUN 29 H Creatinine 1.04 H Estim Creat Clear Calc 55.10 Est GFR (MDRD) Af Amer 68 Est GFR (MDRD) Non-Af 57 L BUN/Creatinine Ratio 27.9 H Glucose 201 H Calcium 9.7 Total Bilirubin 0.90 AST 469 H ALT 325 H Alkaline Phosphatase 203 H Total Protein 7.7 Albumin 3.2 Globulin 4.5 H Albumin/Globulin Ratio 0.7 L Lipase 36 Urine Color Yellow Urine Clarity Clear Urine pH 5.0 Ur Specific [place] 1.025 Urine Protein 30 H Urine Glucose (UA) Normal Urine Ketones 5 H Urine Occult Blood 25 H Urine Nitrite Negative Urine Bilirubin 1 H Urine Urobilinogen 4 H Ur Leukocyte Esterase 100 H Urine RBC 0 SEEN Urine WBC 0-5 SEEN Ur Squamous Epith Cells 0-5 SEEN Urine Bacteria RARE Urine Mucus 0 SEEN Radiography Diagnostic Testing: Clinical Impression(s) from Imaging Studies Gallbladder Ultrasound 05/21/23 22:18 IMPRESSION: Mild right-sided hydronephrosis. Artifact versus nonobstructive stones within the right kidney. Simple right-sided renal cysts, largest measuring 1.6 cm with no further follow-up imaging recommended. Diffuse fatty liver with multiple gallstones. Remainder of the right upper quadrant ultrasound unremarkable. Electronically Signed: Oneyda De La Rosa MD at 23:25 EST , Abdomen/Pelvis CT 05/21/23 23:33 IMPRESSION: 1. Coronary artery disease. 2. Numerous diverticula without diverticulitis. 3. Moderate size fat-containing periumbilical hernia. No bowel involvement. 4. Mild right renal atrophy. 5. Numerous small nonobstructing renal calculi bilaterally. 6. No acute abdominal pelvic abnormality. Electronically Signed: Julien Shah MD at 0:13 EST , Discharge Plan Triage Chief Complaint: Abd Pain ED Provider: Sloan Melendez Dx/Rx/DC Orders Instructions: ED Abdominal Pain Unkn Cause Fem Prescriptions: New ondansetron 4 mg tablet,disintegrating 4 mg PO Q8H PRN PRN (Reason: Nausea) Qty: 10 0RF No Action cholecalciferol (vitamin D3) [Vitamin D3] 50 mcg (2,000 unit) tablet 50 mcg PO DAILY magnesium citrate 100 mg capsule 200 mg PO DAILY Multi-Day Plus Minerals 1 EACH tablet 1 ea PO DAILY Patient Comments: supplement Eliquis 5 mg tablet 5 mg PO BID Qty: 60 12RF metoprolol succinate 200 mg tablet extended release 24 hr 200 mg PO DAILY Qty: 90 3RF losartan 100 mg tablet 100 mg PO DAILY Qty: 90 3RF furosemide 40 mg tablet 40 mg PO DAILY Qty: 90 3RF losartan 100 mg tablet 100 mg PO DAILY Qty: 90 3RF Primary Care Provider: Selina Bowser Referrals: Selina Bowser MD [Primary Care Provider] - Lester Grimaldo DO [Med Staff - Active Staff] - Activity Restrictions/Additional Instructions: Thank you for trusting us with your care today! The source of your pain is unclear. Your labs do not suggest your pain is associated with something that is life-threatening. Please take Tylenol (2 pills, 650 mg), ibuprofen (2 pills, 400 mg) every 6 hoursas needed for pain and fever control. Please return to the emergency department if your symptoms change or worsen. Please follow with your primary care physician and/or gastroenterology n for further outpatient evaluation and management. Disposition Disposition: Home, Self Care What to do if you have Problems For any increased pain, shortness of breath, bleeding, nausea or vomiting, chestpain, or any unexpected problems, contact your Primary Care Provider. Call [facility] ([phone]) or report to the closest Emergency Room. Call 911 if necessary. 05/22/23 0025 <Electronically signed by Sloan Melendez DO> Cosigner Signature (if applicable): CC: Dr. Selina Bowser MD ~ Signed [facility] Work Phone: Consult note Author [facility] Note Date/Time August 11, 2024 6:26 am [facility] Medical Records Department [address] [place] [address] Pre-Anesthesia Evaluation 08/11/24619 MR#: [id number] Acct: [id number] Name: YASMINE MTZ Rep #:[id number] : 1955 68 From: Barney Steve MD PCP: Dr. Selina Bowser MD Status:REG [facility] Race: C Location: [place] [address] ASA Classification* ASA Classification ASA Classification: 3 Assessment & Plan Anesthesia* Anesthesia Assessment Anesthesia Assessment: Discussed sedation and/or anesthesia options, risks, benefits, and alternatives with patient/parents/legal guardian/POA. Questions invited. The patient/parents/legal guardian/POA seems to understand and agrees to proceedwith anesthesia plan. Reviewed the physical assessment, medical history, allergy history and patient home medications list prior to surgery/procedure/anesthetic and documented any changes. Performed airway and anesthesia risk assessments. Anesthesia Type Anesthesia Type: MAC History Source History Obtained from:: Patient and Chart Anesthesia Focused Assessment* Temperature: 97.3 F Pulse Rate: 71 Blood Pressure: 131/66 Respiratory Rate: 16 Pulse Ox: 99 Oxygen Delivery Method: Room Air Airway Assessment Mouth opens: >3 cm Mallampati Score: IV Teeth Condition: Intact Neck Range of motion (ROM): Full ROM Focused Labs Anesthesia Preop lab: CBC WBC 11.2 K/mm3 (4.4-11.0) H 05/19/24 15:32 5 RBC 5.39 M/mm3 (4.2-5.4) 05/19/24 15:32 05/19/24 Hgb 15.1 g/dL (12.0-15.0) H 05/19/24 15:32 5 Hct 46.2 % (37-47) 05/19/24 15:32 05/19/24 Plt Count 181 K/mm3 (150-450) 05/19/24 15:32 05/19/24 CHEMISTRY Potassium 4.0 mmol/L (3.5-5.1) 05/19/24 15:32 05/19/24 Sodium 138 mmol/L (136-145) 05/19/24 15:32 05/19/24 Magnesium 2.1 mg/dL (1.6-2.6) 09/15/23 06:12 09/15/23 Phosphorus 3.8 mg/dL (2.5-4.9) 09/15/23 06:12 09/15/23 BUN 34 mg/dL (7-18) H 05/19/24 15:32 05/19/24 Creatinine 1.11 mg/dL (0.55-1.02) H 05/19/24 15:32 Glucose 121 mg/dL (74-106) H 06/22/24 09:12 06/22/24 TSH 1.240 uIU/mL (0.358-3.740) 06/22/24 09:12 06/11 07/05 COAG PT 13.1 SECONDS (11.7-14.9) 05/19/24 15:32 Pre-Assessment Diagnosis/Proposed Procedure Planned Operative Procedure(s): EGD Anesthesia History Anesthesia History - licensing registration examiner: Anesthesia History - licensing registration examiner Hx Hospitalization No 07/25/24 14:46 Any Problems With Anesthesia No 07/25/24 14:46 Cholinesterase deficiency No 07/25/24 14:46 You/Your Family Experience No 07/25/24 14:46 fever (hyperthermia) with Relationship Recent Exposure to Contagious No 08/11/24 05:47 Disease Does patient have nerve No 07/25/24 14:46 stimulator Patient instructed to have device shut off --Does patient have Pacemaker No 08/11/24 05:49 or ICD? When Was Last Pacemaker Check QUESTION #4 FULL TEXT: You/Your Family Experience fever (hyperthermia) with Anesthesia Last Oral Intake Last Oral intake: Last Oral Intake NPO since 04:00 08/11/24 05:49 Meds taken in AM with sips of Yes 08/11/24 05:49 water? Meds patient instructed to take am of surgery Any additional information?: Yes NPO since: 04:00 (Patient had black coffee at 4AM.) Meds taken in AM with sips of water?: Yes PONV PONV - licensing registration examiner: PONV - licensing registration examiner Female Yes 07/25/24 14:46 HX of Motion Sickness No 07/25/24 14:46 HX of N/V After Surgery No 07/25/24 14:46 Non-Smoker No 07/25/24 14:46 Duration of Surgery greater No 07/25/24 14:46 than 60 minutes Number of Risk Factors 1 07/25/24 14:46 PONV Score Low Risk 07/25/24 14:46 Height & Weight Height & Weight: Anesthesia: Height & Weight Height 5 ft 2 in 08/11/24 05:49 Weight: 90.265 kg 08/11/24 05:49 Body Mass Index (BMI) 36.3 08/11/24 05:49 Respiratory Assessment Respiratory Assessment - licensing registration examiner: Respiratory Tract Infection Hx - licensing registration examiner Hx Respiratory Tract Infection No 07/25/24 14:46 STOP Sleep Apnea STOP Sleep Apnea - licensing registration examiner: STOP Sleep Apnea - licensing registration examiner Hx Hypertension Yes: PER PT, CONTROLLED ON 07/25/24 14:46 MEDS Hx Sleep Apnea Yes: PT STATES DR THINK SHE 07/25/24 14:46 HAS SLEEP APNEA BUT PT DOESNT THINK SHE DOES CPAP No 07/25/24 14:46 BIPAP No 07/25/24 14:46 Do you snore loudly (louder than talking or can be heard Do you often feel tired/ fatigued/ sleepy during daytime? Has anyone observed you stop breathing during sleep? STOP Results Positive 07/25/24 14:46 QUESTION #5 FULL TEXT : Do you snore loudly (louder than talking or can be heard through closed doors)? 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 Specify any problems Hx of Preganancy in last 3 No 07/25/24 14:46 Months Nurse Filling Out Transfusion MGRIFFITH 07/25/24 14:46 & Questions: Date: 07/25/24 07/25/24 14:46 Time: 14:48 07/25/24 14:46 Patient unable to answer at this time (ie. confused, unrespo /Reproduction History /Reproductive History - licensing registration examiner: /Reproductive Hx- licensing registration examiner Hx Now No 07/25/24 14:46 Gestational Age (in weeks): EDC: Hx Hx Para Hx Section SAB No 07/25/24 14:46 PFSH Medical History History of ulceration History of diverticulosis Gastric reflux Shortness of breath on exertion Esophageal varix Wears glasses High cholesterol History of GI bleed Sleep apnea Smoker Diverticulosis Cardiology follow-up encounter Back pain Leg cramps History of echocardiogram History of stress test History of atrial fibrillation History of kidney stones Obesity Cholelithiasis Insulin resistance Recurrent hematuria UTI (urinary tract infection) Vitamin D deficiency History of shoulder fracture History of renal stone Atrial flutter, chronic Tobacco dependence Paroxysmal atrial fibrillation Hyperlipidemia Essential hypertension Chronic diastolic CHF (congestive heart failure) Gastroesophageal reflux disease Colon polyps Family history of cardiovascular disease Diverticulosis Home Medications ?Medication ?Instructions ?Recorded ?Last Taken ?Type multivit with minerals-iron 18 1 ea PO DAILY 10/13/15 08/10/24 History mg-folic ac 400 mcg-vit K 25 mcg tablet (Multi-Day Plus Minerals) cholecalciferol (vitamin D3) 50 50 mcg PO DAILY 08/10/24 History mcg (2,000 unit) tablet (Vitamin D3) metoprolol succinate 200 mg 200 mg PO DAILY #90 tabs 1 05/17/22 08/11/24 05:00 Rx tablet,extended release 24 hr magnesium 200 mg tablet 400 mg PO DAILY 09/14/2307/05 History losartan 100 mg tablet 100 mg PO DAILY #90 tabs 08/11/24 05:00 Rx apixaban 5 mg tablet (Eliquis) 5 mg PO BID #60 TABLETS 03/29/24 08/10/24 08:00 Rx furosemide 40 mg tablet 40 mg PO DAILY #90 tabs 05/1208/10/24 Rx pantoprazole 40 mg tablet,delayed 40 mg PO DAILY PRN a mari reflux 07/25/24 Unknown History release Allergy/AdvReac Type Severity Reaction Status Date / Time No Known Allergies Allergy Verified 08/11/24 05:44 Family History Mother Diabetes Hypertension Myocardial infarction Father Hypertension Heart disease Sister Diabetes Heart disease Grandmother CVA (cerebral vascular accident) Surgical History History of colonoscopy History of colonoscopy with polypectomy History of lithotripsy (~2015) History of open reduction and internal fixation (ORIF) procedure (~2003) History of tubal ligation History of cardioversion (06/21/19) Social History household members: spouse Smoking Status: Current every day smoker tobacco type: cigarettes Tobacco: How many years used: 40 second hand exposure: Yes alcohol intake: never substance use type: does not use caffeine: Yes Type: coffee Number of servings: 3 what type of physical activity do you participate in: aerobics frequency: 3-4 times per week Review of Systems (Anesthesia) ROS Narrative System reviewed and no additional complaints, except as documented. 08/11/24625 <Electronically signed by Barney meek MD> Date _ Barney Steve MD Cosigner Signature: Date CC: ~ Signed [facility] Work Phone: Consult note Author Jono Collier [facility] Note Date/Time August 11, 2024 7:14 am [facility] Medical Records Department [address] [place] [id number] Anesthesia Postop Eval I 08/11/24712 MR#: [id number] Acct: [id number] Name: YASMINE MTZ Rep #:[id number] : 1955 68 From: Jono Collier PCP: Dr. Selina Bowser MD Status:REG [place] Y Race: C Location: [place] [address] Anesthesia: Postop Eval I Current Vital Signs Temperature: 97.7 F Pulse Rate: 67 Blood Pressure: 120/50 Respiratory Rate: 18 Pulse Ox: 97 Oxygen Delivery Method: Room Air Assessment Airway patent: Yes Spontaneous unlabored respirations: Yes Mental status: Awake and Calm nausea: No Vomiting: No Anesthesia Complication: No Fluid Hydration Crystalloid volume administer (ml): 30 Total IV fluid infused: 30 Progress Note Anesthesia document: Postop Eval 1 completed: Yes 08/11/24713 <Electronically signed by Jono Collier > Date _ Jono Francisco Signature: Date CC: ~ Signed [facility] Work Phone: Discharge summary Author Marguerite Cheng [facility] September 15, 2023 12:38pm Note Date/Time September 15, 2023 12:29p [facility] Medical Records Department [address] [place] [address] Discharge Summary 09/15/23 1228 MR#: [id number] Acct: [id number] Name: YASMINE MTZ Rep #:[id number] : 1955 67 From: Marguerite Cheng DO PCP: Dr. Selina Bowser MD Status:ADM THERESA Location: [place] [address] Providers Date of Admission: 09/14/23 Date of Discharge: 09/15/23 Primary Care Physician: Dr. Selina Bowser MD Reason For Visit: N/V/D Diagnosis Discharge Diagnosis (1) Abdominal pain: Status: Acute Code(s): R10.9 - Unspecified abdominal pain Medications at Discharge Home Medications multivit with minerals-iron 18 mg-folic ac 400 mcg-vit K 25 mcg tablet (Multi- Day Plus Minerals) 1 ea PO DAILY 10/13/15 apixaban 5 mg tablet (Eliquis) 5 mg PO BID #60 tabs 01/13/23 cholecalciferol (vitamin D3) 50 mcg (2,000 unit) tablet (Vitamin D3) 50 mcg PO DAILY 02/03/23 furosemide 40 mg tablet 40 mg PO DAILY #90 tabs 03/17/23 losartan 100 mg tablet 100 mg PO DAILY #90 tabs 03/17/23 metoprolol succinate 200 mg tablet,extended release 24 hr 200 mg PO DAILY #90 tabs 03/17/23 magnesium 200 mg tablet 120 mg PO DAILY 09/14/23 amoxicillin 875 mg-potassium clavulanate 125 mg tablet 1 tab PO BID #10 tabs 09/15/23 pantoprazole 40 mg tablet,delayed release (Protonix) 40 mg PO DAILY #30 tabs 09/15/23 Hospital Course Operations None Procedures - (CT abdomen and pelvis) Summary of Care Provided Minutes Spent on Discharge: 30 Hospital Course: Ms. Mtz is a 67-year-old white female who presented to emergency department [facility] on 09/14/2023 with abdominal pain, nausea, vomiting, and diarrhea. She reported it had been ongoing for about a week priorto presentation and was noted predominantly in the epigastric and left upper quadrant area. It had been intermittent but as of late had been more constant with a boring sensation to her back. She denied fever and chills. Vital signs on presentation were unremarkable other than elevated blood pressure 169/73. CBC showed a mild leukocytosis with a white count of 13.9 but she did appear to be hemoconcentrated as her hemoglobin was 15.8. She left shift was present. BUN was 20 with a serum creatinine of 0.82. Hepatic profile was unremarkable. Lipase was 28. Troponin was 5. UA was consistent with dehydration showing a specific gravity of 1.02 and some occult blood but was negative for nitrite. Leuk esterase was 500 white blood cells were elevated with 1+ bacteria. Urine culture was sent in the emergency department and she was not started antibioticsat that time. CT of the abdomen pelvis was done and showed mild mural thickening of the duodenum and some loops of jejunum suggestive of enteritis with possible mural thickening at the distal stomach. She was given 1 L of IV fluids, Zofran, and morphine x 2 in the emergency department. Procalcitonin wasobtained and completely normal. Enteric panel was unremarkable. Urine culture was unremarkable. She was placed on ceftriaxone as her UA was suggestive of infection and for her enteritis on CAT scan. Within 24 hours admission her abdominal pain had resolved and she was able to eat and drink without any difficulty. Given the enteritis findings on initial CT we will discharge her home with another 5 days of Augmentin and we started oral Protonix. Have encouraged her to follow-up with her primary care physician within the next 1 to2 weeks and with GI on an outpatient basis if any symptoms recur. She is able to be discharged home tolerating a regular diet on 09/15/2023. Discharge diagnoses: Abdominal pain-resolved Nausea and vomiting-resolved Small bowel enteritis-resolving Abnormal urinalysis-culture unremarkable for infection GERD HFpEF-chronic PAF/flutter Hypertension Hyperlipidemia Valvular heart disease Obesity Tobacco abuse Physical Exam Narrative Patient states she is feeling much better and back to her norm. Denies any symptoms at this time. Has been able to eat without any issue. Anxious to go home if possible. Const alert, oriented x3, no apparent distress, no limitations and well nourished Constitutional Narrative: Obese, upper middle-aged, white female, sitting up on the edge of the bed, appears well and nontoxic General Appearance: cooperative, comfortable, well kempt and well developed Orientation / Consciousness: awake, oriented to person, oriented to place and oriented to time Exam Limitations: no limitations Nutritional Appearance: obese HEENT normocephalic, head/scalp atraumatic, hearing grossly normal bilaterally and moist oral mucous membranes HEENT Narrative: Mallampati 3, no thrush Resp normal respiratory effort, no retractions, no use of accessory muscles and clearto auscultation bilaterally Auscultation: Negative for rales, rhonchi or wheezes Cardio regular rate, regular rhythm, S1 normal heart sound, S2 normal heart sound, no murmurs, no rub, no gallops and no clicks GI normal to inspection, nondistended, normoactive bowel sounds, soft to palpation and non-tender Extremity no clubbing, cyanosis or edema Extremity Narrative: Pedal pulses are 2+ Neuro oriented x3, CN's II-XII intact bilaterally, moves all extremities and no focal motor deficits Speech: speech normal Psych affect normal Psych Narrative: Very pleasant, interacts appropriately Weight / BMI Weight Weight: 83.6 kg Body Mass Index (BMI) 34.7 ABG / Lab / Microbiology Data 09/15/23 06:12 09/15/23 06:12 Laboratory: Laboratory Results - last 24 hr 09/15/23 06:12: WBC 8.7, RBC 5.09, Hgb 14.3, Hct 44.5, MCV 87.4, MCH 28.1, MCHC 32.1, RDW Std Deviation 48.4 H, RDW Coeff of Nhung 15.1 H, Plt Count 210, MPV 12.5H, Immature Gran % (Auto) 0.200, Neut % (Auto) 52.8, Lymph % (Auto) 35.5, [place] %(Auto) 8.2, Eos % (Auto) 2.4, Baso % (Auto) 0.9, Absolute Neuts (auto) 4.6, Absolute Lymphs (auto) 3.07, Nucleated RBC % 0, Sodium 136, Potassium 4.2, Chloride 105, Carbon Dioxide 26.0, Anion Gap 5, BUN 12, Creatinine 0.67, Estim Creat Clear Calc 68.75, Est GFR (MDRD) Af Amer 113, Est GFR (MDRD) Non-Af 93, BUN/Creatinine Ratio 17.9, Glucose 84, Calcium 8.9, Phosphorus 3.8, Magnesium 2.1, Total Bilirubin 0.30, AST 14 L, ALT 27, Alkaline Phosphatase 60, Total Protein 6.3 L, Albumin 3.1 L, Globulin 3.2, Albumin/Globulin Ratio 1.0 Microbiology: Microbiology 09/14/23 01:40 Urine, Random Urine Culture - Final Mixed Gram Positive Organisms D/C Instructions Discharge Diet: Light diet - advance as tolerated and Low fat / Low cholesterol Discharge Activity: Return to Normal Activity Return to work on: 09/16/23 Meaningful Use Info Meaningful Use Meaningful Use Diagnoses (Choose all that apply): None applicable Ischemic Stroke Statin Dosing Therapy Reference: STATIN DOSE THERAPY REFERENCE: * Patients > 75 years receive moderate or high dose statin therapy. * Patients 75 years or YOUNGER should receive HIGH intensity statin dose unless contraindicated. You will be required to document reason for non-treatment if statin daily dose does not meet guidelines. HIGH DOSE STATIN THERAPY DAILY Atorvastatin > than or = to 40 mg Rosuvastatin > than or = to 20 mg Amlodipine + Atorvastatin > than or = to 2.5/40 mg Ezetimibe + Simvastatin 10/80 mg Simvastatin 80mg Discharge Plan Admission Admit Date/Time: 09/14/23 03:28 Primary Reason for Your Visit: Abdominal pain/nausea/vomiting/diarrhea Attending Provider: Marguerite Cheng Primary Care Provider: Selina Bowser Consulting Providers: Meli Altman Discharge Orders/Prescriptions Prescriptions: New pantoprazole [Protonix] 40 mg tablet,delayed release (DR/EC) 40 mg PO DAILY Qty: 30 2RF amoxicillin-pot clavulanate 875-125 mg tablet 1 tab PO BID Qty: 10 0RF Continued cholecalciferol (vitamin D3) [Vitamin D3] 50 mcg (2,000 unit) tablet 50 mcg PO DAILY Multi-Day Plus Minerals 1 EACH tablet 1 ea PO DAILY Patient Comments: supplement magnesium 200 mg tablet 120 mg PO DAILY Eliquis 5 mg tablet 5 mg PO BID Qty: 60 12RF metoprolol succinate 200 mg tablet extended release 24 hr 200 mg PO DAILY Qty: 90 3RF losartan 100 mg tablet 100 mg PO DAILY Qty: 90 3RF furosemide 40 mg tablet 40 mg PO DAILY Qty: 90 3RF Referrals / Follow Up: Selina Bowser MD [Primary Care Provider] - Within 2 Weeks Lester Grimaldo DO [Med Staff - Active Staff] - See Referral Note (as needed if you have recurrent GI distress) Disposition Disposition (needs filled in before D/C Order can be placed): Home, Self Care Charges/Coding Visit Charges Inpatient E&M: 40350 Disch Hosp 09/15/23 1238 <Electronically signed by Marguerite Cheng DO> Cosigner Signature (if applicable): CC: Dr. Marguerite Cheng DO; Dr. Selina Bowser MD~ Signed [facility] Work Phone: evaluation note* Diagnosis Onset Date Resolution Status Elevated blood sugar acute Left leg swelling acute Persistent atrial fibrillation acute Vitamin D deficiency acute Essential hypertension chron ic Hyperlipidemia chronic Morbid obesity chronic Paroxysmal atrial fibrillation chronic Tobacco dependence [facility] Work Phone: evaluation note* Diagnosis Onset Date Resolution Status Elevated blood sugar acute Insulin resistance acute Persistent atrial fibrillation acute Vitamin D deficiency acute Chronic diastolic CHF (congestive heart failure) chronic Essential hypertension chron ic Hyperlipidemia chronic Morbid obesity chronic Tobacco dependence [facility] Work Phone: evaluation note* Diagnosis Onset Date Resolution Status Essential hypertension chron ic Hyperlipidemia chronic Paroxysmal atrial fibrillation chronic Insulin resistance acute Leg pain, bilateral acute Spinal stenosis acute Essential hypertension chron ic Hyperlipidemia chronic Morbid obesity chronic Persistent atrial fibrillation chronic Tobacco dependence [facility] Work Phone: Evaluation note* Diagnosis Onset Date Resolution Status Left flank pain acute Leg pain, bilateral acute Essential hypertension chron ic Cardiac murmur acute Essential hypertension chron ic Hyperlipidemia chronic Paroxysmal atrial fibrillation [facility] Work Phone: Evaluation note* Diagnosis Onset Date Resolution Status Cardiac murmur acute Essential hypertension chron ic Hyperlipidemia chronic Paroxysmal atrial fibrillation [facility] Work Phone: Evaluation note* Diagnosis Onset Date Resolution Status Cardiac murmur acute Essential hypertension chron ic Hyperlipidemia chronic Paroxysmal atrial fibrillation chronic Abdominal bloating acute RUQ pain acute [facility] Work Phone: Evaluation note* Diagnosis Onset Date Resolution Status Abdominal bloating acute RUQ pain acute Gallstones acute RUQ pain acute Umbilical hernia without men tion of obstruction or gangrene acute [facility] Work Phone: Evaluation note* Diagnosis Onset Date Resolution Status Abdominal bloating acute RUQ pain acute Gallstones acute RUQ pain acute Umbilical hernia without men tion of obstruction or gangrene acute Aortic valve insufficiency a cute Essential hypertension chron ic Hyperlipidemia chronic Paroxysmal atrial fibrillation chronic Abdominal pain acute Ileus acute [facility] Work Phone: History and physical note Author Meli Altman [facility] September 14, 2023 4:10am Note Date/Time September 14, 2023 3:23am [facility] Medical Records Department [address] [place] [id number] H&P Exam - Hospitalist 09/14/23 0322 MR#: [id number] Acct: [id number] Name: YASMINE MTZ Rep #:[id number] 5 : 1955 67 From: Meli Altman MD PCP: Dr. Selina Bowser MD Status:ADM THERESA Location: [place] [id number] HPI - General General Date of Admission: 09/14/23 Date of Service: 09/14/23 Chief Complaint: Abdominal pain, N/V/D HPI Narrative The patient is a 67 y/o F w/ PMHx: Chart reported Hx Insulin resistance, Obesity, PAF/Flutter, HFpEF, HTN, HLD, GERD, Tobacco use, Valvular Heart diseasewho presents to the [facility] ED on 09/14/23 with history of abdominal pain ongoing for the last week primarily epigastric and left upper quadrant noted to be intermittent occasionally lasting hours but constant of late with over the last 24 hours persistent worsening abdominal discomfort with a boring sensation going toward her back with nausea and emesis as well as intermittent loose stools withno fevers or chills prompting ED evaluation. She does report some mild dysuria and intermittent hematuria. She is currently reporting her pain is 10 out of 10in severity although upon evaluation she appears more comfortable following ED pain regimen and examination with general tenderness but no rebound or guarding. Workup in the ED included T97.6, heart rate 71, BP 169/73, respiratory rate 20,98% on room air, CBC with WBC 13.9, hemoglobin 15.8, MCV 86.2, platelet 214 withleft shift, CMP with BUN/creatinine 20/0.82, glucose 122, hepatic profile unremarkable, lipase 28, troponin 5, urinalysis with specific gravity mildly elevated 1.020, protein 15, occult blood 250, negative nitrite, leukocyte Estrace 500 with urine RBCs 10-25 with urine WBCs 5-10 with 1+ urine bacteria, urine culture pending per ED, CT abdomen and pelvis with IV contrast with mild mural thickening of the duodenal sweep and some loops of jejunum suggestive of enteritis with questional abnormal mural thickening in the distal stomach versusartifact of nondistention, small prominent small bowel gas possibly representingileus with no evidence of any obstruction, evidence of chronic pancreatitis withno evidence of any acute pancreatitis, cholelithiasis evident with gallstones noted, nonobstructive renal calculi bilaterally, mildly atrophic right kidney with cortical scarring, colonic diverticulosis without any evidence for acute diverticulitis, atherosclerosis. In the ED patient ministered 1 L normal saline, Zofran 4 mg IV x 1, morphine 4 mg IV x 2. [facility] Medical History Atrial flutter, chronic Cholelithiasis Chronic diastolic CHF (congestive heart failure) Colon polyps Diverticulosis Essential hypertension Family history of cardiovascular disease Gastroesophageal reflux disease History of renal stone History of shoulder fracture Hyperlipidemia Insulin resistance Obesity Paroxysmal atrial fibrillation Recurrent hematuria Tobacco dependence UTI (urinary tract infection) Vitamin D deficiency Home Medications multivit with minerals-iron 18 mg-folic ac 400 mcg-vit K 25 mcg tablet (Multi- Day Plus Minerals) 1 ea PO DAILY 10/13/15 [History Last Taken Unknown] apixaban 5 mg tablet (Eliquis) 5 mg PO BID #60 tabs 01/13/23 [Rx Last Taken Unknown] cholecalciferol (vitamin D3) 50 mcg (2,000 unit) tablet (Vitamin D3) 50 mcg PO DAILY 02/03/23 [History Last Taken Unknown] furosemide 40 mg tablet 40 mg PO DAILY #90 tabs 03/17/23 [Rx Last Taken Unknown] losartan 100 mg tablet 100 mg PO DAILY #90 tabs 03/17/23 [Rx Last Taken Unknown] metoprolol succinate 200 mg tablet,extended release 24 hr 200 mg PO DAILY #90 tabs 03/17/23 [Rx Last Taken Unknown] magnesium 200 mg tablet 120 mg PO DAILY 09/14/23 [History Last Taken Unknown] Allergy/AdvReac Type Severity Reaction Status Date / Time No Known Allergies Allergy Verified 08/04/23 15:10 Family History Mother Diabetes Hypertension Myocardial infarction Father Hypertension Heart disease Sister Diabetes Heart disease Grandmother CVA (cerebral vascular accident) Surgical History History of cardioversion (06/21/19) History of open reduction and internal fixation (ORIF) procedure History of tubal ligation Social History (Updated 09/14/23 @ 04:[address] Meli Altman MD) household members: spouse Smoking Status: Current every day smoker tobacco type: cigarettes Smoking packsper day: 1 Smoking cigarettes per day: 20.0 Tobacco: How many years used: 40 second hand exposure: Yes alcohol intake: never substance use type: does not use caffeine: Yes Type: coffee Number of servings: 3 what type of physical activity do you participate in: aerobics frequency: 3-4 times per week ROS ROS Narrative Admission Review of Systems: CONSTITUTIONAL: No weight loss, fever, chills, + weakness or fatigue. HEENT: Eyes: No visual loss, blurred vision, double vision or yellow sclerae. Ears, Nose, Throat: No hearing loss, sneezing, congestion, runny nose or sore throat. SKIN: No rash or itching, lesions, wounds. CARDIOVASCULAR: No chest pain, chest pressure or chest discomfort, palpitations,edema, orthopnea, syncopal events. RESPIRATORY: No shortness of breath, cough or sputum, wheezing, hemoptysis. GASTROINTESTINAL: + anorexia, nausea, vomiting, vomiting, abdominal discomfort. No melena, BRBPR. GENITOURINARY: + Dysuria, intermittent hematuria. No frequency, urgency or retention. NEUROLOGICAL: No headache, dizziness, syncope, paralysis, ataxia, numbness or tingling in the extremities, focal weakness, change in bowel or bladder control,seizure. MUSCULOSKELETAL: + muscle, back pain, joint pain or stiffness. HEMATOLOGIC: No anemia, bleeding or bruising. LYMPHATICS: No enlarged nodes. No history of splenectomy. PSYCHIATRIC: No history of depression or anxiety. ENDOCRINOLOGIC: No reports of sweating, cold or heat intolerance. No polyuria orpolydipsia. ALLERGIES: No history of asthma, hives, eczema or rhinitis. Vital Signs Vital Signs Vital Signs: 09/14/23 00:57 09/14/23 02:57 Temperature 97.9 F Temperature Source Temporal Pulse Rate 71 64 Respiratory Rate 20 H 19 H Blood Pressure 169/73 H 143/50 H Blood Pressure Mean 105 81 Pulse Ox 98 96 Oxygen Delivery Method Room Air Weight Weight: 192 lb 14.472 oz Body Mass Index (BMI) 36.4 Physical Exam Narrative Physical Examination: General: Awake, alert, oriented x 3 and cooperative, seated upright in the ED bed, appears comfortable but reporting pain 10 out of 10 in severity to the abdomen. Skin: Normal color, normal turgor, no icterus, no cyanosis. HEENT: AT/NC, EOMI, PERRLA, mildly dry MM, no carotid bruits or JVD noted. Lungs: Mildly diminished, distant, appropriate effort, no evidence any distress,no rales, ronchi or wheezing. Heart: Regular rate and rhythm; no gallop, rub audible. Abdomen: Soft, obese, despite reporting tentative 10 pain patient abdomen soft, very minimal discomfort to left upper quadrant and epigastric region palpation, mildly distended without marked tympany, mildly hyperactive BS, no appreciated HSM. Extremities: No cyanosis, no clubbing, no marked peripheral edema. Neurological: Patient awake, alert, oriented as noted, cognitive function intact; pupils equally reactive to light and accommodation, cranial nerves grossly normal, moving all 4 extremities, no focal deficits, strength mildly to moderately globally decreased. Psychiatric: Affect appears mildly fatigued otherwise normal, no acute evidence of depressive or anxiety feelings. Results Lab / Micro Data 09/14/23 01:03 09/14/23 01:03 Labs: Laboratory Results - last 24 hr 09/14/23 01:03: WBC 13.9 H, RBC 5.65 H, Hgb 15.8 H, Hct 48.7 H, MCV 86.2, MCH 28.0, MCHC 32.4, RDW Std Deviation 47.8 H, RDW Coeff of Nhung 15.2 H, Plt Count 214, MPV 12.3 H, Immature Gran % (Auto) 0.300, Neut % (Auto) 58.7, Lymph % (Auto) 30.1, Daggett % (Auto) 7.8, Eos % (Auto) 2.2, Baso % (Auto) 0.9, Absolute Neuts (auto) 8.2 H, Absolute Lymphs (auto) 4.19, Nucleated RBC % 0, Sodium 138, Potassium 3.9, Chloride 106, Carbon Dioxide 25.0, Anion Gap 7, BUN 20 H, Creatinine 0.82, Estim Creat Clear Calc 68.76, Est GFR (MDRD) Af Amer 90, Est GFR (MDRD) Non-Af 74, BUN/Creatinine Ratio 24.4 H, Glucose 122 H, Calcium 9.3, Total Bilirubin 0.30, AST 11 L, ALT 24, Alkaline Phosphatase 65, Troponin I HighSens 5, Total Protein 6.9, Albumin 3.5, Globulin 3.4, Albumin/Globulin Ratio 1.0, Lipase 28 09/14/23 01:40: Urine Color Yellow, Urine Clarity Clear, Urine pH 5.0, Ur Specific [place] 1.020, Urine Protein 15 H, Urine Glucose (UA) Normal, Urine Ketones Negative, Urine Occult Blood 250 H, Urine Nitrite Negative, Urine Bilirubin Negative, Urine Urobilinogen Normal, Ur Leukocyte Esterase 500 H, Urine RBC 10-25 SEEN, Urine WBC 5-10 SEEN, Ur Squamous Epith Cells 5-10 SEEN, Calcium Oxalate Crystal 1+, Urine Bacteria 1+, Hyaline Casts 0-5 SEEN, Urine Mucus 1+ Imaging Radiology Impression Abdomen/Pelvis CT 09/14/23 01:05 IMPRESSION: 1. Mild mural thickening of duodenal sweep and some loops of jejunum suggests an enteritis. Question of abnormal mural thickening of the distal stomach versus artifact of nondistention. 2. Small prominent small bowel gas may represent ileus. No evidence for mechanical bowel obstruction. 3. Chronic pancreatitis. No evidence for acute pancreatitis. 4. Gallstones. 5. Nonobstructive renal calculi bilaterally. Mildly atrophic right kidney with cortical scarring. No demonstrated ureteral calculi or hydronephrosis. 6. Colonic diverticulosis without evidence for acute diverticulitis. 7. Atherosclerosis. 8. Umbilical hernia contains fat, but no bowel. Electronically Signed: Julio César Weber MD at 2:54 EDT , Assessment & Plan Assessment/Plan (1) Abdominal pain: PLAN: Plan The patient is a 67 y/o F w/ PMHx: Chart reported Hx Insulin resistance, Obesity, PAF/Flutter, HFpEF, HTN, HLD, GERD, Tobacco use, Valvular Heart diseasewho presents to the [facility] ED on 09/14/23 with history of abdominal pain ongoing for the last week primarily epigastric and left upper quadrant noted to be intermittent occasionally lasting hours but constant of late with over the last 24 hours persistent worsening abdominal discomfort with a boring sensation goingtoward her back with nausea and emesis as well as intermittent loose stools withno fevers or chills prompting ED evaluation. #1. Intractable nausea, emesis, diarrhea with abdominal discomfort, possible component of ileus, possible enteritis complicated by underlying chronic pancreatitis with no evidence of acute pancreatitis of note with underlying cholelithiasis: Given ongoing discomfort will admit to medical surgical floor, will maintain on judicious hydration given underlying heart failure history, will obtain c diff, stool cx. Procalcitonin requested. Given symptoms currently will maintain n.p.o. status on IV PPI until clinically improving with transition at that time to clears if appropriate. Anti-emetics, pain regimen PRN. Patient has had ongoing issues with occasional nausea and emesis and abdominal pain which they thought was from cholelithiasis but she reportedly wasseen by general surgeon Dr. Roberto who felt that another etiology was possible. Her current presentation is different and more acute in nature. If patient doesnot improve may need to consider gastric emptying versus endoscopies for furtherevaluation. #2. Questionable Acute Complicated Urinary Tract Infection: UA upon ED evaluation mildly remarkable with 500 leukocyte esterase, urine RBCs 10-25 with occult blood 250, urine WBCs to 5-10 with 1+ urine bacteria, pending UCx, continue judicious VFs, monitor I/Os, initiate on IV Rocephin to be cautious with de-escalation off therapy if unremarkable otherwise w/ transition as able pending sensitivities and speciation. #3. HFpEF: Most recent noted echocardiogram 02/18/2023 with normal LV size, LV systolic function normal, EF 60%, no regional wall motion abnormalities, mild AVinsufficiency. Will continue home eliquis, metoprolol, losartan, cautiously continue lasix but low threshold to hold given #1 but will monitor I&Os and if profound hold but no marked output noted in the ED, not on statin therapy of note, cautiously hydrating given history. #4. PAF/flutter: Will continue patient home metoprolol and Eliquis regimen. #5. Hypertension: Continue home regimen including metoprolol, losartan, Lasix judiciously given recent reported GI losses however no marked electrolyte disturbances noted, PRN hydralazine. #6. Hyperlipidemia: Per current list not on statin therapy, no allergy listed, defer to outpatient. #7. Valvular heart disease: ECHO 02/18/2023 with normal LV size, LV systolic function normal, EF 60%, no regional wall motion abnormalities, mild AV insufficiency. #8. Tobacco Abuse: Encouraged cessation, inpatient consultation per RT, NR if desired. #9. Obesity: Weight loss and lifestyle changes encouraged. #10. GERD: Will maintain on IV PPI given presentation concurrently as noted above. #11. DVT prophylaxis: Continue patient home Eliquis regimen. #12. CODE status: Patient HCPOA and living will are not in place but she notes her and her daughter would be her decision makers if necessary. Discussed CODE status at length including difference between FULL code, DNR-CCA and DNR-CC status. Following discussions about the differences in these status, requested Full Code status. Advanced Care Planning Face to Face Time: 16 minutes. Charges/Coding Visit Charges Inpatient E&M: 79390 Init Hosp L2 Procedures Hospitalists Procedures: 69548 Advncd Care Plan 30 Min 09/14/23 0410 <Electronically signed by Meli Altman MD> Cosigner Signature (if applicable): CC: Dr. Meli Altman MD; Dr. Selina Bowser MD~ Signed [facility] Work Phone: History and physical note Author Lester Friend [facility] Note Date/Time August 11, 2024 6:52 am [facility] Medical Records Department [address] [place] [id number] History & Physical Exam 08/11/24 0651 MR#: [id number] Acct: [id number] Name: YASMINE MTZ Rep #:[id number] : 1955 68 From: Lester Friend DO PCP: Dr. Selina Bowser MD Status:[facility] Location: [place] [address] HPI - General General Date of Admission: 08/11/24 Date of Service: 08/11/24 Chief Complaint: Esophageal varices HPI Narrative YASMINE MTZ, is a 68 F who presentsBGI established 01.28.24 after multiple hospitalizations for abd pain. General surgery believed etiology to be passing of gallstones. Hx of normal HIDA scan. EGD and colonoscopy many years ago. CT Abdomen/pelvis 09.14.23; 1. Mild mural thickening of duodenal sweep and some loops of jejunum suggests an enteritis. Question of abnormal mural thickening of the distal stomach versus artifact of nondistention. 2. Small prominent small bowel gas may represent ileus. No evidence for mechanical bowel obstruction. 3. Chronic pancreatitis. No evidence for acute pancreatitis. 4. Gallstones. 5. Nonobstructive renal calculi bilaterally. Mildly atrophic right kidney with cortical scarring. No demonstrated ureteral calculi or hydronephrosis. 6. Colonic diverticulosis without evidence for acute diverticulitis. 7. Atherosclerosis. 8. Umbilical hernia contains fat, but no bowel. HIDA scan 06.24.23; NORMAL 99m Tc Mebrofenin hepatobiliary imaging examination. A. Visualization of the gallbladder within 60 minutes post radiopharmaceutical administration excludes acute cholecystitis with 97% certitude. (Agata et al, Nucl Med [place] [employer] Press pg. 35, 1980). B. There appears to be spontaneous contraction and refilling of the gallbladder contents during the second hour of acquisition EGD 02.17.24: - Grade I esophageal varices. - Portal hypertensive gastropathy. - Erythematous duodenopathy. - Biopsy of ulcer Colonoscopy 02.17.24; Diverticulosis in the recto-sigmoid colon, in the sigmoid colon and in the descending colon. - Four 1 to 2 mm polyps in the rectum, removed with a hot snare. Resected and retrieved. - One 8 mm polyp in the sigmoid colon, removed with a cold snare. Resected and retrieved. - One 4 mm polyp at the splenic flexure, removed with a jumbo cold forceps. Resected and retrieved. - Stool in the rectum, in the sigmoid colon, in the descending colon, in the transverse colon and in the cecum. *PPI and Carafate started OV 1.9.25 Pt has been doing well since her scope. She is no longer having any abd pain or heartburn. She continues taking the pantoprazole but is no longer oncarafate. [facility] Medical History History of ulceration History of diverticulosis Gastric reflux Shortness of breath on exertion Esophageal varix Wears glasses High cholesterol History of GI bleed Sleep apnea Smoker Diverticulosis Cardiology follow-up encounter Back pain Leg cramps History of echocardiogram History of stress test History of atrial fibrillation History of kidney stones Obesity Cholelithiasis Insulin resistance Recurrent hematuria UTI (urinary tract infection) Vitamin D deficiency History of shoulder fracture History of renal stone Atrial flutter, chronic Tobacco dependence Paroxysmal atrial fibrillation Hyperlipidemia Essential hypertension Chronic diastolic CHF (congestive heart failure) Gastroesophageal reflux disease Colon polyps Family history of cardiovascular disease Diverticulosis Home Medications ?Medication ?Instructions ?Recorded ?Last Taken ?Type multivit with minerals-iron 18 1 ea PO DAILY 10/13/15 08/10/24 History mg-folic ac 400 mcg-vit K 25 mcg tablet (Multi-Day Plus Minerals) cholecalciferol (vitamin D3) 50 50 mcg PO DAILY 08/10/24 History mcg (2,000 unit) tablet (Vitamin D3) metoprolol succinate 200 mg 200 mg PO DAILY #90 tabs 1 05/17/22 08/11/24 05:00 Rx tablet,extended release 24 hr magnesium 200 mg tablet 400 mg PO DAILY 09/14/2307/05 History losartan 100 mg tablet 100 mg PO DAILY #90 tabs 08/11/24 05:00 Rx apixaban 5 mg tablet (Eliquis) 5 mg PO BID #60 TABLETS 03/29/24 08/10/24 08:00 Rx furosemide 40 mg tablet 40 mg PO DAILY #90 tabs 05/1208/10/24 Rx pantoprazole 40 mg tablet,delayed 40 mg PO DAILY PRN a mari reflux 07/25/24 Unknown History release Allergy/AdvReac Type Severity Reaction Status Date / Time No Known Allergies Allergy Verified 08/11/24 05:44 Family History Mother Diabetes Hypertension Myocardial infarction Father Hypertension Heart disease Sister Diabetes Heart disease Grandmother CVA (cerebral vascular accident) Surgical History History of colonoscopy History of colonoscopy with polypectomy History of lithotripsy (~2015) History of open reduction and internal fixation (ORIF) procedure (~2003) History of tubal ligation History of cardioversion (06/21/19) Social History household members: spouse Smoking Status: Current every day smoker (Patient smoked today.) tobacco type: cigarettes Tobacco: How many years used: 40 second hand exposure: Yes alcohol intake: never substance use type: does not use caffeine: Yes Type: coffee Number of servings: 3 what type of physical activity do you participate in: aerobics frequency: 3-4 times per week ROS Constitutional Constitutional: Denies fatigue, fever(s), poor appetite, weight gain or weight loss Gastrointestinal Gastrointestinal: Denies belching, bloating, change in bowel habits, change in stool character, chewing difficulty, coffee ground emesis, constipation, cramping, diarrhea, dyspepsia, dysphagia, early satiety, excessive flatus, fecalincontinence, heartburn, hematemesis, hematochezia, hemorrhoids, loose stools, melena, nausea, odynophagia, rectal bleeding, tenesmus, vomiting or weight changes Vital Signs Vital Signs Vital Signs: 08/11/24 05:47 08/11/24 05:49 08/11/24 06:26 Temperature 97.3 F L 97.3 F L Temperature Source Temporal Pulse Rate 71 71 Respiratory Rate 16 16 Respiratory Pattern Normal Blood Pressure 131/66 H 131/66 H Blood Pressure Mean 87 Blood Pressure Source Monitor Blood Pressure Position Semi-Fowlers Blood Pressure Location Right Arm Pulse Ox 99 99 Oxygen Delivery Method Room Air Room Air Weight Weight: 199 lb Body Mass Index (BMI) 36.3 Physical Exam Const alert, oriented x3, no apparent distress and healthy appearing General Appearance: cooperative GI normal to inspection, nondistended, normoactive bowel sounds, soft to palpation,non-tender and non-distended Percussion: normal to percussion Rectal Exam: deferred Assessment & Plan Assessment/Plan (1) Esophageal varix: PLAN: Assessment and Plan Assessment and Plan (1) Esophageal varix: Status: Acute (2) Fatty liver: Status: Acute (3) Gastric ulcer: Status: Acute Plan: This is a 68 yo female pt here today for f/u after EGD. EGD showed a gastric ulcer, hypertensive gastropathy, esophageal varix and erythematous duodenopathy.She has been taking Pantoprazole and finished her Carafate which did help with her symptoms. She is no longer having abd pain or heartburn. She will undergo a repeat EGD to assess for healing of the gastric ulcer. Pt has no hx of cirrhosisor alcohol use yet she has esophageal varix and gastropathy. She will have chronic liver blood work and liver elastography -Chronic liver disease work up -Liver elastography -Repeat EGD Orders: Orders Ammonia Today I85.00 - Esophageal varices without bleeding, K76.0 - Fatty (change of) liver, not elsewhere classified EVELYN Comprehensive Panel Today I85.00 - Esophageal varices without bleeding, K76.0 - Fatty (change of) liver, not elsewhere classified ANCA Today I85.00 - Esophageal varices without bleeding, K76.0 - Fatty (change of) liver, not elsewhere classified Angiotensin Convert Enzyme Today I85.00 - Esophageal varices without bleeding, K76.0 - Fatty (change of) liver, not elsewhere classified Anti-Smooth Muscle ABS Today I85.00 - Esophageal varices without bleeding, K76.0 - Fatty (change of) liver, not elsewhere classified Anti-Mitochondrial AB Today I85.00 - Esophageal varices without bleeding, K76.0- Fatty (change of) liver, not elsewhere classified CBC W/Diff, Automated Today I85.00 - Esophageal varices without bleeding, K76.0- Fatty (change of) liver, not elsewhere classified Ceruloplasmin Today I85.00 - Esophageal varices without bleeding, K76.0 - Fatty(change of) liver, not elsewhere classified Comprehensive Metabolic Profil Today I85.00 - Esophageal varices without bleeding, K76.0 - Fatty (change of) liver, not elsewhere classified Copper, Serum or Plasma Today I85.00 - Esophageal varices without bleeding, K76.0 - Fatty (change of) liver, not elsewhere classified CRP Today I85.00 - Esophageal varices without bleeding, K76.0 - Fatty (change of) liver, not elsewhere classified Erythrocyte Sed Rate Today I85.00 - Esophageal varices without bleeding, K76.0 - Fatty (change of) liver, not elsewhere classified Ferritin Today I85.00 - Esophageal varices without bleeding, K76.0 - Fatty (change of) liver, not elsewhere classified Hepatitis Panel Acute Today I85.00 - Esophageal varices without bleeding, K76.0- Fatty (change of) liver, not elsewhere classified, R10.11 - Right upper quadrant pain Prothrombin Time w/INR Today I85.00 - Esophageal varices without bleeding, K76.0 - Fatty (change of) liver, not elsewhere classified Triglycerides Today I85.00 - Esophageal varices without bleeding, K76.0 - Fatty(change of) liver, not elsewhere classified Iron Binding Capacity,Total Today I85.00 - Esophageal varices without bleeding,K76.0 - Fatty (change of) liver, not elsewhere classified Lipid Profile Today I85.00 - Esophageal varices without bleeding, K76.0 - Fatty(change of) liver, not elsewhere classified ABD Limited w/ Elastography Today I85.00 - Esophageal varices without bleeding,K76.0 - Fatty (change of) liver, not elsewhere classified 08/11/24 0652 <Electronically signed by Lester Grimaldo DO> Cosigner Signature (if applicable): CC: Dr. Selina Bowser MD; Lester Grimaldo DO~ Signed [facility] Work Phone: Hospital Discharge instructions Additional Instructions Thank you for trusting us with your care today! The source of your pain is unclear. Your labs do not suggest your pain is associated with something that is life-threatening. Please take Tylenol (2 pills, 650 mg), ibuprofen (2 pills, 400 mg) every 6 hours as needed for pain and fever control. Please return to the emergency department if your symptoms change or worsen. Please follow with your primary care physician and/or gastroenterology n for further outpatient evaluation and management.[facility] Work Phone: Reason for referral (narrative)No reason for referral information availableWooUniversity [facility]als [facility] Work Phone: Summary Purpose Family History No Family History Records Found Relationship Condition Age at Onset Recorded Date/T augusto mother Diabetes mellitus Unknown Hypertension Unknown Myocardial infarction Unknown father Hypertension Unknown Cardiac disease Unknown sister Diabetes mellitus Unknown grandmother Cerebrovascular accident (CVA) Unknown Advance Directives No Advanced Directives Records Found Advance Directive Response Recorded Date/ Time Advance Directives No April 15, 2021 11:57am Living Will No April 15 11:57am Power of Chief Hospital Administrator No April 15, 2021 11:57am Advance Directive Response Recorded Date/ Time Advance Directives No April 15, 2021 10:57am Living Will No April 15 10:57am Power of Chief Hospital Administrator No April 15, 2021 10:57am Advance Directive Response Recorded Date/ Time Advance Directives No April 15, 2021 10:57am Living Will No May 21 9:27pm Power of Chief Hospital Administrator No May 21, 2023 9:27pm Advance Directive Response Recorded Date/ Time Advance Directives No May 22, 2023 9:10am Living Will No May 22 9:10am Power of Chief Hospital Administrator No May 22, 2023 9:10am Advance Directive Response Recorded Date/ Time Advance Directives No May 22, 2023 10:10am Living Will No September 14, 2023 12 :59am Power of Chief Hospital Administrator No September 14, 2023 12:59am Advance Directive Response Recorded Date/ Time Advance Directives No May 22, 2023 10:10am Living Will No September 14, 2023 5: 11am Power of Chief Hospital Administrator No September 14, 2023 5:11am Advance Directive Response Recorded Date/ Time Living Will No September 14, 2023 5: 11am Do you have a Healthcare Power of Chief Hospital Administrator? No September 14, 2023 5:11am Living Will No July 25, 2024 2:46pm Do you have a Healthcare Power of Chief Hospital Administrator? No July 25, 2024 2:46pm Advance Directives No May 22, 2023 10:10am Advance Directive Response Recorded Date/ Time Living Will No July 25, 2024 2:46pm Do you have a Healthcare Power of Chief Hospital Administrator? No July 25, 2024 2:46pm Advance Directives No May 22, 2023 10:10am Chief Complaint and Reason for Visit Chief Complaint CHK UP E-ORDER Reason for Visit Elevated blood sugar Left leg swelling Persistent atrial fibrillation Vitamin D deficiency Essential hypertension Hyperlipidemia Morbid obesity Paroxysmal atrial fibrillation Tobacco dependence Chief Complaint r/s from feb. chk up E ORDER INT LABS Reason for Visit Elevated blood sugar Insulin resistance Persistent atrial fibrillation Vitamin D deficiency Chronic diastolic CHF (congestive heart failure) Essential hypertension Hyperlipidemia Morbid obesity Tobacco dependence Chief Complaint r/s from feb. chk up E ORDER INT LABS NICOTINE DEP Reason for Visit Elevated blood sugar Insulin resistance Persistent atrial fibrillation Vitamin D deficiency Chronic diastolic CHF (congestive heart failure) Essential hypertension Hyperlipidemia Morbid obesity Tobacco dependence Chief Complaint 1 Y FU 6 M FU e orders BILATERAL LEG PAIN, SPINAL STENOSIS Reason for Visit Essential hypertensi on Hyperlipidemia Paroxysmal atrial fibrillation Insulin resistance Leg pain, bilateral Spinal stenosis Essential hypertension Hyperlipidemia Morbid obesity Persistent atrial fibrillation Tobacco dependence Chief Complaint 1 Y FU 6 M FU e orders BILATERAL LEG PAIN, SPINAL STENOSIS LEFT FLANK PAIN Reason for Visit Essential hypertensi on Hyperlipidemia Paroxysmal atrial fibrillation Insulin resistance Leg pain, bilateral Spinal stenosis Essential hypertension Hyperlipidemia Morbid obesity Persistent atrial fibrillation Tobacco dependence Chief Complaint LEFT FLANK PAIN 2 M FU 6 M FU CARDIAC MURMUR Amb Documentation Reason for Visit Left flank pain Leg pain, bilateral Essential hypertension Cardiac murmur Essential hypertension Hyperlipidemia Paroxysmal atrial fibrillation Chief Complaint 6 M FU CARDIAC MURMUR Amb Documentation ABD PAIN Reason for Visit Cardiac murmur Essential hypertension Hyperlipidemia Paroxysmal atrial fibrillation Chief Complaint 6 M FU CARDIAC MURMUR Amb Documentation ABD PAIN [facility] ER FU E ORDERS Reason for Visit Cardiac murmur Essential hypertension Hyperlipidemia Paroxysmal atrial fibrillation Abdominal bloating RUQ pain Chief Complaint ABD PAIN [facility] ER FU E ORDERS GALLSTONES & RUQ PAIN GALLSTONES Reason for Visit Abdominal bloating RUQ pain Gallstones RUQ pain Umbilical hernia without mention of obstruction or gangrene Chief Complaint ABD PAIN [facility] ER FU E ORDERS G[place]STONES & RUQ PAIN GALLSTONES 6 M FU N/V/D Reason for Visit Abdominal bloating RUQ pain Gallstones RUQ pain Umbilical hernia without mention of obstruction or gangrene Aortic valve insufficiency Essential hypertension Hyperlipidemia Paroxysmal atrial fibrillation Abdominal pain Ileus Chief Complaint ABD PAIN [facility] ER FU E ORDERS GALLSTONES & RUQ PAIN GALLSTONES 6 M FU N/V/D N/V/D Reason for Visit Abdominal bloating RUQ pain Gallstones RUQ pain Umbilical hernia without mention of obstruction or gangrene Aortic valve insufficiency Essential hypertension Hyperlipidemia Paroxysmal atrial fibrillation Abdominal pain Ileus Chief Complaint Admit Date 3 M FU May 19, 2024 2: 53pm E-ORDER May 19, 2024 3: 25pm FATTY LIVER June 02, 2024 8 :38am Reason for Visit Admit Date Esophageal varix May 19, 2024 2: 53pm Fatty liver May 19, 2024 2: 53pm Gastric ulcer May 19, 2024 2: 53pm Esophageal varix August 11, 2024 5:30 am Chief Complaint Admit Date 6 M FU November 01, 2024 3:39 pm Reason for Visit Admit Date Esophageal varix August 11, 2024 5:30 am Aortic valve insufficiency November 01 3:39pm Smoker November 01, 2024 3:39 pm Essential hypertension November 01, 2024 3 :39pm Hyperlipidemia November 01, 2024 3:39 pm Paroxysmal atrial fibrillation October 3:39pm Additional Source Comments INFORMATION SOURCE (unrecogn ized section and content) DATE CREATED AUTHOR 10/30/2017 [facility] DATE CREATED AUTHOR AUTHOR'S ORGANIZ ATION 10/30/2017 [facility] DATE CREATED AUTHOR AUTHOR'S ORGANIZ ATION 12/03/2019 [facility] DATE CREATED AUTHOR AUTHOR'S ORGANIZ ATION 09/21/2020 [facility] DATE CREATED AUTHOR AUTHOR'S ORGANIZ ATION 11/02/2024 [facility] Goals (unrecognized section and content) Goals may be documented in a n alternate sectionGoals may be documented in an alternate sectionGoals may be documented in an alternate sectionGoals may be documented in an alternate sectionGoals may be documented in an alternate sectionGoals may be documented in an alternate sectionGoals may be documented in an alternate sectionGoals may be documented in an alternate sectionGoals may be documented in an alternate sectionGoals may be documented in an alternate sectionGoals may be documented in an alternate section Care Teams (unrecognized sec tion and content) Team Status: Active Member Role Status Dates Dr. Adán Yost MD Family Provider Active Dr. Selina Bowser MD Primary Care Provider Active Team Status: Inactive Member Role Status Dates Dr. Selina Bowser MD Primary Care Provider, [facility] Provider Active Team Status: Inactive Member Role Status Dates Dr. Selina Bowser MD Primary Care Pro vider, Attending Provider, Referring Provider Active Team Status: Inactive Member Role Status Dates Dr. Selina Bowser MD Primary Care Provider, Referri ng Provider Active Dr. Marcelo Merrill MD Attending Provider Active Team Status: Active Member Role Status Dates Dr. Selina Bowser MD Primary Care Provider Active Dr. Jayesh Segundo MD Attending Provider Active Team Status: Active Member Role Status Dates Dr. Selina Bowser MD Primary Care Pro vider, Attending Provider, Referring Provider Active Team Status: Active Member Role Status Dates Dr. Selina Bowser MD Primary Care Provider, Referri ng Provider Active Dr. Jayesh Segundo MD Attending Provider Active Team Status: Inactive Member Role Status Dates Dr. Selina Bowser MD Primary Care Provider, Referri ng Provider Active Brooke Christianson TECHNICAL PROJECT MANAGER, TECHNICAL PROJECT MANAGER-C Attending Provider Active Team Status: Active Member Role Status Dates Dr. Selina Bowser MD Primary Care Provider Active Dr. Marcelo Merrill MD Attending Provider Active Team Status: Active Member Role Status Dates Dr. Selina Bowser MD Primary Care Provider Active Brooke Christianson TECHNICAL PROJECT MANAGER, TECHNICAL PROJECT MANAGER-C Attending Provider Active Team Status: Inactive Member Role Status Dates Dr. Selina Bowser MD Primary Care Provider Active Brooke Christianson TECHNICAL PROJECT MANAGER, TECHNICAL PROJECT MANAGER-C Attending Provider Active Team Status: Active Member Role Status Dates Dr. Selina Bowser MD Primary Care Provider Active Dr. Marcelo Merrill MD Attending Provider, Referring Pro vider Active Team Status: Inactive Member Role Status Dates Dr. Selina Bowser MD Primary Care Provider Active Dr. Sloan Melendez DO Emergency Provider Active Team Status: Inactive Member Role Status Dates Dr. Selina Bowser MD Primary Care Provider Active Dr. Sloan Melendez DO Attending Provider, Emergency P rovider Active Team Status: Inactive Member Role Status Dates Dr. Selina Bowser MD Primary Care Provider, Referri ng Provider Active Dr. Julien Roberto MD Attending Provider Active Team Status: Inactive Member Role Status Dates Dr. Selina Bowser MD Primary Care Provider Active Dr. Julien Roberto MD Attending Provider, Referring P rovider Active Team Status: Active Member Role Status Dates Dr. Selina Bowser MD Primary Care Provider Active Rashaad Rooney MD Emergency Provider Active Dr. Meli Altman MD Admit Provider, Attending Prov ider Active Team Status: Active Member Role Status Dates Dr. Selina Bowser MD Primary Care Provider Active Rashaad Rooney MD Emergency Provider Active Dr. Meli Altman MD Admit Provider, Other Provider Active Dr. Marguerite Cheng DO Attending Provider, Other Provide r Active Team Status: Inactive Member Role Status Dates Dr. Selina Bowser MD Primary Care Provider Active Rashaad Rooney MD Emergency Provider Active Dr. Meli Altman MD Admit Provider, Other Provider Active Dr. Marguerite Cheng DO Attending Provider Active Team Status: Active Member Role Status Dates Dr. Selina Bowser MD Primary Care Provider Active Team Status: Inactive Member Role Status Dates Dr. Selina Bowser MD Primary Care Provider Active Start: May 19, 2024 End: May 19, 2024 Dr. Selina Bowser MD Referring Provider Active Start: May 19, 2024 End: May 19, 2024 SUE Barfield Attending Provider Active Start: May 19, 2024 End: May 19, 2024 Team Status: Inactive Member Role Status Dates Dr. Selina Bowser MD Primary Care Provider Active Start: May 19, 2024 End: May 19, 2024 SUE Barfield Attending Provider Active Start: May 19, 2024 End: May 19, 2024 SUE Barfield Referring Provider Active Start: May 19, 2024 End: May 19, 2024 Team Status: Inactive Member Role Status Dates Dr. Selina Bowser MD Primary Care Provider Active Start: June 02, 2024 End: June 02, 2024 SUE Barfield Attending Provider Active Start: June 02, 2024 End: June 02, 2024 SUE Barfield Referring Provider Active Start: June 02, 2024 End: June 02, 2024 Team Status: Inactive Member Role Status Dates Dr. Selina Bowser MD Primary Care Provider Active Start: June 22, 2024 End: June 22, 2024 SUE Barfield Attending Provider Active Start: June 22, 2024 End: June 22, 2024 SUE Barfield Referring Provider Active Start: June 22, 2024 End: June 22, 2024 Team Status: Inactive Member Role Status Dates Dr. Selina Bowser MD Primary Care Provider Active Start: August 11, 2024 End: August 11, 2024 Dr. Selina Bowser MD Referring Provider Active Start: August 11, 2024 End: August 11, 2024 Dr. Lester Grimaldo DO Attending Provider Active Start: August 11, 2024 End: August 11, 2024 Team Status: Active Member Role Status Dates Dr. Selina Bowser MD Primary Care Provider Active Start: August 11, 2024 Dr. Selina Bowser MD Referring Provider Active Start: August 11, 2024 Dr. Lester Grimaldo DO Attending Provider Active Start: August 11, 2024 Dr. Lester Grimaldo DO Other Provider Active St art: August 11, 2024 Team Status: Inactive Member Role Status Dates Dr. Selina Bowser MD Primary Care Provider Active Start: November 01, 2024 End: November 01, 2024 Dr. Selina Bowser MD Referring Provider Active Start: November 01, 2024 End: November 01, 2024 Victor M Mak NP, TECHNICAL PROJECT MANAGER-C Attending Provider Active S tart: November 01, 2024 End: November 01, 2024 FOR RECORDS PERTAINING TO PATIENTS WHO ARE [...] BE BASED ON THE PRIMARY CLINICAL RECORDS. [facility] [employer] [facility]. provides no warranty or guarantee of the accuracy or completeness of information in this document.
[2025-01-22 09:40] LABS: Prothrombin Time (Protime)PT. 14.1 SECONDS (11.7-14.9)
[2025-01-22 09:41] LABS: Partial Thromboplast Time 39.8 Seconds (24.1-36.2)
[2025-01-22 09:42] LABS: Mucous, Urine 0 SEEN /hpf (<or=2+)
[2025-01-22 09:43] LABS: Color, Urine Red (Yellow); Glucose, Dipstick Normal (Normal); Ketone-Dipstick Negative (Negative); Leukocyte Esterase-Dipstick 25 /ul (Negative); Nitrite-Dipstick Negative (Negative); Occult Blood-Urine 250 /ul (Negative); Protein-Dipstick 500 mg/dl (Negative); Specific Gravity, Urine 1.010 (1.002-1.030); Urine Bilirubin Dipstick Negative (Negative)
[2025-01-22 09:49] LABS: Red Blood Cells-Urine > 100 SEEN /hpf (0-5); Squamous Epithelial Cells - UA 0-5 SEEN /hpf (5-10)
[2025-01-22 09:58] VITALS: BP 111/53; PULSE 60; RESP 16; TEMP 36.6; O2SAT 93
[2025-01-22 10:00] VITALS: BP 111/34; PULSE 60; RESP 14; TEMP 36.6; O2SAT 93
[2025-01-22 10:52] LABS: Anion Gap 13 (5-15); BUN 21 mg/dL (4-19); BUN/Creat Ratio 25.5 RATIO (10-20); Calcium,Total 9.6 mg/dL (7.6-11.0); Carbon Dioxide 24.6 mmol/L (21.0-32.0); Chloride 102 mmol/L (98-108); Estimated Creatinine Clearance 70.26 ml/min (50-250); Glucose 119 mg/dL (70-99); Potassium 4.2 mmol/L (3.3-5.1)
[2025-01-22 10:55] VITALS: BP 121/40; PULSE 65; RESP 16; O2SAT 94
[2025-01-22 11:18] VITALS: BP 121/40; PULSE 65; RESP 16; TEMP 37.1; O2SAT 94
== END 2025-01-22 11:22 | disposition home or self-care (01) ==
PROVIDERS: Emergency Provider Emergency Medicine; PCP Internal Medicine; Visit Provider Emergency Medicine
DX: N20.0 Calculus of kidney (principal); I11.0 Hypertensive heart disease with heart failure; I50.32 Chronic diastolic (congestive) heart failure; E78.00 Pure hypercholesterolemia, unspecified; F17.210 Nicotine dependence, cigarettes, uncomplicated; Z98.51 Tubal ligation status; R31.9 Hematuria, unspecified; R10.9 Unspecified abdominal pain; Z87.440 Personal history of urinary (tract) infections
CPT/HCPCS: 74176; 80048; 81001; 85025; 85610; 85730; 96361; 96374; 96375; 99284; A4216; J2405